=== PATIENT | male | born 1980 | race Caucasian/White ===

== ENCOUNTER 2025-05-13 10:47 | Outpatient (CLI) | payer MEDICARE, MEDICAID, SELFPAY ==
--- OUTSIDE RECORDS SUMMARY | 2025-05-13 10:51 | XMS_ITS | Clinical Summary ---
Author Organization Healthcare Address [address] [place] [address] Care Team Providers Care Bill Of Lading Clerk Name Role Phone Burke Bonilla MD Primary Care Provider [phone] Latricia Rome MD Unavailable Allergies Active Allergy Reactions Criticality Noted Date Comments Corticosteroids Palpitations Low 07/23/2021 Wound Dressing Adhesive Rash Low 01/02/2024 1Causes a rash Medications atorvastatin (Lipitor) 40 MG tablet 1 tab(s) orally once a day (at bedtime) Active LORazepam (Ativan) 2 MG tablet 3 (three) times a day if needed. 03/07/20 21 Active losartan (Cozaar) 100 MG tablet 1 (one) time each day. Active traZODone (Desyrel) 50 MG tablet 09/25/20 20 Active cholecalciferol (Vitamin D3) 1.25 MG (69984 UT) capsule Vitamin D3 Active Vitamin E 100 UNIT/GM cream 08/06/20 19 Active aspirin 81 MG EC tablet Aspir-Low 81 mg tablet,delayed release Daily Active calcium acetate (Phoslo) 667 MG capsule 4 capsules (2,668 mg) every 8 hours. 06/13/20 15 Active carvedilol (Coreg) 6.25 MG tablet 06/13/20 15 Active minoxidil (Loniten) 2.5 MG tablet Take 1 tablet (2.5 mg) by mouth daily. Don't take on dialysis days 08/06/20 19 Active nitroglycerin (Nitrostat) 0.4 MG SL tablet nitroglycerin 0.[address] 1 tablet as needed by sublingual route as directed. Active sertraline (Zoloft) 25 MG tablet 07/22/20 21 Active renal multivitamin formula (Renavite) tablet tablet Take 1 tablet by mouth daily. Active hydrALAZINE (Apresoline) 25 MG tablet hydralazine 25 mg tablet TAKE 1 TABLET BY MOUTH THREE TIMES DAILY Active Blood Glucose Monitoring Suppl (FreeStyle Lite) w/Device kit USE TO CHECK GLUCOSE DIRECTED ONCE DAILY 07/29/20 23 Active carvedilol (Coreg) 12.5 MG tablet Take 1 tablet (12.5 mg) by mouth 2 (two) times a day. 01/02/20 24 Active glimepiride (Amaryl) 4 MG tablet Take 1 tablet (4 mg) by mouth 1 (one) time each day. 07/25/20 23 Active FREESTYLE LITE test strip USE 1 STRIP TO CHECK GLUCOSE TWICE DAILY 11/16/19 24 Active midodrine (Proamatine) 10 MG tablet 01/13/20 24 Active sertraline (Zoloft) 50 MG tablet Take 1 tablet (50 mg) by mouth daily. 01/07/20 24 Active traZODone (Desyrel) 100 MG tablet Take 1 tablet (100 mg) by mouth nightly. 01/14/20 24 Active FreeStyle Lancets USE 1 TO CHECK GLUCOSE TWICE DAILY 07/29/20 23 Active glimepiride (Amaryl) 1 MG tablet Take 1 tablet (1 mg) by mouth daily before breakfast. Active levETIRAcetam (Keppra) 250 MG tablet Take 1 tablet by mouth every other day. Take 250 mg after HD on TTS 15 tablet 01/29/20 25 026 Active levETIRAcetam (Keppra) 500 MG tablet Take 1 tablet by mouth 2 times a day. 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 History of stroke 12/09/2022 Encounters Date Type Department Care Team Description 03/02/2025 Telephone [place] [facility] [address], [address] [place] [address] Stu Rosales MD Med Refill from Last 3 Months Family History Medical History Relation Name Comments Seizures Cousin Seizures Mother Conversions - Other Other Family h istory unknown Relation Name Status Comments Cousin Mother Other Social History Tobacco Use Types Packs/Day Years Used Date Smoking Tobacco: Every Day Cigarettes Smokeless Tobacco: Never Tobacco Cessation:Ready to Q uit: Not Asked; Counseling Given: Not Answered Alcohol Use Standard Drinks/Week Comments Never 0 (1 standard drink = 0.6 oz pur e alcohol) Sex and Gender Information Value Date Recorded Sex Assigned at Not on file Legal Sex Male 6:47 PM EDT Gender Identity Not on file Sexual Orientation Not on file Last Filed Vital Signs Vital Sign Reading Time Taken Comments Blood Pressure 136/82 11/29/2024 2:02 PM EST Pulse 75 11/29/2024 2:02 PM EST Temperature 36.8 C (98.3 F) 06/03/2024 5:42 AM EDT Respiratory Rate 20 06/03/2024 5:42 AM EDT Oxygen Saturation 98% 11/29/2024 2:02 PM EST Inhaled Oxygen Concentration - - Weight 75.8 kg (167 lb) 11/29/2024 2:02 PM EST Height 182.9 cm (6') 11/29/2024 2:02 PM EST Body Mass Index 22.65 11/29/2024 2:02 PM EST Plan of Treatment Upcoming Encounters Date Type Department Care Team (Late st Contact Info) Description 11/21/2025 2:00 PM EST Office Visit [place] [facility] [address] [place] [address] Stu Rosales MD [address] [place], [place] [id number] Health Maintenance Due Date Last Done Comments [facility]-Depression Screening 1979 [facility]-Medicare Annual Wellness (AWV) 1979 [facility]-Infant/Child/Adol SDOH Screenings 1979 [facility]- SDOH Screenings 1997 [facility]-Adult SDOH Screenings 1997 [facility]-DTaP,Tdap,and Td Vaccines (1 - Tdap) 1998 [facility]-Hepatitis B Vaccines (1 of 3 - 19+ 3-dose series) 1998 HPV Vaccines (1 - 3-dose SCDM series) 2006 CT Colonography 2024 Colonoscopy 2024 FIT-DNA 2024 FIT 2024 FOBT 2024 Sigmoidoscopy 2024 [facility]-Colorectal Cancer Screening 2024 [facility]-Influenza Vaccine (#1) 05/30/202507/12, 07/13/2021, 07/02/2019, Additional history exists [facility]-Pneumococcal Vaccine: Pediatrics (0 to 5 Years) and At-Risk Patients (6 to 49 Years) (3 of 3 - PCV) 06/25/2025 06/25/2024, 07/02/2019 [facility]-Zoster Vaccines (1 of 2) 2029 [facility]-HIV Screening Completed 06/02/2024 [facility]-Hepatitis C Screening Completed 06/02/2024, [id number] Vaccine Completed 06/25/2024, 09/12/2023, 12/07/2020 [facility]-HIB Vaccines Aged Out No longer e ligible based on patient's age to complete this topic [facility]-Hepatitis A Vaccines Aged Out No longer eligible based on patient's age to complete this topic [facility]-IPV Vaccines Aged Out No longer e ligible based on patient's age to complete this topic [facility]-Rotavirus Vaccines Aged Out No lo nger eligible based on patient's age to complete this topic Procedures Procedure Name Priority Date/Time Associated Diagnosis Comments HEPATITIS C ANTIBODY - ED W/REFLEX TO HCV QUANT PCR STAT 06/02/2024 11:39 PM EDT ED HIV 1/2 ANTIBODY/ANTIGEN SCREEN WITH REFLEX TO HIV I/II DIFFERENTIATION STAT 06/02/2024 11:39 PM EDT from Last 3 Months or Most Recently Relevant to Health Maintenance Results * ED HIV 1/2 Antibody/Antigen Screen w/Reflex to HIV 1/2 Differentiation (06/02/2024 11:39 PM EDT) HIV 1 & 2 Antibody/Antigen Screen Non Reactive Non Reactive 06/03/2024 1:01 AM EDT [facility] Comment:Screening for HIV 1 & 2 antibodies, and P24 antigen is NONREACTIVE. No confirmatory testing is required. Blood Venous blood specimen / Unknown Venipuncture / Unknown 06/02/2024 11:39 PM EDT 06/03/2024 12:17 AM EDT Yovani Belle MD LAB BLOOD ORDERABLES Final Re sult [facility] [address] [place] [address] * Hepatitis C Antibody - ED (06/02/2024 11:39 PM EDT) Hepatitis C Antibody Negative Negative 06/03/2024 1:08 AM EDT [facility]ALTH[facility] Blood Venous blood specimen / Unknown Venipuncture / Unknown 06/02/2024 11:39 PM EDT 06/03/2024 12:17 AM EDT Yovani Belle MD LAB BLOOD ORDERABLES Final Re sult Performing Organization Address City/[facility] Co de Phone Number [facility] [address] [place] [address] from Last 3 Months or Most Recently Relevant to Health [place] [address] [facility] Care Teams Bill Of Lading Clerk Relationship Specialty Start Date End Date Burke Bonilla MD [address] [place] [phone] PCP - General 02/09/21 Latricia Rome MD [address] [place] [id number] Resident Neurology 07/23/21
--- OUTSIDE RECORDS SUMMARY | 2025-05-13 10:51 | XMS_ITS | Encounter Summary ---
Author Organization [employer] ([place], [place], [place], [place]) Address [address] [place] [address] Care Team Providers Care [employer]gen[employer] Supervisor Name Role Phone Burke Bonilla MD Primary Care Provider Encounter Details Date Type Department Care Team (Late st Contact Info) Description 07/09/2021 Transcribed Document [facility] [place] [facility] [place] [address] ProviderNikki MD [address] [place] [address] Social History Tobacco Use Types Packs/Day Years Used Date Smoking Tobacco: Never Assessed Sex and Gender Information Value Date Recorded Sex Assigned at Male 03/26/2022 6:18 PM CDT Legal Sex Male 6:18 PM CDT Gender Identity Male 03/26/2022 6:18 PM CDT Sexual Orientation Not on file documented as of this encounter Miscellaneous Notes * Cerner Conversion Note - Nikki Castellanos MD - 07/09/2021 1:37 PM CDT Patient Education Materials Follows: Dialysis Fistulogram, Care After This sheet gives you information about how to care for yourself after your procedure. Your health care provider may also give you more specific instructions. If you have problems or questions, contact your health care provider. What can I expect after the procedure? After the procedure, it is common to have: ??? A small amount of discomfort in the area where the small, thin tube (catheter) was placed for the procedure. ??? A small amount of bruising around the fistula. ??? Sleepiness and tiredness (fatigue). Follow these instructions at home: Activity ??? Rest at home and do not lift anything that is heavier than 5 lb (2.3 kg) on the day after your procedure. ??? Return to your normal activities as told by your health care provider. Ask your health care provider what activities are safe for you. ??? Do not drive or use heavy machinery while taking prescription pain medicine. ??? Do not drive for 24 hours if you were given a medicine to help you relax (sedative) during your procedure. Medicines ??? Take xieo-zrc-woyypqi and prescription medicines only as told by your health care provider. Puncture site care ??? Follow instructions from your health care provider about how to take care of the site where catheters were inserted. Make sure you: ? Wash your hands with soap and water before you change your bandage (dressing). If soap and water are not available, use hand copy chaser. ? Change your dressing as told by your health care provider. ? Leave stitches (sutures), skin glue, or adhesive strips in place. These skin closures may need to stay in place for 2 weeks or longer. If adhesive strip edges start to loosen and curl up, you may trim the loose edges. Do not remove adhesive strips completely unless your health care provider tells you to do that. ??? Check your puncture area every day for signs of infection. Check for: ? Redness, swelling, or pain. ? Fluid or blood. ? Warmth. ? Pus or a bad smell. General instructions ??? Do not take baths, swim, or use a hot tub until your health care provider approves. Ask your health care provider if you may take showers. You may only be allowed to take sponge baths. ??? Monitor your dialysis fistula closely. Check to make sure that you can feel a vibration or buzz (a thrill) when you put your fingers over the fistula. ??? Prevent damage to your graft or fistula: ? Do not wear tight-fitting clothing or jewelry on the arm or leg that has your graft or fistula. ? Tell all your health care providers that you have a dialysis fistula or graft. ? Do not allow blood draws, IVs, or blood pressure readings to be done in the arm that has your fistula or graft. ? Do not allow flu shots or vaccinations in the arm with your fistula or graft. ??? Keep all follow-up visits as told by your health care provider. This is important. Contact a health care provider if: ??? You have redness, swelling, or pain at the site where the catheter was put in. ??? You have fluid or blood coming from the catheter site. ??? The catheter site feels warm to the touch. ??? You have pus or a bad smell coming from the catheter site. ??? You have a fever or chills. Get help right away if: ??? You feel weak. ??? You have trouble balancing. ??? You have trouble moving your arms or legs. ??? You have problems with your speech or vision. ??? You can no longer feel a vibration or buzz when you put your fingers over your dialysis fistula. ??? The limb that was used for the procedure: ? Swells. ? Is painful. ? Is cold. ? Is discolored, such as blue or pale white. ??? You have chest pain or shortness of breath. Summary ??? After a dialysis fistulogram, it is common to have a small amount of discomfort or bruising in the area where the small, thin tube (catheter) was placed. ??? Rest at home on the day after your procedure. Return to your normal activities as told by your health care provider. ??? Take tjui-gvw-jimcxiw and prescription medicines only as told by your health care provider. ??? Follow instructions from your health care provider about how to take care of the site where the catheter was inserted. ??? Keep all follow-up visits as told by your health care provider. This information is not intended to replace advice given to you by your health care provider. Make sure you discuss any questions you have with your health care provider. Document Revised: 10/16/2018 Document Reviewed: 10/16/2018 [employer] Patient Education ? 2020 [employer] Pharmacology Moderate Conscious Sedation, Adult, Care After This sheet gives you information about how to care for yourself after your procedure. Your health care provider may also give you more specific instructions. If you have problems or questions, contact your health care provider. What can I expect after the procedure? After the procedure, it is common to have: ??? Sleepiness for several hours. ??? Impaired judgment for several hours. ??? Difficulty with balance. ??? Vomiting if you eat too soon. Follow these instructions at home: For at least 24 hours after the procedure: ??? Rest. ??? Do not: ? Participate in activities where you could fall or become injured. ? Drive. ? Use machinery. ? Drink alcohol. ? Take sleeping pills or medicines that cause drowsiness. ? Make important decisions or sign legal documents. ? Take care of children on your own. Eating and drinking ??? Follow the diet recommended by your health care provider. ??? Drink enough fluid to keep your urine pale yellow. ??? If you vomit: ? Drink water, juice, or soup when you can drink without vomiting. ? Make sure you have little or no nausea before eating solid foods. General instructions ??? Have a responsible adult stay with you until you are awake and alert. ??? Take gjwm-nfh-rjgzmpc and prescription medicines only as told by your health care provider. ??? Do not smoke. ??? Keep all follow-up visits as told by your health care provider. This is important. Contact a health care provider if: ??? You are still sleepy or having trouble with balance after 24 hours. ??? You feel light-headed. ??? You keep feeling nauseous or you keep vomiting. ??? You develop a rash. ??? You have a fever. ??? You have redness or swelling around the IV site. Get help right away if: ??? You have trouble breathing. ??? You have new-onset confusion at home. Summary ??? After the procedure, it is common to feel sleepy, have impaired judgment, or feel nauseous if you eat too soon. ??? Rest after you get home. Know the things you should not do for at least 24 hours after the procedure. ??? Follow the diet recommended by your health care provider and drink enough fluid to keep your urine pale yellow. ??? Get help right away if you have trouble breathing or new-onset confusion at home. This information is not intended to replace advice given to you by your health care provider. Make sure you discuss any questions you have with your health care provider. Document Revised: 08/10/2020 Document Reviewed: 08/10/2020 Elsevier Patient Education ? 2020 [employer] documented in this encounter Plan of Treatment Not on file documented as of this encounter Visit Diagnoses Not on filedocumented in this encounter Care Teams Liqu[employer] Stores [employer] Agencies Supervisor Relationship Specialty Start Date End Date uBrke Bonilla MD [address] [place] [phone] PCP - General Pediatrics 05/23/23 documented as of this encounter
--- OUTSIDE RECORDS SUMMARY | 2025-05-13 10:51 | XMS_ITS | Encounter Summary ---
Author Organization [employer] ([place], [place], [place], [place]) Address [address] [place] [address] Care Team Providers Care Extr[employer] Press Supervisor Name Role Phone Burke Bonilla MD Primary Care Provider [phone] Encounter Details Date Type Department Care Team (Late st Contact Info) Description 07/09/2021 Transcribed Document [facility] [place] [facility] [place] [address] ProviderNikki MD [address] [place] [address] Social History Tobacco Use Types Packs/Day Years Used Date Smoking Tobacco: Never Assessed Sex and Gender Information Value Date Recorded Sex Assigned at Male 03/26/2022 6:18 PM CDT Legal Sex Male 6:18 PM CDT Gender Identity Male 03/26/2022 6:18 PM CDT Sexual Orientation Not on file documented as of this encounter Miscellaneous Notes * Cerner Conversion Note - Nikki ProviderMD - 07/09/2021 2:36 PM CDT Nursing Discharge Summary Entered On: 07/09/2021 14:36 EDT Performed On: 07/09/2021 14:36 EDT by Sae Vera RN Discharge Documentation Discharge Date/Time : 07/09/2021 14:35 EDT Patient Disposition, General : Discharge Discharge To : Home with ambulatory/outpatient follow-up Mode Of Departure, General Discharge : Private vehicle Accompanied By, Discharge : Friend IV Discontinued : Not applicable Personal Belongings With Patient : Yes Pt's Own Supply of Medications Returned : No patient supply of medications to return Prescriptions Given to Patient : No Medications Given to Patient : No Discharge Instructions Reviewed With, Opportunity For Questions Given : Patient, Friend Patient Education Completed : Yes Teaching Method : Explanation, Printed materials Teaching Evaluation : Verbalizes understanding Sae Vera RN - 07/09/2021 14:36 EDT Electronically signed by [facility] Conversion Waste Management Engineer Cerner at 01/15/2023 10:18 AM CDT documented in this encounter Plan of Treatment Not on file documented as of this encounter Visit Diagnoses Not on filedocumented in this encounter Care Teams [employer] Supervisor Relationship Specialty Start Date End Date Burke Bonilla MD [address] [id number] PCP - General Pediatrics 05/23/23 documented as of this encounter
--- OUTSIDE RECORDS SUMMARY | 2025-05-13 10:51 | XMS_ITS | Encounter Summary ---
Author Organization [employer] ([place], [place], [place], [place]) Address [address] [place] [address] Care Team Providers Care Deputy Director Of Finance Name Role Phone Ce Bonilla MD Primary Care Provider Encounter Details Date Type Department Care Team (Late st Contact Info) Description 07/09/2021 Transcribed Document [facility] Family Medicine [facility] [place] [address] ProviderNikki MD [address] [place] [address] Social History Tobacco Use Types [...] Conversion Note - Nikki ProviderMD - 07/09/2021 1:39 PM CDT [facility] [place] [id number] MILAD SALEH :1980 Visit Time:07/09/2021 Your Visit Summary Your Care Team Admitting Physician - LUCY NAVAS (REF), MD-INT Attending Physician - LUCY NAVAS (REF), MD-INT Primary Care Physician - CE BONILLA (REF), MD-INT Referring Physician - LUCY NAVAS (REF), -INT Your Diagnosis End stage renal disease, End stage renal disease These Are Your Goals No qualifying data available. Discharge Vitals Heart Rate (Monitored) 86 Respiratory Rate 16 Blood Pressure 168/78 What to do next Instructions From Your Care Team No driving. Rest/relax today. Watch for signs of bleeding surgical site. Keep bandage clean/dry and intact. Have dialysis nurses remove sutures and stabilizer at next dialysis. Discharge Follow Up Instructions: Activity: Rest and relax for the next 24hours, then advance activity as tolerated., Discharge Activity: Other (use Special Instructions) Diet: Discharge Diet: Resume usual diet as tolerated Medications What How Much When Instructions Next Dose aspirin (aspirin 81 mg oral tablet) 1 Tablet(s) Oral At Bedtime atorvastatin (Lipitor 40 mg oral tablet) 1 Tablet(s) Oral At Bedtime calcium acetate (PhosLo 667 mg oral capsule) Oral 4 caps with meals and 1 cap with snacks carvedilol 6.25 Milligram(s) Oral Two Times A Day cholecalciferol (Vitamin D3) 2,000 International Units Oral Every Day levETIRAcetam (Keppra 750 mg oral tablet) 1 Tablet(s) Oral Two Times A Day LORazepam 0.5 Milligram(s) Oral Two Times A Day as needed for Agitation losartan (losartan 100 mg oral tablet) 1 Tablet(s) Oral At Bedtime minoxidil (minoxidil 2.5 mg oral tablet) 3 Tablet(s) Oral Two Times A Day multivitamin (Jennifer-Neha oral tablet) 1 Tablet(s) Oral At Bedtime sertraline (Zoloft 25 mg oral tablet) Oral At Bedtime traZODone (traZODone 50 mg oral tablet) 1 Tablet(s) Oral At Bedtime Take your medications faithfully. Do NOT skip medication. Do NOT stop taking medications without the direction of a physician. Carry a list of your medications with you at all times, and take this medication list with you to your first follow up visit. Report any side effects. Avoid herbal remedies unless discussed with your physician. As part of your treatment plan, your physician may have prescribed a limited course of a controlled substance. This medication may be given to help people with moderate or severe pain or for other medical conditions, but there are risks involved with treatment. Common side effects may include nausea, constipation, drowsiness, sweating, itching, dry mouth, and rash. More serious side effects may include cognitive and motor impairment, like problems with thinking, concentrating, alertness, and movement (e.g. slowed reflexes), and driving and operating heavy machinery can be dangerous. It is important for you to talk to your physician if you have these side effects or questions. These controlled substances can produce physical dependence and be habit-forming if taken for an extended period of time, which means that the body has gotten used to them and may experience withdrawal symptoms if they are abruptly stopped. Withdrawal symptoms can include runny nose, sweating, goose bumps, diarrhea, abdominal cramping, rapid heartbeat, difficulty sleeping, and nervousness. Please dispose of unused and medications per your retail pharmacy guidance. Allergies Tape No Known Medication Allergies Immunizations This Visit No Immunizations Found Education Materials Moderate Conscious Sedation, Adult, Care After This [...] you are awake and alert. ??? Take slad-fzj-kmaiqhr and prescription medicines only as told by [...] provider. Document Revised: 08/10/2020 Document Reviewed: 08/10/2020 [employer] Patient Education ?? 2020 [employer] Dialysis Fistulogram, Care After This sheet gives [...] (sedative) during your procedure. Medicines ??? Take vxkb-cja-dlalkxz and prescription medicines only as told by your health care provider. Puncture site care ??? Follow instructions from your health care provider about how to take care of the site where catheters were inserted. Make sure you: ? Wash your hands with soap and water before you change your bandage (dressing). If soap and water are not available, use hand toolmaker grade three. ? Change your dressing as told by [...] by your health care provider. ??? Take mepr-bsm-npjdedt and prescription medicines only as told by [...] provider. Document Revised: 10/16/2018 Document Reviewed: 10/16/2018 [employer] Patient Education ?? 2020 [employer] Emergency Awareness and Preventative Care STROKE is an EMERGENCY Every Minute Counts Act FAST and Check for these signs: FACE Does the face look uneven? ARM Does one arm drift down? SPEECH Does their speech sound strange? TIME Call at any sign of stroke Stroke Risk Factors Atrial Fibrillation (irregular heartbeat) Diabetes Family history of stroke Heart Disease Heavy alcohol use High Blood Pressure High Cholesterol Physical inactivity and obesity Smoking Cigarette Smoking The facts are clear, cigarette smoking will shorten your life. Smoking can cause many illnesses along the way. As a healthcare provider, we recommend that you stop smoking. Assistance with quitting is available by contacting 7-198-ANNC-NOW. This is a free resource providing counseling, support, and referral. Or you may contact your personal physician. National Suicide Prevention Lifeline: The National Suicide Prevention Lifeline is a national network of local crisis centers that provides free and confidential emotional support to people in suicidal crisis or emotional distress 24 hours a day, 7 days a week. Don't Wait! Stop a Heart Attack Before it Starts What is a heart attack? A heart attack is damage or to a part of the heart from severely decreased or lack of blood flow to the heart. Over time, arteries can become narrow from the buildup of fat and cholesterol, which is called plaque. The plaque can rupture causing a blood clot to form. When the blood clot forms, the artery can become severely narrowed or completely blocked, causing a heart attack. Heart attack is the leading cause of in the [place]. 85% of muscle damage occurs within the first 2 hours. Delay in the recognition of heart attack symptoms increases the chances of . Know the early symptoms of a heart attack: Nausea Feeling of fullness in chest Jaw Pain Pain that travels down one or both arms Fatigue/being tired Anxiety Back Pain Chest pressure, squeezing, or discomfort Shortness of breath Sweating, or a cold sweat Feeling of impending doom There are unusual signs of a heart attack, too! Women, the elderly, and diabetics may present with atypical symptoms: Fainting/dizziness Weakness Confusion Risk Factors for a Heart Attack Some heart disease risk factors, such as age and family history, cannot be changed. Others, like smoking and lack of exercise, can be changed. Smoking High Cholesterol High Blood Pressure Family History Obesity Age Gender (Males are at higher risk) Lack of Exercise Diabetes Diet Stress Excessive Alcohol Intake If you or someone you know is experiencing the signs and symptoms of a heart attack, DON???T DELAY. Call immediately and seek help. If someone collapses, perform CPR! Do not attempt to drive if you are having symptoms of heart attack. Hands-Only CPR Why Hands-Only CPR? Hands-Only CPR has been shown to be as effective as conventional CPR for cardiac arrests that occur outside of a hospital. Survival depends on immediately receiving CPR from someone nearby. How do you perform Hands-Only CPR? There are two easy steps: Call if you see a teen or adult collapse Push hard and fast in the center of the chest at a beat of 100 beats per minute. Save a life! 4 WAYS TO GET AHEAD OF SEPSIS SEPSIS is a MEDICAL EMERGENCY. Time matters! Infections put you and your family at risk for a life-threatening condition called sepsis. Sepsis is the body's extreme response to an infection. It is life-threatening, and without timely treatment, sepsis can rapidly lead to tissue damage, organ failure, and . Sepsis happens when an infection you already have-in your skin, lungs, urinary tract or somewhere else-triggers a chain reaction throughout your body. 1 PREVENT INFECTIONS Take good care of chronic conditions. Talk to your doctor about getting the recommended vaccines. 2 PRACTICE GOOD HYGIENE Wash your hands frequently. Keep cuts or open sores clean and covered until they are healed. 3 KNOW THE SYMPTOMS Confusion or disorientation Shortness of breath High heart rate Fever, shivering, or feeling very cold Extreme pain or discomfort Clammy or sweaty skin 4 ACT FAST Get medical care IMMEDIATELY if you suspect sepsis or if you have an infection that is not getting better or is getting worse. To learn more about sepsis and how to prevent infections, visit www.cdc.gov/sepsis. Test Results Laboratory or Other Results This Visit (last charted value for your 07/09/2021 visit) No Laboratory or Other Results This Visit Patient Name:MILAD SALEH I have received and understand this information and was given the opportunity to ask questions. Patient/Night Nurse Name: Patient/Night Nurse Signature: Relationship to Patient: Clinician/Hospital Night Nurse Signature: Date: documented in this encounter Plan of Treatment Not on file documented as of this encounter Visit Diagnoses Not on filedocumented in this encounter Care Teams Deputy Director Of Finance Relationship Specialty Start Date End Date Ce Bonilla MD [address] [place], [place] [phone] PCP - General Pediatrics 05/23/23 documented as of this encounter
--- OUTSIDE RECORDS SUMMARY | 2025-05-13 10:51 | XMS_ITS | Encounter Summary ---
Author Organization [employer] ([place], [place], [place], [place]) Address [address] [place] [address] Care Team Providers Care Vat Overhauler Name Role Phone Burke Bonilla MD Primary Care Provider [phone] Encounter Details Date Type Department Care Team (Late st Contact Info) Description 07/09/2021 Transcribed Document [facility] [place] Family Medicine [facility] [place] [address] ProviderNikki MD [address] [place] [address] Social History Tobacco Use Types [...] Conversion Note - Nikki ProviderMD - 07/09/2021 1:19 PM CDT Patient: MILAD SALEH Age: 41 years Sex: Male : 1980 Associated Diagnoses: None Author: JESSICA AGUIRRE MD-RAD Pre-OP/Procedure Diagnosis: Renal failure, poorly functioning dialysis access Post-OP/Procedure Diagnosis: Same Procedure Performed: Fistula/ graft evaluation Procedural MD: Dary Sedation: 2 mg of Versed iv and 100 mcg of Fentynal iv Findings: Evaluation demonstrates moderate stenosis at the mid fistula. Stenosis dilated to 10 mm. There was a good result after angioplasy. Complications: None EBL: <30 ml Specimen(s) Removed: None Full report to follow. documented in this encounter Plan of Treatment Not on file documented as of this encounter Visit Diagnoses Not on filedocumented in this encounter Care Teams Vat Overhauler Relationship Specialty Start Date End Date Burke Bonilla MD [address] [facility] [address] [phone] PCP - General Pediatrics 05/23/23 documented as of this encounter
--- OUTSIDE RECORDS SUMMARY | 2025-05-13 10:51 | XMS_ITS | Clinical Summary ---
Author Organization [employer] ([place], [place], [place], [place]) Address [address] [place] [address] Care Team Providers Care Master Ocean Yacht Name Role Phone Burke Bonilla MD Primary Care Provider [phone] Allergies Active Allergy Reactions Criticality Noted Date Comments Corticosteroids (Glucocorticoids) Palpitations Low 07/23/2021 Tape, Occlusive Adhesive 01/02/2024 1Causes a rash Medications omega-3s/dha/epa/f moi oil/D3 (VITAMIN-D + OMEGA-3 ORAL) Vitamin D3 Activ e carvediloL (COREG) 6.25 MG tablet Take 1 tablet (6.25 mg total) by mouth 2 (two) times daily. Active levETIRAcetam (KEPPRA) 750 MG tablet Take 1 tablet (750 mg total) by mouth 2 (two) times daily. 03/12/20 23 Active atorvastatin (LIPITOR) 40 MG tablet TAKE 1 TABLET BY MOUTH ONCE DAILY AT NIGHT AT BEDTIME 04/21/20 23 Active losartan (COZAAR) 100 MG tablet Take 1 tablet (100 mg total) by mouth daily. 05/11/20 23 Active sertraline (ZOLOFT) 50 MG tablet Take 1 tablet every day by oral route. Active calcium acetate 667 mg Tab Take 4 capsules 3 times a day by oral route. Active minoxidiL (LONITEN) 2.5 MG tablet Take 3 tablets (7.5 mg total) by mouth 2 (two) times daily. 02/12/20 23 Active Jennifer-Nhea 0.8 mg Tab tablet Take 1 tablet by mouth daily. 05/16/20 23 Active aspirin 81 MG chewable tablet daily. Acti ve LORazepam (ATIVAN) 2 MG tablet Take 1 tablet 3 times a day by oral route. Active traZODone (DESYREL) 100 MG tablet Every night at bedtime 50mg Active glimepiride (AMARYL) 4 MG tablet Take 1 tablet (4 mg total) by mouth every evening before dinner. 07/25/20 23 Active vitamin E 400 UNIT capsule Take 1 capsule (400 Units total) by mouth daily. Active nitroglycerin (NITROSTAT) 0.4 MG SL tablet nitroglycerin 0.[address] 1 tablet as needed by sublingual route as directed. Active midodrine (PROAMATINE) 10 MG tablet Take by mouth as needed With hemodialysis. 03/16/20 24 Active cinacalcet (SENSIPAR) 60 MG tablet 1 (one) time each day. Active cholecalciferol (VITAMIN D3) 125 mcg (5,000 unit) tablet Take 1 tablet (5,000 Units total) by mouth daily. Active carvediloL (COREG) 12.5 MG tablet Take 1 tablet (12.5 mg total) by mouth 2 (two) times daily. 04/07/20 24 Active ondansetron (ZOFRAN-ODT) 4 MG disintegrating tablet Take 1 tablet (4 mg total) by mouth every 6 (six) hours as needed for nausea for up to 12 doses. 12 tablet 04/22/20 24 Active Active Problems Problem Noted Date Diagnosed Date Anxiety 04/12/2024 04/12/2024 Migraine 04/12/2024 04/12/2024 Retinopathy 04/12/2024 04/12/2024 DM (diabetes mellitus) 04/12/2024 Depression 05/23/2023 Diabetes mellitus, type II 05/23/2023 Encounter for hemodialysis 05/23/2023 Hypertension 05/23/2023 Hyperlipidemia 05/23/2023 Seizure 05/23/2023 Renal disease 05/23/2023 Tobacco user 02/13/2018 04/12/2024 Hyperlipidemia 01/31/2016 04/12/2024 Overview (04/12/2024): From Automated Load;Provider: Lyubov Jenkins;Status: Active End-stage renal disease 08/06/2015 04/12/20 24 Overview (04/12/2024): From Automated Load;Provider: Tee Boyce;Status: Active Hypertensive disorder 06/14/2015 04/12/2024 Overview (04/12/2024): From Automated Load;Provider: Lyubov Jenkins;Status: Active Resolved Problems Problem Noted Date Diagnosed Date Resolved Date Coronary artery disease 05/23/202303/29 History of obstructive sleep apnea 05/23/2023 04/12/2024 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 04/12/2024 History of stroke 12/09/2022 04/12/2024 Social History Tobacco Use Types Packs/Day Years Used Date Smoking Tobacco: Every Day Cigarettes Smokeless Tobacco: Never Tobacco Cessation:Ready to Q uit: Not Asked; Counseling Given: Not Answered Alcohol Use Standard Drinks/Week Comments Not Currently 0 (1 standard drink = 0.6 oz pur e alcohol) Family and Community Support Answer Rhett e Recorded Help with Day to Day Activities Not on file 10/17/2023 Feeling Lonely or Isolated Not on file 10/17 Educational Attainment Answer Date Santy rded Speak language other than [place] at home Not on file 10/17/2023 Want help with school or training Not on file 10/17/2023 Substance Use Answer Date Recorded Used prescription meds for non-medical reasons N ot on file 10/17/2023 Used illegal drugs past 12 months Not on file 10/17/2023 Sex and Gender Information Value Date Recorded Sex Assigned at Male 03/26/2022 6:18 PM CDT Legal Sex Male 6:18 PM CDT Gender Identity Male 03/26/2022 6:18 PM CDT Sexual Orientation Not on file Last Filed Vital Signs Vital Sign Reading Time Taken Comments Blood Pressure 119/62 08/11/2024 9:45 AM EST Pulse 70 08/11/2024 10:30 AM EST Temperature 36.2 C (97.1 F) 04/22/2024 6:19 PM EDT Respiratory Rate 3 08/11/2024 10:30 AM EST Oxygen Saturation 99% 08/11/2024 10:30 AM EST Inhaled Oxygen Concentration - - Weight 76.2 kg (168 lb) 08/11/2024 7:42 AM EST Height 182.9 cm (6') 08/11/2024 7:42 AM EST Body Mass Index 22.78 08/11/2024 7:42 AM EST Plan of Treatment Health Maintenance Due Date Last Done Comments CT Colonography 1980 Colonoscopy 1980 Colorectal Cancer Screening 1980 FOBT/FIT 1979 Fit-DNA (Cologuard) 1980 Sigmoidoscopy 1979 Diabetic Eye Exam 1989 Tobacco Cessation Counseling and Screening (12+) 06/27 HIV Screening 1994 Hepatitis C Screening 1997 DTAP/TDAP/TD VACCINES (1 - Tdap) 1998 Lipid Panel 2014 Medicare Initial AWV G0438 06/30/2015 Pneumococcal Vaccine: 0-49 Years (2 of 2 - PCV) 201907/02/2019 Hemoglobin A1C 05/23/2023 COVID-19 VACCINE (2 - season) 05/30/202407/2021 Influenza Vaccine (#1) 2025 Medical Devices Implanted Type Area Laborer Landscape Device Identifier Shelf Expiration Date Model / Serial / Lot Grft Vasc Bovn Collagen 6x30 [id number] - [id number] Implanted:Qty : 1 on 08/20/2023 by Parviz Lubin MD at [facility] IMPLANTS Left: Arm Upper [employer] 06/26/2024 [id number] / / [id number] Graft Vasc Bovn Collagen 6x50 Ag750 - [id number] Implanted:Qty : 1 on 01/02/2024 by Parviz Lubin MD at [facility] IMPLANTS N/A: Arm Upper [employer]:VASC SURG 06/26/2026 AG750 / / [id number] [place] [address] MEDICARE PART A B Advance Directives For more information, please contact: [phone] * Full Code (Latest Code Status on File) Date Activated Date Inactivated Comments 05/23/2023 12:40 PM 05/24/2023 4:26 AM Care Teams Master Ocean Yacht Relationship Specialty Start Date End Date Burke Bonilla MD [address] [phone] PCP - General Pediatrics 05/23/23
--- OUTSIDE RECORDS SUMMARY | 2025-05-13 10:51 | XMS_ITS | Encounter Summary ---
Author Organization [employer] ([place], [place], [place], [place]) Address [address] [place] [address] Care Team Providers Care Leather Scraper Name Role Phone Burke Bonilla MD Primary Care Provider [phone] Encounter Details Date Type Department Care Team (Late st Contact Info) Description 07/09/2021 Transcribed Document [facility] [place] [address] ProviderNikki MD [address] [place] [address] Social History Tobacco Use Types Packs/Day Years Used Date Smoking Tobacco: Never Assessed Sex and Gender Information Value Date Recorded Sex Assigned at Male 03/26/2022 6:18 PM CDT Legal Sex Male 6:18 PM CDT Gender Identity Male 03/26/2022 6:18 PM CDT Sexual Orientation Not on file documented as of this encounter Miscellaneous Notes * Cerner Conversion Note - Historical ProviderMD - 07/09/2021 12:02 PM CDT Pre Procedure Adult Entered On: 07/09/2021 12:10 EDT Performed On: 07/09/2021 12:02 EDT by Sae Vera RN Height and Weight, Clinical Dosing Height Source : Stated Height Entry Format : [place] Height, Feet : 6 ft(Converted to: 183 cm, 72 Inch) Height, Inches : 0 Inch(Converted to: 0 ft 0 Inch, 0.00 cm) Clinical Height : 182.88 cm Weight Source : Standing scale Weight Entry Format : [place]alt Clinical Dosing Weight : 80.45 kg Weight, Pounds : 177 lb Body Surface Area (BSA) : 2.02 m2 Body Mass Index : 24.1 kg/m2 (HI) [place] Body Weight : 77 kg Sae Vera RN - 07/09/2021 12:02 EDT Health Histories Smoking Status : 10 or more cigarettes (1/2 pack or more)/day in last 30 days Smokeless Tobacco Status : Never Desires Tobacco Cessation Medication : No Reason for No Tobacco Cessation Medication : Refuses FDA approved medications Implant/Device Type, Scene And Lighting Design Lecturer and Model : ffistula Sae Vera RN - 07/09/2021 12:02 EDT Social History (As Of: 07/09/2021 12:10:15 EDT) Tobacco: Smoking Status Current every day smoker. Years of Use: 30. Packs/Tins Daily: 1. (Last Updated: 03/23/2015 06:24:19 EDT by ALESSANDRO CUELLAR, RN) Smoking Status Current every day smoker. Five or more cigarettes per day Smoking Frequency Within Last 30 Days. Use in Last 12 Months: Cigarettes. Packs/Tins Daily: 1.5. Used Tobacco, but Quit No. Second Hand Smoke Exposure: Yes. (Last Updated: 07/17/2016 01:16:47 EDT by DARÍO SCHWARTZ RN) Alcohol: Alcohol Use History No. (Last Updated: 12/22/2014 08:35:32 EDT by ALESSANDRO CUELLAR, RN) Substance Abuse: Drug Use Hx: No. (Last Updated: 05/14/2017 10:23:34 EDT by Maribel Spivey, YOLIS) Infectious Disease History Does patient have symptoms of COVID-19? : No Has the Patient Been Tested for COVID-19 in the last 14 days? : Yes, Patient stated results Negative Does the Patient state known exposure to a COVID-19 positive case in the last 14 days? : No Patient Vaccinated for COVID-19 : Fully vaccinated Sae Vera RN - 07/09/2021 12:02 EDT Infectious Disease Risk Screening Grid Cough < 2 wks of unknown origin : NO Cough > 2 weeks : NO Blood in Sputum : NO Fever or self-reported Fever : NO Rash of unknown origin : NO Headache : NO Stiff neck : NO Night Sweats : NO Unexplained Weight Loss : NO Diarrhea (3 episode per day) : NO Sae Vera RN - 07/09/2021 12:02 EDT Physical contact outside [place] in the last 30 days : No Hospitalized in Foreign Country : No Infectious Disease History : Chicken pox/Shingles INF Disease TB Screening Calc : 0 INF Disease Recent Travel Calc : 0 Sae Vera RN - 07/09/2021 12:02 EDT COVID19 PreProcedure Screening Is this an Emergent or Add on Procedure? : No Date PreProcedure COVID-19 test known? : Yes Date of PreProcedure COVID-19 : 07/05/2021 EDT Has patient been isolated since the test : No Exposed to COVID19 symptoms since test? : No Sae Vera RN - 07/09/2021 12:02 EDT Anesthesia/Transfusion History Family History of Anesthesia Reaction : Prior transfusion without reaction Blood Transfusion Acceptable to Patient : Yes Transfusion History : Prior anesthesia without reaction Family History of Anesthesia Reaction : None Sae Vera RN - 07/09/2021 12:02 EDT Functional Assessment Living Situation : Home Current Home Treatments : None Sae Vera RN - 07/09/2021 12:02 EDT [place] Suicide Severity Rating Scale (C-SSRS) CSSRS Past Month Wish to be : No CSSRS Past Month Suicidal Thoughts : No CSSRS Lifetime Suicide Behavior : No Suicide Severity Rating Score : 0 Suicide Severity Rating : No Additional Care Required at this time Thoughts of Harming/Killing Others : No Sae Vera RN - 07/09/2021 12:02 EDT Psychosocial History Chronic/Terminal Illness w/Freq Visits : No Do You Have a History of the Following? : Anxiety, Depression Currently in Unsafe Situation : No Sae Vera RN - 07/09/2021 12:02 EDT Advance Directive Patient has Advance Directive *Q : No, patient refuses Advance Directive information Sae Vera RN - 07/09/2021 12:02 EDT General Info Preferred Name : MILAD Support Person/Pt Rep Name : jesse addison Contact Password : [email or web address] Support Person/Pt Rep Contact Information : [phone] Want Family/Rep/Phys Notified of Admit : No Emergency Contact #1 : Jesse Saleh Emergency Contact #1 Emergency Contact #1 Relationship : cousin Emergency Contact #2 : na Emergency Contact #2 Phone Number : eddie Emergency Contact #2 Relationship : na Primary Language : Sierra Leonean Preferred Communication Mode : Verbal Communication Barrier : None Manager Of Employee Relations Needed : No Sae Vera RN - 07/09/2021 12:02 EDT Sleep Apnea Risk Assmt BiPAP/CPAP Ordered for Home Use : No Hx of Obstructive Sleep Apnea Diagnosis : Yes Age over 50 Years Old : No Gender Male : Yes Sae Vera RN - 07/09/2021 12:02 EDT Shaan Scale Shaan Sensory Perception : No impairment Shaan Moisture : Rarely moist Shaan Activity : Walks occasionally Shaan Mobility : Slightly limited Shaan Nutrition : Adequate Shaan Friction and Shear : No apparent problem Shaan Score : 20 Sae Vera RN - 07/09/2021 12:02 EDT Fall Risk Scales ABCs Fall Injury Risk Identification : None PATEL Hx Falls Immediate/Within 3 Months : No Patel Secondary Diagnosis : Yes AMANDA Use of Ambulatory Aid : Bed rest/Nurse assist PATEL IV Therapy or IV Access : No Amanda Gait/Transferring : Weak Patel Mental Status : Oriented to own ability Patel Fall Risk Score : 25 PATEL Fall Scale Risk Level : 25-45 Medium Risk [place] Fall Interventions : Adequate lighting, Assistive devices within reach, Bed in low position, Call device within reach, Fall prevention handout/education per facility policy, Hourly comfort/safety rounds, Non-slip footwear, Personal items within reach, Reinforced to call for assistance before getting out of bed, Room free of clutter/spills, Upper side-rails up, Wheels locked, Wires/Cords secured Sae Vera RN - 07/09/2021 12:02 EDT Valuables and Belongings Valuables and Belongings : Clothing, Jewelry, Personal devices, Personal items, No comfort items, No assistive devices, No respiratory devices, No medications Clothing : Common streetwear Clothing Disposition : With patient Personal Device Disposition : With family Jewelry : Earrings Jewelry Disposition : With patient Personal Devices : Glasses Personal Items : Wallet Personal Items Disposition : With family, Declines to send to security/safe Sae Vera RN - 07/09/2021 12:02 EDT [place] Coma Mike Best Motor Response : Obey commands [place] Best Verbal Response : Oriented [place] Eye Opening Response : Spontaneous Mike Coma Score : 15 Sae Vera RN - 07/09/2021 12:02 EDT Electronically signed by [facility] Conversion Marine Mammal Trainer Cerner at 01/15/2023 10:29 AM CDT documented in this encounter Plan of Treatment Not on file documented as of this encounter Visit Diagnoses Not on filedocumented in this encounter Care Teams Leather Scraper Relationship Specialty Start Date End Date Burke Bonilla MD [address] [facility] [address] [place] [id number] PCP - General Pediatrics 05/23/23 documented as of this encounter
--- OUTSIDE RECORDS SUMMARY | 2025-05-13 10:51 | XMS_ITS | Patient Health Record ---
Author Organization [facility] [place] Address [address] [place] [address] Care Team Providers Care Field Checker Name Role Phone LAINEYCATARINOCASANDRAMARBINESPINOZARossi Primary Care Provider Roxy ALVAREZ, [facility] Reason For Referral No Information Medications Medication SIG (Take, Route, Frequency, Duration) Notes Start Date End Date Status Metoprolol Succinate ER 50 mg 1 (one) tablet(s) 2 2 times a day; Duration: 01/14/2014 Active Levemir FlexPen 100 units/mL 40 units Units sub Q subcutaneous once a day at bedtime; Duration: 01/14/2014 Active Diovan HCT 12.5 mg-160 mg 1 (one) tablet oral oral once a day; Duration: 01/14/2014 Active NovoLOG FlexPen 100 units/mL 10 (ten) units subcu subcutaneous 3 times a day; Duration: 01/14/2014 Active amLODIPine Besylate 10 mg 1 (one) tablet(s) or orally once a day; Duration: 01/14/2014 Active Problems Problem Type SNOMED Code ICD Code Onset Dates Problem Status W/U Status Risk Notes Problem 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) (260067538) Diabetes with renal manifestations, type II or unspecified type, not stated as uncontrolled (250.40) 09/11/20 11 Active confirmed Giancarlo-Bin Problem Type I diabetes mellitus uncontrolled (776662906) Diabetes mellitus without mention of complication, type I [juvenile type], uncontrolled (250.03) 09/11/20 11 Active confirmed Giancarlo-Bin Problem Essential hypertension (70274162) Unspecified essential hypertension (401.9) 09/11/20 11 Active confirmed Giancarlo-Bin Problem Chronic kidney disease stage 4 (102581973) Chronic kidney disease, stage 4 (severe) (N18.4) 09/11/20 11 Active confirmed Giancarlo-Bin Plan Of Treatment No Information Insurance Providers Payer Name Payer Address Payer Phone Subscriber Number Group Number Insured Name Patient Relationship to Insured Coverage Start Date Coverage End Date [facility] [address] [place] [address] [id number] Zac Catalan Self - patient is the insured Medical (General) History Surgical History Surgery Date(Month/Year) Heart Surgery
--- OUTSIDE RECORDS SUMMARY | 2025-05-13 10:51 | XMS_ITS | Referral Summary ---
Author Organization [employer] ([place], [place], [place], [place]) Address [address] [place] [address] Care Team Providers Care Hr Internship Name Role Phone Burke Bonilla MD Primary Care Provider [phone] Allergies Active Allergy Reactions Criticality Noted Date [...] 2 (two) times daily. 02/12/20 23 Active Jennifer-Neha 0.8 mg Tab tablet Take 1 tablet [...] Date Santy rded Speak language other than Nigerian at home Not on file 10/17/2023 Want [...] 08/11/2024 7:42 AM EST Plan of Treatment Not on file Medical Devices Implanted Type Area Intervention Analyst Device Identifier Shelf Expiration Date Model / Serial / Lot Grft Vasc Bovn Collagen 6x30 [id number] - [id number] Implanted:Qty : 1 on 08/20/2023 by Parviz Lubin MD at [facility] IMPLANTS Left: Arm Upper [employer] 06/26/2024 [id number] / / [id number] Graft Vasc Bovn Collagen 6x50 Ag750 - [id number] Implanted:Qty : 1 on 01/02/2024 by Parviz Lubin MD at [facility] IMPLANTS N/A: Arm Upper [employer]:VASC SURG 06/26/2026 [id number] / / [id number] Insurance MEDICARE PART A B Advance Directives For more information, please contact: [phone] * Full Code (Latest Code Status on File) Date Activated Date Inactivated Comments 05/23/2023 12:40 PM 05/24/2023 4:26 AM Care Teams Hr Internship Relationship Specialty Start Date End Date Burke Bonilla MD [address] [place] [address] PCP - General Pediatrics 05/23/23
--- OUTSIDE RECORDS SUMMARY | 2025-05-13 10:51 | XMS_ITS | Encounter Summary ---
Author Organization [employer] ([place], [place], [place], [place]) Address [address] [place] [address] Care Team Providers Care Green Chain Operator Name Role Phone Burke Bonilla MD Primary Care Provider [phone] Encounter Details Date Type Department Care Team (Late st Contact Info) Description 07/09/2021 Transcribed Document [facility] [place] [facility] [place] [address] ProviderNikki MD [address] [place], [place] [id number] Social History Tobacco Use Types Packs/Day Years Used Date Smoking Tobacco: Never Assessed Sex and Gender Information Value Date Recorded Sex Assigned at Male 03/26/2022 6:18 PM CDT Legal Sex Male 6:18 PM CDT Gender Identity Male 03/26/2022 6:18 PM CDT Sexual Orientation Not on file documented as of this encounter Miscellaneous Notes * Cerner Conversion Note - Historical ProviderMD - 07/09/2021 1:39 PM CDT Stroke/Warfarin Instructions Entered On: 07/09/2021 13:39 EDT Performed On: 07/09/2021 13:39 EDT by Sae Vera RN Stroke/Warfarin Instructions Stroke/TIA Discharge Ins : N/A Warfarin Discharge Ins : N/A Sae Vera RN - 07/09/2021 13:39 EDT documented in this encounter Plan of Treatment Not on file documented as of this encounter Visit Diagnoses Not on filedocumented in this encounter Care Teams Green Chain Operator Relationship Specialty Start Date End Date Burke Bonilla MD [address] [facility] [address] [place] [phone] PCP - General Pediatrics 05/23/23 documented as of this encounter
--- OUTSIDE RECORDS SUMMARY | 2025-05-13 10:51 | XMS_ITS | Encounter Summary ---
Author Organization [employer] ([place], [place], [place], [place]) Address [address] [place] [address] Care Team Providers Care Gold Cutter Name Role Phone Burke Bonilla MD Primary Care Provider [phone] Reason for Referral * Interventional Radiology (Routine) - Closed Specialty Diagnoses / Procedures Referred By Contac t Referred To Contact Radiology Diagnoses End stage renal disease (HCC) Procedures IR CENTRAL VENOUS Parviz Lubin MD [address] [place] [address] [address] [place] [phone] Phone: tel: fax: Referral ID Status Reason Start Date Expiration Date Visits Re quested Visits Authorized [id number] Closed 08/19/2023 02/15/2024 1 1 Encounter Details Date Type Department Care Team (Late st Contact Info) Description 08/19/2023 Telephone [facility] Central Scheduling [address] [place] [address] Parviz Lubin MD [address] [place] [address] [place] [address] Social History Tobacco Use Types Packs/Day Years Used Date Smoking Tobacco: Every Day Cigarettes Smokeless Tobacco: Never Alcohol Use Standard Drinks/Week Comments Not Currently 0 (1 standard drink = 0.6 oz pur e alcohol) Sex and Gender Information Value Date Recorded Sex Assigned at Male 03/26/2022 6:18 PM CDT Legal Sex Male 6:18 PM CDT Gender Identity Male 03/26/2022 6:18 PM CDT Sexual Orientation Not on file documented as of this encounter Plan of Treatment Not on file documented as of this encounter Results * IR CENTRAL VENOUS (08/20/2023 11:43 AM EST) Anatomical Region Laterality Modality Interventional R adiology 08/20/2023 5:38 PM EST Impressions 08/20/2023 6:04 PM EST 1. Successful placement of a tunneled right jugular dialysis catheter. 2. Fluoroscopic and sonographic guidance utilized with images acquired. 3. IV conscious sedation used. Narrative 08/20/2023 6:04 PM EST TUNNELED DIALYSIS CATHETER PLACEMENT CLINICAL HISTORY: Renal failure. Vascular access needed for dialysis. CONSCIOUS SEDATION: 1 mg of IV Versed and 50 mcg of fentanyl were administered. Continuous vital sign monitoring was used. Nursing staff was present during the sedation process. Overall sedation time was 30 minutes. The patient also received prophylactic antibiotics for the procedure. Radiation exposure index, DAP: 0.58 Gy cm^2 All elements of maximum sterile barrier technique were utilized including cap, mask, sterile gown, sterile gloves, a large sterile sheet, hand hygiene, and 2% chlorhexidine (or acceptable alternative) for cutaneous antisepsis. TECHNIQUE: Standard written informed consent was obtained. The neck and upper chest was prepped in a routine sterile fashion. Local anesthesia was achieved with 1% lidocaine. Access was gained to the lower jugular vein using sonographic and fluoroscopic guidance with images acquired. The guidewire was advanced into the IVC under fluoroscopic guidance. A 28 cm Duraflow catheter was placed with tip positioned at the atrial SVC junction. The catheter was tunneled within the subcutaneous tissues prior to advancement through a peel-away sheath into the central venous system. Both lumens flushed well and aspirated without resistance. Catheter was secured to the skin with 2-0 nylon suture. Procedure was well tolerated. Procedure Note Mono Moore MD - 08/20/2023 TUNNELED DIALYSIS CATHETER PLACEMENT CLINICAL HISTORY: Renal failure. Vascular access needed for dialysis. CONSCIOUS SEDATION: 1 mg of IV Versed and 50 mcg of fentanyl were administered. Continuous vital sign monitoring was used. Nursing staff was present during the sedation process. Overall sedation time was 30 minutes. The patient also received prophylactic antibiotics for the procedure. Radiation exposure index, DAP: 0.58 Gy cm^2 All elements of maximum sterile barrier technique were utilized including cap, mask, sterile gown, sterile gloves, a large sterile sheet, hand hygiene, and 2% chlorhexidine (or acceptable alternative) for cutaneous antisepsis. TECHNIQUE: Standard written informed consent was obtained. The neck and upper chest was prepped in a routine sterile fashion. Local anesthesia was achieved with 1% lidocaine. Access was gained to the lower jugular vein using sonographic and fluoroscopic guidance with images acquired. The guidewire was advanced into the IVC under fluoroscopic guidance. A 28 cm Duraflow catheter was placed with tip positioned at the atrial SVC junction. The catheter was tunneled within the subcutaneous tissues prior to advancement through a peel-away sheath into the central venous system. Both lumens flushed well and aspirated without resistance. Catheter was secured to the skin with 2-0 nylon suture. Procedure was well tolerated. IMPRESSION: 1. Successful placement of a tunneled right jugular dialysis catheter. 2. Fluoroscopic and sonographic guidance utilized with images acquired. 3. IV conscious sedation used. Parviz Lubin MD IMG IR ORDERABLES Final Result documented in this encounter Visit Diagnoses Diagnosis End stage renal disease (HCC)- Primary End stage renal disease End stage renal disease (HCC) End stage renal disease documented in this encounter Care Teams Gold Cutter Relationship Specialty Start Date End Date Burke Bonilla MD [address] [place] [address] PCP - General Pediatrics 05/23/23 documented as of this encounter
--- OUTSIDE RECORDS SUMMARY | 2025-05-13 10:51 | XMS_ITS | Encounter Summary ---
Author Organization [employer] ([place], [place], [place], [place]) Address [address] [place] [address] Care Team Providers Care Surg Tech Name Role Phone Burke Bonilla MD Primary Care Provider [phone] Reason for Referral * Echocardiography (Routine) - Closed Specialty Diagnoses / Procedures Referred By Contac t Referred To Contact Diagnoses Essential (primary) hypertension Procedures ECHO COMPLETE (DOPPLER / COLOR) W OR WO CONTRAST Rosendo Espinoza MD [address] [place], [place] [id number] Phone: tel: fax: Referral ID Status Reason Start Date Expiration Date Visits Re quested Visits Authorized [id number] Closed 06/23/2024 06/23/2025 1 1 Encounter Details Date Type Department Care Team (Late st Contact Info) Description 06/23/2024 Outside Orders [facility] Central Scheduling [address] [place] [id number] Rosendo Espinoza MD [address] [place] [address] Essential (primary) hypertension (Primary Dx) Social History Tobacco Use Types Packs/Day Years [...] Date Santy rded Speak language other than Palauan at home Not on file 10/17/2023 Want [...] documented as of this encounter Results * ECHO COMPLETE (DOPPLER / COLOR) WO CONTRAST (06/25/2024 12:29 PM EDT) Anatomical Region Laterality Modality Heart Ultrasound 06/25/2024 11:2 8 AM EDT Narrative 06/25/2024 4:00 PM EDT TRANSTHORACIC ECHOCARDIOGRAPHY REPORT Demographics Patient Name: ABIGAIL STINSON : 1980 Medical Record [id number] Age: 43 year(s) Number: Corporate ID Number: [id number] Gender Male Manager Of Enterprise: Julieth CISNEROS RTR Height: 72 inches RDMS RVS Referring Physician: ROSENDO ESPINOZA MD Weight: 170 pounds Interpreting JACOBO GERMAIN MD BMI: 23.06 kg/m^2 Physician: Date of Service: 06/25/2024 Blood 176/90 mmHg Pressure: Type of Study: TTE procedure: ECHO COMPLETE (DOPPLER / COLOR) W OR WO CONTRAST. HR: 76 bpmRhythm: Regular Patient Status: Routine OP Study Location: Echo LabTechnical Quality: Adequate visualization Indications:Pulmonary hypertension, primary and S/P CABG. Allergies - Other:(CORTICOSTEROIDS.). Impression: Normal sized left ventricle. Moderate left ventricular hypertrophy. Visually estimated ejection fraction 65% +/- 5%. Normal left ventricular systolic function . Increased left atrial pressure (Grade II diastolic dysfunction). No significant valve disease. Measurements Summary: LVEDd: 4.64 cm LVESd: 2.93 cm IVSEd: 1.45 cm IVSEs: 1.54 cm LVPWd: 1.56 cm LVPWs: 1.94 cm AO Root:3.2 cm Left Ventricle Peak E-wave: 1.26 m/s Peak A-wave: 1.35 E/A ratio: 0.93 E' Velocity: 0.04 m/s m/s E/E' ratio:28.2 Volume LV length: 7.71 cm Area diastolic: 28.5 ml cm^2 Volume [id number] Area systolic: 14 cm^2 ml LVOT diameter: 2.4 cm Normal sized left ventricle. Moderate left ventricular hypertrophy. Visually estimated ejection fraction 65% +/- 5%. Normal left ventricular systolic function . Increased left atrial pressure (Grade II diastolic dysfunction). No left ventricular masses or thrombi. Right Ventricle Diastolic dimension: 3.59 RV systolic pressure: 36.94 mmHg cm Normal sized right ventricle. Normal right ventricular function. Left Atrium LA area: 26.2 cm^2 LA volume:87 ml LA dimension: 5.2 cm LA/Aorta: 1.62 Moderately dilated left atrium. Moderately abnormal left atrial volume index. Intact atrial septum. No atrial mass or thrombus. Right Atrium RA dimension: 3.44 cm Normal sized right atrium. Intact atrial septum. No atrial mass or thrombus. Mitral Valve Deceleration time: 201 msec Area PHT: 3.67 cm^2 P1/2t: 60 msec Severe posterior mitral valve annulus calcification. Mild mitral regurgitation. No mitral stenosis. No masses or vegetations seen. Aortic Valve AI P1/2t: 287 msec Sclerotic aortic valve leaflets. Mild aortic regurgitation. No aortic stenosis. No masses or vegetations seen. Tricuspid Valve TR velocity: 2.69 m/s TR gradient: 28.9444 mmHg Estimated RAP: 8 mmHg RVSP: 36.94 mmHg Structurally normal tricuspid valve. Mild (1+) tricuspid regurgitation. No tricuspid stenosis. No masses or vegetations seen. Pulmonic Valve Acceleration time: 127 msec PASP: 36.94 mmHg Structurally normal pulmonic valve. Trace pulmonic regurgitation. Normal pulmonary acceleration time. No pulmonic stenosis. No masses or vegetations seen. Great Vessels Aorta Aortic Root: 3.2 cm Ascending Aorta: 3.1 cm LVOT Diameter: 2.4 cm Visualized aorta is normal. Normal aortic root. No evidence of dissection. Dilated IVC with partial inspiratory collapse. Pericardium / Pleura No pericardial effusion. Procedure Note Jacobo Germain MD - 06/25/2024 TRANSTHORACIC ECHOCARDIOGRAPHY REPORT Demographics Patient Name: ABIGAIL STINSON : 1980 Medical Record [id number] Age: 43 year(s) Number: Corporate ID Number: [id number] Gender Male Manager Of Enterprise: Julieth CISNEROS RTR Height: 72 inches RDMS RVS Referring Physician: ROSENDO ESPINOZA MD Weight: 170 pounds Interpreting JACOBO GERMAIN MD BMI: 23.06kg/m^2 Physician: Date of Service: 06/25/2024 Blood 176/90 mmHg Pressure: Type of Study: TTE procedure: ECHO COMPLETE (DOPPLER / COLOR) W OR WO CONTRAST. HR: 76 bpmRhythm: Regular Patient Status: Routine OP Study Location: Echo LabTechnical Quality: Adequate visualization Indications:Pulmonary hypertension, primary and S/P CABG. Allergies - Other:(CORTICOSTEROIDS.). Impression: Normal sized left ventricle. Moderate left ventricular hypertrophy. Visually estimated ejection fraction 65% +/- 5%. Normal left ventricular systolic function . Increased left atrial pressure (Grade II diastolic dysfunction). No significant valve disease. Measurements Summary: LVEDd: 4.64 cm LVESd: 2.93 cm IVSEd: 1.45 cm IVSEs: 1.54 cm LVPWd: 1.56 cm LVPWs: 1.94 cm AO Root:3.2 cm Left Ventricle Peak E-wave: 1.26 m/s Peak A-wave: 1.35 E/A ratio: 0.93 E' Velocity: 0.04 m/s m/s E/E' ratio:28.2 Volume [id number] LV length: 7.71 cm Area diastolic: 28.5 ml cm^2 Volume [id number] Area systolic: 14 cm^2 ml LVOT diameter: 2.4 cm Normal sized left ventricle. Moderate left ventricular hypertrophy. Visually estimated ejection fraction 65% +/- 5%. Normal left ventricular systolic function . Increased left atrial pressure (Grade II diastolic dysfunction). No left ventricular masses or thrombi. Right Ventricle Diastolic dimension: 3.59 RV systolic pressure: 36.94 mmHg cm Normal sized right ventricle. Normal right ventricular function. Left Atrium LA area: 26.2 cm^2 LA volume:87 ml LA dimension: 5.2 cm LA/Aorta: 1.62 Moderately dilated left atrium. Moderately abnormal left atrial volume index. Intact atrial septum. No atrial mass or thrombus. Right Atrium RA dimension: 3.44 cm Normal sized right atrium. Intact atrial septum. No atrial mass or thrombus. Mitral Valve Deceleration time: 201 msec Area PHT: 3.67 cm^2 P1/2t: 60 msec Severe posterior mitral valve annulus calcification. Mild mitral regurgitation. No mitral stenosis. No masses or vegetations seen. Aortic Valve AI P1/2t: 287 msec Sclerotic aortic valve leaflets. Mild aortic regurgitation. No aortic stenosis. No masses or vegetations seen. Tricuspid Valve TR velocity: 2.69 m/s TR gradient: 28.9444 mmHg Estimated RAP: 8 mmHg RVSP: 36.94 mmHg Structurally normal tricuspid valve. Mild (1+) tricuspid regurgitation. No tricuspid stenosis. No masses or vegetations seen. Pulmonic Valve Acceleration time: 127 msec PASP: 36.94 mmHg Structurally normal pulmonic valve. Trace pulmonic regurgitation. Normal pulmonary acceleration time. No pulmonic stenosis. No masses or vegetations seen. Great Vessels Aorta Aortic Root: 3.2 cm Ascending Aorta: 3.1 cm LVOT Diameter: 2.4 cm Visualized aorta is normal. Normal aortic root. No evidence of dissection. Dilated IVC with partial inspiratory collapse. Pericardium / Pleura No pericardial effusion. us Rosendo Espinoza MD CV ECHO ORDERABLES Final Re sult documented in this encounter Visit Diagnoses Diagnosis Essential (primary) hypertension- Primary Unspecified essential hypertension Essential (primary) hypertension Unspecified essential hypertension documented in this encounter Care Teams Surg Tech Relationship Specialty Start Date End Date Burke Bonilla MD [address] [address] PCP - General Pediatrics 05/23/23 documented as of this encounter
[2025-05-13 11:09] LABS: Hematocrit 37.9 % (42.0-52.0); Hemoglobin 12.4 g/dL (14.1-18.0); Immature Granulocytes % 0.1 %; Mean Corpuscular HGB Conc 32.7 g/dL (31.8-35.4); Mean Corpuscular Hemoglobin 32.5 pg (27.0-31.2); Mean Corpuscular Volume 99.5 fl (80-94); Nucleated Red Blood Cells % 0 %; Platelet Count 136 K/mm3 (142-424); Red Blood Count 3.81 M/mm3 (4.60-6.20); Red Cell Distribution Width-SD 46.9 fL; White Blood Count 6.9 K/mm3 (4.8-10.8)
--- NOTE | 2025-05-13 11:23 | CT_ITS ---
FINAL REPORT TECHNIQUE: Noncontrast CT exam of the abdomen and pelvis. This study was performed with techniques to keep radiation doses as low as reasonably achievable (ALARA). Individualized dose reduction techniques using automated exposure control or adjustment of mA and/or kV according to the patient's size were employed. CLINICAL HISTORY: NONINFECTIVE GASTROENTERITIS COMPARISON: None FINDINGS: Abdomen: Lung bases are clear. Liver, spleen, pancreas and adrenal glands have a normal CT appearance in their limited unenhanced state. The gallbladder has been surgically resected. Body wall edema is noted. There is diffuse colonic wall thickening, suggestive of colitis. The small bowel is unremarkable. Multiple bilateral renal cysts are noted, which may reflect acquired cysts secondary to chronic renal failure, or polycystic kidney disease. There is a lesion in the lower pole of the anterior left kidney that measures 5 cm in size and contains soft tissue density. At least 2 other renal cysts contain high density contents as well. Pelvis: No distal ureteral stones are seen. The appendix is normal. Bladder is unremarkable. No fluid collection or adenopathy is seen. There is severe calcified plaque disease of the aorta and branch vessels. Note is also made of mild chronic compression fractures involving the T12 and L1 vertebral bodies. IMPRESSION: 1. Findings suggestive of nonspecific colitis without bowel obstruction. 2. Indeterminate left renal masses may represent complex cysts or neoplasm. If patient is not a candidate for IV contrast administration consider ultrasound characterization. Reviewed, Interpreted and Dictated by Phuong Moore MD Transcribed by Rima Jackson Authenticated and [facility]
[2025-05-13 11:44] LABS: Adenovirus F 40/41, stool Not Detected (NotDetected); Clostridium Difficile A/B, PCR Not Detected (NotDetected); Cyclospora Cayetanesis Not Detected (NotDetected); Plesimonas Shigalloides, PCR Not Detected (NotDetected); Salmonella, PCR Not Detected (NotDetected); Shiga-like toxin E coli Not Detected (NotDetected); Shigella Enterovasive E coli Not Detected (NotDetected); Vibrio, PCR Not Detected (NotDetected); Yersinia Entercolitica, PCR Not Detected (NotDetected)
[2025-05-13 11:47] LABS: C-Reactive Protein 1.7 mg/L (0-4)
[2025-05-14 06:33] LABS: Immunoglobulin A, Qn 220 mg/dL (90-386)
== END 2025-05-13 23:59 | disposition home or self-care (01) ==
LOC: RAD 10:48
PROVIDERS: PCP Internal Medicine Adolescent Medicine
DX: K52.9 Noninfective gastroenteritis and colitis, unspecified (principal); N28.89 Other specified disorders of kidney and ureter; R93.3 Abnormal findings on diagnostic imaging of other parts of digestive tract
CPT/HCPCS: 36415; 74176; 82705; 82784; 83993; 85025; 86140; 87045; 87177; 87205; 87507

== ENCOUNTER 2025-05-20 13:37 | Outpatient (CLI) | payer MEDICARE, MEDICAID, SELFPAY ==
--- OUTSIDE RECORDS SUMMARY | 2025-05-20 05:58 | XMS_ITS | Encounter Summary ---
Author Organization [employer] ([place], [place], [place], [place]) Address [address] [place] [address] Care Team Providers Care Perforating Machine Operator Name Role Phone Burke Bonilla MD Primary Care Provider [phone] Reason for Visit * Auth/Cert (Routine) Specialty Diagnoses / Procedures Referred By Contac t Referred To Contact Diagnoses End stage renal disease (HCC) End stage renal disease Procedures WA INTRO CATH DIALYSIS CIRCUIT DX ANGRPH FLUOR S&I FISTULAGRAM Parviz Lubin MD [address] [place] [address] [place], [place] [id number] Phone: tel: fax: Referral ID Status Reason Start Date Expiration Date Visits Re quested Visits Authorized [id number] 05/18/2025 1 1 Encounter Details Date Type Department Care Team (Late st Contact Info) Description 05/20/2025 5:58 AM EDT - 05/20/2025 10:33 AM EDT Hospital Encounter [facility] Operating Room 1 [place] [id number] Parviz Lubin MD [address] [place] [address] Discharge Disposition: Home or Self Care Social History Tobacco Use Types Packs/Day Years [...] Date Santy rded Speak language other than Ghanaian at home Not on file 10/17/2023 Want [...] on file documented as of this encounter Last Filed Vital Signs Vital Sign Reading Time Taken Comments Blood Pressure 171/89 05/20/2025 10:20 AM EDT Pulse 82 05/20/2025 10:20 AM EDT Temperature 36.3 C (97.3 F) 05/20/2025 9:24 AM EDT Respiratory Rate 14 05/20/2025 10:20 AM EDT Oxygen Saturation 100% 05/20/2025 10:20 AM EDT Inhaled Oxygen Concentration - - Weight 69.4 kg (153 lb) 05/20/2025 6:00 AM EDT Height 185.4 cm (6' 1 ) 05/20/2025 6:00 AM EDT Body Mass Index 20.19 05/20/2025 6:00 AM EDT documented in this encounter Discharge Instructions * Appointments* Buddy Coleman RN - 05/20/2025 8:13 AM EDT [facility] a [facility] at 10:00 AM You may gradually resume your regular diet today, as tolerated. If you follow a fluid restriction, please continue to follow it Keep your left arm elevated at/above heart level for 24-48 hours Do not apply ice or heat to your incision site The incision site closed with a blue surgical piece and sutures. Be cautious with this, not allowing it to get snagged on clothing, bed sheets, etc. This site will be cared for at dialysis tomorrow. Do not soak or submerge incision(s) in water. If you have a dialysis catheter in your chest for dialysis access, do not allow this site to get wet No strenuous activity No blood pressures, Ivs, or sticks in operative arm No driving for 24 hours or while taking narcotics No drinking alcohol for 24 hours or while taking narcotics For bleeding, apply firm direct pressure to the incision site and go to your nearest ER if bleedingdoes not stop If you received a peripheral nerve block preoperatively, please keep your arm in a sling while up walking until the mobility and sensation completely returns in arm Report any of the following sign/symptoms of infection to your surgeon: fever over 100.4, body chills, redness/swelling/warmth around your incision site(s), or any green, yellow, or foul smelling drainage from incision(s). Also notify your surgeon of any unrelieved or worsening pain, uncontrolled nausea and or vomiting, constipation, or any other questions or concerns You must have someone 18+ with you for the first 24 hours following surgery It is important to not remove any malachi, stitches, glue, drains, etc unless instructed to do so by your doctor Following surgery, include plenty of whole grains, protein, and green leafy vegetables into your diet to promote healing. Drink plenty of water (if you do not follow a fluid restriction). * Attachments The following attachments cannot be sent through Care Everywhere. * Dialysis Fistulogram Care After (Ghanaian) * Outpatient Surgery Adult Care After (Ghanaian) * General Anesthesia Adult Care After (Ghanaian) documented in this encounter Medications at Time of Discharge aspirin 81 MG chewable tablet daily. carvediloL (COREG) 12.5 MG tablet Take 1 tablet (12.5 mg total) by mouth 2 (two) times daily. 4 cholecalciferol (VITAMIN D3) 125 mcg (5,000 unit) tablet Take 1 tablet (5,000 Units total) by mouth daily. levETIRAcetam (KEPPRA) 750 MG tablet Take 1 tablet (750 mg total) by mouth 2 (two) times daily. 3 minoxidiL (LONITEN) 2.5 MG tablet Take 3 tablets (7.5 mg total) by mouth 2 (two) times daily. 3 omega-3s/dha/epa/fi sh oil/D3 (VITAMIN-D + OMEGA-3 ORAL) Vitamin D3 vitamin E 400 UNIT capsule Take 1 capsule (400 Units total) by mouth daily. atorvastatin (LIPITOR) 40 MG tablet TAKE 1 TABLET BY MOUTH ONCE DAILY AT NIGHT AT BEDTIME 3 calcium acetate 667 mg Tab Take 4 capsules 3 times a day by oral route. carvediloL (COREG) 6.25 MG tablet Take 1 tablet (6.25 mg total) by mouth 2 (two) times daily. cinacalcet (SENSIPAR) 60 MG tablet 1 (one) time each day. glimepiride (AMARYL) 4 MG tablet Take 1 tablet (4 mg total) by mouth as needed. 3 LORazepam (ATIVAN) 2 MG tablet Take 1 tablet 3 times a day by oral route. losartan (COZAAR) 100 MG tablet Take 1 tablet (100 mg total) by mouth daily. 3 midodrine (PROAMATINE) 10 MG tablet Take by mouth as needed With hemodialysis. 4 nitroglycerin (NITROSTAT) 0.4 MG SL tablet nitroglycerin 0.[address] 1 tablet as needed by sublingual route as directed. ondansetron (ZOFRAN-ODT) 4 MG disintegrating tablet Take 1 tablet (4 mg total) by mouth every 6 (six) hours as needed for nausea for up to 12 doses. 12 tablet 4 Jennifer-Neha 0.8 mg Tab tablet Take 1 tablet by mouth daily. 3 sertraline (ZOLOFT) 50 MG tablet Take 1 tablet every day by oral route. traZODone (DESYREL) 100 MG tablet Every night at bedtime 50mg documented as of this encounter Plan of Treatment Pending Results Name Type Priority Associated Diagnoses Date /Time ECG 12 lead ECG Routine 05/20/2025 6: 43 AM EDT Scheduled Procedures Name Priority Associated Diagnoses Date/Ti me FISTULAGRAM End stage renal disease (HCC) 05/20/2025 7:30 AM EDT documented as of this encounter Procedures Procedure Name Priority Date/Time Associated Diagnosis Comments NOVA GLUCOSE POC Routine 05/20/2025 9:11 AM EDT NOVA GLUCOSE POC Routine 05/20/2025 8:36 AM EDT FS_MODEL_IP_ECG 12-LEAD Routine 05/20/2025 6:43 AM EDT documented in this encounter Results * Glucose, Nova Meter (05/20/2025 9:11 AM EDT) POC-GLUCOSE 92 70 - 110 mg/dL 05/20/2025 9:12 AM EDT [facility] Comment: In the event of poor peripheral blood flow, venous or arterial blood should be used due to the potential of erroneous results. No action Require Collar Fuser [phone] 05/20/2025 9:12 AM EDT [facility] Blood WHOLE BLOOD / Unknown 05/20/2025 9:11 AM EDT 05/20/2025 9:12 AM EDT [facility] - 05/20/2025 9:12 AM EDT Collar Fuser ID is - [id number] Parviz Lubin MD POINT OF CARE TEST ORDERABLES Fi nal Result [facility] [address] [place] [address] * Glucose, Nova Meter (05/20/2025 8:36 AM EDT) POC-GLUCOSE 75 70 - 110 mg/dL 05/20/2025 8:38 AM EDT [facility] Comment: In the event of poor peripheral blood flow, venous or arterial blood should be used due to the potential of erroneous results. Notified Nurse RBV Collar Fuser [phone] 05/20/2025 8:38 AM EDT [facility] Blood WHOLE BLOOD / Unknown 05/20/2025 8:36 AM EDT 05/20/2025 8:38 AM EDT [facility] - 05/20/2025 8:38 AM EDT Collar Fuser ID is - [id number] us Parviz Lubin MD POINT OF CARE TEST ORDERABLES Fi nal Result [facility] [address] [place] [phone] [phone] documented in this encounter Visit Diagnoses Not on filedocumented in this encounter Administered Medications Inactive Administered Medications - up to 3 most recent administrations Medication Order MAR Action Action Date Dose Rate Site albuterol 2.5 mg /3 mL (0.083 %) nebulizer solution 2.5 mg 2.5 mg Once as needed, nebulization, wheezing, Starting on Fri05/20/25 at 0830, For 1 dose, RESPIRATORY THERAPY TREATMENT , PACU, What is the respiratory therapy Modality? Small volume Nebulization fentaNYL PF (SUBLIMAZE) injection 25 mcg 25 mcg Every 5 min PRN, intravenous, First Line for pain moderate or greater, Starting on Fri05/20/25 at 0830, Maximum cumulative dose 100 mcg. If maximum dose is reached, proceed to 2nd Line agent., PACU fentaNYL PF (SUBLIMAZE) injection 50 mcg 50 mcg Once, intravenous, On Fri05/20/25 at 0730, For 1 dose, Pre-op Given 05/20/2025 7:06 AM EDT 50 mcg hydrALAZINE (APRESOLINE) injection 10 mg 10 mg Every 20 min PRN, intravenous, once, Starting on Fri05/20/25 at 0830, For 2 doses, Hold if SBP less than 140 mmHg, DBP less than 70 mmHg, or patient is on pressor. Look-alike/Sound-alike medication, PACU Given 05/20/2025 8:56 AM EDT 10 mg hydrALAZINE (APRESOLINE) injection 10 mg 10 mg Once, intravenous, On Fri05/20/25 at 1030, For 1 dose, Hold if SBP < 100 mmHg, DBP < 50 mmHg, or patient is on pressor. Look-alike/Sound-alike medication Given 05/20/2025 9:55 AM EDT 10 mg HYDROmorphone (DILAUDID) injection 0.5 mg 0.5 mg Every 10 min PRN, intravenous, severe pain (7-10), 2nd Line agent after max dose Fentanyl given if ordered., Starting on Fri05/20/25 at 0830, For 4 doses, Maximum cumulative dose 2 mg, PACU, PACU ondansetron (ZOFRAN) injection 4 mg 4 mg Once, intravenous, On Fri05/20/25 at 0730, For 1 dose, For IV push, give over 2 - 5 minutes., Pre-op Given 05/20/2025 7:11 AM EDT 4 mg ondansetron (ZOFRAN) injection 4 mg 4 mg Every 15 min PRN, intravenous, nausea, Starting on Fri05/20/25 at 0830, For 2 doses, 1st line for nausea For IV push, give over 2 - 5 minutes., PACU oxyCODONE (ROXICODONE) immediate release tablet 5 mg 5 mg Once as needed, oral, moderate pain (4-6), severe pain (7-10), For patients going home if they have not received hydromorphone or morphine., Starting on Fri05/20/25 at 0830, For 1 dose, Look-alike/Sound-alike medication, PACU sodium chloride 0.9 % infusion 100 mL/hr Continuous, intravenous, Starting on Fri05/20/25 at 0700, Pre-op Restarted 05/20/2025 7:30 AM EDT New Bag 05/20/2025 7:01 AM EDT 100 mL/hr 100 mL/hr documented in this encounter Active and Recently Administered Medications Times are shown in EDT. Scheduled Medication Order 05/18/2025 05/19/2025 05/20/2025 ceFAZolin (ANCEF) 2 g in sodium chloride 0.9 % (NS) MBP 50 mL IVPB (COMPLETED) 2 g Once, intravenous, Administer over 30 Minutes, On Fri05/20/25 at 0700, For 1 dose, Pre-op, Please choose an indication: Surgical Prophylaxis 0755 (New Bag - Prov ider: Nicole Kimball, [employer]OOK) fentaNYL PF (SUBLIMAZE) injection 50 mcg (COMPLETED) 50 mcg Once, intravenous, On Fri05/20/25 at 0730, For 1 dose, Pre-op 07 (Given - Provid er: Radha Ramon RN) hydrALAZINE (APRESOLINE) injection 10 mg (COMPLETED) 10 mg Once, intravenous, On Fri05/20/25 at 1030, For 1 dose, Hold if SBP < 100 mmHg, DBP < 50 mmHg, or patient is on pressor. Look-alike/Sound-alike medication 0955 (Given - Provid er: Buddy Coleman RN) ondansetron (ZOFRAN) injection 4 mg (COMPLETED) 4 mg Once, intravenous, On Fri05/20/25 at 0730, For 1 dose, For IV push, give over 2 - 5 minutes., Pre-op 0711 (Given - Provid er: Radha Ramon RN) Continuous Medication Order 05/18/2025 05/19/2025 05/20/2025 sodium chloride 0.9 % infusion 100 mL/hr Continuous, intravenous, Starting on Fri05/20/25 at 0700, Pre-op 0701 (New Bag - Prov ider: Radha Ramon RN)0729 (Paused - Provider: Nicole Kimball CRNA - Comment: Switch to gravity)0730 (Restarted - Provider: Nicole Kimball CRNA)0837 (Stopped - Provider: Nicole Kimball CRNA) PRN Medication Order 05/18/2025 05/19/2025 05/20/2025 albuterol 2.5 mg /3 mL (0.083 %) nebulizer solution 2.5 mg 2.5 mg Once as needed, nebulization, wheezing, Starting on Fri05/20/25 at 0830, For 1 dose, RESPIRATORY THERAPY TREATMENT , PACU, What is the respiratory therapy Modality? Small volume Nebulization fentaNYL PF (SUBLIMAZE) injection 25 mcg 25 mcg Every 5 min PRN, intravenous, First Line for pain moderate or greater, Starting on Fri05/20/25 at 0830, Maximum cumulative dose 100 mcg. If maximum dose is reached, proceed to 2nd Line agent., PACU hydrALAZINE (APRESOLINE) injection 10 mg 10 mg Every 20 min PRN, intravenous, once, Starting on Fri05/20/25 at 0830, For 2 doses, Hold if SBP less than 140 mmHg, DBP less than 70 mmHg, or patient is on pressor. Look-alike/Sound-alike medication, PACU 0856 (Given - Provid er: Lory Abdullahi RN) HYDROmorphone (DILAUDID) injection 0.5 mg 0.5 mg Every 10 min PRN, intravenous, severe pain (7-10), 2nd Line agent after max dose Fentanyl given if ordered., Starting on Fri05/20/25 at 0830, For 4 doses, Maximum cumulative dose 2 mg, PACU, PACU ondansetron (ZOFRAN) injection 4 mg 4 mg Every 15 min PRN, intravenous, nausea, Starting on Fri05/20/25 at 0830, For 2 doses, 1st line for nausea For IV push, give over 2 - 5 minutes., PACU oxyCODONE (ROXICODONE) immediate release tablet 5 mg 5 mg Once as needed, oral, moderate pain (4-6), severe pain (7-10), For patients going home if they have not received hydromorphone or morphine., Starting on Fri05/20/25 at 0830, For 1 dose, Look-alike/Sound-alike medication, PACU documented in this encounter Care Teams Perforating Machine Operator Relationship Specialty Start Date End Date Burke Bonilla MD [address] [place] [address] PCP - General Pediatrics 05/23/23 documented as of this encounter
--- OUTSIDE RECORDS SUMMARY | 2025-05-20 07:30 | XMS_ITS | Encounter Summary ---
Author Organization [employer] ([place], [place], [place], [place]) Address [address] [place] [address] Care Team Providers Care Parts Processor Name Role Phone Burke Bonilla MD Primary Care Provider [phone] Reason for Visit * Auth/Cert (Routine) Specialty Diagnoses / Procedures Referred By Contac t Referred To Contact Diagnoses End stage renal disease (HCC) End stage renal disease Procedures [place] INTRO CATH DIALYSIS CIRCUIT DX ANGRPH FLUOR S&I FISTULAGRAM Parviz Lubin MD [address] [place] [address] [place] [id number] Phone: tel: fax: Referral ID Status Reason Start Date Expiration Date Visits Re quested Visits Authorized [id number] 05/18/2025 1 1 Encounter Details Date Type Department Care Team (Late st Contact Info) Description 05/20/2025 7:30 AM EDT - 05/20/2025 8:54 AM EDT Surgery [facility] Operating Room 1 [place] [address] Parviz Lubin MD [address] [place] [address] (LT ARM FISTULAGRAM) Social History Tobacco Use Types Packs/Day Years [...] Date Santy rded Speak language other than Barbadian at home Not on file 10/17/2023 Want [...] Sign Reading Time Taken Comments Blood Pressure 190/98 05/20/2025 8:50 AM EDT Pulse 81 05/20/2025 8:50 AM EDT Temperature 36.7 C (98 F) 05/20/2025 8:33 AM EDT Respiratory Rate 20 05/20/2025 8:45 AM EDT Oxygen Saturation 100% 05/20/2025 8:50 AM EDT Inhaled Oxygen Concentration - - Weight 69.4 kg (153 lb) 05/20/2025 6:00 AM EDT Height 185.4 cm (6' 1 ) 05/20/2025 6:00 AM EDT Body Mass Index 20.19 05/20/2025 6:00 AM EDT documented in this encounter Discharge Instructions * Appointments* Buddy Coleman RN - 05/20/2025 8:13 AM EDT [facility] a [facility] at 10:00 AM You [...] Care Everywhere. * Dialysis Fistulogram Care After (Barbadian) * Outpatient Surgery Adult Care After (Barbadian) * General Anesthesia Adult Care After (Barbadian) documented in this encounter Medications at Time [...] - 110 mg/dL 05/20/2025 9:12 AM EDT [facility] Comment: In the event of poor peripheral blood flow, venous or arterial blood should be used due to the potential of erroneous results. No action Require Jinriksha Driver [id number] 05/20/2025 9:12 AM EDT [facility] Blood WHOLE BLOOD / Unknown 05/20/2025 9:11 AM EDT 05/20/2025 9:12 AM EDT [facility] - 05/20/2025 9:12 AM EDT Jinriksha Driver ID is - [id number] Parviz Lubin MD POINT OF CARE TEST ORDERABLES Fi nal Result [facility] [address] [phone] * Glucose, Nova Meter (05/20/2025 8:36 AM EDT) POC-GLUCOSE 75 70 - 110 mg/dL 05/20/2025 8:38 AM EDT [facility] Comment: In the event of poor peripheral blood flow, venous or arterial blood should be used due to the potential of erroneous results. Notified Nurse RBV Jinriksha Driver [id number] 05/20/2025 8:38 AM EDT [facility] Blood WHOLE BLOOD / Unknown 05/20/2025 8:36 AM EDT 05/20/2025 8:38 AM EDT [facility] - 05/20/2025 8:38 AM EDT Jinriksha Driver ID is - [id number] us Parviz Lubin MD POINT OF CARE TEST ORDERABLES Fi nal Result [facility] 1 [place], [place] [address] [phone] documented in this encounter Visit Diagnoses Diagnosis End stage renal disease (HCC) End stage renal disease documented in this encounter Administered Medications Inactive Administered [...] (New Bag - Prov ider: Nicole Kimball, MARYAM) fentaNYL PF (SUBLIMAZE) injection 50 mcg (COMPLETED) 50 mcg Once, intravenous, On Fri05/20/25 at 0730, For 1 dose, Pre-op 07 (Given - Provid er: Radha Cartagena V, RN) hydrALAZINE (APRESOLINE) injection 10 mg (COMPLETED) [...] ider: Radha Ramon RN)0729 (Paused - Provider: Nicloe Kimball CRNA - Comment: Switch to gravity)0730 [...] PACU documented in this encounter Care Teams Parts Processor Relationship Specialty Start Date End Date Burke Bonilla MD [address] [place] [address] PCP - General Pediatrics 05/23/23 documented as of this encounter
--- OUTSIDE RECORDS SUMMARY | 2025-05-20 07:30 | XMS_ITS | Encounter Summary ---
Author Organization [employer] ([place], [place], [place], [place]) Address [address] [place] [address] Care Team Providers Care Telephone Maintenance Mechanic Name Role Phone Burke Bonilla MD Primary Care Provider [phone] Reason for Visit * Auth/Cert (Routine) Specialty Diagnoses / Procedures Referred By Contac t Referred To Contact Diagnoses End stage renal disease (HCC) End stage renal disease Procedures [place] INTRO CATH DIALYSIS CIRCUIT DX ANGRPH FLUOR S&I FISTULAGRAM Parviz Lubin MD [address] [facility] [address] [place] [address] Phone: tel: fax: Referral ID Status Reason Start Date Expiration Date Visits Re quested Visits Authorized [id number] 05/18/2025 1 1 Encounter Details Date Type Department Care Team (Late st Contact Info) Description 05/20/2025 7:30 AM EDT Anesthesia Event [facility] Operating Room 1 [place] [id number] Marisol Mcghee MD [address] [place] [address] Zac Akers MD [address], [place] [id number] Anesthesia Record Procedure Summary Procedure Name Responsible Anesthesiologist Anesthesia Start Time Anesthesia Stop Time (LT ARM FISTULAGRAM) (Left: Arm Upper) Marisol Mcghee MD 05/20/25 0730 05/20/25 0838 Events Date Time Event Comment 05/20/2025 0730 An Start Patient identif ied and chart reviewed. 0730 An Start Data Anesthesia mac cassi and monitors checked. 0734 Pre-Induction Eval FDA anest hesia machine pre-use checkout completed. Patient status reassessed prior to start of anesthesia care. 0750 An Induction 0750 An Intubation 0751 Anesthesia Ready 0826 An Extubation 0828 an stop data 0837 Handoff to Receiving I compl eted my handoff to the receiving clinician during which we: 1. Identified the patient. 2. Identified the responsible provider. 3. Reviewed the pertinent medical history. 4. Discussed the surgical course. 5. Reviewed intra-op anesthesia management and issues during anesthesia. 6. Set expectations for post-procedure period. 7. Allowed opportunity for questions and acknowledgement of understanding. 0838 An Stop Meds Name Total dexamethasone (DECADRON) injection 4 mg/ mL 4 mg lidocaine (XYLOCAINE) injection 2% 60 mg ondansetron (ZOFRAN) injection vial 4 mg propofol (DIPRIVAN) injection 10 mg/mL b olus 150 mg rocuronium (ZEMURON) 100 mg/10 mL inject ion 50 mg sugammadex (BRIDION) injection 200 mg ceFAZolin (ANCEF) 2 g in sodium chloride 0.9 % (NS) MBP 50 mL IVPB 2 g heparin injection 1,000 units/mL for IV bolus/dialysis lock 5,000 Units sodium chloride 0.9 % infusion 350 mL * Agents Name O2 N2O Air SEVOFLURANE * Blood No blood administrations on file. Lines, Drains, and Airways Type Details Placement Removal Wound 05/20/25; 08; Inci freddy; Arm; Left; dog bone 05/20/25 0806 by Keenan Hammer RN Peripheral IV Placement Date: 04/30 11/23; Placement Time: 0700; Size: 22 G; Orientation: Posterior, Right; Location: Hand; Site Prep: Chlorhexidine ; Local Anesthetic: None; Inserted by: radha spears rn; Insertion attempts: 1; Securement Method: Taped; Removal Date: 05/20/25; Removal Time: 1031 05/20/25 0700 by Radha Ramon RN 05/20/25 1031 by Buddy Coleman RN ETT Placement Date 05/20; Placement Time 0750 (created via procedure documentation); Airway Size 7; Airway Cuffed Yes; Removal Date 05/20/25; Removal Time 0805/20/25 0750 by Nicole Kimball CRNA 05/20/25 0826 by Nicole Kimball CRNA documented in this encounter Social History Tobacco Use Types Packs/Day Years [...] Date Santy rded Speak language other than French at home Not on file 10/17/2023 Want [...] on file documented as of this encounter OR Notes * Anesthesia Postprocedure Evaluation - Nicole Kimball CRNA - 05/20/2025 8:37 AM EDT Patient: Zac Saleh Procedure Summary Date: 05/20/25 Room / Location: [facility] Anesthesia Start: 729 Anesthesia Stop: Procedure: (LT ARM FISTULAGRAM) (Left) Diagnosis: End stage renal disease (HCC) (End stage renal disease) Surgeons: Parviz Lubin MD Responsible Provider: Marisol Mcghee MD Anesthesia Type: general ASA Status: 4 Anesthesia Type: general Vitals Value Taken Time BP 217/103 05/20/25 0836 Temp 97 05/20/25 0837 Pulse 78 05/20/25 0837 Resp 18 05/20/25 0837 SpO2 100% 05/20/25 0837 Vitals shown include unfiled device data. Ht 1.854 m (6' 1 ) Wt 69.4 kg (153 lb) BMI 20.19 kg/m?? Anesthesia Post Evaluation Patient location during evaluation: PACU Patient participation: complete - patient participated Level of consciousness: awake Pain management: adequate Airway patency: patent Cardiovascular status: acceptable Respiratory status: acceptable Hydration status: acceptable Color: [place] Activity: Moves 4 extremities Inotropes/Vasopressors: N/A No notable events documented. Nicole Kimball CRNA 05/20/2025 8:37 AM EDT * Anesthesia Procedure Notes - Nicole Kimball CRNA - 05/20/2025 7:56 AM EDT Associated Order(s): Intubation Intubation Authorized by: Marisol Mcghee MD Performed by: Nicole Kimball CRNA Date/Time: 05/20/2025 7:50 AM Urgency: elective Indications and Patient Condition Indications for airway management: anesthesia and airway protection Spontaneous Ventilation: absent Sedation level: general anesthesia Preoxygenated: yes Patient position: sniffing no Mask difficulty assessment: 0 - not attempted no Final Airway Details Final airway type: endotracheal airway Endotracheal tube type: ETT Cuffed: yes Successful intubation technique: direct laryngoscopy Facilitating devices/methods: intubating stylet Endotracheal tube insertion site: oral Blade: Coleman Blade size: #3 ETT size (mm): 7.0 Cormack-Lehane Classification: grade I - full view of glottis Placement verified by: chest auscultation and capnometry Cuff volume (mL): 7 Measured from: lips ETT to lips (cm): 22 Number of attempts at approach: 1 Number of other approaches attempted: 0 Additional Comments AI RSI * Anesthesia Preprocedure Evaluation - Zac Akers MD - 05/20/2025 6:53 AM EDT ANESTHESIA PREOPERATIVE EVALUATION Patient: Zac Saleh Date/Time: 05/20/25 0730 Procedure: (LT ARM FISTULAGRAM) (Left) Location: [facility] OR / [facility] Surgeons: Parviz Lubin MD Vitals: 05/20/25 0600 05/20/25 0640 Pulse: 76 Resp: 16 Temp: 97.9 ??F (36.6 ??C) TempSrc: Temporal Artery SpO2: 100% Weight: 69.4 kg (153 lb) Height: 1.854 m (6' 1 ) Allergies Allergen Reactions Tape, Occlusive Adhesive 1Causes a rash Corticosteroids (Glucocorticoids) Palpitations Current Outpatient Medications Medication Instructions aspirin 81 MG chewable tablet Daily atorvastatin (LIPITOR) 40 MG tablet TAKE 1 TABLET BY MOUTH ONCE DAILY AT NIGHT AT BEDTIME calcium acetate 667 mg Tab Take 4 capsules 3 times a day by oral route. carvediloL (COREG) 6.25 mg, 2 times daily carvediloL (COREG) 12.5 mg, 2 times daily cholecalciferol (VITAMIN D3) 5,000 Units, Daily cinacalcet (SENSIPAR) 60 MG tablet 1 (one) time each day. glimepiride (AMARYL) 4 mg, oral, As needed levETIRAcetam (KEPPRA) 750 mg, 2 times daily LORazepam (ATIVAN) 2 MG tablet Take 1 tablet 3 times a day by oral route. losartan (COZAAR) 100 mg, Daily midodrine (PROAMATINE) 10 MG tablet As needed minoxidiL (LONITEN) 2.5 MG tablet 3 tablets, 2 times daily nitroglycerin (NITROSTAT) 0.4 MG SL tablet nitroglycerin 0.[address] 1 tablet as needed by sublingual route as directed. omega-3s/dha/epa/fish oil/D3 (VITAMIN-D + OMEGA-3 ORAL) Vitamin D3 ondansetron (ZOFRAN-ODT) 4 mg, oral, Every 6 hours PRN Jennifer-Neha 0.8 mg Tab tablet 1 tablet, Daily sertraline (ZOLOFT) 50 MG tablet Take 1 tablet every day by oral route. traZODone (DESYREL) 100 MG tablet Every night at bedtime 50mg vitamin E 400 Units, Daily INPATIENT MEDICATIONS ceFAZolin 2 g intravenous Once Problem List as of 05/20/2025 Cardiovascular and Mediastinum Hypertension Migraine Hypertensive disorder Endocrine Diabetes mellitus, type II (HCC) DM (diabetes mellitus) (HCC) Genitourinary Renal disease End-stage renal disease (HCC) Other Depression Encounter for hemodialysis (HCC) Hyperlipidemia Seizure (HCC) Anxiety Tobacco user Retinopathy Hyperlipidemia cad s.p cabg 04/2023 cath Procedure Summary 1)Multi-vessel pilot point CAD: -LM - ostial 50-60% -LAD - proximal 95-99% -LCx - proximal 99%, mid 100% -RCA - diffusely diseased - proximal & mid serial 90-95% stenoses, 100% at crux 2)Bypass Grafts: -COURTNEY-LAD - patent -SVG-OM1 - patent; backfills OM1, mid-LCx, and OM2; focal 50-60% stenosis in proximal OM1 -SVG-distal RCA - patent in proximal, mid, most of distal conduit until touchdown on distal RCA; at that location, it is sub-totally occluded; very S/m/all caliber, distal vessels are seen Past Surgical History: Procedure Laterality Date CARDIAC CATHETERIZATION CHOLECYSTECTOMY CORONARY ARTERY BYPASS GRAFT 2008 3x EXCISION,INFECTED GRAFT ABDOMEN Left 04/12/2024 Procedure: EXCISION LEFT INFECTED GRAFT STENT; Surgeon: Parviz Lubin MD; Location: [facility] OR; Service: General Surgery; Laterality: Left; EYE SURGERY REVISION,A-V GRAFT Left 08/20/2023 Procedure: REVISION OF LEFT ARM ARTERIOVENOUS FISTULA; Surgeon: Parviz Lubin MD; Location: [facility] OR; Service: General Surgery; Laterality: Left; REVISION,A-V GRAFT N/A 01/02/2024 Procedure: (OPEN THROMBECTOMY OF AV GRAFT WITH REVISION); Surgeon: Parviz Lubin MD; Location: [facility] OR; Service: General Surgery; Laterality: N/A; [place] 0700, 1.5HRS(A) Social History Tobacco Use Smoking status: Every Day Current packs/day: 1.50 Types: Cigarettes Smokeless tobacco: Never Substance Use Topics Alcohol use: Not Currently Drug use: Not Currently Echo Results (last 7 days) 05/2024 Normal sized left ventricle. Moderate left ventricular hypertrophy. Visually estimated ejection fraction 65% +/- 5%. Normal left ventricular systolic function . Increased left atrial pressure (Grade II diastolic dysfunction). No significant valve disease. Chemistry Component Value Date/Time NA 135 (L) 04/22/2024 1446 K 4.4 04/22/2024 1446 CL 91 (L) 04/22/2024 1446 CO2 28 04/22/2024 1446 BUN 30 (H) 04/22/2024 1446 CREATININE 8.36 (H) 04/22/2024 1446 Component Value Date/Time CALCIUM 10.7 (H) 04/22/2024 1446 ALKPHOS 82 04/22/2024 1446 AST 23 04/22/2024 1446 ALT 16 04/22/2024 1446 BILITOT 0.6 04/22/2024 1446 Lab Results Component Value Date WBC 11.5 (H) 04/22/2024 HGB 15.7 04/22/2024 HCT 46.2 04/22/2024 MCV 98 04/22/2024 PLT 171 04/22/2024 Clinical information reviewed: No data recorded Physical Exam Airway Mallampati: III TM distance: >3 FB Neck ROM: full Cardiovascular - normal exam Dental (+) lower dentures, upper dentures Pulmonary - normal exam Abdominal Anesthesia Plan ASA 4 general (Geta- daily n/v) intravenous induction Anesthetic plan and risks discussed with patient. documented in this encounter Plan of Treatment Scheduled Procedures Name Priority Associated Diagnoses Date/Ti me FISTULAGRAM End stage renal disease (HCC) 05/20/2025 7:30 AM EDT documented as of this encounter Procedures Procedure Name Priority Date/Time Associated Diagnosis Comments ANESTHESIA INTUBATION Routine 05/20/2025 7:50 AM EDT documented in this encounter Results * AN SINGLE LUMEN INTUBATION (05/20/2025 7:50 AM EDT) Narrative Nicole Kimball CRNA - 05/20/2025 7:50 AM EDT Nicole Kimball CRNA 05/20/2025 7:57 AM Intubation Authorized by: Marisol Mcghee MD Performed by: Nicole Kimball CRNA Date/Time: 05/20/2025 7:50 AM Urgency: elective Indications and Patient Condition Indications for airway management: anesthesia and airway protection Spontaneous Ventilation: absent Sedation level: general anesthesia Preoxygenated: yes Patient position: sniffing no Mask difficulty assessment: 0 - not attempted no Final Airway Details Final airway type: endotracheal airway Endotracheal tube type: ETT Cuffed: yes Successful intubation technique: direct laryngoscopy Facilitating devices/methods: intubating stylet Endotracheal tube insertion site: oral Blade: Coleman Blade size: #3 ETT size (mm): 7.0 Cormack-Lehane Classification: grade I - full view of glottis Placement verified by: chest auscultation and capnometry Cuff volume (mL): 7 Measured from: lips ETT to lips (cm): 22 Number of attempts at approach: 1 Number of other approaches attempted: 0 Additional Comments AI RSI us Marisol Mcghee MD ANESTHESIA ORDERABLES Final Re sult documented in this encounter Visit Diagnoses Not on filedocumented in this encounter Administered Medications Inactive Administered Medications - up to 3 most recent administrations Medication Order MAR Action Action Date Dose Rate Site ceFAZolin (ANCEF) 2 g in sodium chloride 0.9 % (NS) MBP 50 mL IVPB 2 g Once, intravenous, Administer over 30 Minutes, On Fri05/20/25 at 0700, For 1 dose, Pre-op, Please choose an indication: Surgical Prophylaxis New Bag 05/20/2025 7:55 AM EDT 2 g dexAMETHasone (DECADRON) injection As needed, intravenous, Starting on Fri05/20/25 at 0753, Anesthesia Intra-op Given 05/20/2025 7:53 AM EDT 4 mg heparin 1,000 Units/mL injection As needed, intravenous, Starting on Fri05/20/25 at 0804, Anesthesia Intra-op Given 05/20/2025 8:04 AM EDT 5,000 Units lidocaine (XYLOCAINE) injection 2% As needed, intravenous, Starting on Fri05/20/25 at 0750, Anesthesia Intra-op Given 05/20/2025 7:50 AM EDT 60 mg ondansetron (ZOFRAN) injection As needed, intravenous, Starting on Fri05/20/25 at 0801, Anesthesia Intra-op Given 05/20/2025 8:01 AM EDT 4 mg propofol (DIPRIVAN) injection 10 mg/mL bolus As needed, intravenous, Starting on Fri05/20/25 at 0750, Anesthesia Intra-op Given 05/20/2025 7:50 AM EDT 150 mg rocuronium (ZEMURON) injection As needed, intravenous, Starting on Fri05/20/25 at 0750, Anesthesia Intra-op Given 05/20/2025 7:50 AM EDT 50 mg sodium chloride 0.9 % infusion 100 mL/hr Continuous, intravenous, Starting on Fri05/20/25 at 0700, Pre-op Restarted 05/20/2025 7:30 AM EDT New Bag 05/20/2025 7:01 AM EDT 100 mL/hr 100 mL/hr sugammadex (BRIDION) injection As needed, intravenous, Starting on Fri05/20/25 at 0824, Anesthesia Intra-op Given 05/20/2025 8:24 AM EDT 200 mg documented in this encounter Care Teams Telephone Maintenance Mechanic Relationship Specialty Start Date End Date Burke Bonilla MD [address] [place], [place] [phone] PCP - General Pediatrics 05/23/23 documented as of this encounter
--- OUTSIDE RECORDS SUMMARY | 2025-05-20 13:46 | XMS_ITS | Continuity of Care Document ---
Author Organization [facility] Address [address] [facility] [address] [place] [address] Social History Not on File Plan of Treatment Not on file
--- OUTSIDE RECORDS SUMMARY | 2025-05-20 13:46 | XMS_ITS | Encounter Summary ---
Author Organization [employer] ([place], [place], [place], [place]) Address [address] [place] [address] Care Team Providers Care Hop Separator Name Role Phone Burke Bonilla MD Primary Care Provider [phone] Reason for Referral * Interventional Radiology (Routine) - Closed Specialty Diagnoses / Procedures Referred By Contac t Referred To Contact Radiology Diagnoses End stage renal disease (HCC) Procedures IR CENTRAL [facility]ENOUS Parviz Lubin MD [address] [place] [address] [address] [place] [id number] Phone: tel: fax: Referral ID Status Reason Start Date Expiration Date Visits Re quested Visits Authorized [id number] Closed 08/19/2023 02/15/2024 1 1 Encounter Details Date Type Department Care Team (Late st Contact Info) Description 08/19/2023 Telephone [facility] Central Scheduling [address] [place] [address] Parviz Lubin MD [address] [place] [address] [place] [address] Social History Tobacco Use Types Packs/Day Years [...] as of this encounter Plan of Treatment Scheduled Procedures Name Priority Associated Diagnoses Date/Ti me FISTULAGRAM End stage renal disease (HCC) 05/20/2025 7:30 AM EDT documented as of this encounter Results * [...] IV conscious sedation used. Parviz Lubin MD [facility] IR ORDERABLES Final Result documented in this encounter Visit Diagnoses Diagnosis End stage renal disease (HCC)- Primary End stage renal disease End stage renal disease (HCC) End stage renal disease documented in this encounter Care Teams Hop Separator Relationship Specialty Start Date End Date Burke Bonilla MD [address] [place] [address] PCP - General Pediatrics 05/23/23 documented as of this encounter
--- OUTSIDE RECORDS SUMMARY | 2025-05-20 13:46 | XMS_ITS | Encounter Summary ---
Author Organization [employer] ([place], [place], [place], [place]) Address [address] [place] [address] Care Team Providers Care Vegetable Grower Name Role Phone Burke Bonilla MD Primary Care Provider Encounter Details Date Type Department Care Team (Late st Contact Info) Description 07/09/2021 Transcribed Document [facility] Family Medicine [facility] [place] [address] ProviderNikki MD [address] [place] [address] Social History Tobacco Use Types [...] (sedative) during your procedure. Medicines ??? Take lvwi-jwf-bjbogut and prescription medicines only as told by your health care provider. Puncture site care ??? Follow instructions from your health care provider about how to take care of the site where catheters were inserted. Make sure you: ? Wash your hands with soap and water before you change your bandage (dressing). If soap and water are not available, use hand glassware maker demonstrator. ? Change your dressing as told by [...] by your health care provider. ??? Take zkhf-gui-ujsvvmz and prescription medicines only as told by [...] provider. Document Revised: 10/16/2018 Document Reviewed: 10/16/2018 [employer] Patient Education ? 2020 [employer] Pharmacology [...] you are awake and alert. ??? Take imrn-wmz-cjuhgix and prescription medicines only as told by [...] Reviewed: 08/10/2020 [employer] Patient Education ? 2020 [employer] documented in this encounter Plan of Treatment Scheduled Procedures Name Priority Associated Diagnoses Date/Ti me FISTULAGRAM End stage renal disease (HCC) 05/20/2025 7:30 AM EDT documented as of this encounter Visit Diagnoses Not on filedocumented in this encounter Care Teams Vegetable Grower Relationship Specialty Start Date End Date Burke Bonilla MD [address] [facility] [address] [place] [phone] PCP - General Pediatrics 05/23/23 documented as of this encounter
--- OUTSIDE RECORDS SUMMARY | 2025-05-20 13:46 | XMS_ITS | Encounter Summary ---
Author Organization [employer] ([place], [place], [place], [place]) Address [address] [place] [address] Care Team Providers Care High School Band Director Name Role Phone Burke Bonilla MD Primary Care Provider [phone] Encounter Details Date Type Department Care Team (Latest Contact Info) Description 05/20/2025 Travel Social History Tobacco Use Types Packs/Day Years [...] Date Santy rded Speak language other than Haitian at home Not on file 10/17/2023 Want [...] on filedocumented in this encounter Care Teams High School Band Director Relationship Specialty Start Date End Date Burke Bonilla MD [address] [facility] [address] [place] [phone] PCP - General Pediatrics 05/23/23 documented as of this encounter
--- OUTSIDE RECORDS SUMMARY | 2025-05-20 13:46 | XMS_ITS | Patient Health Record ---
Author Organization [facility] [place] Address [address] [place] [address] Care Team Providers Care Equipment Operator Wage Hand Name Role Phone LAINEYCATARINOCASANDRAMARBINESPINOZARossi Primary Care Provider [phone] Roxy ALVAREZ, [facility] Reason For Referral No Information Medications Medication [...] due to type 2 diabetes mellitus (disorder) (886785110) Diabetes with renal manifestations, type II or unspecified type, not stated as uncontrolled (250.40) 09/11/20 11 Active confirmed Giancarlo-Bin Problem Type I diabetes mellitus uncontrolled (099020307) Diabetes mellitus without mention of complication, type I [juvenile type], uncontrolled (250.03) 09/11/20 11 Active confirmed Giancarlo-Bin Problem Essential hypertension (33281584) Unspecified essential hypertension (401.9) 09/11/20 11 Active confirmed Giancarlo-Bin Problem Chronic kidney disease stage 4 (383129542) Chronic kidney disease, stage 4 (severe) (N18.4) 09/11/20 11 Active confirmed Giancarlo-Bin Plan Of Treatment No Information Insurance Providers Payer Name Payer Address Payer Phone Subscriber Number Group Number Insured Name Patient Relationship to Insured Coverage Start Date Coverage End Date [facility] [address] [place] [address] [id number] Zac Catalan Self - patient is the insured Medical (General) History Surgical History Surgery Date(Month/Year) Heart Surgery
--- OUTSIDE RECORDS SUMMARY | 2025-05-20 13:46 | XMS_ITS | Encounter Summary ---
Author Organization [employer] ([place], [place], [place], [place]) Address [address] [place] [address] Care Team Providers Care Pointer Helper Name Role Phone Burke Bonilla MD Primary Care Provider [phone] Encounter Details Date Type Department Care Team (Late st Contact Info) Description 07/09/2021 Transcribed Document [facility] Family Medicine [facility] [place] [address] ProviderNikki MD [address] [place] [address] Social History Tobacco Use Types Packs/Day Years Used Date Smoking Tobacco: Never Assessed Sex and Gender Information Value Date Recorded Sex Assigned at Male 03/26/2022 6:18 PM CDT Legal Sex Male 6:18 PM CDT Gender Identity Male 03/26/2022 6:18 PM CDT Sexual Orientation Not on file documented as of this encounter Miscellaneous Notes * Cerner Conversion Note - Nkiki ProviderMD - 07/09/2021 1:19 PM CDT Patient: [...] on filedocumented in this encounter Care Teams Pointer Helper Relationship Specialty Start Date End Date Burke Bonilla MD [address] [place] [address] [address] [place] [address] PCP - General Pediatrics 05/23/23 documented as of this encounter
--- OUTSIDE RECORDS SUMMARY | 2025-05-20 13:46 | XMS_ITS | Clinical Summary ---
Author Organization [employer] ([place], [place], [place], [place]) Address [address] [place] [address] Care Team Providers Care Head Mva Reactor Operator Name Role Phone Burke Bonilla MD Primary Care Provider [phone] Allergies Active Allergy Reactions Criticality Noted Date [...] (4 mg total) by mouth as needed. 07/25/20 23 Active vitamin E 400 UNIT [...] up to 12 doses. 12 tablet 04/22/20 Active Active Problems Problem Noted Date Diagnosed [...] 12/09/2022 04/12/2024 History of stroke 12/09/2022 04/12/2024 Encounters Date Type Department Care Team Description 05/20/2025 7:30 AM EDT Anesthesia Event [facility] Operating Room [address] [place] [address] Marisol Mcghee MD Bowen, Jon B, MD 05/20/2025 7:30 AM EDT - 05/20/2025 8:54 AM EDT Surgery [facility] Operating Room [address] [place] [address] Parviz Lubin MD (LT ARM FISTULAGRAM) 05/20/2025 5:58 AM EDT - 05/20/2025 10:33 AM EDT Hospital Encounter [facility] Operating Room [address] [place] [address] Parviz Lubin MD Discharge Disposition: Home or Self Care 05/20/2025 Travel from Last 3 Months Social History Tobacco Use Types Packs/Day Years [...] Date Santy rded Speak language other than Surinamese at home Not on file 10/17/2023 Want [...] Mass Index 20.19 05/20/2025 6:00 AM EDT Plan of Treatment Scheduled Procedures Name Priority Associated Diagnoses Date/Ti me FISTULAGRAM End stage renal disease (HCC) 05/20/2025 7:30 AM EDT Health Maintenance Due Date Last Done Comments [...] (#1) 2025 Medical Devices Implanted Type Area Community Relations Rep Device Identifier Shelf Expiration Date Model / Serial / Lot Grluisa Vasc Bovn Collagen 6x30 Ag730 - [id number] Implanted:Qty : 1 on 08/20/2023 by Parviz Lubin MD at [facility] IMPLANTS Left: Arm Upper [employer] 06/26/2024 [id number] / / [id number] Graft Vasc Bovn Collagen 6x50 Ag750 - [id number] Implanted:Qty : 1 on 01/02/2024 by Parviz Lubin MD at [facility] IMPLANTS N/A: Arm Upper [employer]:VASC SURG 06/26/2026 [id number] / / [id number] Procedures Procedure Name Priority Date/Time Associated Diagnosis Comments NOVA GLUCOSE POC Routine 05/20/2025 9:11 AM EDT NOVA GLUCOSE POC Routine 05/20/2025 8:36 AM EDT ANESTHESIA INTUBATION Routine 05/20/2025 7:50 AM EDT FS_MODEL_IP_ECG 12-LEAD Routine 05/20/2025 6:43 AM EDT from Last 3 Months Results * Glucose, Nova Meter (05/20/2025 9:11 AM EDT) Only the most recent of2 resultswithin the time period is included. POC-GLUCOSE 92 70 - 110 mg/dL 05/20/2025 9:12 AM EDT [facility] Comment: In the event of poor peripheral blood flow, venous or arterial blood should be used due to the potential of erroneous results. No action Require Can Top Setter [id number] 05/20/2025 9:12 AM EDT [facility] Blood WHOLE BLOOD / Unknown 05/20/2025 9:11 AM EDT 05/20/2025 9:12 AM EDT Narrative [facility] - 05/20/2025 9:12 AM EDT Can Top Setter ID is - [id number] Parviz Lubin MD POINT OF CARE TEST ORDERABLES Fi nal Result [facility] [address] [phone] * AN SINGLE LUMEN INTUBATION (05/20/2025 7:50 AM EDT) Nicole Richards CRNA - 05/20/2025 7:50 AM EDT Nicole [...] Mcghee MD ANESTHESIA ORDERABLES Final Re sult from Last 3 Months Insurance [facility] MEDICARE PPO Member Subscriber Plan / Payer (Ef fective 2024-Present) Name:Zac Saleh Relation to Subscriber:Self Name:Zac Salhe Payer ID:[id number] Type:Not on file Address: [address] Advance Directives For more information, please contact: [phone] * Full Code (Latest Code Status on File) Date Activated Date Inactivated Comments 05/23/2023 12:40 PM 05/24/2023 4:26 AM Care Teams Head Mva Reactor Operator Relationship Specialty Start Date End Date Burke Bonilla MD [address] [address] PCP - General Pediatrics 05/23/23
--- OUTSIDE RECORDS SUMMARY | 2025-05-20 13:46 | XMS_ITS | Encounter Summary ---
Author Organization [employer] ([place], [place], [place], [place]) Address [address] [place] [address] Care Team Providers Care Occupational Health Coordinator Name Role Phone Burke Bonilla MD Primary Care Provider Encounter Details Date Type Department Care Team (Late st Contact Info) Description 07/09/2021 Transcribed Document [facility] [place] [address] ProviderNikki MD [address] [place] [address] Social History Tobacco Use Types [...] Sae Vera RN - 07/09/2021 14:36 EDT documented in this encounter Plan of Treatment Scheduled Procedures Name Priority Associated Diagnoses Date/Ti me FISTULAGRAM End stage renal disease (HCC) 05/20/2025 7:30 AM EDT documented as of this encounter Visit Diagnoses Not on filedocumented in this encounter Care Teams Occupational Health Coordinator Relationship Specialty Start Date End Date Burke Bonilla MD [address] [id number] PCP - General Pediatrics 05/23/23 documented as of this encounter
--- OUTSIDE RECORDS SUMMARY | 2025-05-20 13:46 | XMS_ITS | Encounter Summary ---
Author Organization [employer] ([place], [place], [place], [place]) Address [address] [place] [address] Care Team Providers Care Household Appliance Repairer Name Role Phone Burke Bonilla MD Primary Care Provider [phone] Encounter Details Date Type Department Care Team (Late st Contact Info) Description 07/09/2021 Transcribed Document [facility] [facility] [place] [address] ProviderNikki MD [address] [place] [address] Social History Tobacco Use Types [...] Sae Vera RN - 07/09/2021 13:39 EDT Electronically signed by Rob Dodson Conversion Single Spindle Screw Machine Operator Cerner at 01/15/2023 10:37 AM CDT documented in this encounter Plan of Treatment Scheduled Procedures Name Priority Associated Diagnoses Date/Ti me FISTULAGRAM End stage renal disease (HCC) 05/20/2025 7:30 AM EDT documented as of this encounter Visit Diagnoses Not on filedocumented in this encounter Care Teams Household Appliance Repairer Relationship Specialty Start Date End Date Burke Bonilla MD [address] [facility] [address] [id number] PCP - General Pediatrics 05/23/23 documented as of this encounter
--- OUTSIDE RECORDS SUMMARY | 2025-05-20 13:46 | XMS_ITS | Encounter Summary ---
Author Organization [employer] ([place], [place], [place], [place]) Address [address] [place] [address] Care Team Providers Care Plasterer Spray Gun Name Role Phone Burke Bonilla MD Primary Care Provider Reason for Referral * Echocardiography (Routine) - Closed Specialty Diagnoses / Procedures Referred By Contac t Referred To Contact Diagnoses Essential (primary) hypertension Procedures ECHO COMPLETE (DOPPLER / COLOR) W OR WO CONTRAST Rosendo Espinoza MD [address] [place], [place] [id number] Phone: tel: fax: Referral ID Status Reason Start Date Expiration Date Visits Re quested Visits Authorized [id number] Closed 06/23/2024 06/23/2025 1 1 Encounter Details Date Type Department Care Team (Late st Contact Info) Description 06/23/[address] [facility] Central Scheduling [address] [place] [id number] Rosendo Espinoza MD [address] [place] [address] Essential (primary) hypertension (Primary Dx) Social History [...] Date Santy rded Speak language other than Afghan at home Not on file 10/17/2023 Want [...] Name: ABIGAIL STINSON : 1980 Medical Record [id number] Age: 43 year(s) Number: Corporate ID Number: [id number] Gender Male Outer Diameter Grinder Tool: Julieth CISNEROS RTR Height: 72 inches RDMS [...] Velocity: 0.04 m/s m/s E/E' ratio:28.2 Volume [id number] LV length: 7.71 cm Area diastolic: 28.5 ml cm^2 Volume [id number] Area systolic: 14 cm^2 ml LVOT diameter: [...] Name: ABIGAIL STINSON : 1980 Medical Record [id number] Age: 43 year(s) Number: Corporate ID Number: [id number] Gender Male Outer Diameter Grinder Tool: Julieth CISNEROS RTR Height: 72 inches RDMS [...] Velocity: 0.04 m/s m/s E/E' ratio:28.2 Volume [id number] LV length: 7.71 cm Area diastolic: 28.5 ml cm^2 Volume [id number] Area systolic: 14 cm^2 ml LVOT diameter: [...] hypertension documented in this encounter Care Teams Plasterer Spray Gun Relationship Specialty Start Date End Date Burke Bonilla MD [address] [place] [address] PCP - General Pediatrics 05/23/23 documented as of this encounter
--- OUTSIDE RECORDS SUMMARY | 2025-05-20 13:46 | XMS_ITS | Encounter Summary ---
Author Organization [employer] ([place], [place], [place], [place]) Address [address] [place] [address] Care Team Providers Care Fountain Roller Assembler Name Role Phone Burke Bonilla MD Primary Care Provider [phone] Encounter Details Date Type Department Care Team (Late st Contact Info) Description 07/09/2021 Transcribed Document [facility] [place] [facility] [place] [address] ProviderNikki MD [address] [place] [address] Social History Tobacco Use Types [...] Source : Stated Height Entry Format : [place] Height, Feet : 6 ft(Converted to: 183 cm, 72 Inch) Height, Inches : 0 Inch(Converted to: 0 ft 0 Inch, 0.00 cm) Clinical Height : 182.88 cm Weight Source : Standing scale Weight Entry Format : [place] Clinical Dosing Weight : 80.45 kg Weight, Pounds : 177 lb Body Surface Area (BSA) : 2.02 m2 Body Mass Index : 24.1 kg/m2 (HI) [place] Body Weight : 77 kg Sae Vera RN - 07/09/2021 12:02 EDT Health Histories Smoking Status : 10 or more cigarettes (1/2 pack or more)/day in last 30 days Smokeless Tobacco Status : Never Desires Tobacco Cessation Medication : No Reason for No Tobacco Cessation Medication : Refuses FDA approved medications Implant/Device Type, Tug Captain and Model : ffistula Sae Vera RN [...] Sae Vera RN - 07/09/2021 12:02 EDT [place] Suicide Severity Rating Scale (C-SSRS) CSSRS Past [...] [place] Support Person/Pt Rep Contact Information : [phone] Want Family/Rep/Phys Notified of Admit : No Emergency Contact #1 : Jesse Saleh Emergency Contact #1 Emergency Contact #1 Relationship : cousin Emergency Contact #2 : na Emergency Contact #2 Phone Number : eddie Emergency Contact #2 Relationship : na Primary Language : Australian Preferred Communication Mode : Verbal Communication Barrier : None Gift Packer Needed : No Sae Vera RN - [...] Scale Risk Level : 25-45 Medium Risk Gardner Fall Interventions : Adequate lighting, Assistive devices [...] Sae Vera RN - 07/09/2021 12:02 EDT [place] Coma Mike Best Motor Response : Obey commands [place] Best Verbal Response : Oriented [place] Eye Opening Response : Spontaneous Mike Coma Score : 15 Sae Vera RN - 07/09/2021 12:02 EDT documented in this encounter Plan of Treatment Scheduled Procedures Name Priority Associated Diagnoses Date/Ti me FISTULAGRAM End stage renal disease (HCC) 05/20/2025 7:30 AM EDT documented as of this encounter Visit Diagnoses Not on filedocumented in this encounter Care Teams Fountain Roller Assembler Relationship Specialty Start Date End Date Burke Bonilla MD [address] [facility] [address] [place] [address] PCP - General Pediatrics 05/23/23 documented as of this encounter
--- OUTSIDE RECORDS SUMMARY | 2025-05-20 13:46 | XMS_ITS | Referral Summary ---
Author Organization [employer] ([place], [place], [place], [place]) Address [address] [place] [address] Care Team Providers Care Instructor Watch Assembly Name Role Phone Bukre Bonilla MD Primary Care Provider [phone] Encounters Date Type Department Care Team Description 05/20/2025 7:30 AM EDT Anesthesia Event [facility] Operating Room [address] [place] [address] Marisol Mcghee MD Bowen, Jon B, MD 05/20/2025 Travel 05/20/2025 7:30 AM EDT - 05/20/2025 8:54 AM EDT Surgery [facility] Operating Room [address] [place] [address] Parviz Lubin MD (LT ARM FISTULAGRAM) 05/20/2025 5:58 AM EDT - 05/20/2025 10:33 AM EDT Hospital Encounter [facility] Operating Room [address] [place] [address] Parviz Lubin MD Discharge Disposition: Home or Self Care from Last 3 Months Allergies Active Allergy Reactions Criticality Noted Date [...] by mouth 2 (two) times daily. 03/12/20 Active atorvastatin (LIPITOR) 40 MG tablet TAKE 1 TABLET BY MOUTH ONCE DAILY AT NIGHT AT BEDTIME 04/21/20 Active losartan (COZAAR) 100 MG tablet Take 1 tablet (100 mg total) by mouth daily. 05/11/20 Active sertraline (ZOLOFT) 50 MG tablet Take 1 tablet every day by oral route. Active calcium acetate 667 mg Tab Take 4 capsules 3 times a day by oral route. Active minoxidiL (LONITEN) 2.5 MG tablet Take 3 tablets (7.5 mg total) by mouth 2 (two) times daily. 02/12/20 Active Jennifer-Neha 0.8 mg Tab tablet Take 1 tablet by mouth daily. 05/16/20 Active aspirin 81 MG chewable tablet daily. Acti ve LORazepam (ATIVAN) 2 MG tablet Take 1 tablet 3 times a day by oral route. Active traZODone (DESYREL) 100 MG tablet Every night at bedtime 50mg Active glimepiride (AMARYL) 4 MG tablet Take 1 tablet (4 mg total) by mouth as needed. 07/25/20 Active vitamin E 400 UNIT capsule Take 1 capsule (400 Units total) by mouth daily. Active nitroglycerin (NITROSTAT) 0.4 MG SL tablet nitroglycerin 0.[address] 1 tablet as needed by sublingual route as directed. Active midodrine (PROAMATINE) 10 MG tablet Take by mouth as needed With hemodialysis. 03/16/20 Active cinacalcet (SENSIPAR) 60 MG tablet 1 (one) time each day. Active cholecalciferol (VITAMIN D3) 125 mcg (5,000 unit) tablet Take 1 tablet (5,000 Units total) by mouth daily. Active carvediloL (COREG) 12.5 MG tablet Take 1 tablet (12.5 mg total) by mouth 2 (two) times daily. 04/07/20 Active ondansetron (ZOFRAN-ODT) 4 MG disintegrating tablet [...] renal disease (HCC) 05/20/2025 7:30 AM EDT Medical Devices Implanted Type Area Heating And Cooling Systems Engineer Device Identifier Shelf Expiration Date Model / Serial / Lot Grft Vasc Bovn Collagen 6x30 Ag730 - [id number] Implanted:Qty : 1 on 08/20/2023 by Parviz Lubin MD at [facility] IMPLANTS Left: Arm Upper [employer]FT 06/26/2024 AG730 / / [id number] Graft Vasc Bovn Collagen 6x50 Ag750 - [id number] Implanted:Qty : 1 on 01/02/2024 by Parviz Lubin MD at [facility] IMPLANTS N/A: Arm Upper [employer]:VASC SURG 06/26/2026 AG750 / / [id number] Procedures Procedure Name Priority Date/Time Associated Diagnosis Comments NOVA GLUCOSE POC Routine 05/20/2025 9:11 AM EDT NOVA GLUCOSE POC Routine 05/20/2025 8:36 AM EDT ANESTHESIA INTUBATION Routine 05/20/2025 7:50 AM EDT FS_MODEL_IP_ECG 12-LEAD Routine 05/20/2025 6:43 AM EDT from Last 3 Months Results * Glucose, Nova Meter (05/20/2025 9:11 AM EDT) Only the most recent of2 resultswithin the time period is included. Pathologist [facility] POC-GLUCOSE 92 70 - 110 mg/dL 05/20/2025 9:12 AM EDT [facility] Comment: In the event of poor peripheral blood flow, venous or arterial blood should be used due to the potential of erroneous results. No action Require Database Tester [id number] 05/20/2025 9:12 AM EDT [facility] Blood WHOLE BLOOD / Unknown 05/20/2025 9:11 AM EDT 05/20/2025 9:12 AM EDT Narrative [facility] - 05/20/2025 9:12 AM EDT Database Tester ID is - [id number] Parviz Lubin MD POINT OF CARE TEST ORDERABLES Fi nal Result [facility] [address] [phone] * AN SINGLE LUMEN INTUBATION (05/20/2025 7:50 [...] Re sult from Last 3 [place] [address] [employer] MEDICARE PPO Advance Directives For more information, please contact: [phone] * Full Code (Latest Code Status on File) Date Activated Date Inactivated Comments 05/23/2023 12:40 PM 05/24/2023 4:26 AM Care Teams Instructor Watch Assembly Relationship Specialty Start Date End Date Burke Bonilla MD [address] [address] PCP - General Pediatrics 05/23/23
--- OUTSIDE RECORDS SUMMARY | 2025-05-20 13:46 | XMS_ITS | Encounter Summary ---
Author Organization [employer] ([place], [place], [place], [place]) Address [address] [place] [address] Care Team Providers Care Conveyor System Dispatcher Name Role Phone Ce Bonilla MD Primary Care Provider [phone] Encounter Details Date Type Department Care Team (Late st Contact Info) Description 07/09/2021 Transcribed Document [facility] [place] [facility] [place] [address] ProviderNikki MD [address] [place] [address] Social History Tobacco Use Types [...] Nikki ProviderMD - 07/09/2021 1:39 PM CDT [facility] [place] [address] MILAD SALEH :1980 Visit Time:07/09/2021 Your Visit [...] you are awake and alert. ??? Take mbtc-ufe-opxjiwj and prescription medicines only as told by [...] provider. Document Revised: 08/10/2020 Document Reviewed: 08/10/2020 [employer] Patient Education ?? 2020 [employer] Dialysis Fistulogram, Care After This sheet [...] (sedative) during your procedure. Medicines ??? Take jnpm-ziy-rqadrsw and prescription medicines only as told by your health care provider. Puncture site care ??? Follow instructions from your health care provider about how to take care of the site where catheters were inserted. Make sure you: ? Wash your hands with soap and water before you change your bandage (dressing). If soap and water are not available, use hand prison officer. ? Change your dressing as told by [...] by your health care provider. ??? Take volu-vax-hchqpth and prescription medicines only as told by [...] provider. Document Revised: 10/16/2018 Document Reviewed: 10/16/2018 [employer] Patient Education ?? 2020 [employer] Emergency Awareness and Preventative Care STROKE [...] Assistance with quitting is available by contacting 3-867-WHRI-NOW. This is a free resource providing counseling, [...] was given the opportunity to ask questions. Patient/Twister In Name: Patient/Twister In Signature: Relationship to Patient: Clinician/Hospital Twister In Signature: Date: documented in this encounter Plan of Treatment Scheduled Procedures Name Priority Associated Diagnoses Date/Ti me FISTULAGRAM End stage renal disease (HCC) 05/20/2025 7:30 AM EDT documented as of this encounter Visit Diagnoses Not on filedocumented in this encounter Care Teams Conveyor System Dispatcher Relationship Specialty Start Date End Date Ce Bonilla MD [address] [address] PCP - General Pediatrics 05/23/23 documented as of this encounter
[2025-05-20 13:50] LABS: Adenovirus F 40/41, stool Not Detected (NotDetected); Cyclospora Cayetanesis Not Detected (NotDetected); Plesimonas Shigalloides, PCR Not Detected (NotDetected); Salmonella, PCR Not Detected (NotDetected); Shiga-like toxin E coli Not Detected (NotDetected); Shigella Enterovasive E coli Not Detected (NotDetected); Vibrio, PCR Not Detected (NotDetected); Yersinia Entercolitica, PCR Not Detected (NotDetected)
--- OUTSIDE RECORDS SUMMARY | 2025-05-20 13:50 | XMS_ITS ---
Author Organization [facility] ([facility]) Address [address] [place] [id number] Care Team Providers Care Hand Trimmer Name Role Phone Unavailable Unavailable Unavailable Allergies, Adverse Reactions, Alerts Allergy Name Allergy Type Status Severity Reaction(s) Onset Date Inactive Date Treating Clinician Comments No Known Allergies Allergy Active 2022-01 15:16:5 5 Medications Ordered Medication Name Filled Medication Name Start Date Stop Date Current Medication? Ordering Clinician Indication Dosage Frequency Signature (SIG) Comments Components calcitriol 05-20 14:31: 59 Yes [id number] Number of Repeats Allowed: Frequency: Three times a week calcitriol 05-09 19:00: 45 Yes [id number] Number of Repeats Allowed: Frequency: Three times a week Mircera 04-18 11:05: 37 Yes [id number] Number of Repeats Allowed: Frequency: BRYON dosing, every four weeks calcitriol 04-11 11:28: 30 Yes [id number] Number of Repeats Allowed: Frequency: Three times a week Venofer 03-22 02:58: 30 Yes [id number] Number of Repeats Allowed: Frequency: One time a weekDosesO rdered: Maintenanc e Dose 50 Milligram Route: Intravenou s heparin sodium, porcine 04-19 20:29: 06 Yes [id number] Number of Repeats Allowed: Frequency: Every Dialysis TreatmentD osesOrdere d: Hourly Dose 600 Units/Hr 1:1000 Units/mLRo caren: Intravenou s heparin sodium, porcine 2022-09-14 13:25: 28 Yes [id number] Number of Repeats Allowed: Frequency: Every Dialysis TreatmentD osesOrdere d: Loading Dose 2000 Units 1:1000 Units/mLRo caren: Intravenou s ONS [facility] 2022-09 18:33: 29 Yes [id number] Number of Repeats Allowed: Frequency: Every Dialysis Treatment acetaminoph en 04-14 04:00: 00 Yes [id number] Number of Repeats Allowed: Frequency: Every 4 hours as needed Antacid Extra Strength 04-14 04:00: 00 Yes [id number] Number of Repeats Allowed: Frequency: Every 4 hours as needed Nitrostat 04-14 04:00: 00 Yes [id number] Number of Repeats Allowed: Frequency: Every 5 minutes as needed clonidine 04-14 04:00: 00 Yes [id number] Number of Repeats Allowed: Frequency: Every 2 hours as needed Insta-Gluco se 04-14 04:00: 00 Yes [id number] Number of Repeats Allowed: Frequency: Every 30 minutes as needed Oxygen 04-14 04:00: 00 Yes [id number] Number of Repeats Allowed: Frequency: As needed Normal Saline Solution 0.9% NaCl 04-14 04:00: 00 Yes [id number] Number of Repeats Allowed: Frequency: As needed loperamide hydrochlori de 04-14 04:00: 00 Yes [id number] Number of Repeats Allowed: Frequency: Every 4 hours as needed Problems This patient has no known problems. Procedures Procedure Date / Time Performed Performing Clinician Maricruz ce Details Central Venous Catheter (CVC) 2023-12-29 04:00:00 Access Site Chest (Right) Access Use Start Date 2023-12-30 04:00:0 0 Access Use End Date 2024-01-28 04:00:00 AV [id number] 05:00:00 Access Surgeon JUAN BROWN ([id number]),[place], [place] Access Site Upper Arm (Left) Access Use Start Date 2023-09-06 00:00:0 0 Central Venous Catheter (CVC)2023-08-20 05:00:00 Access Surgeon KAREN SNYDER ([id number]),[place], [place] Access Site Chest (Right) Access Use Start Date 2023-08-23 00:00:0 0 Access Use End Date 2023-10-08 05:00:00 AV [id number] 05:00:00 Access Site Upper Arm (Left) Access Use Start Date 2016-10-01 05:00:0 0 Access Use End Date 2023-08-20 05:00:00 DIALYSIS TREATMENT INFORMATION Conventional Hemodialysis Date Type Treatment Start Date Treatment End Date Pre-Treatment Vitals Post-Treatment Vitals Weight Gain BFR DFR Actual UF Dialysis Access Augus t 2024 In-Ce nter Hemod ialys is Treat ment 2025-05-19 T10:00:32. 000Z 2025-05-19 T13:33:33. 000Z BP Sitting (Pre-Dialysis) 232/117 mmHg BP Sitting (Post-D ialysis ) 185/ 97 mmHg BP Standing (Pre-Dialysis) 212/113 mmHg Sitti ng Heart Rate Post-Dialysis 86 BPM Sitting Heart Rate Pre-Dialysis 84 BPM Temperatu re Post-Dialysis 97.9 degF Standing Heart Rate Pre-Dialysis 84 BPM Temperature Pre-Dialysis 97.6 degF May 17, 2025 In-Center Hemodialysis Treatment 3962-21-85P99:18:00.000Z 8578-40-13Y33:52:01.000Z BP Sitting (Pre-Dialysis) 226/115 mmHg BP Sitting (Post-Dialysis) 153/86 mmHg Concurrent Access: falseAV Graft Upper Arm (Left) Arterial BP Standing (Pre-Dialysis) 219/109 mmHg BP Standing (P ost-Dialysis) 140/78 mmHg Sitting Heart Rate Pre-Dialysis 76 BPM Sitting Heart Rate Post-Dialysis 79 BPM Standing Heart Rate Pre-Dialysis 78 BPM Standing Heart Rate Post-Dialysis 82 BPM Temperature Pre-Dialysis 97.4 degF Temperature Post -Dialysis 98.1 degF May 14, 2025 In-Center Hemodialysis Treatment 9565-50-52S01:16:12.000Z 6231-68-53B59:45:12.000Z BP Sitting (Pre-Dialysis) 186/97 mmHg BP Sitting (Post-Dialysis) 190/100 mmHg Concurrent Access: falseAV Graft Upper Arm (Left) Arterial BP Standing (Pre-Dialysis) 160/95 mmHg BP Standing (P ost-Dialysis) 168/85 mmHg Sitting Heart Rate Pre-Dialysis 73 BPM Sitting Heart Rate Post-Dialysis 83 BPM Standing Heart Rate Pre-Dialysis 80 BPM Standing Heart Rate Post-Dialysis 84 BPM Temperature Pre-Dialysis 98 degF Temperature Post -Dialysis 97.8 degF May 12, 2025 In-Center Hemodialysis Treatment 1855-33-35H21:18:00.000Z 1393-86-32T01:48:39.000Z BP Sitting (Pre-Dialysis) 210/109 mmHg BP Sitting (Post-Dialysis) 206/109 mmHg Concurrent Access: falseAV Graft Upper Arm (Left) Arterial BP Standing (Pre-Dialysis) 176/98 mmHg BP Standing (P ost-Dialysis) 170/95 mmHg Sitting Heart Rate Pre-Dialysis 77 BPM Sitting Heart Rate Post-Dialysis 83 BPM Standing Heart Rate Pre-Dialysis 82 BPM Standing Heart Rate Post-Dialysis 84 BPM Temperature Pre-Dialysis 98.3 degF Temperature Post -Dialysis 98.1 degF May 10, 2025 In-Center Hemodialysis Treatment 9789-94-70S41:10:05.000Z 3088-00-46F42:43:05.000Z BP Sitting (Pre-Dialysis) 167/92 mmHg BP Sitting (Post-Dialysis) 168/85 mmHg Concurrent Access: falseAV Graft Upper Arm (Left) Arterial BP Standing (Pre-Dialysis) 162/84 mmHg BP Standing (P ost-Dialysis) 124/74 mmHg Sitting Heart Rate Pre-Dialysis 70 BPM Sitting Heart Rate Post-Dialysis 75 BPM Standing Heart Rate Pre-Dialysis 78 BPM Standing Heart Rate Post-Dialysis 76 BPM Temperature Pre-Dialysis 98 degF Temperature Post -Dialysis 98 degF May 07, 2025 In-Center Hemodialysis Treatment [id number]:06:15.000Z 5116-84-86S21:39:16.000Z BP Sitting (Pre-Dialysis) 172/94 mmHg BP Sitting (Post-Dialysis) 135/76 mmHg Concurrent Access: falseAV Graft Upper Arm (Left) Arterial BP Standing (Pre-Dialysis) 176/102 mmHg Sitti ng Heart Rate Post-Dialysis 78 BPM Sitting Heart Rate Pre-Dialysis 79 BPM Temperatu re Post-Dialysis 98.6 degF Standing Heart Rate Pre-Dialysis 75 BPM Temperature Pre-Dialysis 97.9 degF May 05, 2025 In-Center Hemodialysis Treatment 3036-65-27F46:17:42.000Z 7360-83-75P84:47:43.000Z BP Sitting (Pre-Dialysis) 200/110 mmHg BP Sitting (Post-Dialysis) 185/95 mmHg Concurrent Access: falseAV Graft Upper Arm (Left) Arterial BP Standing (Pre-Dialysis) 172/92 mmHg Sitti ng Heart Rate Post-Dialysis 83 BPM Sitting Heart Rate Pre-Dialysis 81 BPM Temperatu re Post-Dialysis 97.8 degF Standing Heart Rate Pre-Dialysis 79 BPM Temperature Pre-Dialysis 97.3 degF May 03, 2025 In-Center Hemodialysis Treatment 2031-88-06A42:25:09.000Z 2956-85-64M83:01:10.000Z BP Sitting (Pre-Dialysis) 224/108 mmHg BP Sitting (Post-Dialysis) 173/86 mmHg Concurrent Access: falseAV Graft Upper Arm (Left) Arterial BP Standing (Pre-Dialysis) 194/99 mmHg BP Standing (P ost-Dialysis) 143/79 mmHg Sitting Heart Rate Pre-Dialysis 78 BPM Sitting Heart Rate Post-Dialysis 75 BPM Standing Heart Rate Pre-Dialysis 82 BPM Standing Heart Rate Post-Dialysis 80 BPM Temperature Pre-Dialysis 97.6 degF Temperature Post -Dialysis 98 degF April 30, 2025 In-Center Hemodialysis Treatment 4382-49-48B67:12:20.000Z 7872-58-25X87:41:20.000Z BP Sitting (Pre-Dialysis) 201/107 mmHg BP Sitting (Post-Dialysis) 151/88 mmHg Concurrent Access: falseAV Graft Upper Arm (Left) Arterial BP Standing (Pre-Dialysis) 170/94 mmHg BP Standing (P ost-Dialysis) 112/67 mmHg Sitting Heart Rate Pre-Dialysis 76 BPM Sitting Heart Rate Post-Dialysis 70 BPM Standing Heart Rate Pre-Dialysis 76 BPM Standing Heart Rate Post-Dialysis 75 BPM Temperature Pre-Dialysis 97.9 degF Temperature Post -Dialysis 97.7 degF April 28, 2025 In-Center Hemodialysis Treatment 1440-76-73Q55:10:00.000Z 4995-49-83J17:43:26.000Z BP Sitting (Pre-Dialysis) 187/103 mmHg BP Sitting (Post-Dialysis) 163/87 mmHg Concurrent Access: falseAV Graft Upper Arm (Left) Arterial BP Standing (Pre-Dialysis) 157/91 mmHg BP Standing (P ost-Dialysis) 138/72 mmHg Sitting Heart Rate Pre-Dialysis 77 BPM Sitting Heart Rate Post-Dialysis 74 BPM Standing Heart Rate Pre-Dialysis 76 BPM Standing Heart Rate Post-Dialysis 74 BPM Temperature Pre-Dialysis 97.8 degF Temperature Post -Dialysis 97.6 degF April 26, 2025 In-Center Hemodialysis Treatment 3384-04-45W43:26:53.000Z 7093-37-79K65:57:53.000Z BP Sitting (Pre-Dialysis) 189/99 mmHg BP Sitting (Post-Dialysis) 132/72 mmHg Concurrent Access: falseAV Graft Upper Arm (Left) Arterial Sitting Heart Rate Pre-Dialysis 85 BPM Sitting H eart Rate Post-Dialysis 80 BPM Temperature Pre-Dialysis 98.1 degF Temperature Post -Dialysis 97.3 degF April 23, 2025 In-Center Hemodialysis Treatment 9359-96-16P70:10:03.000Z 0525-11-59H51:44:03.000Z BP Sitting (Pre-Dialysis) 221/119 mmHg BP Sitting (Post-Dialysis) 191/99 mmHg Concurrent Access: falseAV Graft Upper Arm (Left) Arterial BP Standing (Pre-Dialysis) 202/110 mmHg BP Standing (P ost-Dialysis) 168/86 mmHg Sitting Heart Rate Pre-Dialysis 86 BPM Sitting Heart Rate Post-Dialysis 80 BPM Standing Heart Rate Pre-Dialysis 87 BPM Standing Heart Rate Post-Dialysis 81 BPM Temperature Pre-Dialysis 97.8 degF Temperature Post -Dialysis 97.1 degF April 21, 2025 In-Center Hemodialysis Treatment 6518-18-93G94:19:30.000Z 7243-12-54D96:52:30.000Z BP Sitting (Pre-Dialysis) 173/96 mmHg BP Sitting (Post-Dialysis) 188/106 mmHg Concurrent Access: falseAV Graft Upper Arm (Left) Arterial BP Standing (Pre-Dialysis) 160/87 mmHg BP Standing (P ost-Dialysis) 165/87 mmHg Sitting Heart Rate Pre-Dialysis 75 BPM Sitting Heart Rate Post-Dialysis 77 BPM Standing Heart Rate Pre-Dialysis 76 BPM Standing Heart Rate Post-Dialysis 79 BPM Temperature Pre-Dialysis 98.1 degF Temperature Post -Dialysis 98.1 degF April 19, 2025 In-Center Hemodialysis Treatment 2833-02-04X62:18:56.000Z 7765-57-75V90:52:56.000Z BP Sitting (Pre-Dialysis) 200/115 mmHg BP Sitting (Post-Dialysis) 178/102 mmHg Concurrent Access: falseAV Graft Upper Arm (Left) Arterial BP Standing (Pre-Dialysis) 180/100 mmHg BP Standing (P ost-Dialysis) 157/83 mmHg Sitting Heart Rate Pre-Dialysis 76 BPM Sitting Heart Rate Post-Dialysis 77 BPM Standing Heart Rate Pre-Dialysis 78 BPM Standing Heart Rate Post-Dialysis 78 BPM Temperature Pre-Dialysis 98.2 degF Temperature Post -Dialysis 98.6 degF April 16, 2025 In-Center Hemodialysis Treatment 4878-59-30T44:24:11.000Z 5534-24-41Y50:15:12.000Z BP Sitting (Pre-Dialysis) 181/104 mmHg BP Sitting (Post-Dialysis) 169/92 mmHg Concurrent Access: falseAV Graft Upper Arm (Left) Arterial BP Standing (Pre-Dialysis) 167/91 mmHg BP Standing (P ost-Dialysis) 123/76 mmHg Sitting Heart Rate Pre-Dialysis 77 BPM Sitting Heart Rate Post-Dialysis 83 BPM Standing Heart Rate Pre-Dialysis 77 BPM Standing Heart Rate Post-Dialysis 83 BPM Temperature Pre-Dialysis 98 degF Temperature Post -Dialysis 98.2 degF April 14, 2025 In-Center Hemodialysis Treatment 6621-86-05A36:11:37.000Z 2375-77-46R01:45:37.000Z BP Sitting (Pre-Dialysis) 204/117 mmHg BP Sitting (Post-Dialysis) 173/99 mmHg Concurrent Access: falseAV Graft Upper Arm (Left) Arterial BP Standing (Pre-Dialysis) 202/110 mmHg Sitti ng Heart Rate Post-Dialysis 83 BPM Sitting Heart Rate Pre-Dialysis 82 BPM Temperatu re Post-Dialysis 98.1 degF Standing Heart Rate Pre-Dialysis 82 BPM Temperature Pre-Dialysis 97 degF April 12, 2025 In-Center Hemodialysis Treatment 5247-94-58M45:17:04.000Z 8342-19-22X12:48:04.000Z BP Sitting (Pre-Dialysis) 167/99 mmHg BP Sitting (Post-Dialysis) 166/97 mmHg Concurrent Access: falseAV Graft Upper Arm (Left) Arterial BP Standing (Pre-Dialysis) 155/87 mmHg BP Standing (P ost-Dialysis) 142/69 mmHg Sitting Heart Rate Pre-Dialysis 74 BPM Sitting Heart Rate Post-Dialysis 78 BPM Standing Heart Rate Pre-Dialysis 79 BPM Standing Heart Rate Post-Dialysis 79 BPM Temperature Pre-Dialysis 98.3 degF Temperature Post -Dialysis 98.3 degF April 09, 2025 In-Center Hemodialysis Treatment 9365-14-17K61:07:15.000Z 9988-41-36U69:40:16.000Z BP Sitting (Pre-Dialysis) 187/108 mmHg BP Sitting (Post-Dialysis) 158/87 mmHg Concurrent Access: falseAV Graft Upper Arm (Left) Arterial BP Standing (Pre-Dialysis) 171/102 mmHg BP Standing (P ost-Dialysis) 127/62 mmHg Sitting Heart Rate Pre-Dialysis 80 BPM Sitting Heart Rate Post-Dialysis 74 BPM Standing Heart Rate Pre-Dialysis 81 BPM Standing Heart Rate Post-Dialysis 81 BPM Temperature Pre-Dialysis 98.4 degF Temperature Post -Dialysis 98.6 degF April 07, 2025 In-Center Hemodialysis Treatment 6125-96-30X00:11:00.000Z 9459-96-60O74:43:43.000Z BP Sitting (Pre-Dialysis) 175/103 mmHg BP Sitting (Post-Dialysis) 134/75 mmHg Concurrent Access: falseAV Graft Upper Arm (Left) Arterial BP Standing (Pre-Dialysis) 151/89 mmHg BP Standing (P ost-Dialysis) 160/70 mmHg Sitting Heart Rate Pre-Dialysis 85 BPM Sitting Heart Rate Post-Dialysis 77 BPM Standing Heart Rate Pre-Dialysis 85 BPM Standing Heart Rate Post-Dialysis 82 BPM Temperature Pre-Dialysis 98.2 degF Temperature Post -Dialysis 97 degF April 05, 2025 In-Center Hemodialysis Treatment 2786-60-14Z55:23:11.000Z 0679-50-48W15:53:11.000Z BP Sitting (Pre-Dialysis) 154/90 mmHg BP Sitting (Post-Dialysis) 146/85 mmHg Concurrent Access: falseAV Graft Upper Arm (Left) Arterial BP Standing (Pre-Dialysis) 146/84 mmHg Sitti ng Heart Rate Post-Dialysis 82 BPM Sitting Heart Rate Pre-Dialysis 71 BPM Temperatu re Post-Dialysis 97.5 degF Standing Heart Rate Pre-Dialysis 78 BPM Temperature Pre-Dialysis 98 degF April 02, 2025 In-Center Hemodialysis Treatment 6899-10-54N69:12:22.000Z 7497-46-57Y39:44:22.000Z BP Sitting (Pre-Dialysis) 184/101 mmHg BP Sitting (Post-Dialysis) 140/84 mmHg Concurrent Access: falseAV Graft Upper Arm (Left) Arterial BP Standing (Pre-Dialysis) 135/76 mmHg BP Standing (P ost-Dialysis) 128/64 mmHg Sitting Heart Rate Pre-Dialysis 78 BPM Sitting Heart Rate Post-Dialysis 84 BPM Standing Heart Rate Pre-Dialysis 80 BPM Standing Heart Rate Post-Dialysis 85 BPM Temperature Pre-Dialysis 97.8 degF Temperature Post -Dialysis 98.3 degF March 31, 2025 In-Center Hemodialysis Treatment 8983-94-17S31:19:49.000Z 4175-20-56P54:53:49.000Z BP Sitting (Pre-Dialysis) 182/104 mmHg BP Sitting (Post-Dialysis) 156/83 mmHg Concurrent Access: falseAV Graft Upper Arm (Left) Arterial BP Standing (Pre-Dialysis) 155/89 mmHg BP Standing (P ost-Dialysis) 110/69 mmHg Sitting Heart Rate Pre-Dialysis 82 BPM Sitting Heart Rate Post-Dialysis 80 BPM Standing Heart Rate Pre-Dialysis 83 BPM Standing Heart Rate Post-Dialysis 81 BPM Temperature Pre-Dialysis 97.7 degF Temperature Post -Dialysis 97.4 degF March 29, 2025 In-Center Hemodialysis Treatment 7889-12-43G88:16:00.000Z 8221-97-09S34:49:18.000Z BP Sitting (Pre-Dialysis) 141/79 mmHg BP Sitting (Post-Dialysis) 129/71 mmHg Concurrent Access: falseAV Graft Upper Arm (Left) Arterial BP Standing (Pre-Dialysis) 116/59 mmHg Sitti ng Heart Rate Post-Dialysis 84 BPM Sitting Heart Rate Pre-Dialysis 78 BPM Temperatu re Post-Dialysis 98.2 degF Standing Heart Rate Pre-Dialysis 79 BPM Temperature Pre-Dialysis 98 degF March 26, 2025 In-Center Hemodialysis Treatment 6270-65-20G03:15:09.000Z 9621-85-09C22:49:10.000Z BP Sitting (Pre-Dialysis) 163/94 mmHg BP Sitting (Post-Dialysis) 150/83 mmHg Concurrent Access: falseAV Graft Upper Arm (Left) Arterial BP Standing (Pre-Dialysis) 176/100 mmHg BP Standing (P ost-Dialysis) 138/66 mmHg Sitting Heart Rate Pre-Dialysis 85 BPM Sitting Heart Rate Post-Dialysis 82 BPM Standing Heart Rate Pre-Dialysis 84 BPM Standing Heart Rate Post-Dialysis 85 BPM Temperature Pre-Dialysis 97.8 degF Temperature Post -Dialysis 97.3 degF March 24, 2025 In-Center Hemodialysis Treatment 0529-82-97Q43:16:00.000Z 5431-11-97L83:49:38.000Z BP Sitting (Pre-Dialysis) 160/86 mmHg BP Sitting (Post-Dialysis) 123/64 mmHg Concurrent Access: falseAV Graft Upper Arm (Left) Arterial BP Standing (Pre-Dialysis) 134/75 mmHg BP Standing (P ost-Dialysis) 101/59 mmHg Sitting Heart Rate Pre-Dialysis 78 BPM Sitting Heart Rate Post-Dialysis 78 BPM Standing Heart Rate Pre-Dialysis 81 BPM Standing Heart Rate Post-Dialysis 81 BPM Temperature Pre-Dialysis 98 degF Temperature Post -Dialysis 97.4 degF March 19, 2025 In-Center Hemodialysis Treatment 0530-10-03L06:16:16.000Z 3345-24-78H31:15:17.000Z BP Sitting (Pre-Dialysis) 161/88 mmHg BP Sitting (Post-Dialysis) 162/83 mmHg Concurrent Access: falseAV Graft Upper Arm (Left) Arterial BP Standing (Pre-Dialysis) 138/82 mmHg BP Standing (P ost-Dialysis) 138/76 mmHg Sitting Heart Rate Pre-Dialysis 81 BPM Sitting Heart Rate Post-Dialysis 92 BPM Standing Heart Rate Pre-Dialysis 83 BPM Standing Heart Rate Post-Dialysis 94 BPM Temperature Pre-Dialysis 97.2 degF Temperature Post -Dialysis 97.8 degF March 17, 2025 In-Center Hemodialysis Treatment [id number]:20:43.000Z 8186-71-51W58:56:44.000Z BP Sitting (Pre-Dialysis) 167/90 mmHg BP Sitting (Post-Dialysis) 130/64 mmHg Concurrent Access: falseAV Graft Upper Arm (Left) Arterial BP Standing (Pre-Dialysis) 140/73 mmHg BP Standing (P ost-Dialysis) 102/50 mmHg Sitting Heart Rate Pre-Dialysis 75 BPM Sitting Heart Rate Post-Dialysis 76 BPM Standing Heart Rate Pre-Dialysis 77 BPM Standing Heart Rate Post-Dialysis 79 BPM Temperature Pre-Dialysis 97.7 degF Temperature Post -Dialysis 97.7 degF March 15, 2025 In-Center Hemodialysis Treatment 5975-34-69O90:17:11.000Z 7879-08-32T85:50:11.000Z BP Sitting (Pre-Dialysis) 175/97 mmHg BP Sitting (Post-Dialysis) 106/53 mmHg Concurrent Access: falseAV Graft Upper Arm (Left) Arterial BP Standing (Pre-Dialysis) 160/82 mmHg BP Standing (P ost-Dialysis) 101/53 mmHg Sitting Heart Rate Pre-Dialysis 76 BPM Sitting Heart Rate Post-Dialysis 76 BPM Standing Heart Rate Pre-Dialysis 77 BPM Standing Heart Rate Post-Dialysis 78 BPM Temperature Pre-Dialysis 98.4 degF Temperature Post -Dialysis 98.2 degF March 12, 2025 In-Center Hemodialysis Treatment 1434-75-51Z13:55:59.000Z 5221-13-67N51:33:00.000Z BP Sitting (Pre-Dialysis) 182/95 mmHg BP Sitting (Post-Dialysis) 108/55 mmHg Concurrent Access: falseAV Graft Upper Arm (Left) Arterial BP Standing (Pre-Dialysis) 151/77 mmHg BP Standing (P ost-Dialysis) 112/65 mmHg Sitting Heart Rate Pre-Dialysis 78 BPM Sitting Heart Rate Post-Dialysis 89 BPM Standing Heart Rate Pre-Dialysis 78 BPM Standing Heart Rate Post-Dialysis 89 BPM Temperature Pre-Dialysis 97.9 degF Temperature Post -Dialysis 98 degF March 10, 2025 In-Center Hemodialysis Treatment 2733-16-68D21:14:00.000Z 5407-09-40A50:49:28.000Z BP Sitting (Pre-Dialysis) 173/93 mmHg BP Sitting (Post-Dialysis) 133/73 mmHg Concurrent Access: falseAV Graft Upper Arm (Left) Arterial BP Standing (Pre-Dialysis) 131/72 mmHg BP Standing (P ost-Dialysis) 105/55 mmHg Sitting Heart Rate Pre-Dialysis 72 BPM Sitting Heart Rate Post-Dialysis 71 BPM Standing Heart Rate Pre-Dialysis 76 BPM Standing Heart Rate Post-Dialysis 75 BPM Temperature Pre-Dialysis 97.7 degF Temperature Post -Dialysis 98.1 degF March 08, 2025 In-Center Hemodialysis Treatment 5731-63-52V13:24:54.000Z 8231-17-70B23:54:54.000Z BP Sitting (Pre-Dialysis) 127/77 mmHg BP Sitting (Post-Dialysis) 132/69 mmHg Concurrent Access: falseAV Graft Upper Arm (Left) Arterial BP Standing (Pre-Dialysis) 119/61 mmHg BP Standing (P ost-Dialysis) 151/48 mmHg Sitting Heart Rate Pre-Dialysis 75 BPM Sitting Heart Rate Post-Dialysis 71 BPM Standing Heart Rate Pre-Dialysis 78 BPM Standing Heart Rate Post-Dialysis 77 BPM Temperature Pre-Dialysis 97.3 degF Temperature Post -Dialysis 97.5 degF March 05, 2025 In-Center Hemodialysis Treatment 2234-30-63L84:17:00.000Z 0045-78-74Y02:49:05.000Z BP Sitting (Pre-Dialysis) 150/82 mmHg BP Sitting (Post-Dialysis) 126/63 mmHg Concurrent Access: falseAV Graft Upper Arm (Left) Arterial BP Standing (Pre-Dialysis) 129/67 mmHg BP Standing (P ost-Dialysis) 100/53 mmHg Sitting Heart Rate Pre-Dialysis 76 BPM Sitting Heart Rate Post-Dialysis 80 BPM Standing Heart Rate Pre-Dialysis 76 BPM Standing Heart Rate Post-Dialysis 83 BPM Temperature Pre-Dialysis 97.6 degF Temperature Post -Dialysis 97.3 degF March 03, 2025 In-Center Hemodialysis Treatment 3606-45-19J54:15:00.000Z 2000-96-40B95:48:32.000Z BP Sitting (Pre-Dialysis) 190/105 mmHg BP Sitting (Post-Dialysis) 146/85 mmHg Concurrent Access: falseAV Graft Upper Arm (Left) Arterial BP Standing (Pre-Dialysis) 166/95 mmHg BP Standing (P ost-Dialysis) 148/74 mmHg Sitting Heart Rate Pre-Dialysis 81 BPM Sitting Heart Rate Post-Dialysis 92 BPM Standing Heart Rate Pre-Dialysis 84 BPM Standing Heart Rate Post-Dialysis 92 BPM Temperature Pre-Dialysis 97.8 degF Temperature Post -Dialysis 97.4 degF March 01, 2025 In-Center Hemodialysis Treatment 6926-20-55N44:26:53.000Z 8766-99-57J43:26:53.000Z BP Sitting (Pre-Dialysis) 203/111 mmHg BP Sitting (Post-Dialysis) 179/95 mmHg Concurrent Access: falseAV Graft Upper Arm (Left) Arterial BP Standing (Pre-Dialysis) 189/96 mmHg BP Standing (P ost-Dialysis) 160/85 mmHg Sitting Heart Rate Pre-Dialysis 76 BPM Sitting Heart Rate Post-Dialysis 85 BPM Standing Heart Rate Pre-Dialysis 83 BPM Standing Heart Rate Post-Dialysis 93 BPM Temperature Pre-Dialysis 98.2 degF Temperature Post -Dialysis 98 degF February 26, 2025 In-Center Hemodialysis Treatment 4757-81-43B23:29:49.000Z 9282-44-92C81:08:49.000Z BP Sitting (Pre-Dialysis) 158/75 mmHg BP Sitting (Post-Dialysis) 107/54 mmHg Concurrent Access: falseAV Graft Upper Arm (Left) Arterial BP Standing (Pre-Dialysis) 191/101 mmHg BP Standing (P ost-Dialysis) 127/67 mmHg Sitting Heart Rate Pre-Dialysis 83 BPM Sitting Heart Rate Post-Dialysis 81 BPM Standing Heart Rate Pre-Dialysis 76 BPM Standing Heart Rate Post-Dialysis 80 BPM Temperature Pre-Dialysis 97.2 degF Temperature Post -Dialysis 98 degF February 24, 2025 In-Center Hemodialysis Treatment 1202-50-40B35:18:16.000Z 2078-52-09T96:52:16.000Z BP Sitting (Pre-Dialysis) 166/87 mmHg BP Sitting (Post-Dialysis) 121/58 mmHg Concurrent Access: falseAV Graft Upper Arm (Left) Arterial BP Standing (Pre-Dialysis) 132/71 mmHg BP Standing (P ost-Dialysis) 110/56 mmHg Sitting Heart Rate Pre-Dialysis 76 BPM Sitting Heart Rate Post-Dialysis 81 BPM Standing Heart Rate Pre-Dialysis 78 BPM Standing Heart Rate Post-Dialysis 83 BPM Temperature Pre-Dialysis 98 degF Temperature Post -Dialysis 98.1 degF February 22, 2025 In-Center Hemodialysis Treatment 9257-92-93U37:22:44.000Z 8392-63-63J65:53:44.000Z BP Sitting (Pre-Dialysis) 154/84 mmHg BP Sitting (Post-Dialysis) 119/54 mmHg Concurrent Access: falseAV Graft Upper Arm (Left) Arterial BP Standing (Pre-Dialysis) 126/68 mmHg Sitting Heart Rate Post-Dialysis 78 BPM Sitting Heart Rate Pre-Dialysis 76 BPM Temperatu re Post-Dialysis 98 degF Standing Heart Rate Pre-Dialysis 77 BPM Temperature Pre-Dialysis 98.5 degF February 19, 2025 In-Center Hemodialysis Treatment 9286-29-55Q78:13:53.000Z 9476-94-09J17:52:54.000Z BP Sitting (Pre-Dialysis) 169/94 mmHg BP Sitting (Post-Dialysis) 102/54 mmHg Concurrent Access: falseAV Graft Upper Arm (Left) Arterial BP Standing (Pre-Dialysis) 127/70 mmHg BP Standing (P ost-Dialysis) 105/56 mmHg Sitting Heart Rate Pre-Dialysis 73 BPM Sitting Heart Rate Post-Dialysis 79 BPM Standing Heart Rate Pre-Dialysis 75 BPM Standing Heart Rate Post-Dialysis 81 BPM Temperature Pre-Dialysis 97.7 degF Temperature Post -Dialysis 97.6 degF February 17, 2025 In-Center Hemodialysis Treatment 0585-57-19O57:23:21.000Z 8734-20-11X48:58:22.000Z BP Sitting (Pre-Dialysis) 155/89 mmHg BP Sitting (Post-Dialysis) 111/61 mmHg Concurrent Access: falseAV Graft Upper Arm (Left) Arterial BP Standing (Pre-Dialysis) 147/76 mmHg BP Standing (P ost-Dialysis) 118/46 mmHg Sitting Heart Rate Pre-Dialysis 74 BPM Sitting Heart Rate Post-Dialysis 81 BPM Standing Heart Rate Pre-Dialysis 75 BPM Standing Heart Rate Post-Dialysis 80 BPM Temperature Pre-Dialysis 97.1 degF Temperature Post -Dialysis 98.9 degF February 15, 2025 In-Center Hemodialysis Treatment [id number]:24:47.000Z [id number]:53:47.000Z BP Sitting (Pre-Dialysis) 169/88 mmHg BP Sitting (Post-Dialysis) 122/51 mmHg Concurrent Access: falseAV Graft Upper Arm (Left) Arterial BP Standing (Pre-Dialysis) 145/81 mmHg BP Standing (P ost-Dialysis) 116/55 mmHg Sitting Heart Rate Pre-Dialysis 78 BPM Sitting Heart Rate Post-Dialysis 79 BPM Standing Heart Rate Pre-Dialysis 79 BPM Standing Heart Rate Post-Dialysis 83 BPM Temperature Pre-Dialysis 97.5 degF Temperature Post -Dialysis 98.1 degF February 12, 2025 In-Center Hemodialysis Treatment [id number]:15:57.000Z 1596-74-91P11:50:57.000Z BP Sitting (Pre-Dialysis) 153/87 mmHg BP Sitting (Post-Dialysis) 109/57 mmHg Concurrent Access: falseAV Graft Upper Arm (Left) Arterial BP Standing (Pre-Dialysis) 137/69 mmHg BP Standing (P ost-Dialysis) 112/59 mmHg Sitting Heart Rate Pre-Dialysis 76 BPM Sitting Heart Rate Post-Dialysis 77 BPM Standing Heart Rate Pre-Dialysis 78 BPM Standing Heart Rate Post-Dialysis 76 BPM Temperature Pre-Dialysis 97 degF Temperature Post -Dialysis 98.3 degF February 10, 2025 In-Center Hemodialysis Treatment [id number]:29:26.000Z 1919-24-30O26:59:26.000Z BP Sitting (Pre-Dialysis) 166/86 mmHg BP Sitting (Post-Dialysis) 113/53 mmHg Concurrent Access: falseAV Graft Upper Arm (Left) Arterial BP Standing (Pre-Dialysis) 145/74 mmHg BP Standing (P ost-Dialysis) 121/60 mmHg Sitting Heart Rate Pre-Dialysis 76 BPM Sitting Heart Rate Post-Dialysis 75 BPM Standing Heart Rate Pre-Dialysis 76 BPM Standing Heart Rate Post-Dialysis 77 BPM Temperature Pre-Dialysis 98.2 degF Temperature Post -Dialysis 98.4 degF February 08, 2025 In-Center Hemodialysis Treatment [id number]:06:53.000Z 8161-72-14O26:42:54.000Z BP Sitting (Pre-Dialysis) 167/93 mmHg BP Sitting (Post-Dialysis) 109/51 mmHg Concurrent Access: falseAV Graft Upper Arm (Left) Arterial BP Standing (Pre-Dialysis) 130/72 mmHg BP Standing (P ost-Dialysis) 110/47 mmHg Sitting Heart Rate Pre-Dialysis 75 BPM Sitting Heart Rate Post-Dialysis 77 BPM Standing Heart Rate Pre-Dialysis 77 BPM Standing Heart Rate Post-Dialysis 78 BPM Temperature Pre-Dialysis 97.8 degF Temperature Post -Dialysis 97 degF February 05, 2025 In-Center Hemodialysis Treatment [id number]:09:05.000Z 4500-43-08F45:45:05.000Z BP Sitting (Pre-Dialysis) 165/89 mmHg BP Sitting (Post-Dialysis) 102/42 mmHg Concurrent Access: falseAV Graft Upper Arm (Left) Arterial BP Standing (Pre-Dialysis) 141/76 mmHg Sitti ng Heart Rate Post-Dialysis 78 BPM Sitting Heart Rate Pre-Dialysis 76 BPM Temperatu re Post-Dialysis 97.6 degF Standing Heart Rate Pre-Dialysis 79 BPM Temperature Pre-Dialysis 98 degF February 03, 2025 In-Center Hemodialysis Treatment 4258-55-26R99:13:33.000Z 5038-56-46W01:47:33.000Z BP Sitting (Pre-Dialysis) 142/81 mmHg BP Sitting (Post-Dialysis) 131/63 mmHg Concurrent Access: falseAV Graft Upper Arm (Left) Arterial BP Standing (Pre-Dialysis) 114/65 mmHg BP Standing (P ost-Dialysis) 121/62 mmHg Sitting Heart Rate Pre-Dialysis 75 BPM Sitting Heart Rate Post-Dialysis 76 BPM Standing Heart Rate Pre-Dialysis 78 BPM Standing Heart Rate Post-Dialysis 76 BPM Temperature Pre-Dialysis 97.8 degF Temperature Post -Dialysis 97.8 degF February 01, 2025 In-Center Hemodialysis Treatment 0010-34-18C80:26:01.000Z 4557-48-76F16:56:01.000Z BP Sitting (Pre-Dialysis) 160/91 mmHg BP Sitting (Post-Dialysis) 111/62 mmHg Concurrent Access: falseAV Graft Upper Arm (Left) Arterial BP Standing (Pre-Dialysis) 129/72 mmHg BP Standing (P ost-Dialysis) 115/61 mmHg Sitting Heart Rate Pre-Dialysis 77 BPM Sitting Heart Rate Post-Dialysis 77 BPM Standing Heart Rate Pre-Dialysis 78 BPM Standing Heart Rate Post-Dialysis 77 BPM Temperature Pre-Dialysis 97.8 degF Temperature Post -Dialysis 98.5 degF January 29, 2025 In-Center Hemodialysis Treatment [id number]:09:12.000Z 1061-51-57E68:43:12.000Z BP Sitting (Pre-Dialysis) 153/80 mmHg BP Sitting (Post-Dialysis) 107/55 mmHg Concurrent Access: falseAV Graft Upper Arm (Left) Arterial BP Standing (Pre-Dialysis) 120/63 mmHg BP Standing (P ost-Dialysis) 132/59 mmHg Sitting Heart Rate Pre-Dialysis 76 BPM Sitting Heart Rate Post-Dialysis 76 BPM Standing Heart Rate Pre-Dialysis 77 BPM Standing Heart Rate Post-Dialysis 75 BPM Temperature Pre-Dialysis 98.2 degF Temperature Post -Dialysis 98.3 degF January 27, 2025 In-Center Hemodialysis Treatment [id number]:15:40.000Z 8318-32-93O35:46:40.000Z BP Sitting (Pre-Dialysis) 146/84 mmHg BP Sitting (Post-Dialysis) 115/47 mmHg Concurrent Access: falseAV Graft Upper Arm (Left) Arterial BP Standing (Pre-Dialysis) 135/73 mmHg Sitti ng Heart Rate Post-Dialysis 79 BPM Sitting Heart Rate Pre-Dialysis 75 BPM Temperatu re Post-Dialysis 98.1 degF Standing Heart Rate Pre-Dialysis 78 BPM Temperature Pre-Dialysis 97.3 degF January 25, 2025 In-Center Hemodialysis Treatment 5587-86-03W81:25:08.000Z 4655-81-98J27:01:08.000Z BP Sitting (Pre-Dialysis) 170/92 mmHg BP Sitting (Post-Dialysis) 101/54 mmHg Concurrent Access: falseAV Graft Upper Arm (Left) Arterial BP Standing (Pre-Dialysis) 148/75 mmHg BP Standing (P ost-Dialysis) 108/47 mmHg Sitting Heart Rate Pre-Dialysis 77 BPM Sitting Heart Rate Post-Dialysis 88 BPM Standing Heart Rate Pre-Dialysis 80 BPM Standing Heart Rate Post-Dialysis 83 BPM Temperature Pre-Dialysis 97.6 degF Temperature Post -Dialysis 98 degF January 22, 2025 In-Center Hemodialysis Treatment 1056-33-31G87:03:00.000Z 1143-59-18H82:35:19.000Z BP Sitting (Pre-Dialysis) 156/87 mmHg BP Sitting (Post-Dialysis) 106/53 mmHg Concurrent Access: falseAV Graft Upper Arm (Left) Arterial BP Standing (Pre-Dialysis) 139/77 mmHg BP Standing (P ost-Dialysis) 122/51 mmHg Sitting Heart Rate Pre-Dialysis 78 BPM Sitting Heart Rate Post-Dialysis 81 BPM Standing Heart Rate Pre-Dialysis 78 BPM Standing Heart Rate Post-Dialysis 80 BPM Temperature Pre-Dialysis 97.8 degF Temperature Post -Dialysis 98 degF January 20, 2025 In-Center Hemodialysis Treatment [id number]:20:46.000Z 0693-46-57E83:54:46.000Z BP Sitting (Pre-Dialysis) 145/74 mmHg BP Sitting (Post-Dialysis) 112/57 mmHg Concurrent Access: falseAV Graft Upper Arm (Left) Arterial BP Standing (Pre-Dialysis) 157/85 mmHg BP Standing (P ost-Dialysis) 120/59 mmHg Sitting Heart Rate Pre-Dialysis 76 BPM Sitting Heart Rate Post-Dialysis 79 BPM Standing Heart Rate Pre-Dialysis 73 BPM Standing Heart Rate Post-Dialysis 80 BPM Temperature Pre-Dialysis 97.6 degF Temperature Post -Dialysis 99 degF January 18, 2025 In-Center Hemodialysis Treatment 5225-35-80G69:11:00.000Z 4679-32-60H70:44:13.000Z BP Sitting (Pre-Dialysis) 154/86 mmHg BP Sitting (Post-Dialysis) 119/47 mmHg Concurrent Access: falseAV Graft Upper Arm (Left) Arterial BP Standing (Pre-Dialysis) 144/74 mmHg BP Standing (P ost-Dialysis) 113/58 mmHg Sitting Heart Rate Pre-Dialysis 73 BPM Sitting Heart Rate Post-Dialysis 77 BPM Standing Heart Rate Pre-Dialysis 75 BPM Standing Heart Rate Post-Dialysis 78 BPM Temperature Pre-Dialysis 97.7 degF Temperature Post -Dialysis 98 degF January 15, 2025 In-Center Hemodialysis Treatment 5738-47-78J69:11:24.000Z 7118-77-38W63:42:24.000Z BP Sitting (Pre-Dialysis) 173/95 mmHg BP Sitting (Post-Dialysis) 114/55 mmHg Concurrent Access: falseAV Graft Upper Arm (Left) Arterial BP Standing (Pre-Dialysis) 148/74 mmHg Sitti ng Heart Rate Post-Dialysis 78 BPM Sitting Heart Rate Pre-Dialysis 74 BPM Temperatu re Post-Dialysis 97.9 degF Standing Heart Rate Pre-Dialysis 76 BPM Temperature Pre-Dialysis 98 degF January 13, 2025 In-Center Hemodialysis Treatment [id number]:16:52.000Z 8037-56-63V37:49:52.000Z BP Sitting (Pre-Dialysis) 163/90 mmHg BP Sitting (Post-Dialysis) 112/58 mmHg Concurrent Access: falseAV Graft Upper Arm (Left) Arterial BP Standing (Pre-Dialysis) 143/77 mmHg Sitti ng Heart Rate Post-Dialysis 76 BPM Sitting Heart Rate Pre-Dialysis 73 BPM Temperatu re Post-Dialysis 98.1 degF Standing Heart Rate Pre-Dialysis 73 BPM Temperature Pre-Dialysis 97.8 degF January 11, 2025 In-Center Hemodialysis Treatment 2623-33-14U70:24:00.000Z 1442-56-99S86:00:13.000Z BP Sitting (Pre-Dialysis) 168/90 mmHg BP Sitting (Post-Dialysis) 118/56 mmHg Concurrent Access: falseAV Graft Upper Arm (Left) Arterial BP Standing (Pre-Dialysis) 163/85 mmHg BP Standing (P ost-Dialysis) 133/45 mmHg Sitting Heart Rate Pre-Dialysis 72 BPM Sitting Heart Rate Post-Dialysis 76 BPM Standing Heart Rate Pre-Dialysis 73 BPM Standing Heart Rate Post-Dialysis 79 BPM Temperature Pre-Dialysis 98.1 degF Temperature Post -Dialysis 97.8 degF January 08, 2025 In-Center Hemodialysis Treatment 400 mL/min 600 mL/min Concurrent Access: false January 08, 2025 In-Center Hemodialysis Treatment 20 25 -0 4- 12 T1 0: 26 :0 0. 00 0Z 20 25 -0 4- 12 T1 3: 54 :0 0. 00 0Z BP Sitting (Pre-Dial ysis) 166/90 mmHg BP Sitting (Post-Shanae lysis) 112/51 mmHg Concurrent Access: falseAV Graft Upper Arm (Left) Arterial BP Standing (Pre-Dialysis) 143/73 mmHg BP Standing (P ost-Dialysis) 109/58 mmHg Sitting Heart Rate Pre-Dialysis 76 BPM Sitting Heart Rate Post-Dialysis 77 BPM Standing Heart Rate Pre-Dialysis 78 BPM Standing Heart Rate Post-Dialysis 83 BPM January 06, 2025 In-Center Hemodialysis Treatment 4720-63-62L54:16:07.000Z 0304-23-92A69:47:08.000Z BP Sitting (Pre-Dialysis) 170/94 mmHg BP Sitting (Post-Dialysis) 110/55 mmHg Concurrent Access: falseAV Graft Upper Arm (Left) Arterial BP Standing (Pre-Dialysis) 147/82 mmHg BP Standing (P ost-Dialysis) 125/45 mmHg Sitting Heart Rate Pre-Dialysis 74 BPM Sitting Heart Rate Post-Dialysis 75 BPM Standing Heart Rate Pre-Dialysis 78 BPM Standing Heart Rate Post-Dialysis 77 BPM Temperature Pre-Dialysis 97.6 degF Temperature Post -Dialysis 98.1 degF January 04, 2025 In-Center Hemodialysis Treatment [id number]:36:34.000Z 1255-17-43N36:06:34.000Z BP Sitting (Pre-Dialysis) 174/95 mmHg BP Sitting (Post-Dialysis) 103/55 mmHg Concurrent Access: falseAV Graft Upper Arm (Left) Arterial BP Standing (Pre-Dialysis) 153/85 mmHg BP Standing (P ost-Dialysis) 126/45 mmHg Sitting Heart Rate Pre-Dialysis 70 BPM Sitting Heart Rate Post-Dialysis 78 BPM Standing Heart Rate Pre-Dialysis 76 BPM Standing Heart Rate Post-Dialysis 80 BPM Temperature Pre-Dialysis 98.1 degF Temperature Post -Dialysis 97.8 degF January 01, 2025 In-Center Hemodialysis Treatment 2485-69-42T66:03:44.000Z 2660-74-84D08:37:44.000Z BP Sitting (Pre-Dialysis) 145/82 mmHg BP Sitting (Post-Dialysis) 113/58 mmHg Concurrent Access: falseAV Graft Upper Arm (Left) Arterial BP Standing (Pre-Dialysis) 132/70 mmHg Sitti ng Heart Rate Post-Dialysis 78 BPM Sitting Heart Rate Pre-Dialysis 78 BPM Temperatu re Post-Dialysis 97.3 degF Standing Heart Rate Pre-Dialysis 81 BPM Temperature Pre-Dialysis 97.6 degF December 30, 2024 In-Center Hemodialysis Treatment 4022-92-33L74:03:11.000Z 8829-21-84S22:36:11.000Z BP Sitting (Pre-Dialysis) 161/89 mmHg BP Sitting (Post-Dialysis) 102/45 mmHg Concurrent Access: falseAV Graft Upper Arm (Left) Arterial BP Standing (Pre-Dialysis) 125/66 mmHg Sitti ng Heart Rate Post-Dialysis 80 BPM Sitting Heart Rate Pre-Dialysis 75 BPM Temperatu re Post-Dialysis 97.2 degF Standing Heart Rate Pre-Dialysis 77 BPM Temperature Pre-Dialysis 97.4 degF December 28, 2024 In-Center Hemodialysis Treatment 3348-73-20H82:29:38.000Z 9603-13-22B95:05:38.000Z BP Sitting (Pre-Dialysis) 143/81 mmHg BP Sitting (Post-Dialysis) 105/52 mmHg Concurrent Access: falseAV Graft Upper Arm (Left) Arterial BP Standing (Pre-Dialysis) 113/61 mmHg Sitti ng Heart Rate Post-Dialysis 75 BPM Sitting Heart Rate Pre-Dialysis 72 BPM Temperatu re Post-Dialysis 98.2 degF Standing Heart Rate Pre-Dialysis 75 BPM Temperature Pre-Dialysis 97.4 degF December 25, 2024 In-Center Hemodialysis Treatment 0106-50-82C94:02:48.000Z 6800-77-10L78:33:49.000Z BP Sitting (Pre-Dialysis) 135/64 mmHg BP Sitting (Post-Dialysis) 100/59 mmHg Concurrent Access: falseAV Graft Upper Arm (Left) Arterial BP Standing (Pre-Dialysis) 108/56 mmHg BP Standing (P ost-Dialysis) 102/41 mmHg Sitting Heart Rate Pre-Dialysis 73 BPM Sitting Heart Rate Post-Dialysis 71 BPM Standing Heart Rate Pre-Dialysis 74 BPM Standing Heart Rate Post-Dialysis 73 BPM Temperature Pre-Dialysis 98.2 degF Temperature Post -Dialysis 98.2 degF December 23, 2024 In-Center Hemodialysis Treatment 3900-82-05S96:14:31.000Z 5945-92-99W05:48:31.000Z BP Sitting (Pre-Dialysis) 142/70 mmHg BP Sitting (Post-Dialysis) 104/51 mmHg Concurrent Access: falseAV Graft Upper Arm (Left) Arterial BP Standing (Pre-Dialysis) 113/61 mmHg BP Standing (P ost-Dialysis) 111/53 mmHg Sitting Heart Rate Pre-Dialysis 72 BPM Sitting Heart Rate Post-Dialysis 74 BPM Standing Heart Rate Pre-Dialysis 73 BPM Standing Heart Rate Post-Dialysis 77 BPM Temperature Pre-Dialysis 97.6 degF Temperature Post -Dialysis 98.1 degF December 21, 2024 In-Center Hemodialysis Treatment 0146-46-13O38:07:58.000Z 8206-10-22E35:44:58.000Z BP Sitting (Pre-Dialysis) 152/86 mmHg BP Sitting (Post-Dialysis) 108/51 mmHg Concurrent Access: falseAV Graft Upper Arm (Left) Arterial BP Standing (Pre-Dialysis) 147/86 mmHg BP Standing (P ost-Dialysis) 110/56 mmHg Sitting Heart Rate Pre-Dialysis 74 BPM Sitting Heart Rate Post-Dialysis 73 BPM Standing Heart Rate Pre-Dialysis 76 BPM Standing Heart Rate Post-Dialysis 87 BPM Temperature Pre-Dialysis 98 degF Temperature Post -Dialysis 98.1 degF December 18, 2024 In-Center Hemodialysis Treatment 4729-91-45S28:53:08.000Z 3847-24-85L26:29:08.000Z BP Sitting (Pre-Dialysis) 145/83 mmHg BP Sitting (Post-Dialysis) 109/56 mmHg Concurrent Access: falseAV Graft Upper Arm (Left) Arterial BP Standing (Pre-Dialysis) 127/69 mmHg BP Standing (P ost-Dialysis) 103/47 mmHg Sitting Heart Rate Pre-Dialysis 78 BPM Sitting Heart Rate Post-Dialysis 75 BPM Standing Heart Rate Pre-Dialysis 80 BPM Standing Heart Rate Post-Dialysis 82 BPM Temperature Pre-Dialysis 98.5 degF Temperature Post -Dialysis 98 degF December 16, 2024 In-Center Hemodialysis Treatment 3793-25-04F40:26:35.000Z 3478-29-95F44:05:35.000Z BP Sitting (Pre-Dialysis) 151/84 mmHg BP Sitting (Post-Dialysis) 106/59 mmHg Concurrent Access: falseAV Graft Upper Arm (Left) Arterial BP Standing (Pre-Dialysis) 114/61 mmHg Sitting Heart Rate Post-Dialysis 77 BPM Sitting Heart Rate Pre-Dialysis 75 BPM Temperatu re Post-Dialysis 97 degF Standing Heart Rate Pre-Dialysis 77 BPM Temperature Pre-Dialysis 98 degF December 14, 2024 In-Center Hemodialysis Treatment 7748-96-11S48:14:02.000Z 9039-29-25L10:47:02.000Z BP Sitting (Pre-Dialysis) 172/92 mmHg BP Sitting (Post-Dialysis) 110/51 mmHg Concurrent Access: falseAV Graft Upper Arm (Left) Arterial BP Standing (Pre-Dialysis) 153/75 mmHg BP Standing (P ost-Dialysis) 104/52 mmHg Sitting Heart Rate Pre-Dialysis 76 BPM Sitting Heart Rate Post-Dialysis 76 BPM Standing Heart Rate Pre-Dialysis 76 BPM Standing Heart Rate Post-Dialysis 78 BPM Temperature Pre-Dialysis 98.3 degF December 11, 2024 In-Center Hemodialysis Treatment 1894-84-42B96:19:00.000Z 5490-24-63U46:53:12.000Z BP Sitting (Pre-Dialysis) 142/81 mmHg BP Sitting (Post-Dialysis) 100/47 mmHg Concurrent Access: falseAV Graft Upper Arm (Left) Arterial BP Standing (Pre-Dialysis) 129/70 mmHg Sitti ng Heart Rate Post-Dialysis 79 BPM Sitting Heart Rate Pre-Dialysis 75 BPM Temperatu re Post-Dialysis 98.2 degF Standing Heart Rate Pre-Dialysis 78 BPM Temperature Pre-Dialysis 97.2 degF December 09, 2024 In-Center Hemodialysis Treatment 2443-18-89I56:11:38.000Z 3155-64-48O29:43:38.000Z BP Sitting (Pre-Dialysis) 150/83 mmHg BP Sitting (Post-Dialysis) 100/51 mmHg Concurrent Access: falseAV Graft Upper Arm (Left) Arterial BP Standing (Pre-Dialysis) 103/64 mmHg BP Standing (P ost-Dialysis) 120/56 mmHg Sitting Heart Rate Pre-Dialysis 74 BPM Sitting Heart Rate Post-Dialysis 78 BPM Standing Heart Rate Pre-Dialysis 78 BPM Standing Heart Rate Post-Dialysis 76 BPM Temperature Pre-Dialysis 97.4 degF Temperature Post -Dialysis 98.1 degF December 07, 2024 In-Center Hemodialysis Treatment 8552-90-02J31:11:05.000Z 3194-33-13T78:45:05.000Z BP Sitting (Pre-Dialysis) 158/83 mmHg BP Sitting (Post-Dialysis) 102/54 mmHg Concurrent Access: falseAV Graft Upper Arm (Left) Arterial BP Standing (Pre-Dialysis) 131/68 mmHg Sitti ng Heart Rate Post-Dialysis 77 BPM Sitting Heart Rate Pre-Dialysis 72 BPM Temperatu re Post-Dialysis 98.4 degF Standing Heart Rate Pre-Dialysis 76 BPM Temperature Pre-Dialysis 97.4 degF December 04, 2024 In-Center Hemodialysis Treatment 1035-92-41B35:22:31.000Z 5279-97-30B95:56:32.000Z BP Sitting (Pre-Dialysis) 135/71 mmHg BP Sitting (Post-Dialysis) 115/56 mmHg Concurrent Access: falseAV Graft Upper Arm (Left) Arterial BP Standing (Pre-Dialysis) 160/89 mmHg Sitti ng Heart Rate Post-Dialysis 76 BPM Sitting Heart Rate Pre-Dialysis 76 BPM Temperatu re Post-Dialysis 98.7 degF Standing Heart Rate Pre-Dialysis 72 BPM Temperature Pre-Dialysis 98.1 degF December 02, 2024 In-Center Hemodialysis Treatment 7224-48-56B35:14:58.000Z 9580-06-14N31:47:58.000Z BP Sitting (Pre-Dialysis) 172/93 mmHg BP Sitting (Post-Dialysis) 105/61 mmHg Concurrent Access: falseAV Graft Upper Arm (Left) Arterial BP Standing (Pre-Dialysis) 150/85 mmHg Sitti ng Heart Rate Post-Dialysis 73 BPM Sitting Heart Rate Pre-Dialysis 74 BPM Temperatu re Post-Dialysis 98.7 degF Standing Heart Rate Pre-Dialysis 79 BPM Temperature Pre-Dialysis 98.4 degF November 30, 2024 In-Center Hemodialysis Treatment [id number]:05:24.000Z 2505-50-74H83:40:24.000Z BP Sitting (Pre-Dialysis) 159/86 mmHg BP Sitting (Post-Dialysis) 108/54 mmHg Concurrent Access: falseAV Graft Upper Arm (Left) Arterial BP Standing (Pre-Dialysis) 140/73 mmHg BP Standing (P ost-Dialysis) 112/51 mmHg Sitting Heart Rate Pre-Dialysis 74 BPM Sitting Heart Rate Post-Dialysis 79 BPM Standing Heart Rate Pre-Dialysis 76 BPM Standing Heart Rate Post-Dialysis 74 BPM Temperature Pre-Dialysis 98.2 degF Temperature Post -Dialysis 98.7 degF November 27, 2024 In-Center Hemodialysis Treatment 1510-01-53M81:16:00.000Z 9069-13-69O55:53:34.000Z BP Sitting (Pre-Dialysis) 185/99 mmHg BP Sitting (Post-Dialysis) 104/55 mmHg Concurrent Access: falseAV Graft Upper Arm (Left) Arterial BP Standing (Pre-Dialysis) 157/80 mmHg BP Standing (P ost-Dialysis) 104/46 mmHg Sitting Heart Rate Pre-Dialysis 70 BPM Sitting Heart Rate Post-Dialysis 76 BPM Standing Heart Rate Pre-Dialysis 75 BPM Standing Heart Rate Post-Dialysis 79 BPM Temperature Pre-Dialysis 97.2 degF Temperature Post -Dialysis 98 degF November 25, 2024 In-Center Hemodialysis Treatment 6923-53-38M97:18:01.000Z 8984-67-06C24:52:01.000Z BP Sitting (Pre-Dialysis) 116/65 mmHg BP Sitting (Post-Dialysis) 106/59 mmHg Concurrent Access: falseAV Graft Upper Arm (Left) Arterial BP Standing (Pre-Dialysis) 146/79 mmHg Sitti ng Heart Rate Post-Dialysis 72 BPM Sitting Heart Rate Pre-Dialysis 73 BPM Temperatu re Post-Dialysis 97.4 degF Standing Heart Rate Pre-Dialysis 71 BPM Temperature Pre-Dialysis 97.3 degF November 23, 2024 In-Center Hemodialysis Treatment 1612-78-04I75:25:27.000Z 5028-78-06C24:59:28.000Z BP Sitting (Pre-Dialysis) 148/83 mmHg BP Sitting (Post-Dialysis) 122/59 mmHg Concurrent Access: falseAV Graft Upper Arm (Left) Arterial BP Standing (Pre-Dialysis) 132/73 mmHg BP Standing (P ost-Dialysis) 106/48 mmHg Sitting Heart Rate Pre-Dialysis 71 BPM Sitting Heart Rate Post-Dialysis 75 BPM Standing Heart Rate Pre-Dialysis 74 BPM Standing Heart Rate Post-Dialysis 74 BPM Temperature Pre-Dialysis 98.6 degF Temperature Post -Dialysis 97.4 degF November 20, 2024 In-Center Hemodialysis Treatment 7914-00-79M33:00:00.000Z 7641-14-57P69:31:09.000Z BP Sitting (Pre-Dialysis) 181/97 mmHg BP Sitting (Post-Dialysis) 101/56 mmHg Concurrent Access: falseAV Graft Upper Arm (Left) Arterial BP Standing (Pre-Dialysis) 148/76 mmHg BP Standing (P ost-Dialysis) 104/60 mmHg Sitting Heart Rate Pre-Dialysis 72 BPM Sitting Heart Rate Post-Dialysis 73 BPM Standing Heart Rate Pre-Dialysis 74 BPM Standing Heart Rate Post-Dialysis 74 BPM Temperature Pre-Dialysis 98.5 degF Temperature Post -Dialysis 98.1 degF November 18, 2024 In-Center Hemodialysis Treatment 7478-80-14S82:11:37.000Z 9636-70-11Q73:45:37.000Z BP Sitting (Pre-Dialysis) 175/99 mmHg BP Sitting (Post-Dialysis) 108/54 mmHg Concurrent Access: falseAV Graft Upper Arm (Left) Arterial BP Standing (Pre-Dialysis) 158/80 mmHg BP Standing (P ost-Dialysis) 118/61 mmHg Sitting Heart Rate Pre-Dialysis 77 BPM Sitting Heart Rate Post-Dialysis 75 BPM Standing Heart Rate Pre-Dialysis 80 BPM Standing Heart Rate Post-Dialysis 75 BPM Temperature Pre-Dialysis 96.7 degF Temperature Post -Dialysis 98 degF November 16, 2024 In-Center Hemodialysis Treatment 7164-13-15A07:34:04.000Z 9446-40-19D42:55:34.000Z BP Sitting (Pre-Dialysis) 156/93 mmHg BP Sitting (Post-Dialysis) 123/70 mmHg Concurrent Access: falseAV Graft Upper Arm (Left) Arterial Sitting Heart Rate Pre-Dialysis 75 BPM BP Standing (Post-Dialysis) 124/50 mmHg Temperature Pre-Dialysis 98.1 degF Sitting Heart Ra te Post-Dialysis 76 BPM Standing Heart Rate Post-Shanae lysis 74 BPM November 13, 2024 In-Center Hemodialysis Treatment 1990-48-51O23:23:31.000Z 2066-56-37S10:57:31.000Z BP Sitting (Pre-Dialysis) 155/86 mmHg BP Sitting (Post-Dialysis) 101/54 mmHg Concurrent Access: falseAV Graft Upper Arm (Left) Arterial BP Standing (Pre-Dialysis) 112/61 mmHg Sitti ng Heart Rate Post-Dialysis 73 BPM Sitting Heart Rate Pre-Dialysis 73 BPM Temperatu re Post-Dialysis 97.8 degF Standing Heart Rate Pre-Dialysis 77 BPM Temperature Pre-Dialysis 98.3 degF November 11, 2024 In-Center Hemodialysis Treatment [id number]:23:58.000Z 5702-04-15P87:54:58.000Z BP Sitting (Pre-Dialysis) 146/86 mmHg BP Sitting (Post-Dialysis) 114/67 mmHg Concurrent Access: falseAV Graft Upper Arm (Left) Arterial BP Standing (Pre-Dialysis) 145/83 mmHg BP Standing (P ost-Dialysis) 129/59 mmHg Sitting Heart Rate Pre-Dialysis 75 BPM Sitting Heart Rate Post-Dialysis 73 BPM Standing Heart Rate Pre-Dialysis 77 BPM Standing Heart Rate Post-Dialysis 74 BPM Temperature Pre-Dialysis 97.2 degF Temperature Post -Dialysis 98.1 degF November 09, 2024 In-Center Hemodialysis Treatment 7332-91-28H43:15:25.000Z 1912-69-94V25:46:24.000Z BP Sitting (Pre-Dialysis) 165/90 mmHg BP Sitting (Post-Dialysis) 112/67 mmHg Concurrent Access: falseAV Graft Upper Arm (Left) Arterial BP Standing (Pre-Dialysis) 145/75 mmHg Sitti ng Heart Rate Post-Dialysis 73 BPM Sitting Heart Rate Pre-Dialysis 75 BPM Temperatu re Post-Dialysis 98.2 degF Standing Heart Rate Pre-Dialysis 79 BPM Temperature Pre-Dialysis 98.3 degF November 06, 2024 In-Center Hemodialysis Treatment 7940-58-59L31:32:47.000Z 1136-08-50D51:03:48.000Z BP Sitting (Pre-Dialysis) 161/87 mmHg BP Sitting (Post-Dialysis) 103/51 mmHg Concurrent Access: falseAV Graft Upper Arm (Left) Arterial BP Standing (Pre-Dialysis) 129/77 mmHg Sitti ng Heart Rate Post-Dialysis 75 BPM Sitting Heart Rate Pre-Dialysis 73 BPM Temperatu re Post-Dialysis 97.8 degF Standing Heart Rate Pre-Dialysis 75 BPM Temperature Pre-Dialysis 98.2 degF November 04, 2024 In-Center Hemodialysis Treatment [id number]:19:13.000Z 6949-48-00H35:52:13.000Z BP Sitting (Pre-Dialysis) 132/74 mmHg BP Sitting (Post-Dialysis) 102/50 mmHg Concurrent Access: falseAV Graft Upper Arm (Left) Arterial BP Standing (Pre-Dialysis) 114/59 mmHg BP Standing (P ost-Dialysis) 101/40 mmHg Sitting Heart Rate Pre-Dialysis 73 BPM Sitting Heart Rate Post-Dialysis 74 BPM Standing Heart Rate Pre-Dialysis 76 BPM Standing Heart Rate Post-Dialysis 84 BPM Temperature Pre-Dialysis 97.8 degF Temperature Post -Dialysis 98.2 degF November 02, 2024 In-Center Hemodialysis Treatment [id number]:29:40.000Z 2295-43-23D68:03:40.000Z BP Sitting (Pre-Dialysis) 146/83 mmHg BP Sitting (Post-Dialysis) 102/60 mmHg Concurrent Access: falseAV Graft Upper Arm (Left) Arterial BP Standing (Pre-Dialysis) 128/69 mmHg Sitti ng Heart Rate Post-Dialysis 73 BPM Sitting Heart Rate Pre-Dialysis 74 BPM Temperatu re Post-Dialysis 99.1 degF Standing Heart Rate Pre-Dialysis 77 BPM Temperature Pre-Dialysis 98.1 degF October 30, 2024 In-Center Hemodialysis Treatment [id number]:17:35.000Z [id number]:52:35.000Z BP Sitting (Pre-Dialysis) 166/91 mmHg BP Sitting (Post-Dialysis) 110/55 mmHg Concurrent Access: falseAV Graft Upper Arm (Left) Arterial BP Standing (Pre-Dialysis) 155/73 mmHg Sitti ng Heart Rate Post-Dialysis 73 BPM Sitting Heart Rate Pre-Dialysis 72 BPM Temperatu re Post-Dialysis 98.1 degF Standing Heart Rate Pre-Dialysis 74 BPM Temperature Pre-Dialysis 98.2 degF October 28, 2024 In-Center Hemodialysis Treatment [id number]:28:00.000Z [id number]:59:03.000Z BP Sitting (Pre-Dialysis) 172/99 mmHg BP Sitting (Post-Dialysis) 107/57 mmHg Concurrent Access: falseAV Graft Upper Arm (Left) Arterial BP Standing (Pre-Dialysis) 140/79 mmHg Sitti ng Heart Rate Post-Dialysis 73 BPM Sitting Heart Rate Pre-Dialysis 70 BPM Temperatu re Post-Dialysis 98.2 degF Standing Heart Rate Pre-Dialysis 71 BPM Temperature Pre-Dialysis 98.3 degF October 26, 2024 In-Center Hemodialysis Treatment [id number]:12:00.000Z [id number]:45:30.000Z BP Sitting (Pre-Dialysis) 157/90 mmHg BP Sitting (Post-Dialysis) 103/61 mmHg Concurrent Access: falseAV Graft Upper Arm (Left) Arterial BP Standing (Pre-Dialysis) 151/81 mmHg BP Standing (P ost-Dialysis) 111/54 mmHg Sitting Heart Rate Pre-Dialysis 71 BPM Sitting Heart Rate Post-Dialysis 75 BPM Standing Heart Rate Pre-Dialysis 73 BPM Standing Heart Rate Post-Dialysis 81 BPM Temperature Pre-Dialysis 97 degF Temperature Post -Dialysis 98.1 degF October 23, 2024 In-Center Hemodialysis Treatment [id number]:24:09.000Z 1286-64-18O82:57:09.000Z BP Sitting (Pre-Dialysis) 182/99 mmHg BP Sitting (Post-Dialysis) 112/61 mmHg Concurrent Access: falseAV Graft Upper Arm (Left) Arterial BP Standing (Pre-Dialysis) 165/84 mmHg BP Standing (P ost-Dialysis) 100/52 mmHg Sitting Heart Rate Pre-Dialysis 71 BPM Sitting Heart Rate Post-Dialysis 76 BPM Standing Heart Rate Pre-Dialysis 75 BPM Standing Heart Rate Post-Dialysis 77 BPM Temperature Pre-Dialysis 97.2 degF Temperature Post -Dialysis 98 degF October 21, 2024 In-Center Hemodialysis Treatment [id number]:19:00.000Z [id number]:09:36.000Z BP Sitting (Pre-Dialysis) 166/86 mmHg BP Sitting (Post-Dialysis) 124/66 mmHg Concurrent Access: falseAV Graft Upper Arm (Left) Arterial BP Standing (Pre-Dialysis) 137/71 mmHg BP Standing (P ost-Dialysis) 117/49 mmHg Sitting Heart Rate Pre-Dialysis 74 BPM Sitting Heart Rate Post-Dialysis 77 BPM Standing Heart Rate Pre-Dialysis 75 BPM Standing Heart Rate Post-Dialysis 84 BPM Temperature Pre-Dialysis 97.6 degF Temperature Post -Dialysis 98.1 degF October 19, 2024 In-Center Hemodialysis Treatment [id number]:26:00.000Z 8225-45-42D81:02:02.000Z BP Sitting (Pre-Dialysis) 146/94 mmHg BP Sitting (Post-Dialysis) 105/52 mmHg Concurrent Access: falseAV Graft Upper Arm (Left) Arterial BP Standing (Pre-Dialysis) 162/87 mmHg BP Standing (P ost-Dialysis) 109/51 mmHg Sitting Heart Rate Pre-Dialysis 70 BPM Sitting Heart Rate Post-Dialysis 79 BPM Standing Heart Rate Pre-Dialysis 72 BPM Standing Heart Rate Post-Dialysis 83 BPM Temperature Pre-Dialysis 97.9 degF Temperature Post -Dialysis 98.2 degF October 16, 2024 In-Center Hemodialysis Treatment [id number]:17:11.000Z [id number]:46:13.000Z BP Sitting (Pre-Dialysis) 145/85 mmHg BP Sitting (Post-Dialysis) 113/53 mmHg Concurrent Access: falseAV Graft Upper Arm (Left) Arterial BP Standing (Pre-Dialysis) 169/97 mmHg Sitti ng Heart Rate Post-Dialysis 81 BPM Sitting Heart Rate Pre-Dialysis 81 BPM Temperatu re Post-Dialysis 98.4 degF Standing Heart Rate Pre-Dialysis 78 BPM Temperature Pre-Dialysis 97.8 degF October 14, 2024 In-Center Hemodialysis Treatment [id number]:34:39.000Z [id number]:06:39.000Z BP Sitting (Pre-Dialysis) 181/99 mmHg BP Sitting (Post-Dialysis) 127/40 mmHg Concurrent Access: falseAV Graft Upper Arm (Left) Arterial BP Standing (Pre-Dialysis) 167/96 mmHg BP Standing (P ost-Dialysis) 102/50 mmHg Sitting Heart Rate Pre-Dialysis 73 BPM Sitting Heart Rate Post-Dialysis 78 BPM Standing Heart Rate Pre-Dialysis 75 BPM Standing Heart Rate Post-Dialysis 83 BPM Temperature Pre-Dialysis 96.9 degF Temperature Post -Dialysis 97.8 degF October 12, 2024 In-Center Hemodialysis Treatment [id number]:18:05.000Z [id number]:57:05.000Z BP Sitting (Pre-Dialysis) 162/92 mmHg BP Sitting (Post-Dialysis) 102/53 mmHg Concurrent Access: falseAV Graft Upper Arm (Left) Arterial BP Standing (Pre-Dialysis) 158/83 mmHg Sitti ng Heart Rate Post-Dialysis 78 BPM Sitting Heart Rate Pre-Dialysis 71 BPM Temperatu re Post-Dialysis 97.7 degF Standing Heart Rate Pre-Dialysis 76 BPM Temperature Pre-Dialysis 97 degF October 09, 2024 In-Center Hemodialysis Treatment [id number]:23:00.000Z [id number]:57:15.000Z BP Sitting (Pre-Dialysis) 161/89 mmHg BP Sitting (Post-Dialysis) 108/55 mmHg Concurrent Access: falseAV Graft Upper Arm (Left) Arterial BP Standing (Pre-Dialysis) 134/71 mmHg BP Standing (P ost-Dialysis) 106/47 mmHg Sitting Heart Rate Pre-Dialysis 80 BPM Sitting Heart Rate Post-Dialysis 78 BPM Standing Heart Rate Pre-Dialysis 83 BPM Standing Heart Rate Post-Dialysis 81 BPM Temperature Pre-Dialysis 97.5 degF Temperature Post -Dialysis 98.3 degF October 07, 2024 In-Center Hemodialysis Treatment [id number]:32:41.000Z 5194-43-03Z51:03:42.000Z BP Sitting (Pre-Dialysis) 175/93 mmHg BP Sitting (Post-Dialysis) 109/56 mmHg Concurrent Access: falseAV Graft Upper Arm (Left) Arterial BP Standing (Pre-Dialysis) 158/83 mmHg Sitti ng Heart Rate Post-Dialysis 77 BPM Sitting Heart Rate Pre-Dialysis 76 BPM Temperatu re Post-Dialysis 97.5 degF Standing Heart Rate Pre-Dialysis 78 BPM Temperature Pre-Dialysis 98.3 degF October 05, 2024 In-Center Hemodialysis Treatment 3558-29-52X20:53:00.000Z 1919-47-05E05:32:09.000Z BP Sitting (Pre-Dialysis) 167/85 mmHg BP Sitting (Post-Dialysis) 103/51 mmHg Concurrent Access: falseAV Graft Upper Arm (Left) Arterial BP Standing (Pre-Dialysis) 138/77 mmHg BP Standing (P ost-Dialysis) 101/57 mmHg Sitting Heart Rate Pre-Dialysis 70 BPM Sitting Heart Rate Post-Dialysis 78 BPM Standing Heart Rate Pre-Dialysis 73 BPM Standing Heart Rate Post-Dialysis 80 BPM Temperature Pre-Dialysis 98.3 degF Temperature Post -Dialysis 97.3 degF October 02, 2024 In-Center Hemodialysis Treatment [id number]:03:00.000Z 7928-93-32K67:36:18.000Z BP Sitting (Pre-Dialysis) 168/88 mmHg BP Sitting (Post-Dialysis) 105/47 mmHg Concurrent Access: falseAV Graft Upper Arm (Left) Arterial BP Standing (Pre-Dialysis) 120/68 mmHg BP Standing (P ost-Dialysis) 103/43 mmHg Sitting Heart Rate Pre-Dialysis 75 BPM Sitting Heart Rate Post-Dialysis 80 BPM Standing Heart Rate Pre-Dialysis 80 BPM Standing Heart Rate Post-Dialysis 81 BPM Temperature Pre-Dialysis 98 degF Temperature Post -Dialysis 98.3 degF September 30, 2024 In-Center Hemodialysis Treatment [id number]:07:00.000Z 9128-89-40I61:39:45.000Z BP Sitting (Pre-Dialysis) 145/84 mmHg BP Sitting (Post-Dialysis) 123/54 mmHg Concurrent Access: falseAV Graft Upper Arm (Left) Arterial BP Standing (Pre-Dialysis) 118/65 mmHg Sitting Heart Rate Post-Dialysis 76 BPM Sitting Heart Rate Pre-Dialysis 75 BPM Temperatu re Post-Dialysis 97 degF Standing Heart Rate Pre-Dialysis 78 BPM Temperature Pre-Dialysis 97.2 degF September 28, 2024 In-Center Hemodialysis Treatment [id number]:20:12.000Z 2354-10-40I11:50:12.000Z BP Sitting (Pre-Dialysis) 150/85 mmHg BP Sitting (Post-Dialysis) 100/49 mmHg Concurrent Access: falseAV Graft Upper Arm (Left) Arterial BP Standing (Pre-Dialysis) 106/62 mmHg Sitti ng Heart Rate Post-Dialysis 82 BPM Sitting Heart Rate Pre-Dialysis 76 BPM Temperatu re Post-Dialysis 97.5 degF Standing Heart Rate Pre-Dialysis 81 BPM Temperature Pre-Dialysis 98.7 degF September 25, 2024 In-Center Hemodialysis Treatment [id number]:13:23.000Z 9535-49-49F90:45:23.000Z BP Sitting (Pre-Dialysis) 110/52 mmHg BP Sitting (Post-Dialysis) 105/59 mmHg Concurrent Access: falseAV Graft Upper Arm (Left) Arterial BP Standing (Pre-Dialysis) 131/75 mmHg BP Standing (P ost-Dialysis) 120/51 mmHg Sitting Heart Rate Pre-Dialysis 78 BPM Sitting Heart Rate Post-Dialysis 77 BPM Standing Heart Rate Pre-Dialysis 73 BPM Standing Heart Rate Post-Dialysis 78 BPM Temperature Pre-Dialysis 97.4 degF Temperature Post -Dialysis 97.8 degF September 23, 2024 In-Center Hemodialysis Treatment [id number]:20:49.000Z 1568-35-75R42:54:49.000Z BP Sitting (Pre-Dialysis) 135/76 mmHg BP Sitting (Post-Dialysis) 112/61 mmHg Concurrent Access: falseAV Graft Upper Arm (Left) Arterial BP Standing (Pre-Dialysis) 109/56 mmHg Sitti ng Heart Rate Post-Dialysis 78 BPM Sitting Heart Rate Pre-Dialysis 69 BPM Temperatu re Post-Dialysis 97.7 degF Standing Heart Rate Pre-Dialysis 75 BPM Temperature Pre-Dialysis 98.2 degF September 20, 2024 In-Center Hemodialysis Treatment 4531-25-83C05:13:00.000Z 3147-68-97F58:49:00.000Z BP Sitting (Pre-Dialysis) 136/76 mmHg BP Sitting (Post-Dialysis) 116/56 mmHg Concurrent Access: falseAV Graft Upper Arm (Left) Arterial BP Standing (Pre-Dialysis) 111/65 mmHg BP Standing (P ost-Dialysis) 100/48 mmHg Sitting Heart Rate Pre-Dialysis 72 BPM Sitting Heart Rate Post-Dialysis 74 BPM Standing Heart Rate Pre-Dialysis 72 BPM Standing Heart Rate Post-Dialysis 76 BPM Temperature Pre-Dialysis 97.3 degF Temperature Post -Dialysis 97.8 degF September 18, 2024 In-Center Hemodialysis Treatment [id number]:02:00.000Z 4654-12-85F97:38:23.000Z BP Sitting (Pre-Dialysis) 146/85 mmHg BP Sitting (Post-Dialysis) 128/61 mmHg Concurrent Access: falseAV Graft Upper Arm (Left) Arterial BP Standing (Pre-Dialysis) 141/74 mmHg Sitti ng Heart Rate Post-Dialysis 76 BPM Sitting Heart Rate Pre-Dialysis 73 BPM Temperatu re Post-Dialysis 98.1 degF Standing Heart Rate Pre-Dialysis 75 BPM Temperature Pre-Dialysis 97.8 degF September 16, 2024 In-Center Hemodialysis Treatment 7355-49-00S77:16:49.000Z 6118-56-73Z21:51:50.000Z BP Sitting (Pre-Dialysis) 140/81 mmHg BP Sitting (Post-Dialysis) 117/61 mmHg Concurrent Access: falseAV Graft Upper Arm (Left) Arterial BP Standing (Pre-Dialysis) 115/64 mmHg Sitti ng Heart Rate Post-Dialysis 76 BPM Sitting Heart Rate Pre-Dialysis 72 BPM Temperatu re Post-Dialysis 98.3 degF Standing Heart Rate Pre-Dialysis 73 BPM Temperature Pre-Dialysis 97.2 degF September 14, 2024 In-Center Hemodialysis Treatment 5535-75-26L16:07:00.000Z 0024-24-28M09:41:16.000Z BP Sitting (Pre-Dialysis) 97/48 mmHg BP Sitting (Post-Dialysis) 126/60 mmHg Concurrent Access: falseAV Graft Upper Arm (Left) Arterial BP Standing (Pre-Dialysis) 115/62 mmHg Sitti ng Heart Rate Post-Dialysis 75 BPM Sitting Heart Rate Pre-Dialysis 75 BPM Temperatu re Post-Dialysis 98.1 degF Standing Heart Rate Pre-Dialysis 73 BPM Temperature Pre-Dialysis 98.3 degF September 11, 2024 In-Center Hemodialysis Treatment 4974-28-38H36:15:00.000Z 8900-38-57G39:47:26.000Z BP Sitting (Pre-Dialysis) 154/82 mmHg BP Sitting (Post-Dialysis) 107/47 mmHg Concurrent Access: falseAV Graft Upper Arm (Left) Arterial BP Standing (Pre-Dialysis) 140/77 mmHg BP Standing (P ost-Dialysis) 104/48 mmHg Sitting Heart Rate Pre-Dialysis 76 BPM Sitting Heart Rate Post-Dialysis 81 BPM Standing Heart Rate Pre-Dialysis 77 BPM Standing Heart Rate Post-Dialysis 78 BPM Temperature Pre-Dialysis 97.2 degF Temperature Post -Dialysis 98.1 degF September 09, 2024 In-Center Hemodialysis Treatment 8213-82-10N17:17:00.000Z 9392-26-68S62:52:54.000Z BP Sitting (Pre-Dialysis) 151/79 mmHg BP Sitting (Post-Dialysis) 107/53 mmHg Concurrent Access: falseAV Graft Upper Arm (Left) Arterial BP Standing (Pre-Dialysis) 130/69 mmHg BP Standing (P ost-Dialysis) 107/45 mmHg Sitting Heart Rate Pre-Dialysis 74 BPM Sitting Heart Rate Post-Dialysis 82 BPM Standing Heart Rate Pre-Dialysis 76 BPM Standing Heart Rate Post-Dialysis 82 BPM Temperature Pre-Dialysis 97.5 degF Temperature Post -Dialysis 97.8 degF September 07, 2024 In-Center Hemodialysis Treatment 6747-72-31W79:04:18.000Z 2035-89-25Z69:46:17.000Z BP Sitting (Pre-Dialysis) 161/93 mmHg BP Sitting (Post-Dialysis) 118/70 mmHg Concurrent Access: falseAV Graft Upper Arm (Left) Arterial BP Standing (Pre-Dialysis) 135/70 mmHg Sitti ng Heart Rate Post-Dialysis 76 BPM Sitting Heart Rate Pre-Dialysis 73 BPM Temperatu re Post-Dialysis 98.6 degF Standing Heart Rate Pre-Dialysis 76 BPM Temperature Pre-Dialysis 97.6 degF September 04, 2024 In-Center Hemodialysis Treatment 4769-90-69P60:06:00.000Z 1074-84-32Y90:38:28.000Z BP Sitting (Pre-Dialysis) 150/81 mmHg BP Sitting (Post-Dialysis) 107/57 mmHg Concurrent Access: falseAV Graft Upper Arm (Left) Arterial BP Standing (Pre-Dialysis) 130/71 mmHg BP Standing (P ost-Dialysis) 108/58 mmHg Sitting Heart Rate Pre-Dialysis 73 BPM Sitting Heart Rate Post-Dialysis 78 BPM Standing Heart Rate Pre-Dialysis 73 BPM Standing Heart Rate Post-Dialysis 74 BPM Temperature Pre-Dialysis 97.8 degF Temperature Post -Dialysis 97.6 degF September 02, 2024 In-Center Hemodialysis Treatment [id number]:13:55.000Z [id number]:44:55.000Z BP Sitting (Pre-Dialysis) 115/61 mmHg BP Sitting (Post-Dialysis) 111/53 mmHg Concurrent Access: falseAV Graft Upper Arm (Left) Arterial BP Standing (Pre-Dialysis) 148/77 mmHg BP Standing (P ost-Dialysis) 104/49 mmHg Sitting Heart Rate Pre-Dialysis 72 BPM Sitting Heart Rate Post-Dialysis 80 BPM Standing Heart Rate Pre-Dialysis 71 BPM Standing Heart Rate Post-Dialysis 79 BPM Temperature Pre-Dialysis 97.3 degF Temperature Post -Dialysis 98.1 degF August 31, 2024 In-Center Hemodialysis Treatment [id number]:10:00.000Z 9821-51-99F96:47:21.000Z BP Sitting (Pre-Dialysis) 157/82 mmHg BP Sitting (Post-Dialysis) 101/50 mmHg Concurrent Access: falseAV Graft Upper Arm (Left) Arterial BP Standing (Pre-Dialysis) 139/77 mmHg BP Standing (P ost-Dialysis) 101/51 mmHg Sitting Heart Rate Pre-Dialysis 74 BPM Sitting Heart Rate Post-Dialysis 77 BPM Standing Heart Rate Pre-Dialysis 75 BPM Standing Heart Rate Post-Dialysis 80 BPM Temperature Pre-Dialysis 97.2 degF Temperature Post -Dialysis 98 degF August 28, 2024 In-Center Hemodialysis Treatment [id number]:18:00.000Z 0150-43-74P46:49:32.000Z BP Sitting (Pre-Dialysis) 156/75 mmHg BP Sitting (Post-Dialysis) 108/56 mmHg Concurrent Access: falseAV Graft Upper Arm (Left) Arterial BP Standing (Pre-Dialysis) 171/95 mmHg Sitti ng Heart Rate Post-Dialysis 78 BPM Sitting Heart Rate Pre-Dialysis 75 BPM Temperatu re Post-Dialysis 98.2 degF Standing Heart Rate Pre-Dialysis 76 BPM Temperature Pre-Dialysis 98.1 degF August 25, 2024 In-Center Hemodialysis Treatment 6983-34-36E27:39:00.000Z 5508-30-90E40:15:41.000Z BP Sitting (Pre-Dialysis) 161/83 mmHg BP Sitting (Post-Dialysis) 116/65 mmHg Concurrent Access: falseAV Graft Upper Arm (Left) Arterial BP Standing (Pre-Dialysis) 117/70 mmHg BP Standing (P ost-Dialysis) 103/53 mmHg Sitting Heart Rate Pre-Dialysis 74 BPM Sitting Heart Rate Post-Dialysis 78 BPM Standing Heart Rate Pre-Dialysis 76 BPM Standing Heart Rate Post-Dialysis 80 BPM Temperature Pre-Dialysis 98.4 degF Temperature Post -Dialysis 98.7 degF August 23, 2024 In-Center Hemodialysis Treatment 0134-63-13Y81:08:00.000Z 0890-11-32W46:43:08.000Z BP Sitting (Pre-Dialysis) 157/79 mmHg BP Sitting (Post-Dialysis) 103/51 mmHg Concurrent Access: falseAV Graft Upper Arm (Left) Arterial BP Standing (Pre-Dialysis) 128/68 mmHg Sitti ng Heart Rate Post-Dialysis 80 BPM Sitting Heart Rate Pre-Dialysis 78 BPM Temperatu re Post-Dialysis 97.6 degF Standing Heart Rate Pre-Dialysis 78 BPM Temperature Pre-Dialysis 97.6 degF August 21, 2024 In-Center Hemodialysis Treatment 0420-51-47G88:12:00.000Z 9665-49-16R84:47:34.000Z BP Sitting (Pre-Dialysis) 181/98 mmHg BP Sitting (Post-Dialysis) 110/61 mmHg Concurrent Access: falseAV Graft Upper Arm (Left) Arterial BP Standing (Pre-Dialysis) 158/86 mmHg Sitti ng Heart Rate Post-Dialysis 78 BPM Sitting Heart Rate Pre-Dialysis 77 BPM Temperatu re Post-Dialysis 97.8 degF Standing Heart Rate Pre-Dialysis 77 BPM Temperature Pre-Dialysis 97.2 degF August 19, 2024 In-Center Hemodialysis Treatment 7612-67-64C67:12:00.000Z 2663-41-09E00:47:01.000Z BP Sitting (Pre-Dialysis) 140/82 mmHg BP Sitting (Post-Dialysis) 100/60 mmHg Concurrent Access: falseAV Graft Upper Arm (Left) Arterial BP Standing (Pre-Dialysis) 122/69 mmHg Sitting Heart Rate Post-Dialysis 80 BPM Sitting Heart Rate Pre-Dialysis 76 BPM Temperatu re Post-Dialysis 98 degF Standing Heart Rate Pre-Dialysis 76 BPM Temperature Pre-Dialysis 97.7 degF August 17, 2024 In-Center Hemodialysis Treatment 4304-15-46C97:01:00.000Z 8827-44-69X95:31:27.000Z BP Sitting (Pre-Dialysis) 153/85 mmHg BP Sitting (Post-Dialysis) 114/58 mmHg Concurrent Access: falseAV Graft Upper Arm (Left) Arterial BP Standing (Pre-Dialysis) 138/65 mmHg BP Standing (P ost-Dialysis) 111/53 mmHg Sitting Heart Rate Pre-Dialysis 77 BPM Sitting Heart Rate Post-Dialysis 82 BPM Standing Heart Rate Pre-Dialysis 77 BPM Standing Heart Rate Post-Dialysis 86 BPM Temperature Pre-Dialysis 98 degF Temperature Post -Dialysis 97.6 degF August 14, 2024 In-Center Hemodialysis Treatment 0589-08-48Y43:03:00.000Z 7861-20-93O92:40:54.000Z BP Sitting (Pre-Dialysis) 172/97 mmHg BP Sitting (Post-Dialysis) 104/59 mmHg Concurrent Access: falseAV Graft Upper Arm (Left) Arterial BP Standing (Pre-Dialysis) 152/82 mmHg BP Standing (P ost-Dialysis) 105/53 mmHg Sitting Heart Rate Pre-Dialysis 75 BPM Sitting Heart Rate Post-Dialysis 78 BPM Standing Heart Rate Pre-Dialysis 76 BPM Standing Heart Rate Post-Dialysis 81 BPM Temperature Pre-Dialysis 97.2 degF Temperature Post -Dialysis 97.2 degF August 12, 2024 In-Center Hemodialysis Treatment [id number]:17:00.000Z 4989-21-06M59:53:20.000Z BP Sitting (Pre-Dialysis) 168/89 mmHg BP Sitting (Post-Dialysis) 121/63 mmHg Concurrent Access: falseAV Graft Upper Arm (Left) Arterial BP Standing (Pre-Dialysis) 125/72 mmHg BP Standing (P ost-Dialysis) 107/44 mmHg Sitting Heart Rate Pre-Dialysis 69 BPM Sitting Heart Rate Post-Dialysis 79 BPM Standing Heart Rate Pre-Dialysis 78 BPM Standing Heart Rate Post-Dialysis 82 BPM Temperature Pre-Dialysis 97.7 degF Temperature Post -Dialysis 97.3 degF August 10, 2024 In-Center Hemodialysis Treatment [id number]:41:00.000Z 8668-79-68H00:21:48.000Z BP Sitting (Pre-Dialysis) 191/107 mmHg BP Sitting (Post-Dialysis) 113/58 mmHg Concurrent Access: falseAV Graft Upper Arm (Left) Arterial BP Standing (Pre-Dialysis) 179/99 mmHg BP Standing (P ost-Dialysis) 109/44 mmHg Sitting Heart Rate Pre-Dialysis 73 BPM Sitting Heart Rate Post-Dialysis 80 BPM Standing Heart Rate Pre-Dialysis 74 BPM Standing Heart Rate Post-Dialysis 81 BPM Temperature Pre-Dialysis 98.1 degF Temperature Post -Dialysis 98.2 degF August 07, 2024 In-Center Hemodialysis Treatment [id number]:03:00.000Z 2549-11-35N71:39:39.000Z BP Sitting (Pre-Dialysis) 155/92 mmHg BP Sitting (Post-Dialysis) 109/54 mmHg Concurrent Access: falseAV Graft Upper Arm (Left) Arterial BP Standing (Pre-Dialysis) 130/70 mmHg Sitti ng Heart Rate Post-Dialysis 79 BPM Sitting Heart Rate Pre-Dialysis 77 BPM Temperatu re Post-Dialysis 98.3 degF Standing Heart Rate Pre-Dialysis 76 BPM Temperature Pre-Dialysis 98 degF August 05, 2024 In-Center Hemodialysis Treatment 4886-02-81P77:10:00.000Z 9584-43-45D78:43:15.000Z BP Sitting (Pre-Dialysis) 139/74 mmHg BP Sitting (Post-Dialysis) 115/61 mmHg Concurrent Access: falseAV Graft Upper Arm (Left) Arterial BP Standing (Pre-Dialysis) 118/62 mmHg BP Standing (P ost-Dialysis) 111/48 mmHg Sitting Heart Rate Pre-Dialysis 79 BPM Sitting Heart Rate Post-Dialysis 81 BPM Standing Heart Rate Pre-Dialysis 79 BPM Standing Heart Rate Post-Dialysis 81 BPM Temperature Pre-Dialysis 97.7 degF Temperature Post -Dialysis 98.1 degF August 03, 2024 In-Center Hemodialysis Treatment [id number]:14:00.000Z 0375-55-85B12:52:50.000Z BP Sitting (Pre-Dialysis) 145/84 mmHg BP Sitting (Post-Dialysis) 101/62 mmHg Concurrent Access: falseAV Graft Upper Arm (Left) Arterial BP Standing (Pre-Dialysis) 134/78 mmHg Sitting Heart Rate Post-Dialysis 85 BPM Sitting Heart Rate Pre-Dialysis 79 BPM Standing Heart Rate Pre-Dialysis 78 BPM Temperature Pre-Dialysis 97.6 degF July 31, 2024 In-Center Hemodialysis Treatment [id number]:15:52.000Z 2737-17-36F92:51:52.000Z BP Sitting (Pre-Dialysis) 164/90 mmHg BP Sitting (Post-Dialysis) 125/53 mmHg Concurrent Access: falseAV Graft Upper Arm (Left) Arterial BP Standing (Pre-Dialysis) 153/83 mmHg Sitti ng Heart Rate Post-Dialysis 79 BPM Sitting Heart Rate Pre-Dialysis 74 BPM Temperatu re Post-Dialysis 97.7 degF Standing Heart Rate Pre-Dialysis 74 BPM Temperature Pre-Dialysis 97.7 degF July 29, 2024 In-Center Hemodialysis Treatment 7607-14-40Y38:09:00.000Z 8350-84-74H21:42:19.000Z BP Sitting (Pre-Dialysis) 123/67 mmHg BP Sitting (Post-Dialysis) 133/78 mmHg Concurrent Access: falseAV Graft Upper Arm (Left) Arterial BP Standing (Pre-Dialysis) 117/72 mmHg BP Standing (P ost-Dialysis) 106/58 mmHg Sitting Heart Rate Pre-Dialysis 76 BPM Sitting Heart Rate Post-Dialysis 83 BPM Standing Heart Rate Pre-Dialysis 81 BPM Standing Heart Rate Post-Dialysis 85 BPM Temperature Pre-Dialysis 97.2 degF Temperature Post -Dialysis 97.6 degF July 27, 2024 In-Center Hemodialysis Treatment 5824-30-84D83:11:00.000Z 5597-17-04A09:44:49.000Z BP Sitting (Pre-Dialysis) 158/88 mmHg BP Sitting (Post-Dialysis) 128/72 mmHg Concurrent Access: falseAV Graft Upper Arm (Left) Arterial BP Standing (Pre-Dialysis) 137/79 mmHg BP Standing (P ost-Dialysis) 108/60 mmHg Sitting Heart Rate Pre-Dialysis 80 BPM Sitting Heart Rate Post-Dialysis 79 BPM Standing Heart Rate Pre-Dialysis 81 BPM Standing Heart Rate Post-Dialysis 83 BPM Temperature Pre-Dialysis 97.6 degF Temperature Post -Dialysis 98.7 degF July 24, 2024 In-Center Hemodialysis Treatment [id number]:16:07.000Z 9468-83-57Y94:53:07.000Z BP Sitting (Pre-Dialysis) 156/83 mmHg BP Sitting (Post-Dialysis) 153/88 mmHg Concurrent Access: falseAV Graft Upper Arm (Left) Arterial BP Standing (Pre-Dialysis) 136/75 mmHg BP Standing (P ost-Dialysis) 126/70 mmHg Sitting Heart Rate Pre-Dialysis 85 BPM Sitting Heart Rate Post-Dialysis 79 BPM Standing Heart Rate Pre-Dialysis 86 BPM Standing Heart Rate Post-Dialysis 81 BPM Temperature Pre-Dialysis 98 degF Temperature Post -Dialysis 98.5 degF July 22, 2024 In-Center Hemodialysis Treatment [id number]:58:37.000Z [id number]:34:37.000Z BP Sitting (Pre-Dialysis) 154/91 mmHg BP Sitting (Post-Dialysis) 142/78 mmHg Concurrent Access: falseAV Graft Upper Arm (Left) Arterial BP Standing (Pre-Dialysis) 155/84 mmHg BP Standing (P ost-Dialysis) 118/60 mmHg Sitting Heart Rate Pre-Dialysis 76 BPM Sitting Heart Rate Post-Dialysis 86 BPM Standing Heart Rate Pre-Dialysis 78 BPM Standing Heart Rate Post-Dialysis 85 BPM Temperature Pre-Dialysis 97.8 degF Temperature Post -Dialysis 98.5 degF July 20, 2024 In-Center Hemodialysis Treatment [id number]:59:00.000Z 8569-72-57Q10:36:05.000Z BP Sitting (Pre-Dialysis) 164/93 mmHg BP Sitting (Post-Dialysis) 130/74 mmHg Concurrent Access: falseAV Graft Upper Arm (Left) Arterial BP Standing (Pre-Dialysis) 146/86 mmHg BP Standing (P ost-Dialysis) 127/88 mmHg Sitting Heart Rate Pre-Dialysis 80 BPM Sitting Heart Rate Post-Dialysis 79 BPM Standing Heart Rate Pre-Dialysis 81 BPM Standing Heart Rate Post-Dialysis 76 BPM Temperature Pre-Dialysis 98 degF Temperature Post -Dialysis 98.3 degF July 17, 2024 In-Center Hemodialysis Treatment 1037-31-59I27:15:00.000Z 4785-28-85I26:50:14.000Z BP Sitting (Pre-Dialysis) 174/97 mmHg BP Sitting (Post-Dialysis) 137/77 mmHg Concurrent Access: falseAV Graft Upper Arm (Left) Arterial BP Standing (Pre-Dialysis) 160/90 mmHg BP Standing (P ost-Dialysis) 110/52 mmHg Sitting Heart Rate Pre-Dialysis 77 BPM Sitting Heart Rate Post-Dialysis 78 BPM Standing Heart Rate Pre-Dialysis 78 BPM Standing Heart Rate Post-Dialysis 80 BPM Temperature Pre-Dialysis 98.3 degF Temperature Post -Dialysis 98.2 degF July 15, 2024 In-Center Hemodialysis Treatment 7929-55-49N03:56:19.000Z 9924-88-80B51:28:19.000Z BP Sitting (Pre-Dialysis) 165/86 mmHg BP Sitting (Post-Dialysis) 142/83 mmHg Concurrent Access: falseAV Graft Upper Arm (Left) Arterial BP Standing (Pre-Dialysis) 138/83 mmHg BP Standing (P ost-Dialysis) 125/57 mmHg Sitting Heart Rate Pre-Dialysis 72 BPM Sitting Heart Rate Post-Dialysis 77 BPM Standing Heart Rate Pre-Dialysis 75 BPM Standing Heart Rate Post-Dialysis 78 BPM Temperature Pre-Dialysis 98.7 degF Temperature Post -Dialysis 98 degF July 13, 2024 In-Center Hemodialysis Treatment [id number]:21:00.000Z [id number]:04:14.000Z BP Sitting (Pre-Dialysis) 167/93 mmHg BP Sitting (Post-Dialysis) 159/82 mmHg Concurrent Access: falseAV Graft Upper Arm (Left) Arterial BP Standing (Pre-Dialysis) 156/90 mmHg Sitti ng Heart Rate Post-Dialysis 78 BPM Sitting Heart Rate Pre-Dialysis 74 BPM Temperatu re Post-Dialysis 97.4 degF Standing Heart Rate Pre-Dialysis 78 BPM Temperature Pre-Dialysis 97.7 degF July 10, 2024 In-Center Hemodialysis Treatment [id number]:07:00.000Z [id number]:43:19.000Z BP Sitting (Pre-Dialysis) 181/97 mmHg BP Sitting (Post-Dialysis) 146/72 mmHg Concurrent Access: falseAV Graft Upper Arm (Left) Arterial BP Standing (Pre-Dialysis) 171/95 mmHg BP Standing (P ost-Dialysis) 125/65 mmHg Sitting Heart Rate Pre-Dialysis 76 BPM Sitting Heart Rate Post-Dialysis 75 BPM Standing Heart Rate Pre-Dialysis 75 BPM Standing Heart Rate Post-Dialysis 79 BPM Temperature Pre-Dialysis 98.4 degF Temperature Post -Dialysis 98.4 degF July 08, 2024 In-Center Hemodialysis Treatment [id number]:12:00.000Z 7454-48-70Z88:49:14.000Z BP Sitting (Pre-Dialysis) 193/107 mmHg BP Sitting (Post-Dialysis) 190/99 mmHg Concurrent Access: falseAV Graft Upper Arm (Left) Arterial BP Standing (Pre-Dialysis) 176/101 mmHg BP Standing (P ost-Dialysis) 149/73 mmHg Sitting Heart Rate Pre-Dialysis 72 BPM Sitting Heart Rate Post-Dialysis 76 BPM Standing Heart Rate Pre-Dialysis 76 BPM Standing Heart Rate Post-Dialysis 78 BPM Temperature Pre-Dialysis 98 degF Temperature Post -Dialysis 98 degF July 06, 2024 In-Center Hemodialysis Treatment [id number]:19:14.000Z [id number]:54:14.000Z BP Sitting (Pre-Dialysis) 179/96 mmHg BP Sitting (Post-Dialysis) 196/102 mmHg Concurrent Access: falseAV Graft Upper Arm (Left) Arterial BP Standing (Pre-Dialysis) 158/85 mmHg BP Standing (P ost-Dialysis) 150/83 mmHg Sitting Heart Rate Pre-Dialysis 76 BPM Sitting Heart Rate Post-Dialysis 85 BPM Standing Heart Rate Pre-Dialysis 76 BPM Standing Heart Rate Post-Dialysis 87 BPM Temperature Pre-Dialysis 98.3 degF Temperature Post -Dialysis 98.1 degF July 03, 2024 In-Center Hemodialysis Treatment [id number]:04:00.000Z 3712-07-63H10:37:10.000Z BP Sitting (Pre-Dialysis) 121/71 mmHg BP Sitting (Post-Dialysis) 177/97 mmHg Concurrent Access: falseAV Graft Upper Arm (Left) Arterial BP Standing (Pre-Dialysis) 143/84 mmHg Sitti ng Heart Rate Post-Dialysis 77 BPM Sitting Heart Rate Pre-Dialysis 75 BPM Temperatu re Post-Dialysis 97.2 degF Standing Heart Rate Pre-Dialysis 73 BPM Temperature Pre-Dialysis 98.1 degF July 01, 2024 In-Center Hemodialysis Treatment [id number]:09:00.000Z 5279-11-26R04:48:14.000Z BP Sitting (Pre-Dialysis) 220/120 mmHg BP Sitting (Post-Dialysis) 199/105 mmHg Concurrent Access: falseAV Graft Upper Arm (Left) Arterial Sitting Heart Rate Pre-Dialysis 82 BPM BP Standing (Post-Dialysis) 161/85 mmHg Temperature Pre-Dialysis 98.3 degF Sitting Heart Ra te Post-Dialysis 80 BPM Standing Heart Rate Post-Shanae lysis 83 BPM Temperature Post-Dialysis 98 .2 degF June 29, 2024 In-Center Hemodialysis Treatment [id number]:09:00.000Z [id number]:46:14.000Z BP Sitting (Pre-Dialysis) 140/79 mmHg BP Sitting (Post-Dialysis) 177/96 mmHg Concurrent Access: falseAV Graft Upper Arm (Left) Arterial BP Standing (Pre-Dialysis) 122/73 mmHg BP Standing (P ost-Dialysis) 151/78 mmHg Sitting Heart Rate Pre-Dialysis 79 BPM Sitting Heart Rate Post-Dialysis 80 BPM Standing Heart Rate Pre-Dialysis 83 BPM Standing Heart Rate Post-Dialysis 82 BPM Temperature Pre-Dialysis 98.3 degF Temperature Post -Dialysis 97.3 degF June 26, 2024 In-Center Hemodialysis Treatment [id number]:10:00.000Z 3121-11-68A19:47:14.000Z BP Sitting (Pre-Dialysis) 191/106 mmHg BP Sitting (Post-Dialysis) 163/90 mmHg Concurrent Access: falseAV Graft Upper Arm (Left) Arterial BP Standing (Pre-Dialysis) 178/91 mmHg BP Standing (P ost-Dialysis) 100/63 mmHg Sitting Heart Rate Pre-Dialysis 78 BPM Sitting Heart Rate Post-Dialysis 78 BPM Standing Heart Rate Pre-Dialysis 79 BPM Standing Heart Rate Post-Dialysis 81 BPM Temperature Pre-Dialysis 96.8 degF Temperature Post -Dialysis 97.5 degF June 24, 2024 In-Center Hemodialysis Treatment [id number]:13:00.000Z 1887-00-34V61:50:15.000Z BP Sitting (Pre-Dialysis) 177/94 mmHg BP Sitting (Post-Dialysis) 141/85 mmHg Concurrent Access: falseAV Graft Upper Arm (Left) Arterial BP Standing (Pre-Dialysis) 165/83 mmHg BP Standing (P ost-Dialysis) 106/58 mmHg Sitting Heart Rate Pre-Dialysis 78 BPM Sitting Heart Rate Post-Dialysis 76 BPM Standing Heart Rate Pre-Dialysis 78 BPM Standing Heart Rate Post-Dialysis 78 BPM Temperature Pre-Dialysis 97.7 degF Temperature Post -Dialysis 97.6 degF June 22, 2024 In-Center Hemodialysis Treatment [id number]:01:00.000Z [id number]:39:15.000Z BP Sitting (Pre-Dialysis) 171/98 mmHg BP Sitting (Post-Dialysis) 137/81 mmHg Concurrent Access: falseAV Graft Upper Arm (Left) Arterial BP Standing (Pre-Dialysis) 161/92 mmHg BP Standing (P ost-Dialysis) 107/58 mmHg Sitting Heart Rate Pre-Dialysis 77 BPM Sitting Heart Rate Post-Dialysis 78 BPM Standing Heart Rate Pre-Dialysis 77 BPM Standing Heart Rate Post-Dialysis 79 BPM Temperature Pre-Dialysis 97.6 degF June 19, 2024 In-Center Hemodialysis Treatment [id number]:58:00.000Z [id number]:33:15.000Z BP Sitting (Pre-Dialysis) 171/95 mmHg BP Sitting (Post-Dialysis) 136/79 mmHg Concurrent Access: falseAV Graft Upper Arm (Left) Arterial BP Standing (Pre-Dialysis) 155/78 mmHg BP Standing (P ost-Dialysis) 102/57 mmHg Sitting Heart Rate Pre-Dialysis 77 BPM Sitting Heart Rate Post-Dialysis 74 BPM Standing Heart Rate Pre-Dialysis 78 BPM Standing Heart Rate Post-Dialysis 76 BPM Temperature Pre-Dialysis 98.4 degF Temperature Post -Dialysis 97.5 degF June 17, 2024 In-Center Hemodialysis Treatment [id number]:09:00.000Z [id number]:45:14.000Z BP Sitting (Pre-Dialysis) 162/98 mmHg BP Sitting (Post-Dialysis) 136/80 mmHg Concurrent Access: falseAV Graft Upper Arm (Left) Arterial BP Standing (Pre-Dialysis) 161/90 mmHg BP Standing (P ost-Dialysis) 102/60 mmHg Sitting Heart Rate Pre-Dialysis 75 BPM Sitting Heart Rate Post-Dialysis 73 BPM Standing Heart Rate Pre-Dialysis 76 BPM Standing Heart Rate Post-Dialysis 74 BPM Temperature Pre-Dialysis 98.3 degF Temperature Post -Dialysis 97.3 degF June 15, 2024 In-Center Hemodialysis Treatment [id number]:52:00.000Z 3169-02-33D03:32:09.000Z BP Sitting (Pre-Dialysis) 176/98 mmHg BP Sitting (Post-Dialysis) 141/84 mmHg Concurrent Access: falseAV Graft Upper Arm (Left) Arterial BP Standing (Pre-Dialysis) 167/88 mmHg BP Standing (P ost-Dialysis) 121/70 mmHg Sitting Heart Rate Pre-Dialysis 77 BPM Sitting Heart Rate Post-Dialysis 73 BPM Standing Heart Rate Pre-Dialysis 78 BPM Standing Heart Rate Post-Dialysis 77 BPM Temperature Pre-Dialysis 98 degF Temperature Post -Dialysis 97.7 degF June 12, 2024 In-Center Hemodialysis Treatment [id number]:18:00.000Z [id number]:54:10.000Z BP Sitting (Pre-Dialysis) 182/97 mmHg BP Sitting (Post-Dialysis) 153/74 mmHg Concurrent Access: falseAV Graft Upper Arm (Left) Arterial BP Standing (Pre-Dialysis) 173/94 mmHg BP Standing (P ost-Dialysis) 113/67 mmHg Sitting Heart Rate Pre-Dialysis 77 BPM Sitting Heart Rate Post-Dialysis 80 BPM Standing Heart Rate Pre-Dialysis 76 BPM Standing Heart Rate Post-Dialysis 79 BPM Temperature Pre-Dialysis 98.1 degF June 10, 2024 In-Center Hemodialysis Treatment [id number]:10:00.000Z 5160-96-88T45:43:10.000Z BP Sitting (Pre-Dialysis) 175/95 mmHg BP Sitting (Post-Dialysis) 143/85 mmHg Concurrent Access: falseAV Graft Upper Arm (Left) Arterial BP Standing (Pre-Dialysis) 171/90 mmHg BP Standing (P ost-Dialysis) 108/67 mmHg Sitting Heart Rate Pre-Dialysis 73 BPM Sitting Heart Rate Post-Dialysis 72 BPM Standing Heart Rate Pre-Dialysis 73 BPM Standing Heart Rate Post-Dialysis 73 BPM Temperature Pre-Dialysis 97.1 degF Temperature Post -Dialysis 98.2 degF June 08, 2024 In-Center Hemodialysis Treatment 3913-58-22V84:24:00.000Z 3685-19-96O41:01:15.000Z BP Sitting (Pre-Dialysis) 150/84 mmHg BP Sitting (Post-Dialysis) 134/76 mmHg Concurrent Access: falseAV Graft Upper Arm (Left) Arterial BP Standing (Pre-Dialysis) 125/77 mmHg BP Standing (P ost-Dialysis) 134/58 mmHg Sitting Heart Rate Pre-Dialysis 75 BPM Sitting Heart Rate Post-Dialysis 75 BPM Standing Heart Rate Pre-Dialysis 77 BPM Standing Heart Rate Post-Dialysis 75 BPM Temperature Pre-Dialysis 98.1 degF Temperature Post -Dialysis 98.1 degF June 05, 2024 In-Center Hemodialysis Treatment 4877-50-06X91:01:00.000Z 6242-43-72U80:32:15.000Z BP Sitting (Pre-Dialysis) 162/95 mmHg BP Sitting (Post-Dialysis) 176/94 mmHg Concurrent Access: falseAV Graft Upper Arm (Left) Arterial BP Standing (Pre-Dialysis) 149/89 mmHg BP Standing (P ost-Dialysis) 130/74 mmHg Sitting Heart Rate Pre-Dialysis 71 BPM Sitting Heart Rate Post-Dialysis 75 BPM Standing Heart Rate Pre-Dialysis 74 BPM Standing Heart Rate Post-Dialysis 77 BPM Temperature Pre-Dialysis 97.1 degF Temperature Post -Dialysis 98.2 degF June 03, 2024 In-Center Hemodialysis Treatment 7840-40-48M96:13:00.000Z 3412-69-55D31:50:56.000Z BP Sitting (Pre-Dialysis) 210/113 mmHg BP Sitting (Post-Dialysis) 178/104 mmHg Concurrent Access: falseAV Graft Upper Arm (Left) Arterial BP Standing (Pre-Dialysis) 184/107 mmHg BP Standing (P ost-Dialysis) 137/78 mmHg Sitting Heart Rate Pre-Dialysis 80 BPM Sitting Heart Rate Post-Dialysis 77 BPM Standing Heart Rate Pre-Dialysis 82 BPM Standing Heart Rate Post-Dialysis 80 BPM Temperature Pre-Dialysis 97.7 degF Temperature Post -Dialysis 97.9 degF June 01, 2024 In-Center Hemodialysis Treatment 5634-49-06A87:14:00.000Z 3801-27-25R58:45:15.000Z BP Sitting (Pre-Dialysis) 221/116 mmHg BP Sitting (Post-Dialysis) 215/118 mmHg Concurrent Access: falseAV Graft Upper Arm (Left) Arterial BP Standing (Pre-Dialysis) 175/107 mmHg Sitting Heart Rate Post-Dialysis 82 BPM Sitting Heart Rate Pre-Dialysis 82 BPM Standing Heart Rate Pre-Dialysis 85 BPM Temperature Pre-Dialysis 96.7 degF May 29, 2024 In-Center Hemodialysis Treatment [id number]:05:00.000Z [id number]:36:48.000Z BP Sitting (Pre-Dialysis) 188/98 mmHg BP Sitting (Post-Dialysis) 201/106 mmHg Concurrent Access: falseAV Graft Upper Arm (Left) Arterial BP Standing (Pre-Dialysis) 167/89 mmHg BP Standing (P ost-Dialysis) 151/88 mmHg Sitting Heart Rate Pre-Dialysis 75 BPM Sitting Heart Rate Post-Dialysis 80 BPM Standing Heart Rate Pre-Dialysis 76 BPM Standing Heart Rate Post-Dialysis 83 BPM Temperature Pre-Dialysis 98.5 degF Temperature Post -Dialysis 98.3 degF May 28, 2024 In-Center Hemodialysis Treatment [id number]:34:00.000Z 3087-17-15C98:25:15.000Z BP Sitting (Pre-Dialysis) 171/98 mmHg BP Sitting (Post-Dialysis) 192/100 mmHg Concurrent Access: falseAV Graft Upper Arm (Left) Arterial BP Standing (Pre-Dialysis) 141/71 mmHg BP Standing (P ost-Dialysis) 128/79 mmHg Sitting Heart Rate Pre-Dialysis 75 BPM Sitting Heart Rate Post-Dialysis 79 BPM Standing Heart Rate Pre-Dialysis 75 BPM Standing Heart Rate Post-Dialysis 82 BPM Temperature Pre-Dialysis 97.1 degF Temperature Post -Dialysis 98.2 degF May 26, 2024 In-Center Hemodialysis Treatment 6469-16-77W84:31:00.000Z 2010-11-02B99:01:11.000Z BP Sitting (Pre-Dialysis) 220/122 mmHg BP Sitting (Post-Dialysis) 209/121 mmHg Concurrent Access: falseAV Graft Upper Arm (Left) Arterial BP Standing (Pre-Dialysis) 202/119 mmHg BP Standing (P ost-Dialysis) 196/112 mmHg Sitting Heart Rate Pre-Dialysis 80 BPM Sitting Heart Rate Post-Dialysis 89 BPM Standing Heart Rate Pre-Dialysis 81 BPM Standing Heart Rate Post-Dialysis 92 BPM Temperature Pre-Dialysis 97.2 degF Temperature Post -Dialysis 97.1 degF May 22, 2024 In-Center Hemodialysis Treatment [id number]:56:00.000Z 3064-58-79X80:29:49.000Z BP Sitting (Pre-Dialysis) 188/110 mmHg BP Sitting (Post-Dialysis) 157/91 mmHg Concurrent Access: falseAV Graft Upper Arm (Left) Arterial BP Standing (Pre-Dialysis) 158/98 mmHg Sitti ng Heart Rate Post-Dialysis 78 BPM Sitting Heart Rate Pre-Dialysis 76 BPM Temperatu re Post-Dialysis 97.1 degF Standing Heart Rate Pre-Dialysis 78 BPM Temperature Pre-Dialysis 98.1 degF May 20, 2024 In-Center Hemodialysis Treatment 8648-96-70H89:00:00.000Z 1961-12-81V19:33:49.000Z BP Sitting (Pre-Dialysis) 209/109 mmHg BP Sitting (Post-Dialysis) 114/79 mmHg Concurrent Access: falseAV Graft Upper Arm (Left) Arterial BP Standing (Pre-Dialysis) 198/102 mmHg BP Standing (P ost-Dialysis) 106/58 mmHg Sitting Heart Rate Pre-Dialysis 76 BPM Sitting Heart Rate Post-Dialysis 79 BPM Standing Heart Rate Pre-Dialysis 79 BPM Standing Heart Rate Post-Dialysis 82 BPM Temperature Pre-Dialysis 98 degF Temperature Post -Dialysis 97.4 degF May 18, 2024 In-Center Hemodialysis Treatment 2003-65-51M40:02:00.000Z 2171-94-53V73:36:49.000Z BP Sitting (Pre-Dialysis) 218/117 mmHg BP Sitting (Post-Dialysis) 174/94 mmHg Concurrent Access: falseAV Graft Upper Arm (Left) Arterial BP Standing (Pre-Dialysis) 199/111 mmHg BP Standing (P ost-Dialysis) 118/75 mmHg Sitting Heart Rate Pre-Dialysis 74 BPM Sitting Heart Rate Post-Dialysis 79 BPM Standing Heart Rate Pre-Dialysis 81 BPM Standing Heart Rate Post-Dialysis 82 BPM Temperature Pre-Dialysis 98 degF Temperature Post -Dialysis 97.6 degF May 15, 2024 In-Center Hemodialysis Treatment [id number]:08:00.000Z 9160-42-09L93:40:44.000Z BP Sitting (Pre-Dialysis) 174/105 mmHg BP Sitting (Post-Dialysis) 167/91 mmHg Concurrent Access: falseAV Graft Upper Arm (Left) Arterial BP Standing (Pre-Dialysis) 162/88 mmHg BP Standing (P ost-Dialysis) 104/64 mmHg Sitting Heart Rate Pre-Dialysis 78 BPM Sitting Heart Rate Post-Dialysis 79 BPM Standing Heart Rate Pre-Dialysis 81 BPM Standing Heart Rate Post-Dialysis 80 BPM Temperature Pre-Dialysis 98 degF Temperature Post -Dialysis 97.3 degF May 13, 2024 In-Center Hemodialysis Treatment 6680-69-83C57:33:00.000Z [id number]:08:44.000Z BP Sitting (Pre-Dialysis) 197/107 mmHg BP Sitting (Post-Dialysis) 159/92 mmHg Concurrent Access: falseAV Graft Upper Arm (Left) Arterial BP Standing (Pre-Dialysis) 174/105 mmHg BP Standing (P ost-Dialysis) 110/68 mmHg Sitting Heart Rate Pre-Dialysis 97 BPM Sitting Heart Rate Post-Dialysis 77 BPM Standing Heart Rate Pre-Dialysis 76 BPM Standing Heart Rate Post-Dialysis 81 BPM Temperature Pre-Dialysis 98.1 degF Temperature Post -Dialysis 97.5 degF May 11, 2024 In-Center Hemodialysis Treatment 4505-02-22K87:00:00.000Z 9866-07-79O05:33:44.000Z BP Sitting (Pre-Dialysis) 176/93 mmHg BP Sitting (Post-Dialysis) 138/81 mmHg Concurrent Access: falseAV Graft Upper Arm (Left) Arterial BP Standing (Pre-Dialysis) 127/77 mmHg BP Standing (P ost-Dialysis) 103/58 mmHg Sitting Heart Rate Pre-Dialysis 72 BPM Sitting Heart Rate Post-Dialysis 78 BPM Standing Heart Rate Pre-Dialysis 79 BPM Standing Heart Rate Post-Dialysis 81 BPM Temperature Pre-Dialysis 97.4 degF Temperature Post -Dialysis 97.4 degF May 08, 2024 In-Center Hemodialysis Treatment 8603-11-29H37:55:00.000Z 8293-17-50V05:29:26.000Z BP Sitting (Pre-Dialysis) 182/104 mmHg BP Sitting (Post-Dialysis) 159/94 mmHg Concurrent Access: falseAV Graft Upper Arm (Left) Arterial BP Standing (Pre-Dialysis) 162/88 mmHg BP Standing (P ost-Dialysis) 122/68 mmHg Sitting Heart Rate Pre-Dialysis 83 BPM Sitting Heart Rate Post-Dialysis 75 BPM Standing Heart Rate Pre-Dialysis 82 BPM Standing Heart Rate Post-Dialysis 81 BPM Temperature Pre-Dialysis 97 degF Temperature Post -Dialysis 98.4 degF May 06, 2024 In-Center Hemodialysis Treatment 0129-18-34R02:07:00.000Z 5007-29-62G78:40:26.000Z BP Sitting (Pre-Dialysis) 155/90 mmHg BP Sitting (Post-Dialysis) 155/87 mmHg Concurrent Access: falseAV Graft Upper Arm (Left) Arterial BP Standing (Pre-Dialysis) 142/78 mmHg BP Standing (P ost-Dialysis) 117/76 mmHg Sitting Heart Rate Pre-Dialysis 81 BPM Sitting Heart Rate Post-Dialysis 77 BPM Standing Heart Rate Pre-Dialysis 81 BPM Standing Heart Rate Post-Dialysis 86 BPM Temperature Pre-Dialysis 97.4 degF Temperature Post -Dialysis 97.8 degF May 04, 2024 In-Center Hemodialysis Treatment 6490-46-31Y36:14:00.000Z 3291-35-40W63:47:26.000Z BP Sitting (Pre-Dialysis) 155/92 mmHg BP Sitting (Post-Dialysis) 150/86 mmHg Concurrent Access: falseAV Graft Upper Arm (Left) Arterial BP Standing (Pre-Dialysis) 129/76 mmHg BP Standing (P ost-Dialysis) 103/56 mmHg Sitting Heart Rate Pre-Dialysis 79 BPM Sitting Heart Rate Post-Dialysis 72 BPM Standing Heart Rate Pre-Dialysis 83 BPM Standing Heart Rate Post-Dialysis 79 BPM Temperature Pre-Dialysis 97.1 degF Temperature Post -Dialysis 97.4 degF May 01, 2024 In-Center Hemodialysis Treatment [id number]:05:00.000Z 4261-41-25U52:42:11.000Z BP Sitting (Pre-Dialysis) 144/81 mmHg BP Sitting (Post-Dialysis) 153/86 mmHg Concurrent Access: falseAV Graft Upper Arm (Left) Arterial BP Standing (Pre-Dialysis) 129/81 mmHg BP Standing (P ost-Dialysis) 121/70 mmHg Sitting Heart Rate Pre-Dialysis 73 BPM Sitting Heart Rate Post-Dialysis 79 BPM Standing Heart Rate Pre-Dialysis 76 BPM Standing Heart Rate Post-Dialysis 82 BPM Temperature Pre-Dialysis 97.4 degF Temperature Post -Dialysis 97.5 degF April 29, 2024 In-Center Hemodialysis Treatment [id number]:10:00.000Z 6652-08-05C40:44:12.000Z BP Sitting (Pre-Dialysis) 130/84 mmHg BP Sitting (Post-Dialysis) 160/95 mmHg Concurrent Access: falseAV Graft Upper Arm (Left) Arterial BP Standing (Pre-Dialysis) 115/95 mmHg BP Standing (P ost-Dialysis) 134/72 mmHg Sitting Heart Rate Pre-Dialysis 78 BPM Sitting Heart Rate Post-Dialysis 81 BPM Standing Heart Rate Pre-Dialysis 80 BPM Standing Heart Rate Post-Dialysis 87 BPM Temperature Pre-Dialysis 97.2 degF Temperature Post -Dialysis 97.5 degF April 27, 2024 In-Center Hemodialysis Treatment [id number]:03:28.000Z 0965-00-61E83:33:28.000Z BP Sitting (Pre-Dialysis) 115/76 mmHg BP Sitting (Post-Dialysis) 115/76 mmHg Concurrent Access: falseAV Graft Upper Arm (Left) Arterial BP Standing (Pre-Dialysis) 116/70 mmHg BP Standing (P ost-Dialysis) 102/58 mmHg Sitting Heart Rate Pre-Dialysis 74 BPM Sitting Heart Rate Post-Dialysis 82 BPM Standing Heart Rate Pre-Dialysis 79 BPM Standing Heart Rate Post-Dialysis 83 BPM Temperature Pre-Dialysis 98 degF Temperature Post -Dialysis 98.4 degF April 22, 2024 In-Center Hemodialysis Treatment [id number]:06:00.000Z 0818-40-89Y10:09:10.000Z BP Sitting (Pre-Dialysis) 132/70 mmHg BP Sitting (Post-Dialysis) 126/71 mmHg Concurrent Access: falseAV Graft Upper Arm (Left) Arterial BP Standing (Pre-Dialysis) 103/54 mmHg BP Standing (P ost-Dialysis) 116/60 mmHg Sitting Heart Rate Pre-Dialysis 76 BPM Sitting Heart Rate Post-Dialysis 84 BPM Standing Heart Rate Pre-Dialysis 80 BPM Standing Heart Rate Post-Dialysis 83 BPM Temperature Pre-Dialysis 96.9 degF Temperature Post -Dialysis 97.4 degF April 20, 2024 In-Center Hemodialysis Treatment 6413-08-05I90:22:00.000Z 8178-18-12L05:57:11.000Z BP Sitting (Pre-Dialysis) 163/94 mmHg BP Sitting (Post-Dialysis) 108/64 mmHg Concurrent Access: falseAV Graft Upper Arm (Left) Arterial BP Standing (Pre-Dialysis) 142/81 mmHg BP Standing (P ost-Dialysis) 105/54 mmHg Sitting Heart Rate Pre-Dialysis 76 BPM Sitting Heart Rate Post-Dialysis 76 BPM Standing Heart Rate Pre-Dialysis 77 BPM Standing Heart Rate Post-Dialysis 76 BPM Temperature Pre-Dialysis 98.1 degF Temperature Post -Dialysis 98.2 degF April 17, 2024 In-Center Hemodialysis Treatment [id number]:58:00.000Z 6047-89-03U86:30:29.000Z BP Sitting (Pre-Dialysis) 142/80 mmHg BP Sitting (Post-Dialysis) 100/59 mmHg Concurrent Access: falseAV Graft Upper Arm (Left) Arterial BP Standing (Pre-Dialysis) 113/75 mmHg BP Standing (P ost-Dialysis) 142/52 mmHg Sitting Heart Rate Pre-Dialysis 73 BPM Sitting Heart Rate Post-Dialysis 74 BPM Standing Heart Rate Pre-Dialysis 75 BPM Standing Heart Rate Post-Dialysis 74 BPM Temperature Pre-Dialysis 97.1 degF Temperature Post -Dialysis 98 degF April 15, 2024 In-Center Hemodialysis Treatment [id number]:02:00.000Z 7563-20-53U20:40:29.000Z BP Sitting (Pre-Dialysis) 144/79 mmHg BP Sitting (Post-Dialysis) 97/64 mmHg Concurrent Access: falseAV Graft Upper Arm (Left) Arterial BP Standing (Pre-Dialysis) 124/68 mmHg BP Standing (P ost-Dialysis) 101/57 mmHg Sitting Heart Rate Pre-Dialysis 75 BPM Sitting Heart Rate Post-Dialysis 69 BPM Standing Heart Rate Pre-Dialysis 75 BPM Standing Heart Rate Post-Dialysis 61 BPM Temperature Pre-Dialysis 97.1 degF Temperature Post -Dialysis 97.5 degF April 13, 2024 In-Center Hemodialysis Treatment [id number]:59:00.000Z 4708-33-08C34:33:29.000Z BP Sitting (Pre-Dialysis) 140/82 mmHg BP Sitting (Post-Dialysis) 101/60 mmHg Concurrent Access: falseAV Graft Upper Arm (Left) Arterial BP Standing (Pre-Dialysis) 115/68 mmHg Sitti ng Heart Rate Post-Dialysis 76 BPM Sitting Heart Rate Pre-Dialysis 74 BPM Temperatu re Post-Dialysis 98.2 degF Standing Heart Rate Pre-Dialysis 76 BPM Temperature Pre-Dialysis 97.9 degF April 10, 2024 In-Center Hemodialysis Treatment 6626-71-10S24:02:11.000Z 8476-49-58K14:34:18.000Z BP Sitting (Pre-Dialysis) 147/82 mmHg BP Sitting (Post-Dialysis) 105/59 mmHg Concurrent Access: falseAV Graft Upper Arm (Left) Arterial BP Standing (Pre-Dialysis) 111/72 mmHg BP Standing (P ost-Dialysis) 115/87 mmHg Sitting Heart Rate Pre-Dialysis 76 BPM Sitting Heart Rate Post-Dialysis 71 BPM Standing Heart Rate Pre-Dialysis 79 BPM Standing Heart Rate Post-Dialysis 88 BPM Temperature Pre-Dialysis 97.1 degF Temperature Post -Dialysis 98.6 degF April 08, 2024 In-Center Hemodialysis Treatment 7756-19-58B51:00:00.000Z 6692-92-16T67:32:11.000Z BP Sitting (Pre-Dialysis) 129/70 mmHg BP Sitting (Post-Dialysis) 114/65 mmHg Concurrent Access: falseAV Graft Upper Arm (Left) Arterial BP Standing (Pre-Dialysis) 114/58 mmHg BP Standing (P ost-Dialysis) 117/85 mmHg Sitting Heart Rate Pre-Dialysis 71 BPM Sitting Heart Rate Post-Dialysis 73 BPM Standing Heart Rate Pre-Dialysis 70 BPM Standing Heart Rate Post-Dialysis 75 BPM Temperature Pre-Dialysis 97.4 degF Temperature Post -Dialysis 97.5 degF April 06, 2024 In-Center Hemodialysis Treatment 1056-09-68A91:19:00.000Z 7356-27-85X64:51:12.000Z BP Sitting (Pre-Dialysis) 145/83 mmHg BP Sitting (Post-Dialysis) 109/57 mmHg Concurrent Access: falseAV Graft Upper Arm (Left) Arterial BP Standing (Pre-Dialysis) 135/80 mmHg Sitti ng Heart Rate Post-Dialysis 71 BPM Sitting Heart Rate Pre-Dialysis 69 BPM Temperatu re Post-Dialysis 97.6 degF Standing Heart Rate Pre-Dialysis 72 BPM Temperature Pre-Dialysis 97.2 degF April 03, 2024 In-Center Hemodialysis Treatment 4023-43-14W74:00:00.000Z 3524-66-03D71:31:49.000Z BP Sitting (Pre-Dialysis) 118/80 mmHg BP Sitting (Post-Dialysis) 105/67 mmHg Concurrent Access: falseAV Graft Upper Arm (Left) Arterial BP Standing (Pre-Dialysis) 111/77 mmHg BP Standing (P ost-Dialysis) 133/85 mmHg Sitting Heart Rate Pre-Dialysis 72 BPM Sitting Heart Rate Post-Dialysis 73 BPM Standing Heart Rate Pre-Dialysis 73 BPM Standing Heart Rate Post-Dialysis 75 BPM Temperature Pre-Dialysis 97.4 degF Temperature Post -Dialysis 98.2 degF April 01, 2024 In-Center Hemodialysis Treatment [id number]:58:00.000Z 5751-77-06W11:31:49.000Z BP Sitting (Pre-Dialysis) 118/70 mmHg BP Sitting (Post-Dialysis) 115/62 mmHg Concurrent Access: falseAV Graft Upper Arm (Left) Arterial BP Standing (Pre-Dialysis) 95/58 mmHg Sitting Heart Rate Post-Dialysis 75 BPM Sitting Heart Rate Pre-Dialysis 76 BPM Standing Heart Rate Pre-Dialysis 77 BPM Temperature Pre-Dialysis 97.9 degF March 30, 2024 In-Center Hemodialysis Treatment 4170-57-81G24:07:49.000Z 9211-37-82M36:38:49.000Z BP Sitting (Pre-Dialysis) 160/91 mmHg BP Sitting (Post-Dialysis) 101/50 mmHg Concurrent Access: falseAV Graft Upper Arm (Left) Arterial BP Standing (Pre-Dialysis) 129/78 mmHg BP Standing (P ost-Dialysis) 101/52 mmHg Sitting Heart Rate Pre-Dialysis 75 BPM Sitting Heart Rate Post-Dialysis 71 BPM Standing Heart Rate Pre-Dialysis 75 BPM Standing Heart Rate Post-Dialysis 81 BPM Temperature Pre-Dialysis 98.4 degF Temperature Post -Dialysis 98.3 degF March 27, 2024 In-Center Hemodialysis Treatment [id number]:54:00.000Z 1438-73-23I80:26:49.000Z BP Sitting (Pre-Dialysis) 130/76 mmHg BP Sitting (Post-Dialysis) 100/54 mmHg Concurrent Access: falseAV Graft Upper Arm (Left) Arterial BP Standing (Pre-Dialysis) 106/64 mmHg BP Standing (P ost-Dialysis) 104/81 mmHg Sitting Heart Rate Pre-Dialysis 73 BPM Sitting Heart Rate Post-Dialysis 73 BPM Standing Heart Rate Pre-Dialysis 74 BPM Standing Heart Rate Post-Dialysis 69 BPM Temperature Pre-Dialysis 98.1 degF Temperature Post -Dialysis 98.1 degF March 25, 2024 In-Center Hemodialysis Treatment [id number]:15:00.000Z [id number]:47:49.000Z BP Sitting (Pre-Dialysis) 124/77 mmHg BP Sitting (Post-Dialysis) 127/64 mmHg Concurrent Access: falseAV Graft Upper Arm (Left) Arterial BP Standing (Pre-Dialysis) 106/64 mmHg BP Standing (P ost-Dialysis) 100/45 mmHg Sitting Heart Rate Pre-Dialysis 73 BPM Sitting Heart Rate Post-Dialysis 75 BPM Standing Heart Rate Pre-Dialysis 74 BPM Standing Heart Rate Post-Dialysis 74 BPM Temperature Pre-Dialysis 97.7 degF Temperature Post -Dialysis 98.2 degF March 23, 2024 In-Center Hemodialysis Treatment [id number]:18:49.000Z [id number]:53:49.000Z BP Sitting (Pre-Dialysis) 139/85 mmHg BP Sitting (Post-Dialysis) 102/57 mmHg Concurrent Access: falseAV Graft Upper Arm (Left) Arterial BP Standing (Pre-Dialysis) 122/75 mmHg BP Standing (P ost-Dialysis) 105/52 mmHg Sitting Heart Rate Pre-Dialysis 79 BPM Sitting Heart Rate Post-Dialysis 75 BPM Standing Heart Rate Pre-Dialysis 83 BPM Standing Heart Rate Post-Dialysis 80 BPM Temperature Pre-Dialysis 97.3 degF Temperature Post -Dialysis 98 degF March 20, 2024 In-Center Hemodialysis Treatment 2057-83-05B58:00:00.000Z [id number]:33:22.000Z BP Sitting (Pre-Dialysis) 141/79 mmHg BP Sitting (Post-Dialysis) 103/56 mmHg Concurrent Access: falseAV Graft Upper Arm (Left) Arterial BP Standing (Pre-Dialysis) 112/65 mmHg BP Standing (P ost-Dialysis) 102/69 mmHg Sitting Heart Rate Pre-Dialysis 77 BPM Sitting Heart Rate Post-Dialysis 76 BPM Standing Heart Rate Pre-Dialysis 80 BPM Standing Heart Rate Post-Dialysis 79 BPM Temperature Pre-Dialysis 97.4 degF Temperature Post -Dialysis 98.1 degF March 18, 2024 In-Center Hemodialysis Treatment [id number]:08:00.000Z [id number]:41:23.000Z BP Sitting (Pre-Dialysis) 113/75 mmHg BP Sitting (Post-Dialysis) 105/64 mmHg Concurrent Access: falseAV Graft Upper Arm (Left) Arterial BP Standing (Pre-Dialysis) 91/65 mmHg Sitting Heart Rate Post-Dialysis 77 BPM Sitting Heart Rate Pre-Dialysis 75 BPM Temperatu re Post-Dialysis 98 degF Standing Heart Rate Pre-Dialysis 76 BPM Temperature Pre-Dialysis 97.9 degF March 16, 2024 In-Center Hemodialysis Treatment [id number]:06:00.000Z [id number]:42:46.000Z BP Sitting (Pre-Dialysis) 146/87 mmHg BP Sitting (Post-Dialysis) 102/53 mmHg Concurrent Access: falseAV Graft Upper Arm (Left) Arterial BP Standing (Pre-Dialysis) 112/70 mmHg BP Standing (P ost-Dialysis) 104/69 mmHg Sitting Heart Rate Pre-Dialysis 73 BPM Sitting Heart Rate Post-Dialysis 76 BPM Standing Heart Rate Pre-Dialysis 76 BPM Standing Heart Rate Post-Dialysis 78 BPM Temperature Pre-Dialysis 98.1 degF Temperature Post -Dialysis 98.2 degF March 13, 2024 In-Center Hemodialysis Treatment [id number]:01:00.000Z [id number]:39:21.000Z BP Sitting (Pre-Dialysis) 127/78 mmHg BP Sitting (Post-Dialysis) 106/71 mmHg Concurrent Access: falseAV Graft Upper Arm (Left) Arterial BP Standing (Pre-Dialysis) 127/73 mmHg BP Standing (P ost-Dialysis) 115/49 mmHg Sitting Heart Rate Pre-Dialysis 77 BPM Sitting Heart Rate Post-Dialysis 94 BPM Standing Heart Rate Pre-Dialysis 79 BPM Standing Heart Rate Post-Dialysis 77 BPM Temperature Pre-Dialysis 97.8 degF Temperature Post -Dialysis 98.2 degF March 11, 2024 In-Center Hemodialysis Treatment 5024-20-89O67:12:00.000Z 7547-17-39G58:49:21.000Z BP Sitting (Pre-Dialysis) 133/79 mmHg BP Sitting (Post-Dialysis) 104/60 mmHg Concurrent Access: falseAV Graft Upper Arm (Left) Arterial BP Standing (Pre-Dialysis) 115/65 mmHg Sitti ng Heart Rate Post-Dialysis 74 BPM Sitting Heart Rate Pre-Dialysis 77 BPM Temperatu re Post-Dialysis 97.3 degF Standing Heart Rate Pre-Dialysis 76 BPM Temperature Pre-Dialysis 97.2 degF March 09, 2024 In-Center Hemodialysis Treatment [id number]:11:00.000Z [id number]:46:21.000Z BP Sitting (Pre-Dialysis) 143/88 mmHg BP Sitting (Post-Dialysis) 107/53 mmHg Concurrent Access: falseAV Graft Upper Arm (Left) Arterial BP Standing (Pre-Dialysis) 146/83 mmHg Sitti ng Heart Rate Post-Dialysis 75 BPM Sitting Heart Rate Pre-Dialysis 75 BPM Temperatu re Post-Dialysis 97.3 degF Standing Heart Rate Pre-Dialysis 76 BPM Temperature Pre-Dialysis 97.5 degF March 06, 2024 In-Center Hemodialysis Treatment [id number]:09:54.000Z [id number]:40:54.000Z BP Sitting (Pre-Dialysis) 136/82 mmHg BP Sitting (Post-Dialysis) 103/60 mmHg Concurrent Access: falseAV Graft Upper Arm (Left) Arterial BP Standing (Pre-Dialysis) 98/65 mmHg Sitting Heart Rate Post-Dialysis 70 BPM Sitting Heart Rate Pre-Dialysis 77 BPM Temperatu re Post-Dialysis 98 degF Standing Heart Rate Pre-Dialysis 77 BPM Temperature Pre-Dialysis 97.2 degF March 04, 2024 In-Center Hemodialysis Treatment [id number]:07:00.000Z 6745-63-92V13:30:54.000Z BP Sitting (Pre-Dialysis) 143/88 mmHg BP Sitting (Post-Dialysis) 108/64 mmHg Concurrent Access: falseAV Graft Upper Arm (Left) Arterial BP Standing (Pre-Dialysis) 109/72 mmHg BP Standing (P ost-Dialysis) 116/57 mmHg Sitting Heart Rate Pre-Dialysis 76 BPM Sitting Heart Rate Post-Dialysis 79 BPM Standing Heart Rate Pre-Dialysis 77 BPM Standing Heart Rate Post-Dialysis 82 BPM Temperature Pre-Dialysis 97.8 degF March 02, 2024 In-Center Hemodialysis Treatment [id number]:12:00.000Z 8115-53-20E13:48:54.000Z BP Sitting (Pre-Dialysis) 162/96 mmHg BP Sitting (Post-Dialysis) 112/65 mmHg Concurrent Access: falseAV Graft Upper Arm (Left) Arterial BP Standing (Pre-Dialysis) 158/88 mmHg BP Standing (P ost-Dialysis) 106/47 mmHg Sitting Heart Rate Pre-Dialysis 78 BPM Sitting Heart Rate Post-Dialysis 77 BPM Standing Heart Rate Pre-Dialysis 77 BPM Standing Heart Rate Post-Dialysis 79 BPM Temperature Pre-Dialysis 97.6 degF Temperature Post -Dialysis 98.5 degF February 28, 2024 In-Center Hemodialysis Treatment 4301-83-23M36:07:00.000Z 7714-15-33S28:40:21.000Z BP Sitting (Pre-Dialysis) 141/79 mmHg BP Sitting (Post-Dialysis) 102/60 mmHg Concurrent Access: falseAV Graft Upper Arm (Left) Arterial BP Standing (Pre-Dialysis) 125/70 mmHg BP Standing (P ost-Dialysis) 113/76 mmHg Sitting Heart Rate Pre-Dialysis 81 BPM Sitting Heart Rate Post-Dialysis 81 BPM Standing Heart Rate Pre-Dialysis 81 BPM Standing Heart Rate Post-Dialysis 74 BPM Temperature Pre-Dialysis 97.2 degF Temperature Post -Dialysis 97.5 degF February 26, 2024 In-Center Hemodialysis Treatment [id number]:08:00.000Z 7986-37-66P10:41:38.000Z BP Sitting (Pre-Dialysis) 137/74 mmHg BP Sitting (Post-Dialysis) 108/52 mmHg Concurrent Access: falseAV Graft Upper Arm (Left) Arterial BP Standing (Pre-Dialysis) 103/60 mmHg BP Standing (P ost-Dialysis) 134/59 mmHg Sitting Heart Rate Pre-Dialysis 79 BPM Sitting Heart Rate Post-Dialysis 78 BPM Standing Heart Rate Pre-Dialysis 79 BPM Standing Heart Rate Post-Dialysis 79 BPM Temperature Pre-Dialysis 97.2 degF Temperature Post -Dialysis 97.4 degF February 24, 2024 In-Center Hemodialysis Treatment [id number]:10:00.000Z [id number]:44:38.000Z BP Sitting (Pre-Dialysis) 158/89 mmHg BP Sitting (Post-Dialysis) 114/63 mmHg Concurrent Access: falseAV Graft Upper Arm (Left) Arterial BP Standing (Pre-Dialysis) 144/77 mmHg Sitti ng Heart Rate Post-Dialysis 77 BPM Sitting Heart Rate Pre-Dialysis 76 BPM Temperatu re Post-Dialysis 96.8 degF Standing Heart Rate Pre-Dialysis 78 BPM Temperature Pre-Dialysis 97.1 degF February 21, 2024 In-Center Hemodialysis Treatment 4845-09-00P26:59:00.000Z [id number]:32:49.000Z BP Sitting (Pre-Dialysis) 152/90 mmHg BP Sitting (Post-Dialysis) 103/51 mmHg Concurrent Access: falseAV Graft Upper Arm (Left) Arterial BP Standing (Pre-Dialysis) 137/76 mmHg BP Standing (P ost-Dialysis) 116/89 mmHg Sitting Heart Rate Pre-Dialysis 78 BPM Sitting Heart Rate Post-Dialysis 80 BPM Standing Heart Rate Pre-Dialysis 79 BPM Standing Heart Rate Post-Dialysis 55 BPM Temperature Pre-Dialysis 97.4 degF Temperature Post -Dialysis 97.8 degF February 19, 2024 In-Center Hemodialysis Treatment [id number]:15:00.000Z 8617-10-41S76:46:11.000Z BP Sitting (Pre-Dialysis) 159/91 mmHg BP Sitting (Post-Dialysis) 111/65 mmHg Concurrent Access: falseAV Graft Upper Arm (Left) Arterial BP Standing (Pre-Dialysis) 128/73 mmHg BP Standing (P ost-Dialysis) 108/62 mmHg Sitting Heart Rate Pre-Dialysis 77 BPM Sitting Heart Rate Post-Dialysis 76 BPM Standing Heart Rate Pre-Dialysis 80 BPM Standing Heart Rate Post-Dialysis 73 BPM Temperature Pre-Dialysis 97.2 degF Temperature Post -Dialysis 98.1 degF February 17, 2024 In-Center Hemodialysis Treatment [id number]:31:00.000Z 2578-32-78Z37:12:12.000Z BP Sitting (Pre-Dialysis) 144/81 mmHg BP Sitting (Post-Dialysis) 114/61 mmHg Concurrent Access: falseAV Graft Upper Arm (Left) Arterial BP Standing (Pre-Dialysis) 109/67 mmHg BP Standing (P ost-Dialysis) 100/51 mmHg Sitting Heart Rate Pre-Dialysis 76 BPM Sitting Heart Rate Post-Dialysis 78 BPM Standing Heart Rate Pre-Dialysis 76 BPM Standing Heart Rate Post-Dialysis 75 BPM Temperature Pre-Dialysis 97.2 degF Temperature Post -Dialysis 98.1 degF February 14, 2024 In-Center Hemodialysis Treatment [id number]:57:00.000Z [id number]:38:51.000Z BP Sitting (Pre-Dialysis) 124/76 mmHg BP Sitting (Post-Dialysis) 149/83 mmHg Concurrent Access: falseAV Graft Upper Arm (Left) Arterial BP Standing (Pre-Dialysis) 148/87 mmHg BP Standing (P ost-Dialysis) 136/95 mmHg Sitting Heart Rate Pre-Dialysis 78 BPM Sitting Heart Rate Post-Dialysis 77 BPM Standing Heart Rate Pre-Dialysis 77 BPM Standing Heart Rate Post-Dialysis 78 BPM Temperature Pre-Dialysis 96.7 degF Temperature Post -Dialysis 98 degF February 12, 2024 In-Center Hemodialysis Treatment [id number]:09:00.000Z 0510-54-30P62:44:51.000Z BP Sitting (Pre-Dialysis) 113/67 mmHg BP Sitting (Post-Dialysis) 105/66 mmHg Concurrent Access: falseAV Graft Upper Arm (Left) Arterial BP Standing (Pre-Dialysis) 109/70 mmHg BP Standing (P ost-Dialysis) 109/59 mmHg Sitting Heart Rate Pre-Dialysis 70 BPM Sitting Heart Rate Post-Dialysis 75 BPM Standing Heart Rate Pre-Dialysis 75 BPM Standing Heart Rate Post-Dialysis 79 BPM Temperature Pre-Dialysis 97.6 degF Temperature Post -Dialysis 97.8 degF February 10, 2024 In-Center Hemodialysis Treatment 4468-59-24Q12:12:00.000Z [id number]:49:51.000Z BP Sitting (Pre-Dialysis) 135/78 mmHg BP Sitting (Post-Dialysis) 105/59 mmHg Concurrent Access: falseAV Graft Upper Arm (Left) Arterial BP Standing (Pre-Dialysis) 112/64 mmHg Sitti ng Heart Rate Post-Dialysis 74 BPM Sitting Heart Rate Pre-Dialysis 74 BPM Temperatu re Post-Dialysis 97.8 degF Standing Heart Rate Pre-Dialysis 77 BPM Temperature Pre-Dialysis 97.4 degF February 07, 2024 In-Center Hemodialysis Treatment [id number]:50:00.000Z [id number]:24:28.000Z BP Sitting (Pre-Dialysis) 114/71 mmHg BP Sitting (Post-Dialysis) 110/55 mmHg Concurrent Access: falseAV Graft Upper Arm (Left) Arterial BP Standing (Pre-Dialysis) 115/63 mmHg BP Standing (P ost-Dialysis) 124/66 mmHg Sitting Heart Rate Pre-Dialysis 79 BPM Sitting Heart Rate Post-Dialysis 77 BPM Standing Heart Rate Pre-Dialysis 80 BPM Standing Heart Rate Post-Dialysis 77 BPM Temperature Pre-Dialysis 97.5 degF Temperature Post -Dialysis 98.2 degF February 05, 2024 In-Center Hemodialysis Treatment 2026-11-19Q67:33:00.000Z [id number]:09:28.000Z BP Sitting (Pre-Dialysis) 137/76 mmHg BP Sitting (Post-Dialysis) 106/52 mmHg Concurrent Access: falseAV Graft Upper Arm (Left) Arterial BP Standing (Pre-Dialysis) 119/63 mmHg BP Standing (P ost-Dialysis) 120/78 mmHg Sitting Heart Rate Pre-Dialysis 79 BPM Sitting Heart Rate Post-Dialysis 78 BPM Standing Heart Rate Pre-Dialysis 80 BPM Standing Heart Rate Post-Dialysis 76 BPM Temperature Pre-Dialysis 97.8 degF Temperature Post -Dialysis 98.1 degF February 03, 2024 In-Center Hemodialysis Treatment [id number]:08:00.000Z 3776-83-06P97:40:28.000Z BP Sitting (Pre-Dialysis) 137/75 mmHg BP Sitting (Post-Dialysis) 103/62 mmHg Concurrent Access: falseAV Graft Upper Arm (Left) Arterial BP Standing (Pre-Dialysis) 122/69 mmHg BP Standing (P ost-Dialysis) 106/63 mmHg Sitting Heart Rate Pre-Dialysis 75 BPM Sitting Heart Rate Post-Dialysis 77 BPM Standing Heart Rate Pre-Dialysis 76 BPM Standing Heart Rate Post-Dialysis 75 BPM Temperature Pre-Dialysis 97.8 degF Temperature Post -Dialysis 98.1 degF January 31, 2024 In-Center Hemodialysis Treatment [id number]:06:00.000Z 0878-45-90J56:42:24.000Z BP Sitting (Pre-Dialysis) 130/77 mmHg BP Sitting (Post-Dialysis) 101/58 mmHg Concurrent Access: falseAV Graft Upper Arm (Left) Arterial BP Standing (Pre-Dialysis) 107/59 mmHg BP Standing (P ost-Dialysis) 114/60 mmHg Sitting Heart Rate Pre-Dialysis 80 BPM Sitting Heart Rate Post-Dialysis 73 BPM Standing Heart Rate Pre-Dialysis 81 BPM Standing Heart Rate Post-Dialysis 75 BPM Temperature Pre-Dialysis 97.2 degF Temperature Post -Dialysis 96.7 degF January 29, 2024 In-Center Hemodialysis Treatment 3120-07-98V59:03:00.000Z 0774-79-88Z33:39:24.000Z BP Sitting (Pre-Dialysis) 125/77 mmHg BP Sitting (Post-Dialysis) 123/71 mmHg Concurrent Access: falseAV Graft Upper Arm (Left) Arterial BP Standing (Pre-Dialysis) 109/58 mmHg BP Standing (P ost-Dialysis) 108/52 mmHg Sitting Heart Rate Pre-Dialysis 74 BPM Sitting Heart Rate Post-Dialysis 74 BPM Standing Heart Rate Pre-Dialysis 76 BPM Standing Heart Rate Post-Dialysis 78 BPM Temperature Pre-Dialysis 97.7 degF Temperature Post -Dialysis 98 degF January 27, 2024 In-Center Hemodialysis Treatment [id number]:17:00.000Z [id number]:58:24.000Z BP Sitting (Pre-Dialysis) 142/80 mmHg BP Sitting (Post-Dialysis) 110/57 mmHg Concurrent Access: falseAV Graft Upper Arm (Left) ArterialCentral Venous Catheter (CVC) Chest (Right) Venous BP Standing (Pre-Dialysis) 93/61 mmHg BP Standing (P ost-Dialysis) 103/56 mmHg Sitting Heart Rate Pre-Dialysis 73 BPM Sitting Heart Rate Post-Dialysis 77 BPM Standing Heart Rate Pre-Dialysis 77 BPM Standing Heart Rate Post-Dialysis 75 BPM Temperature Pre-Dialysis 97.9 degF Temperature Post -Dialysis 98.4 degF January 24, 2024 In-Center Hemodialysis Treatment 7602-64-22H90:57:00.000Z 2065-27-09V97:36:18.000Z BP Sitting (Pre-Dialysis) 140/81 mmHg BP Sitting (Post-Dialysis) 108/57 mmHg Concurrent Access: falseAV Graft Upper Arm (Left) ArterialCentral Venous Catheter (CVC) Chest (Right) Venous BP Standing (Pre-Dialysis) 135/78 mmHg Sitti ng Heart Rate Post-Dialysis 75 BPM Sitting Heart Rate Pre-Dialysis 76 BPM Temperatu re Post-Dialysis 97.9 degF Standing Heart Rate Pre-Dialysis 77 BPM Temperature Pre-Dialysis 97.1 degF January 22, 2024 In-Center Hemodialysis Treatment 5904-62-73R16:08:00.000Z 9922-16-39B50:46:18.000Z BP Sitting (Pre-Dialysis) 135/86 mmHg BP Sitting (Post-Dialysis) 110/52 mmHg Concurrent Access: falseAV Graft Upper Arm (Left) ArterialCentral Venous Catheter (CVC) Chest (Right) Venous BP Standing (Pre-Dialysis) 126/80 mmHg BP Standing (P ost-Dialysis) 102/56 mmHg Sitting Heart Rate Pre-Dialysis 79 BPM Sitting Heart Rate Post-Dialysis 76 BPM Standing Heart Rate Pre-Dialysis 80 BPM Standing Heart Rate Post-Dialysis 76 BPM Temperature Pre-Dialysis 98 degF January 20, 2024 In-Center Hemodialysis Treatment [id number]:11:00.000Z 8659-30-08K09:45:18.000Z BP Sitting (Pre-Dialysis) 107/64 mmHg BP Sitting (Post-Dialysis) 102/59 mmHg Concurrent Access: falseAV Graft Upper Arm (Left) ArterialCentral Venous Catheter (CVC) Chest (Right) Venous BP Standing (Pre-Dialysis) 114/71 mmHg BP Standing (P ost-Dialysis) 120/56 mmHg Sitting Heart Rate Pre-Dialysis 69 BPM Sitting Heart Rate Post-Dialysis 74 BPM Standing Heart Rate Pre-Dialysis 72 BPM Standing Heart Rate Post-Dialysis 78 BPM Temperature Pre-Dialysis 97.4 degF Temperature Post -Dialysis 97.8 degF January 17, 2024 In-Center Hemodialysis Treatment 0234-86-13E99:19:00.000Z 2060-35-60N22:52:50.000Z BP Sitting (Pre-Dialysis) 93/67 mmHg BP Sitting (Post-Dialysis) 103/57 mmHg Concurrent Access: falseAV Graft Upper Arm (Left) ArterialCentral Venous Catheter (CVC) Chest (Right) Venous BP Standing (Pre-Dialysis) 87/53 mmHg BP Standing (P ost-Dialysis) 105/56 mmHg Sitting Heart Rate Pre-Dialysis 71 BPM Sitting Heart Rate Post-Dialysis 74 BPM Standing Heart Rate Pre-Dialysis 72 BPM Standing Heart Rate Post-Dialysis 72 BPM Temperature Pre-Dialysis 97.9 degF Temperature Post -Dialysis 98.8 degF January 15, 2024 In-Center Hemodialysis Treatment 3650-79-29S40:20:50.000Z 3598-91-76J49:51:51.000Z BP Sitting (Pre-Dialysis) 96/56 mmHg BP Sitting (Post-Dialysis) 111/52 mmHg Concurrent Access: falseCentral Venous Catheter (CVC) Chest (Right) ArterialAV Graft Upper Arm (Left) Venous BP Standing (Pre-Dialysis) 93/56 mmHg BP Standing (P ost-Dialysis) 115/50 mmHg Sitting Heart Rate Pre-Dialysis 74 BPM Sitting Heart Rate Post-Dialysis 77 BPM Standing Heart Rate Pre-Dialysis 75 BPM Standing Heart Rate Post-Dialysis 77 BPM Temperature Pre-Dialysis 97.1 degF Temperature Post -Dialysis 98.3 degF January 13, 2024 In-Center Hemodialysis Treatment 6962-07-42O50:04:00.000Z 2747-50-06D93:33:08.000Z BP Sitting (Pre-Dialysis) 136/83 mmHg BP Sitting (Post-Dialysis) 115/40 mmHg Concurrent Access: falseCentral Venous Catheter (CVC) Chest (Right) ArterialAV Graft Upper Arm (Left) Venous BP Standing (Pre-Dialysis) 97/64 mmHg Sitti ng Heart Rate Post-Dialysis 71 BPM Sitting Heart Rate Pre-Dialysis 68 BPM Temperatu re Post-Dialysis 98.4 degF Standing Heart Rate Pre-Dialysis 72 BPM Temperature Pre-Dialysis 97 degF January 10, 2024 In-Center Hemodialysis Treatment [id number]:56:50.000Z 9345-30-79X24:39:50.000Z BP Sitting (Pre-Dialysis) 129/79 mmHg BP Sitting (Post-Dialysis) 115/57 mmHg Concurrent Access: falseCentral Venous Catheter (CVC) Chest (Right) ArterialAV Graft Upper Arm (Left) Venous BP Standing (Pre-Dialysis) 122/64 mmHg Sitti ng Heart Rate Post-Dialysis 76 BPM Sitting Heart Rate Pre-Dialysis 77 BPM Temperatu re Post-Dialysis 97.8 degF Standing Heart Rate Pre-Dialysis 79 BPM Temperature Pre-Dialysis 97.8 degF January 08, 2024 In-Center Hemodialysis Treatment 6581-08-33E10:07:00.000Z 2810-88-60G56:45:50.000Z BP Sitting (Pre-Dialysis) 127/85 mmHg BP Sitting (Post-Dialysis) 113/59 mmHg Concurrent Access: falseCentral Venous Catheter (CVC) Chest (Right) ArterialAV Graft Upper Arm (Left) Venous BP Standing (Pre-Dialysis) 106/62 mmHg BP Standing (P ost-Dialysis) 99/53 mmHg Sitting Heart Rate Pre-Dialysis 73 BPM Sitting Heart Rate Post-Dialysis 82 BPM Standing Heart Rate Pre-Dialysis 78 BPM Standing Heart Rate Post-Dialysis 84 BPM Temperature Pre-Dialysis 97.3 degF Temperature Post -Dialysis 98.4 degF January 06, 2024 In-Center Hemodialysis Treatment [id number]:23:51.000Z [id number]:54:50.000Z BP Sitting (Pre-Dialysis) 135/81 mmHg BP Sitting (Post-Dialysis) 111/90 mmHg Concurrent Access: falseCentral Venous Catheter (CVC) Chest (Right) ArterialAV Graft Upper Arm (Left) Venous BP Standing (Pre-Dialysis) 122/72 mmHg BP Standing (P ost-Dialysis) 103/58 mmHg Sitting Heart Rate Pre-Dialysis 76 BPM Sitting Heart Rate Post-Dialysis 80 BPM Standing Heart Rate Pre-Dialysis 79 BPM Standing Heart Rate Post-Dialysis 88 BPM Temperature Pre-Dialysis 97.2 degF Temperature Post -Dialysis 97.6 degF January 03, 2024 In-Center Hemodialysis Treatment [id number]:56:00.000Z 3699-53-96K00:30:22.000Z BP Sitting (Pre-Dialysis) 153/78 mmHg BP Sitting (Post-Dialysis) 124/56 mmHg Concurrent Access: falseCentral Venous Catheter (CVC) Chest (Right) ArterialAV Graft Upper Arm (Left) Venous BP Standing (Pre-Dialysis) 130/74 mmHg Sitti ng Heart Rate Post-Dialysis 86 BPM Sitting Heart Rate Pre-Dialysis 84 BPM Temperatu re Post-Dialysis 98.1 degF Standing Heart Rate Pre-Dialysis 87 BPM Temperature Pre-Dialysis 98.1 degF January 01, 2024 In-Center Hemodialysis Treatment 8603-61-63X30:02:00.000Z [id number]:41:21.000Z BP Sitting (Pre-Dialysis) 132/82 mmHg BP Sitting (Post-Dialysis) 104/51 mmHg Concurrent Access: falseCentral Venous Catheter (CVC) Chest (Right) ArterialAV Graft Upper Arm (Left) Venous BP Standing (Pre-Dialysis) 106/74 mmHg BP Standing (P ost-Dialysis) 102/44 mmHg Sitting Heart Rate Pre-Dialysis 82 BPM Sitting Heart Rate Post-Dialysis 83 BPM Standing Heart Rate Pre-Dialysis 85 BPM Standing Heart Rate Post-Dialysis 76 BPM Temperature Pre-Dialysis 97.7 degF Temperature Post -Dialysis 97.8 degF December 30, 2023 In-Center Hemodialysis Treatment [id number]:20:00.000Z 7660-54-17Y01:59:22.000Z BP Sitting (Pre-Dialysis) 136/84 mmHg BP Sitting (Post-Dialysis) 105/62 mmHg Concurrent Access: falseAV Graft Upper Arm (Left) ArterialAV Graft Upper Arm (Left) Venous BP Standing (Pre-Dialysis) 112/72 mmHg Sitti ng Heart Rate Post-Dialysis 87 BPM Sitting Heart Rate Pre-Dialysis 76 BPM Temperatu re Post-Dialysis 97.7 degF Standing Heart Rate Pre-Dialysis 79 BPM Temperature Pre-Dialysis 98.8 degF December 25, 2023 In-Center Hemodialysis Treatment [id number]:05:06.000Z 7330-69-47D69:58:06.000Z BP Sitting (Pre-Dialysis) 109/70 mmHg BP Sitting (Post-Dialysis) 106/69 mmHg Concurrent Access: falseAV Graft Upper Arm (Left) Arterial BP Standing (Pre-Dialysis) 104/64 mmHg BP Standing (P ost-Dialysis) 118/60 mmHg Sitting Heart Rate Pre-Dialysis 74 BPM Sitting Heart Rate Post-Dialysis 65 BPM Standing Heart Rate Pre-Dialysis 76 BPM Standing Heart Rate Post-Dialysis 65 BPM Temperature Pre-Dialysis 97.7 degF Temperature Post -Dialysis 98 degF December 23, 2023 In-Center Hemodialysis Treatment [id number]:17:00.000Z [id number]:52:06.000Z BP Sitting (Pre-Dialysis) 125/74 mmHg BP Sitting (Post-Dialysis) 104/56 mmHg Concurrent Access: falseAV Graft Upper Arm (Left) Arterial BP Standing (Pre-Dialysis) 91/61 mmHg BP Standing (P ost-Dialysis) 115/66 mmHg Sitting Heart Rate Pre-Dialysis 77 BPM Sitting Heart Rate Post-Dialysis 73 BPM Standing Heart Rate Pre-Dialysis 79 BPM Standing Heart Rate Post-Dialysis 79 BPM Temperature Pre-Dialysis 97.2 degF Temperature Post -Dialysis 98.2 degF December 20, 2023 In-Center Hemodialysis Treatment 1925-16-71G90:56:07.000Z 2022-69-56W96:27:07.000Z BP Sitting (Pre-Dialysis) 114/65 mmHg BP Sitting (Post-Dialysis) 107/57 mmHg Concurrent Access: falseAV Graft Upper Arm (Left) Arterial BP Standing (Pre-Dialysis) 102/67 mmHg BP Standing (P ost-Dialysis) 102/51 mmHg Sitting Heart Rate Pre-Dialysis 75 BPM Sitting Heart Rate Post-Dialysis 75 BPM Standing Heart Rate Pre-Dialysis 75 BPM Standing Heart Rate Post-Dialysis 73 BPM Temperature Pre-Dialysis 97.3 degF Temperature Post -Dialysis 97.4 degF December 18, 2023 In-Center Hemodialysis Treatment 3944-22-62T48:02:00.000Z 0325-95-20O88:37:07.000Z BP Sitting (Pre-Dialysis) 96/65 mmHg BP Sitting (Post-Dialysis) 116/59 mmHg Concurrent Access: falseAV Graft Upper Arm (Left) Arterial BP Standing (Pre-Dialysis) 91/56 mmHg BP Standing (P ost-Dialysis) 99/51 mmHg Sitting Heart Rate Pre-Dialysis 83 BPM Sitting H eart Rate Post-Dialysis 79 BPM Standing Heart Rate Pre-Dialysis 83 BPM Standing Heart Rate Post-Dialysis 80 BPM Temperature Pre-Dialysis 97.7 degF Temperature Post -Dialysis 97.8 degF December 16, 2023 In-Center Hemodialysis Treatment [id number]:09:07.000Z 6308-16-54Z86:42:07.000Z BP Sitting (Pre-Dialysis) 113/72 mmHg BP Sitting (Post-Dialysis) 115/64 mmHg Concurrent Access: falseAV Graft Upper Arm (Left) Arterial BP Standing (Pre-Dialysis) 99/59 mmHg BP Standing (P ost-Dialysis) 135/82 mmHg Sitting Heart Rate Pre-Dialysis 77 BPM Sitting Heart Rate Post-Dialysis 65 BPM Standing Heart Rate Pre-Dialysis 80 BPM Standing Heart Rate Post-Dialysis 100 BPM Temperature Pre-Dialysis 97.1 degF Temperature Post -Dialysis 98 degF December 13, 2023 In-Center Hemodialysis Treatment [id number]:57:00.000Z 2850-59-19S91:31:54.000Z BP Sitting (Pre-Dialysis) 103/60 mmHg BP Sitting (Post-Dialysis) 126/85 mmHg Concurrent Access: falseAV Graft Upper Arm (Left) Arterial BP Standing (Pre-Dialysis) 104/61 mmHg BP Standing (P ost-Dialysis) 100/58 mmHg Sitting Heart Rate Pre-Dialysis 76 BPM Sitting Heart Rate Post-Dialysis 73 BPM Standing Heart Rate Pre-Dialysis 78 BPM Standing Heart Rate Post-Dialysis 85 BPM Temperature Pre-Dialysis 98.2 degF Temperature Post -Dialysis 98.3 degF December 11, 2023 In-Center Hemodialysis Treatment [id number]:25:00.000Z [id number]:57:54.000Z BP Sitting (Pre-Dialysis) 106/68 mmHg BP Sitting (Post-Dialysis) 100/58 mmHg Concurrent Access: falseAV Graft Upper Arm (Left) Arterial BP Standing (Pre-Dialysis) 99/53 mmHg BP Standing (P ost-Dialysis) 100/54 mmHg Sitting Heart Rate Pre-Dialysis 75 BPM Sitting Heart Rate Post-Dialysis 76 BPM Standing Heart Rate Pre-Dialysis 75 BPM Standing Heart Rate Post-Dialysis 77 BPM Temperature Pre-Dialysis 97.1 degF Temperature Post -Dialysis 97.8 degF December 09, 2023 In-Center Hemodialysis Treatment [id number]:59:00.000Z [id number]:44:54.000Z BP Sitting (Pre-Dialysis) 133/80 mmHg BP Sitting (Post-Dialysis) 115/56 mmHg Concurrent Access: falseAV Graft Upper Arm (Left) Arterial BP Standing (Pre-Dialysis) 115/70 mmHg BP Standing (P ost-Dialysis) 114/60 mmHg Sitting Heart Rate Pre-Dialysis 81 BPM Sitting Heart Rate Post-Dialysis 77 BPM Standing Heart Rate Pre-Dialysis 81 BPM Standing Heart Rate Post-Dialysis 84 BPM Temperature Pre-Dialysis 97.4 degF Temperature Post -Dialysis 98 degF December 06, 2023 In-Center Hemodialysis Treatment [id number]:49:25.000Z [id number]:26:26.000Z BP Sitting (Pre-Dialysis) 135/76 mmHg BP Sitting (Post-Dialysis) 102/63 mmHg Concurrent Access: falseAV Graft Upper Arm (Left) Arterial BP Standing (Pre-Dialysis) 101/60 mmHg Sitti ng Heart Rate Post-Dialysis 75 BPM Sitting Heart Rate Pre-Dialysis 81 BPM Temperatu re Post-Dialysis 98.2 degF Standing Heart Rate Pre-Dialysis 83 BPM Temperature Pre-Dialysis 98.1 degF December 04, 2023 In-Center Hemodialysis Treatment [id number]:02:25.000Z [id number]:43:26.000Z BP Sitting (Pre-Dialysis) 115/67 mmHg BP Sitting (Post-Dialysis) 114/56 mmHg Concurrent Access: falseAV Graft Upper Arm (Left) Arterial BP Standing (Pre-Dialysis) 98/56 mmHg BP Standing (P ost-Dialysis) 122/93 mmHg Sitting Heart Rate Pre-Dialysis 77 BPM Sitting Heart Rate Post-Dialysis 79 BPM Standing Heart Rate Pre-Dialysis 78 BPM Standing Heart Rate Post-Dialysis 78 BPM Temperature Pre-Dialysis 98.4 degF Temperature Post -Dialysis 98 degF December 02, 2023 In-Center Hemodialysis Treatment [id number]:15:00.000Z [id number]:46:26.000Z BP Sitting (Pre-Dialysis) 121/67 mmHg BP Sitting (Post-Dialysis) 105/63 mmHg Concurrent Access: falseAV Graft Upper Arm (Left) Arterial BP Standing (Pre-Dialysis) 96/59 mmHg BP Standing (P ost-Dialysis) 102/76 mmHg Sitting Heart Rate Pre-Dialysis 77 BPM Sitting Heart Rate Post-Dialysis 78 BPM Standing Heart Rate Pre-Dialysis 77 BPM Standing Heart Rate Post-Dialysis 78 BPM Temperature Pre-Dialysis 98.3 degF Temperature Post -Dialysis 98 degF November 29, 2023 In-Center Hemodialysis Treatment [id number]:03:00.000Z [id number]:37:06.000Z BP Sitting (Pre-Dialysis) 131/77 mmHg BP Sitting (Post-Dialysis) 121/52 mmHg Concurrent Access: falseAV Graft Upper Arm (Left) Arterial BP Standing (Pre-Dialysis) 123/68 mmHg Sitting Heart Rate Post-Dialysis 76 BPM Sitting Heart Rate Pre-Dialysis 78 BPM Temperatu re Post-Dialysis 97 degF Standing Heart Rate Pre-Dialysis 81 BPM Temperature Pre-Dialysis 97 degF November 27, 2023 In-Center Hemodialysis Treatment [id number]:17:00.000Z [id number]:56:06.000Z BP Sitting (Pre-Dialysis) 145/86 mmHg BP Sitting (Post-Dialysis) 108/50 mmHg Concurrent Access: falseAV Graft Upper Arm (Left) Arterial BP Standing (Pre-Dialysis) 98/73 mmHg Sitti ng Heart Rate Post-Dialysis 75 BPM Sitting Heart Rate Pre-Dialysis 77 BPM Temperatu re Post-Dialysis 98.4 degF Standing Heart Rate Pre-Dialysis 81 BPM Temperature Pre-Dialysis 97 degF November 25, 2023 In-Center Hemodialysis Treatment [id number]:11:06.000Z [id number]:42:06.000Z BP Sitting (Pre-Dialysis) 128/76 mmHg BP Sitting (Post-Dialysis) 104/56 mmHg Concurrent Access: falseAV Graft Upper Arm (Left) Arterial BP Standing (Pre-Dialysis) 123/65 mmHg BP Standing (P ost-Dialysis) 116/84 mmHg Sitting Heart Rate Pre-Dialysis 77 BPM Sitting Heart Rate Post-Dialysis 78 BPM Standing Heart Rate Pre-Dialysis 79 BPM Standing Heart Rate Post-Dialysis 75 BPM Temperature Pre-Dialysis 97.2 degF Temperature Post -Dialysis 98 degF November 22, 2023 In-Center Hemodialysis Treatment [id number]:00:00.000Z 4316-06-20K05:35:16.000Z BP Sitting (Pre-Dialysis) 108/67 mmHg BP Sitting (Post-Dialysis) 102/60 mmHg Concurrent Access: falseAV Graft Upper Arm (Left) Arterial BP Standing (Pre-Dialysis) 89/61 mmHg BP Standing (P ost-Dialysis) 106/72 mmHg Sitting Heart Rate Pre-Dialysis 81 BPM Sitting Heart Rate Post-Dialysis 77 BPM Standing Heart Rate Pre-Dialysis 83 BPM Standing Heart Rate Post-Dialysis 76 BPM Temperature Pre-Dialysis 97.4 degF Temperature Post -Dialysis 98.4 degF November 20, 2023 In-Center Hemodialysis Treatment [id number]:08:00.000Z [id number]:27:17.000Z BP Sitting (Pre-Dialysis) 125/69 mmHg BP Sitting (Post-Dialysis) 100/51 mmHg Concurrent Access: falseAV Graft Upper Arm (Left) Arterial BP Standing (Pre-Dialysis) 106/61 mmHg BP Standing (P ost-Dialysis) 100/45 mmHg Sitting Heart Rate Pre-Dialysis 77 BPM Sitting Heart Rate Post-Dialysis 79 BPM Standing Heart Rate Pre-Dialysis 78 BPM Standing Heart Rate Post-Dialysis 77 BPM Temperature Pre-Dialysis 97.3 degF Temperature Post -Dialysis 97.9 degF November 18, 2023 In-Center Hemodialysis Treatment [id number]:12:00.000Z [id number]:45:15.000Z BP Sitting (Pre-Dialysis) 137/83 mmHg BP Sitting (Post-Dialysis) 101/60 mmHg Concurrent Access: falseAV Graft Upper Arm (Left) Arterial BP Standing (Pre-Dialysis) 121/72 mmHg BP Standing (P ost-Dialysis) 102/58 mmHg Sitting Heart Rate Pre-Dialysis 79 BPM Sitting Heart Rate Post-Dialysis 76 BPM Standing Heart Rate Pre-Dialysis 79 BPM Standing Heart Rate Post-Dialysis 79 BPM Temperature Pre-Dialysis 98.2 degF Temperature Post -Dialysis 97.6 degF November 15, 2023 In-Center Hemodialysis Treatment [id number]:09:00.000Z [id number]:37:35.000Z BP Sitting (Pre-Dialysis) 105/67 mmHg BP Sitting (Post-Dialysis) 104/49 mmHg Concurrent Access: falseAV Graft Upper Arm (Left) Arterial BP Standing (Pre-Dialysis) 118/73 mmHg BP Standing (P ost-Dialysis) 100/63 mmHg Sitting Heart Rate Pre-Dialysis 71 BPM Sitting Heart Rate Post-Dialysis 70 BPM Standing Heart Rate Pre-Dialysis 80 BPM Standing Heart Rate Post-Dialysis 75 BPM Temperature Pre-Dialysis 97 degF Temperature Post -Dialysis 97.5 degF November 13, 2023 In-Center Hemodialysis Treatment [id number]:10:34.000Z 1881-43-41E24:39:35.000Z BP Sitting (Pre-Dialysis) 120/59 mmHg BP Sitting (Post-Dialysis) 104/61 mmHg Concurrent Access: falseAV Graft Upper Arm (Left) Arterial BP Standing (Pre-Dialysis) 97/57 mmHg BP Standing (P ost-Dialysis) 130/87 mmHg Sitting Heart Rate Pre-Dialysis 77 BPM Sitting Heart Rate Post-Dialysis 75 BPM Standing Heart Rate Pre-Dialysis 80 BPM Standing Heart Rate Post-Dialysis 90 BPM Temperature Pre-Dialysis 97.3 degF Temperature Post -Dialysis 98.2 degF November 11, 2023 In-Center Hemodialysis Treatment [id number]:12:00.000Z [id number]:48:35.000Z BP Sitting (Pre-Dialysis) 148/87 mmHg BP Sitting (Post-Dialysis) 138/99 mmHg Concurrent Access: falseAV Graft Upper Arm (Left) Arterial BP Standing (Pre-Dialysis) 116/71 mmHg BP Standing (P ost-Dialysis) 106/71 mmHg Sitting Heart Rate Pre-Dialysis 78 BPM Sitting Heart Rate Post-Dialysis 54 BPM Standing Heart Rate Pre-Dialysis 78 BPM Standing Heart Rate Post-Dialysis 73 BPM Temperature Pre-Dialysis 97.3 degF Temperature Post -Dialysis 98 degF November 08, 2023 In-Center Hemodialysis Treatment 2018-04-20E17:14:00.000Z 0031-22-39R54:50:13.000Z BP Sitting (Pre-Dialysis) 121/63 mmHg BP Sitting (Post-Dialysis) 110/35 mmHg Concurrent Access: falseAV Graft Upper Arm (Left) Arterial BP Standing (Pre-Dialysis) 98/58 mmHg BP Standing (P ost-Dialysis) 104/53 mmHg Sitting Heart Rate Pre-Dialysis 78 BPM Sitting Heart Rate Post-Dialysis 80 BPM Standing Heart Rate Pre-Dialysis 82 BPM Standing Heart Rate Post-Dialysis 81 BPM Temperature Pre-Dialysis 98.1 degF Temperature Post -Dialysis 97.9 degF November 06, 2023 In-Center Hemodialysis Treatment [id number]:08:00.000Z [id number]:45:13.000Z BP Sitting (Pre-Dialysis) 118/67 mmHg BP Sitting (Post-Dialysis) 100/52 mmHg Concurrent Access: falseAV Graft Upper Arm (Left) Arterial BP Standing (Pre-Dialysis) 87/58 mmHg BP Standing (P ost-Dialysis) 102/62 mmHg Sitting Heart Rate Pre-Dialysis 76 BPM Sitting Heart Rate Post-Dialysis 77 BPM Standing Heart Rate Pre-Dialysis 77 BPM Standing Heart Rate Post-Dialysis 78 BPM Temperature Pre-Dialysis 98.2 degF Temperature Post -Dialysis 97.3 degF November 04, 2023 In-Center Hemodialysis Treatment [id number]:08:00.000Z 0837-07-79O14:42:13.000Z BP Sitting (Pre-Dialysis) 113/69 mmHg BP Sitting (Post-Dialysis) 109/63 mmHg Concurrent Access: falseAV Graft Upper Arm (Left) Arterial BP Standing (Pre-Dialysis) 115/67 mmHg BP Standing (P ost-Dialysis) 102/58 mmHg Sitting Heart Rate Pre-Dialysis 80 BPM Sitting Heart Rate Post-Dialysis 81 BPM Standing Heart Rate Pre-Dialysis 81 BPM Standing Heart Rate Post-Dialysis 96 BPM Temperature Pre-Dialysis 97.2 degF Temperature Post -Dialysis 97.2 degF November 01, 2023 In-Center Hemodialysis Treatment [id number]:08:00.000Z 6800-97-70L15:43:50.000Z BP Sitting (Pre-Dialysis) 129/76 mmHg BP Sitting (Post-Dialysis) 105/64 mmHg Concurrent Access: falseAV Graft Upper Arm (Left) Arterial BP Standing (Pre-Dialysis) 117/64 mmHg BP Standing (P ost-Dialysis) 145/49 mmHg Sitting Heart Rate Pre-Dialysis 78 BPM Sitting Heart Rate Post-Dialysis 75 BPM Standing Heart Rate Pre-Dialysis 81 BPM Standing Heart Rate Post-Dialysis 81 BPM Temperature Pre-Dialysis 97.7 degF Temperature Post -Dialysis 98.2 degF October 30, 2023 In-Center Hemodialysis Treatment [id number]:12:00.000Z [id number]:44:50.000Z BP Sitting (Pre-Dialysis) 100/69 mmHg BP Sitting (Post-Dialysis) 101/55 mmHg Concurrent Access: falseAV Graft Upper Arm (Left) Arterial BP Standing (Pre-Dialysis) 99/61 mmHg BP Standing (P ost-Dialysis) 100/82 mmHg Sitting Heart Rate Pre-Dialysis 82 BPM Sitting Heart Rate Post-Dialysis 80 BPM Standing Heart Rate Pre-Dialysis 84 BPM Standing Heart Rate Post-Dialysis 82 BPM Temperature Pre-Dialysis 98.2 degF Temperature Post -Dialysis 98.3 degF October 28, 2023 In-Center Hemodialysis Treatment 2219-20-03H96:06:00.000Z [id number]:41:50.000Z BP Sitting (Pre-Dialysis) 148/82 mmHg BP Sitting (Post-Dialysis) 109/63 mmHg Concurrent Access: falseAV Graft Upper Arm (Left) Arterial BP Standing (Pre-Dialysis) 127/76 mmHg BP Standing (P ost-Dialysis) 106/89 mmHg Sitting Heart Rate Pre-Dialysis 78 BPM Sitting Heart Rate Post-Dialysis 75 BPM Standing Heart Rate Pre-Dialysis 81 BPM Standing Heart Rate Post-Dialysis 72 BPM Temperature Pre-Dialysis 97.5 degF Temperature Post -Dialysis 97.8 degF October 25, 2023 In-Center Hemodialysis Treatment 1908-09-41K93:10:00.000Z 4386-06-48Q22:45:08.000Z BP Sitting (Pre-Dialysis) 131/80 mmHg BP Sitting (Post-Dialysis) 100/62 mmHg Concurrent Access: falseAV Graft Upper Arm (Left) Arterial BP Standing (Pre-Dialysis) 110/65 mmHg BP Standing (P ost-Dialysis) 102/54 mmHg Sitting Heart Rate Pre-Dialysis 80 BPM Sitting Heart Rate Post-Dialysis 73 BPM Standing Heart Rate Pre-Dialysis 82 BPM Standing Heart Rate Post-Dialysis 75 BPM Temperature Pre-Dialysis 97.7 degF Temperature Post -Dialysis 98 degF October 23, 2023 In-Center Hemodialysis Treatment [id number]:06:00.000Z [id number]:39:08.000Z BP Sitting (Pre-Dialysis) 106/65 mmHg BP Sitting (Post-Dialysis) 115/68 mmHg Concurrent Access: falseAV Graft Upper Arm (Left) Arterial BP Standing (Pre-Dialysis) 94/57 mmHg BP Standing (P ost-Dialysis) 108/88 mmHg Sitting Heart Rate Pre-Dialysis 79 BPM Sitting Heart Rate Post-Dialysis 72 BPM Standing Heart Rate Pre-Dialysis 80 BPM Standing Heart Rate Post-Dialysis 102 BPM Temperature Pre-Dialysis 97.5 degF Temperature Post -Dialysis 98 degF October 21, 2023 In-Center Hemodialysis Treatment [id number]:07:00.000Z [id number]:39:08.000Z BP Sitting (Pre-Dialysis) 133/79 mmHg BP Sitting (Post-Dialysis) 104/53 mmHg Concurrent Access: falseAV Graft Upper Arm (Left) Arterial BP Standing (Pre-Dialysis) 121/71 mmHg BP Standing (P ost-Dialysis) 112/94 mmHg Sitting Heart Rate Pre-Dialysis 79 BPM Sitting Heart Rate Post-Dialysis 77 BPM Standing Heart Rate Pre-Dialysis 79 BPM Standing Heart Rate Post-Dialysis 78 BPM Temperature Pre-Dialysis 97.5 degF Temperature Post -Dialysis 97.9 degF October 18, 2023 In-Center Hemodialysis Treatment 8887-54-27Y65:07:00.000Z 7094-06-10M34:48:36.000Z BP Sitting (Pre-Dialysis) 119/76 mmHg BP Sitting (Post-Dialysis) 108/57 mmHg Concurrent Access: falseAV Graft Upper Arm (Left) Arterial BP Standing (Pre-Dialysis) 96/67 mmHg BP Standing (P ost-Dialysis) 102/77 mmHg Sitting Heart Rate Pre-Dialysis 79 BPM Sitting Heart Rate Post-Dialysis 80 BPM Standing Heart Rate Pre-Dialysis 83 BPM Standing Heart Rate Post-Dialysis 79 BPM Temperature Pre-Dialysis 97.9 degF Temperature Post -Dialysis 97 degF October 16, 2023 In-Center Hemodialysis Treatment 8916-15-86Q01:11:36.000Z [id number]:42:36.000Z BP Sitting (Pre-Dialysis) 140/76 mmHg BP Sitting (Post-Dialysis) 110/58 mmHg Concurrent Access: falseAV Graft Upper Arm (Left) Arterial BP Standing (Pre-Dialysis) 140/75 mmHg BP Standing (P ost-Dialysis) 100/48 mmHg Sitting Heart Rate Pre-Dialysis 72 BPM Sitting Heart Rate Post-Dialysis 82 BPM Standing Heart Rate Pre-Dialysis 78 BPM Standing Heart Rate Post-Dialysis 80 BPM Temperature Pre-Dialysis 98.2 degF Temperature Post -Dialysis 97.6 degF October 14, 2023 In-Center Hemodialysis Treatment [id number]:11:00.000Z 9816-81-47Y76:49:36.000Z BP Sitting (Pre-Dialysis) 142/79 mmHg BP Sitting (Post-Dialysis) 107/54 mmHg Concurrent Access: falseAV Graft Upper Arm (Left) Arterial BP Standing (Pre-Dialysis) 131/69 mmHg BP Standing (P ost-Dialysis) 111/48 mmHg Sitting Heart Rate Pre-Dialysis 73 BPM Sitting Heart Rate Post-Dialysis 81 BPM Standing Heart Rate Pre-Dialysis 78 BPM Standing Heart Rate Post-Dialysis 79 BPM Temperature Pre-Dialysis 97.5 degF Temperature Post -Dialysis 97.3 degF October 11, 2023 In-Center Hemodialysis Treatment 9546-59-13P31:13:00.000Z [id number]:46:12.000Z BP Sitting (Pre-Dialysis) 140/84 mmHg BP Sitting (Post-Dialysis) 157/83 mmHg Concurrent Access: falseAV Graft Upper Arm (Left) Arterial BP Standing (Pre-Dialysis) 109/69 mmHg BP Standing (P ost-Dialysis) 110/51 mmHg Sitting Heart Rate Pre-Dialysis 84 BPM Sitting Heart Rate Post-Dialysis 78 BPM Standing Heart Rate Pre-Dialysis 90 BPM Standing Heart Rate Post-Dialysis 83 BPM Temperature Pre-Dialysis 97 degF Temperature Post -Dialysis 97.6 degF October 09, 2023 In-Center Hemodialysis Treatment 0208-03-43Q14:08:11.000Z 2360-56-79L35:43:12.000Z BP Sitting (Pre-Dialysis) 135/79 mmHg BP Sitting (Post-Dialysis) 107/91 mmHg Concurrent Access: falseAV Graft Upper Arm (Left) Arterial BP Standing (Pre-Dialysis) 117/64 mmHg BP Standing (P ost-Dialysis) 157/89 mmHg Sitting Heart Rate Pre-Dialysis 85 BPM Sitting Heart Rate Post-Dialysis 101 BPM Standing Heart Rate Pre-Dialysis 85 BPM Standing Heart Rate Post-Dialysis 88 BPM Temperature Pre-Dialysis 97.1 degF Temperature Post -Dialysis 97 degF October 07, 2023 In-Center Hemodialysis Treatment 5471-93-22A10:03:00.000Z 1296-51-19M13:36:12.000Z BP Sitting (Pre-Dialysis) 141/84 mmHg BP Sitting (Post-Dialysis) 102/50 mmHg Concurrent Access: falseAV Graft Upper Arm (Left) ArterialCentral Venous Catheter (CVC) Chest (Right) Venous BP Standing (Pre-Dialysis) 140/73 mmHg BP Standing (P ost-Dialysis) 126/78 mmHg Sitting Heart Rate Pre-Dialysis 75 BPM Sitting Heart Rate Post-Dialysis 84 BPM Standing Heart Rate Pre-Dialysis 80 BPM Standing Heart Rate Post-Dialysis 86 BPM Temperature Pre-Dialysis 97.7 degF Temperature Post -Dialysis 97.7 degF October 04, 2023 In-Center Hemodialysis Treatment [id number]:05:24.000Z 5590-32-43A58:35:25.000Z BP Sitting (Pre-Dialysis) 126/74 mmHg BP Sitting (Post-Dialysis) 117/63 mmHg Concurrent Access: falseAV Graft Upper Arm (Left) ArterialCentral Venous Catheter (CVC) Chest (Right) Venous BP Standing (Pre-Dialysis) 115/67 mmHg BP Standing (P ost-Dialysis) 102/54 mmHg Sitting Heart Rate Pre-Dialysis 83 BPM Sitting Heart Rate Post-Dialysis 81 BPM Standing Heart Rate Pre-Dialysis 84 BPM Standing Heart Rate Post-Dialysis 81 BPM Temperature Pre-Dialysis 97 degF Temperature Post -Dialysis 97.3 degF October 02, 2023 In-Center Hemodialysis Treatment 4216-65-14J33:08:24.000Z 4394-02-35Y25:52:25.000Z BP Sitting (Pre-Dialysis) 126/74 mmHg BP Sitting (Post-Dialysis) 124/79 mmHg Concurrent Access: falseAV Graft Upper Arm (Left) ArterialCentral Venous Catheter (CVC) Chest (Right) Venous BP Standing (Pre-Dialysis) 101/69 mmHg BP Standing (P ost-Dialysis) 105/83 mmHg Sitting Heart Rate Pre-Dialysis 80 BPM Sitting Heart Rate Post-Dialysis 88 BPM Standing Heart Rate Pre-Dialysis 82 BPM Standing Heart Rate Post-Dialysis 84 BPM Temperature Pre-Dialysis 98.1 degF Temperature Post -Dialysis 97 degF September 30, 2023 In-Center Hemodialysis Treatment 8341-06-47B09:03:24.000Z 7751-67-33B89:39:25.000Z BP Sitting (Pre-Dialysis) 124/72 mmHg BP Sitting (Post-Dialysis) 107/62 mmHg Concurrent Access: falseAV Graft Upper Arm (Left) ArterialCentral Venous Catheter (CVC) Chest (Right) Venous BP Standing (Pre-Dialysis) 106/65 mmHg BP Standing (P ost-Dialysis) 105/56 mmHg Sitting Heart Rate Pre-Dialysis 81 BPM Sitting Heart Rate Post-Dialysis 74 BPM Standing Heart Rate Pre-Dialysis 83 BPM Standing Heart Rate Post-Dialysis 72 BPM Temperature Pre-Dialysis 97.2 degF Temperature Post -Dialysis 97.4 degF September 27, 2023 In-Center Hemodialysis Treatment [id number]:07:00.000Z 9429-28-34Y10:43:21.000Z BP Sitting (Pre-Dialysis) 128/69 mmHg BP Sitting (Post-Dialysis) 100/61 mmHg Concurrent Access: falseAV Graft Upper Arm (Left) ArterialCentral Venous Catheter (CVC) Chest (Right) Venous BP Standing (Pre-Dialysis) 113/63 mmHg BP Standing (P ost-Dialysis) 120/54 mmHg Sitting Heart Rate Pre-Dialysis 83 BPM Sitting Heart Rate Post-Dialysis 82 BPM Standing Heart Rate Pre-Dialysis 85 BPM Standing Heart Rate Post-Dialysis 77 BPM Temperature Pre-Dialysis 97.1 degF September 25, 2023 In-Center Hemodialysis Treatment 8229-17-20X22:08:22.000Z 9282-94-15W22:32:22.000Z BP Sitting (Pre-Dialysis) 118/80 mmHg BP Sitting (Post-Dialysis) 100/42 mmHg Concurrent Access: falseAV Graft Upper Arm (Left) ArterialCentral Venous Catheter (CVC) Chest (Right) Venous BP Standing (Pre-Dialysis) 104/73 mmHg Sitti ng Heart Rate Post-Dialysis 64 BPM Sitting Heart Rate Pre-Dialysis 77 BPM Temperatu re Post-Dialysis 97.6 degF Standing Heart Rate Pre-Dialysis 76 BPM Temperature Pre-Dialysis 97.2 degF September 23, 2023 In-Center Hemodialysis Treatment [id number]:09:00.000Z [id number]:49:22.000Z BP Sitting (Pre-Dialysis) 114/67 mmHg BP Sitting (Post-Dialysis) 101/62 mmHg Concurrent Access: falseAV Graft Upper Arm (Left) ArterialCentral Venous Catheter (CVC) Chest (Right) Venous BP Standing (Pre-Dialysis) 110/61 mmHg BP Standing (P ost-Dialysis) 129/96 mmHg Sitting Heart Rate Pre-Dialysis 78 BPM Sitting Heart Rate Post-Dialysis 81 BPM Standing Heart Rate Pre-Dialysis 80 BPM Standing Heart Rate Post-Dialysis 104 BPM Temperature Pre-Dialysis 97.1 degF Temperature Post -Dialysis 98 degF September 20, 2023 In-Center Hemodialysis Treatment 4917-97-25M92:12:00.000Z 9337-05-22B31:43:14.000Z BP Sitting (Pre-Dialysis) 111/61 mmHg BP Sitting (Post-Dialysis) 111/83 mmHg Concurrent Access: falseAV Graft Upper Arm (Left) ArterialCentral Venous Catheter (CVC) Chest (Right) Venous BP Standing (Pre-Dialysis) 83/58 mmHg BP Standing (P ost-Dialysis) 126/88 mmHg Sitting Heart Rate Pre-Dialysis 73 BPM Sitting Heart Rate Post-Dialysis 65 BPM Standing Heart Rate Pre-Dialysis 105 BPM Standing Heart Rate Post-Dialysis 73 BPM Temperature Pre-Dialysis 98.2 degF Temperature Post -Dialysis 98.1 degF September 18, 2023 In-Center Hemodialysis Treatment 7530-35-56Z56:15:00.000Z 6686-82-56O59:49:57.000Z BP Sitting (Pre-Dialysis) 118/78 mmHg BP Sitting (Post-Dialysis) 117/57 mmHg Concurrent Access: falseAV Graft Upper Arm (Left) ArterialCentral Venous Catheter (CVC) Chest (Right) Venous BP Standing (Pre-Dialysis) 95/61 mmHg BP Standing (P ost-Dialysis) 115/83 mmHg Sitting Heart Rate Pre-Dialysis 77 BPM Sitting Heart Rate Post-Dialysis 82 BPM Standing Heart Rate Pre-Dialysis 79 BPM Standing Heart Rate Post-Dialysis 114 BPM Temperature Pre-Dialysis 98.1 degF Temperature Post -Dialysis 98 degF September 16, 2023 In-Center Hemodialysis Treatment 2646-73-41O49:07:00.000Z 1890-61-63G62:39:57.000Z BP Sitting (Pre-Dialysis) 118/76 mmHg BP Sitting (Post-Dialysis) 120/86 mmHg Concurrent Access: falseAV Graft Upper Arm (Left) ArterialCentral Venous Catheter (CVC) Chest (Right) Venous BP Standing (Pre-Dialysis) 120/66 mmHg Sitti ng Heart Rate Post-Dialysis 79 BPM Sitting Heart Rate Pre-Dialysis 77 BPM Temperatu re Post-Dialysis 97.4 degF Standing Heart Rate Pre-Dialysis 78 BPM Temperature Pre-Dialysis 97.7 degF September 13, 2023 In-Center Hemodialysis Treatment 9965-10-96I28:13:30.000Z 3381-20-10C04:44:08.000Z BP Sitting (Pre-Dialysis) 99/58 mmHg BP Sitting (Post-Dialysis) 111/49 mmHg Concurrent Access: falseAV Graft Upper Arm (Left) ArterialCentral Venous Catheter (CVC) Chest (Right) Venous BP Standing (Pre-Dialysis) 109/50 mmHg BP Standing (P ost-Dialysis) 105/46 mmHg Sitting Heart Rate Pre-Dialysis 78 BPM Sitting Heart Rate Post-Dialysis 82 BPM Standing Heart Rate Pre-Dialysis 107 BPM Standing Heart Rate Post-Dialysis 84 BPM Temperature Pre-Dialysis 97.2 degF Temperature Post -Dialysis 98.3 degF September 11, 2023 In-Center Hemodialysis Treatment [id number]:12:00.000Z 0850-53-57X18:58:31.000Z BP Sitting (Pre-Dialysis) 93/57 mmHg BP Sitting (Post-Dialysis) 106/71 mmHg Concurrent Access: falseAV Graft Upper Arm (Left) ArterialCentral Venous Catheter (CVC) Chest (Right) Venous BP Standing (Pre-Dialysis) 80/54 mmHg BP Standing (P ost-Dialysis) 148/54 mmHg Sitting Heart Rate Pre-Dialysis 91 BPM Sitting Heart Rate Post-Dialysis 80 BPM Standing Heart Rate Pre-Dialysis 97 BPM Standing Heart Rate Post-Dialysis 84 BPM Temperature Pre-Dialysis 98.2 degF Temperature Post -Dialysis 97.1 degF September 10, 2023 Sequential Treatment [id number]:32:00.000Z 3636-23-51V95:31:08.000Z BP Sitting (Pre-Dialysis) 88/53 mmHg BP Sitting (Post-Dialysis) 139/52 mmHg Concurrent Access: falseAV Graft Upper Arm (Left) ArterialCentral Venous Catheter (CVC) Chest (Right) Venous BP Standing (Pre-Dialysis) 89/56 mmHg BP Standing (P ost-Dialysis) 111/86 mmHg Sitting Heart Rate Pre-Dialysis 72 BPM Sitting Heart Rate Post-Dialysis 55 BPM Standing Heart Rate Pre-Dialysis 71 BPM Standing Heart Rate Post-Dialysis 93 BPM Temperature Pre-Dialysis 97.4 degF Temperature Post -Dialysis 97.2 degF September 09, 2023 In-Center Hemodialysis Treatment 3546-44-38W01:16:00.000Z 1558-80-83R48:48:31.000Z BP Sitting (Pre-Dialysis) 129/78 mmHg BP Sitting (Post-Dialysis) 100/61 mmHg Concurrent Access: falseAV Graft Upper Arm (Left) ArterialCentral Venous Catheter (CVC) Chest (Right) Venous BP Standing (Pre-Dialysis) 104/67 mmHg BP Standing (P ost-Dialysis) 112/60 mmHg Sitting Heart Rate Pre-Dialysis 72 BPM Sitting Heart Rate Post-Dialysis 77 BPM Standing Heart Rate Pre-Dialysis 85 BPM Standing Heart Rate Post-Dialysis 83 BPM Temperature Pre-Dialysis 97.4 degF Temperature Post -Dialysis 97.5 degF September 06, 2023 In-Center Hemodialysis Treatment 9320-59-53P51:12:00.000Z 3313-38-31U01:42:02.000Z BP Sitting (Pre-Dialysis) 96/50 mmHg BP Sitting (Post-Dialysis) 107/60 mmHg Concurrent Access: falseAV Graft Upper Arm (Left) ArterialAV Graft Upper Arm (Left) Venous BP Standing (Pre-Dialysis) 94/50 mmHg Sitti ng Heart Rate Post-Dialysis 72 BPM Sitting Heart Rate Pre-Dialysis 99 BPM Temperatu re Post-Dialysis 97.2 degF Standing Heart Rate Pre-Dialysis 79 BPM Temperature Pre-Dialysis 97.2 degF September 04, 2023 In-Center Hemodialysis Treatment [id number]:10:01.000Z [id number]:48:02.000Z BP Sitting (Pre-Dialysis) 121/75 mmHg BP Sitting (Post-Dialysis) 117/100 mmHg Concurrent Access: falseCentral Venous Catheter (CVC) Chest (Right) ArterialAV Graft Upper Arm (Left) Venous BP Standing (Pre-Dialysis) 100/64 mmHg BP Standing (P ost-Dialysis) 107/78 mmHg Sitting Heart Rate Pre-Dialysis 74 BPM Sitting Heart Rate Post-Dialysis 86 BPM Standing Heart Rate Pre-Dialysis 79 BPM Standing Heart Rate Post-Dialysis 88 BPM Temperature Pre-Dialysis 97.1 degF Temperature Post -Dialysis 97.9 degF September 02, 2023 In-Center Hemodialysis Treatment [id number]:11:01.000Z [id number]:49:02.000Z BP Sitting (Pre-Dialysis) 151/82 mmHg BP Sitting (Post-Dialysis) 100/59 mmHg Concurrent Access: falseCentral Venous Catheter (CVC) Chest (Right) ArterialAV Graft Upper Arm (Left) Venous BP Standing (Pre-Dialysis) 136/71 mmHg BP Standing (P ost-Dialysis) 100/63 mmHg Sitting Heart Rate Pre-Dialysis 78 BPM Sitting Heart Rate Post-Dialysis 86 BPM Standing Heart Rate Pre-Dialysis 82 BPM Standing Heart Rate Post-Dialysis 79 BPM Temperature Pre-Dialysis 97.1 degF Temperature Post -Dialysis 98.2 degF August 30, 2023 In-Center Hemodialysis Treatment [id number]:17:00.000Z [id number]:48:50.000Z BP Sitting (Pre-Dialysis) 107/61 mmHg BP Sitting (Post-Dialysis) 123/89 mmHg Concurrent Access: falseCentral Venous Catheter (CVC) Chest (Right) ArterialAV Graft Upper Arm (Left) Venous BP Standing (Pre-Dialysis) 89/55 mmHg BP Standing (P ost-Dialysis) 119/97 mmHg Sitting Heart Rate Pre-Dialysis 79 BPM Sitting Heart Rate Post-Dialysis 85 BPM Standing Heart Rate Pre-Dialysis 80 BPM Standing Heart Rate Post-Dialysis 91 BPM Temperature Pre-Dialysis 97.1 degF Temperature Post -Dialysis 98.2 degF August 28, 2023 In-Center Hemodialysis Treatment [id number]:08:00.000Z [id number]:47:50.000Z BP Sitting (Pre-Dialysis) 128/78 mmHg BP Sitting (Post-Dialysis) 108/81 mmHg Concurrent Access: falseCentral Venous Catheter (CVC) Chest (Right) ArterialAV Graft Upper Arm (Left) Venous BP Standing (Pre-Dialysis) 129/74 mmHg BP Standing (P ost-Dialysis) 137/85 mmHg Sitting Heart Rate Pre-Dialysis 77 BPM Sitting Heart Rate Post-Dialysis 78 BPM Standing Heart Rate Pre-Dialysis 81 BPM Standing Heart Rate Post-Dialysis 95 BPM Temperature Pre-Dialysis 97 degF Temperature Post -Dialysis 98.5 degF August 26, 2023 In-Center Hemodialysis Treatment 8813-52-44G55:06:00.000Z [id number]:38:50.000Z BP Sitting (Pre-Dialysis) 136/76 mmHg BP Sitting (Post-Dialysis) 121/65 mmHg Concurrent Access: falseCentral Venous Catheter (CVC) Chest (Right) ArterialAV Graft Upper Arm (Left) Venous BP Standing (Pre-Dialysis) 116/70 mmHg BP Standing (P ost-Dialysis) 121/83 mmHg Sitting Heart Rate Pre-Dialysis 76 BPM Sitting Heart Rate Post-Dialysis 76 BPM Standing Heart Rate Pre-Dialysis 78 BPM Standing Heart Rate Post-Dialysis 67 BPM Temperature Pre-Dialysis 97.2 degF Temperature Post -Dialysis 98.2 degF August 23, 2023 In-Center Hemodialysis Treatment [id number]:23:07.000Z 3621-72-24F67:00:06.000Z BP Sitting (Pre-Dialysis) 104/63 mmHg BP Sitting (Post-Dialysis) 107/77 mmHg Concurrent Access: falseCentral Venous Catheter (CVC) Chest (Right) ArterialAV Graft Upper Arm (Left) Venous BP Standing (Pre-Dialysis) 115/68 mmHg BP Standing (P ost-Dialysis) 124/56 mmHg Sitting Heart Rate Pre-Dialysis 76 BPM Sitting Heart Rate Post-Dialysis 80 BPM Standing Heart Rate Pre-Dialysis 51 BPM Standing Heart Rate Post-Dialysis 86 BPM Temperature Pre-Dialysis 97.9 degF Temperature Post -Dialysis 97.3 degF August 19, 2023 In-Center Hemodialysis Treatment [id number]:16:00.000Z 6443-25-10F92:30:34.000Z BP Sitting (Pre-Dialysis) 129/78 mmHg BP Sitting (Post-Dialysis) 100/56 mmHg Concurrent Access: falseAV Fistula Upper Arm (Left) Arterial BP Standing (Pre-Dialysis) 111/64 mmHg BP Standing (P ost-Dialysis) 98/56 mmHg Sitting Heart Rate Pre-Dialysis 85 BPM Sitting Heart Rate Post-Dialysis 83 BPM Standing Heart Rate Pre-Dialysis 89 BPM Standing Heart Rate Post-Dialysis 86 BPM Temperature Pre-Dialysis 97.2 degF Temperature Post -Dialysis 97.1 degF August 18, 2023 In-Center Hemodialysis Treatment [id number]:11:06.000Z [id number]:45:06.000Z BP Sitting (Pre-Dialysis) 104/72 mmHg BP Sitting (Post-Dialysis) 102/51 mmHg Concurrent Access: falseAV Fistula Upper Arm (Left) Arterial BP Standing (Pre-Dialysis) 91/58 mmHg BP Standing (P ost-Dialysis) 125/55 mmHg Sitting Heart Rate Pre-Dialysis 76 BPM Sitting Heart Rate Post-Dialysis 75 BPM Standing Heart Rate Pre-Dialysis 93 BPM Standing Heart Rate Post-Dialysis 81 BPM Temperature Pre-Dialysis 98.1 degF Temperature Post -Dialysis 97.9 degF August 16, 2023 In-Center Hemodialysis Treatment [id number]:24:31.000Z [id number]:54:32.000Z BP Sitting (Pre-Dialysis) 141/75 mmHg BP Sitting (Post-Dialysis) 100/77 mmHg Concurrent Access: falseAV Fistula Upper Arm (Left) Arterial BP Standing (Pre-Dialysis) 111/60 mmHg BP Standing (P ost-Dialysis) 118/95 mmHg Sitting Heart Rate Pre-Dialysis 76 BPM Sitting Heart Rate Post-Dialysis 70 BPM Standing Heart Rate Pre-Dialysis 100 BPM Standing Heart Rate Post-Dialysis 74 BPM Temperature Pre-Dialysis 98.4 degF Temperature Post -Dialysis 98 degF August 14, 2023 In-Center Hemodialysis Treatment [id number]:02:00.000Z [id number]:33:32.000Z BP Sitting (Pre-Dialysis) 137/70 mmHg BP Sitting (Post-Dialysis) 103/48 mmHg Concurrent Access: falseAV Fistula Upper Arm (Left) Arterial BP Standing (Pre-Dialysis) 106/65 mmHg BP Standing (P ost-Dialysis) 106/44 mmHg Sitting Heart Rate Pre-Dialysis 79 BPM Sitting Heart Rate Post-Dialysis 78 BPM Standing Heart Rate Pre-Dialysis 82 BPM Standing Heart Rate Post-Dialysis 87 BPM Temperature Pre-Dialysis 97.3 degF Temperature Post -Dialysis 97.4 degF August 12, 2023 In-Center Hemodialysis Treatment [id number]:02:00.000Z 2825-09-65K19:30:32.000Z BP Sitting (Pre-Dialysis) 109/66 mmHg BP Sitting (Post-Dialysis) 114/59 mmHg Concurrent Access: falseAV Fistula Upper Arm (Left) Arterial BP Standing (Pre-Dialysis) 113/52 mmHg BP Standing (P ost-Dialysis) 103/41 mmHg Sitting Heart Rate Pre-Dialysis 79 BPM Sitting Heart Rate Post-Dialysis 90 BPM Standing Heart Rate Pre-Dialysis 78 BPM Standing Heart Rate Post-Dialysis 96 BPM Temperature Pre-Dialysis 97.2 degF Temperature Post -Dialysis 97.4 degF August 09, 2023 In-Center Hemodialysis Treatment [id number]:04:27.000Z 4715-35-23P21:37:28.000Z BP Sitting (Pre-Dialysis) 119/69 mmHg BP Sitting (Post-Dialysis) 104/48 mmHg Concurrent Access: falseAV Fistula Upper Arm (Left) Arterial BP Standing (Pre-Dialysis) 109/64 mmHg BP Standing (P ost-Dialysis) 104/41 mmHg Sitting Heart Rate Pre-Dialysis 81 BPM Sitting Heart Rate Post-Dialysis 79 BPM Standing Heart Rate Pre-Dialysis 80 BPM Standing Heart Rate Post-Dialysis 93 BPM Temperature Pre-Dialysis 97.2 degF Temperature Post -Dialysis 97.5 degF August 07, 2023 In-Center Hemodialysis Treatment [id number]:09:00.000Z 6938-81-10H39:40:28.000Z BP Sitting (Pre-Dialysis) 124/71 mmHg BP Sitting (Post-Dialysis) 107/59 mmHg Concurrent Access: falseAV Fistula Upper Arm (Left) Arterial BP Standing (Pre-Dialysis) 99/65 mmHg BP Standing (P ost-Dialysis) 111/62 mmHg Sitting Heart Rate Pre-Dialysis 73 BPM Sitting Heart Rate Post-Dialysis 73 BPM Standing Heart Rate Pre-Dialysis 105 BPM Standing Heart Rate Post-Dialysis 109 BPM Temperature Pre-Dialysis 98 degF Temperature Post -Dialysis 98 degF August 05, 2023 In-Center Hemodialysis Treatment [id number]:07:00.000Z 9075-50-20G85:38:28.000Z BP Sitting (Pre-Dialysis) 129/68 mmHg BP Sitting (Post-Dialysis) 100/58 mmHg Concurrent Access: falseAV Fistula Upper Arm (Left) Arterial BP Standing (Pre-Dialysis) 117/63 mmHg BP Standing (P ost-Dialysis) 125/58 mmHg Sitting Heart Rate Pre-Dialysis 74 BPM Sitting Heart Rate Post-Dialysis 83 BPM Standing Heart Rate Pre-Dialysis 77 BPM Standing Heart Rate Post-Dialysis 84 BPM Temperature Pre-Dialysis 97.4 degF Temperature Post -Dialysis 97.9 degF August 02, 2023 In-Center Hemodialysis Treatment 8050-36-12V68:05:10.000Z [id number]:36:10.000Z BP Sitting (Pre-Dialysis) 106/60 mmHg BP Sitting (Post-Dialysis) 102/61 mmHg Concurrent Access: falseAV Fistula Upper Arm (Left) Arterial BP Standing (Pre-Dialysis) 72/49 mmHg BP Standing (P ost-Dialysis) 109/50 mmHg Sitting Heart Rate Pre-Dialysis 76 BPM Sitting Heart Rate Post-Dialysis 78 BPM Standing Heart Rate Pre-Dialysis 79 BPM Standing Heart Rate Post-Dialysis 106 BPM Temperature Pre-Dialysis 98.2 degF Temperature Post -Dialysis 98.1 degF July 31, 2023 In-Center Hemodialysis Treatment [id number]:10:00.000Z 1091-29-26C05:43:10.000Z BP Sitting (Pre-Dialysis) 119/71 mmHg BP Sitting (Post-Dialysis) 109/62 mmHg Concurrent Access: falseAV Fistula Upper Arm (Left) Arterial BP Standing (Pre-Dialysis) 100/61 mmHg BP Standing (P ost-Dialysis) 100/58 mmHg Sitting Heart Rate Pre-Dialysis 75 BPM Sitting Heart Rate Post-Dialysis 74 BPM Standing Heart Rate Pre-Dialysis 75 BPM Standing Heart Rate Post-Dialysis 78 BPM Temperature Pre-Dialysis 98.6 degF Temperature Post -Dialysis 98.6 degF July 29, 2023 In-Center Hemodialysis Treatment [id number]:03:00.000Z 1915-33-45B83:34:10.000Z BP Sitting (Pre-Dialysis) 128/76 mmHg BP Sitting (Post-Dialysis) 113/84 mmHg Concurrent Access: falseAV Fistula Upper Arm (Left) Arterial BP Standing (Pre-Dialysis) 127/72 mmHg BP Standing (P ost-Dialysis) 115/91 mmHg Sitting Heart Rate Pre-Dialysis 77 BPM Sitting Heart Rate Post-Dialysis 79 BPM Standing Heart Rate Pre-Dialysis 75 BPM Standing Heart Rate Post-Dialysis 80 BPM Temperature Pre-Dialysis 97.4 degF Temperature Post -Dialysis 97.4 degF July 26, 2023 In-Center Hemodialysis Treatment [id number]:03:03.000Z 5848-79-26X95:33:03.000Z BP Sitting (Pre-Dialysis) 121/69 mmHg BP Sitting (Post-Dialysis) 100/57 mmHg Concurrent Access: falseAV Fistula Upper Arm (Left) Arterial BP Standing (Pre-Dialysis) 110/59 mmHg BP Standing (P ost-Dialysis) 114/50 mmHg Sitting Heart Rate Pre-Dialysis 73 BPM Sitting Heart Rate Post-Dialysis 79 BPM Standing Heart Rate Pre-Dialysis 75 BPM Standing Heart Rate Post-Dialysis 80 BPM Temperature Pre-Dialysis 97.3 degF Temperature Post -Dialysis 97.6 degF July 24, 2023 In-Center Hemodialysis Treatment 0490-29-27Y07:08:00.000Z 9722-52-99R90:42:03.000Z BP Sitting (Pre-Dialysis) 106/67 mmHg BP Sitting (Post-Dialysis) 95/57 mmHg Concurrent Access: falseAV Fistula Upper Arm (Left) Arterial BP Standing (Pre-Dialysis) 107/82 mmHg BP Standing (P ost-Dialysis) 104/55 mmHg Sitting Heart Rate Pre-Dialysis 82 BPM Sitting Heart Rate Post-Dialysis 83 BPM Standing Heart Rate Pre-Dialysis 82 BPM Standing Heart Rate Post-Dialysis 80 BPM Temperature Pre-Dialysis 97.7 degF Temperature Post -Dialysis 97.4 degF July 22, 2023 In-Center Hemodialysis Treatment [id number]:09:03.000Z 5387-04-94O51:48:03.000Z BP Sitting (Pre-Dialysis) 128/78 mmHg BP Sitting (Post-Dialysis) 96/53 mmHg Concurrent Access: falseAV Fistula Upper Arm (Left) Arterial BP Standing (Pre-Dialysis) 125/66 mmHg BP Standing (P ost-Dialysis) 112/52 mmHg Sitting Heart Rate Pre-Dialysis 71 BPM Sitting Heart Rate Post-Dialysis 80 BPM Standing Heart Rate Pre-Dialysis 75 BPM Standing Heart Rate Post-Dialysis 74 BPM Temperature Pre-Dialysis 98.1 degF Temperature Post -Dialysis 97.3 degF July 19, 2023 In-Center Hemodialysis Treatment [id number]:15:40.000Z [id number]:47:40.000Z BP Sitting (Pre-Dialysis) 136/80 mmHg BP Sitting (Post-Dialysis) 102/58 mmHg Concurrent Access: falseAV Fistula Upper Arm (Left) Arterial BP Standing (Pre-Dialysis) 125/76 mmHg Sitti ng Heart Rate Post-Dialysis 77 BPM Sitting Heart Rate Pre-Dialysis 75 BPM Temperatu re Post-Dialysis 97.3 degF Standing Heart Rate Pre-Dialysis 76 BPM Temperature Pre-Dialysis 97.7 degF July 17, 2023 In-Center Hemodialysis Treatment [id number]:08:40.000Z [id number]:50:40.000Z BP Sitting (Pre-Dialysis) 132/61 mmHg BP Sitting (Post-Dialysis) 106/56 mmHg Concurrent Access: falseAV Fistula Upper Arm (Left) Arterial BP Standing (Pre-Dialysis) 118/68 mmHg BP Standing (P ost-Dialysis) 111/53 mmHg Sitting Heart Rate Pre-Dialysis 78 BPM Sitting Heart Rate Post-Dialysis 84 BPM Standing Heart Rate Pre-Dialysis 79 BPM Standing Heart Rate Post-Dialysis 85 BPM Temperature Pre-Dialysis 97.2 degF Temperature Post -Dialysis 97.2 degF July 15, 2023 In-Center Hemodialysis Treatment 1350-01-50K40:06:00.000Z 0624-12-24C81:29:40.000Z BP Sitting (Pre-Dialysis) 134/74 mmHg BP Sitting (Post-Dialysis) 113/68 mmHg Concurrent Access: falseAV Fistula Upper Arm (Left) Arterial BP Standing (Pre-Dialysis) 149/90 mmHg BP Standing (P ost-Dialysis) 129/78 mmHg Sitting Heart Rate Pre-Dialysis 80 BPM Sitting Heart Rate Post-Dialysis 86 BPM Standing Heart Rate Pre-Dialysis 80 BPM Standing Heart Rate Post-Dialysis 82 BPM Temperature Pre-Dialysis 98 degF Temperature Post -Dialysis 97.6 degF July 12, 2023 In-Center Hemodialysis Treatment 2510-82-62H85:03:00.000Z 3648-96-50C90:32:05.000Z BP Sitting (Pre-Dialysis) 134/83 mmHg BP Sitting (Post-Dialysis) 105/51 mmHg Concurrent Access: falseAV Fistula Upper Arm (Left) Arterial BP Standing (Pre-Dialysis) 117/66 mmHg BP Standing (P ost-Dialysis) 106/47 mmHg Sitting Heart Rate Pre-Dialysis 73 BPM Sitting Heart Rate Post-Dialysis 79 BPM Standing Heart Rate Pre-Dialysis 75 BPM Standing Heart Rate Post-Dialysis 77 BPM Temperature Pre-Dialysis 97.5 degF Temperature Post -Dialysis 97 degF July 10, 2023 InCenter Hemodialysis Treatment [id number]:59:00.000Z 9085-89-60F70:29:05.000Z BP Sitting (Pre-Dialysis) 116/75 mmHg BP Sitting (Post-Dialysis) 108/66 mmHg Concurrent Access: falseAV Fistula Upper Arm (Left) Arterial BP Standing (Pre-Dialysis) 99/59 mmHg BP Standing (P ost-Dialysis) 102/47 mmHg Sitting Heart Rate Pre-Dialysis 73 BPM Sitting Heart Rate Post-Dialysis 79 BPM Standing Heart Rate Pre-Dialysis 75 BPM Standing Heart Rate Post-Dialysis 80 BPM Temperature Pre-Dialysis 97.4 degF Temperature Post -Dialysis 97.7 degF July 08, 2023 In-Center Hemodialysis Treatment [id number]:58:00.000Z 8248-85-99I54:29:05.000Z BP Sitting (Pre-Dialysis) 143/86 mmHg BP Sitting (Post-Dialysis) 117/53 mmHg Concurrent Access: falseAV Fistula Upper Arm (Left) Arterial BP Standing (Pre-Dialysis) 137/75 mmHg BP Standing (P ost-Dialysis) 117/49 mmHg Sitting Heart Rate Pre-Dialysis 76 BPM Sitting Heart Rate Post-Dialysis 80 BPM Standing Heart Rate Pre-Dialysis 77 BPM Standing Heart Rate Post-Dialysis 82 BPM Temperature Pre-Dialysis 97.4 degF Temperature Post -Dialysis 98 degF July 05, 2023 In-Center Hemodialysis Treatment [id number]:02:00.000Z 8883-14-18H15:41:19.000Z BP Sitting (Pre-Dialysis) 136/82 mmHg BP Sitting (Post-Dialysis) 106/61 mmHg Concurrent Access: falseAV Fistula Upper Arm (Left) Arterial BP Standing (Pre-Dialysis) 107/65 mmHg BP Standing (P ost-Dialysis) 101/47 mmHg Sitting Heart Rate Pre-Dialysis 73 BPM Sitting Heart Rate Post-Dialysis 74 BPM Standing Heart Rate Pre-Dialysis 74 BPM Standing Heart Rate Post-Dialysis 80 BPM Temperature Pre-Dialysis 98.1 degF Temperature Post -Dialysis 98.6 degF July 03, 2023 In-Center Hemodialysis Treatment [id number]:02:18.000Z 0732-67-01L58:38:19.000Z BP Sitting (Pre-Dialysis) 103/74 mmHg BP Sitting (Post-Dialysis) 109/61 mmHg Concurrent Access: falseAV Fistula Upper Arm (Left) Arterial BP Standing (Pre-Dialysis) 102/63 mmHg BP Standing (P ost-Dialysis) 112/58 mmHg Sitting Heart Rate Pre-Dialysis 64 BPM Sitting Heart Rate Post-Dialysis 75 BPM Standing Heart Rate Pre-Dialysis 72 BPM Standing Heart Rate Post-Dialysis 75 BPM Temperature Pre-Dialysis 97.3 degF Temperature Post -Dialysis 97.9 degF July 01, 2023 In-Center Hemodialysis Treatment 9069-59-01N31:06:00.000Z [id number]:39:19.000Z BP Sitting (Pre-Dialysis) 145/80 mmHg BP Sitting (Post-Dialysis) 129/74 mmHg Concurrent Access: falseAV Fistula Upper Arm (Left) Arterial BP Standing (Pre-Dialysis) 120/75 mmHg BP Standing (P ost-Dialysis) 113/59 mmHg Sitting Heart Rate Pre-Dialysis 73 BPM Sitting Heart Rate Post-Dialysis 72 BPM Standing Heart Rate Pre-Dialysis 72 BPM Standing Heart Rate Post-Dialysis 74 BPM Temperature Pre-Dialysis 97 degF Temperature Post -Dialysis 97.4 degF June 28, 2023 In-Center Hemodialysis Treatment [id number]:00:49.000Z 1786-74-18V23:28:48.000Z BP Sitting (Pre-Dialysis) 128/75 mmHg BP Sitting (Post-Dialysis) 100/58 mmHg Concurrent Access: falseAV Fistula Upper Arm (Left) Arterial BP Standing (Pre-Dialysis) 102/63 mmHg Sitti ng Heart Rate Post-Dialysis 73 BPM Sitting Heart Rate Pre-Dialysis 73 BPM Temperatu re Post-Dialysis 97.6 degF Standing Heart Rate Pre-Dialysis 74 BPM Temperature Pre-Dialysis 97.3 degF June 26, 2023 In-Center Hemodialysis Treatment [id number]:14:00.000Z 9568-04-78L93:44:48.000Z BP Sitting (Pre-Dialysis) 143/86 mmHg BP Sitting (Post-Dialysis) 101/62 mmHg Concurrent Access: falseAV Fistula Upper Arm (Left) Arterial BP Standing (Pre-Dialysis) 133/74 mmHg BP Standing (P ost-Dialysis) 109/58 mmHg Sitting Heart Rate Pre-Dialysis 76 BPM Sitting Heart Rate Post-Dialysis 75 BPM Standing Heart Rate Pre-Dialysis 75 BPM Standing Heart Rate Post-Dialysis 77 BPM Temperature Pre-Dialysis 97 degF Temperature Post -Dialysis 97.9 degF June 24, 2023 In-Center Hemodialysis Treatment [id number]:06:00.000Z 0488-39-95E33:42:48.000Z BP Sitting (Pre-Dialysis) 152/87 mmHg BP Sitting (Post-Dialysis) 107/59 mmHg Concurrent Access: falseAV Fistula Upper Arm (Left) Arterial BP Standing (Pre-Dialysis) 150/81 mmHg BP Standing (P ost-Dialysis) 104/59 mmHg Sitting Heart Rate Pre-Dialysis 71 BPM Sitting Heart Rate Post-Dialysis 73 BPM Standing Heart Rate Pre-Dialysis 72 BPM Standing Heart Rate Post-Dialysis 79 BPM Temperature Pre-Dialysis 97.1 degF Temperature Post -Dialysis 97.3 degF June 21, 2023 In-Center Hemodialysis Treatment 0106-98-17H48:23:00.000Z 2843-18-52L96:54:21.000Z BP Sitting (Pre-Dialysis) 156/88 mmHg BP Sitting (Post-Dialysis) 126/64 mmHg Concurrent Access: falseAV Fistula Upper Arm (Left) Arterial BP Standing (Pre-Dialysis) 105/64 mmHg BP Standing (P ost-Dialysis) 106/62 mmHg Sitting Heart Rate Pre-Dialysis 84 BPM Sitting Heart Rate Post-Dialysis 75 BPM Standing Heart Rate Pre-Dialysis 87 BPM Standing Heart Rate Post-Dialysis 78 BPM Temperature Pre-Dialysis 97.4 degF Temperature Post -Dialysis 98.2 degF June 19, 2023 In-Center Hemodialysis Treatment [id number]:08:20.000Z 9853-10-91Y16:39:21.000Z BP Sitting (Pre-Dialysis) 153/76 mmHg BP Sitting (Post-Dialysis) 122/49 mmHg Concurrent Access: falseAV Fistula Upper Arm (Left) Arterial BP Standing (Pre-Dialysis) 124/73 mmHg BP Standing (P ost-Dialysis) 121/85 mmHg Sitting Heart Rate Pre-Dialysis 73 BPM Sitting Heart Rate Post-Dialysis 64 BPM Standing Heart Rate Pre-Dialysis 76 BPM Standing Heart Rate Post-Dialysis 75 BPM Temperature Pre-Dialysis 97.9 degF Temperature Post -Dialysis 97.5 degF June 17, 2023 In-Center Hemodialysis Treatment [id number]:11:00.000Z [id number]:41:21.000Z BP Sitting (Pre-Dialysis) 148/64 mmHg BP Sitting (Post-Dialysis) 124/59 mmHg Concurrent Access: falseAV Fistula Upper Arm (Left) Arterial BP Standing (Pre-Dialysis) 150/86 mmHg BP Standing (P ost-Dialysis) 102/47 mmHg Sitting Heart Rate Pre-Dialysis 72 BPM Sitting Heart Rate Post-Dialysis 76 BPM Standing Heart Rate Pre-Dialysis 75 BPM Standing Heart Rate Post-Dialysis 74 BPM Temperature Pre-Dialysis 97.2 degF Temperature Post -Dialysis 97.8 degF June 14, 2023 In-Center Hemodialysis Treatment [id number]:04:43.000Z 2405-81-46N29:35:43.000Z BP Sitting (Pre-Dialysis) 160/89 mmHg BP Sitting (Post-Dialysis) 108/59 mmHg Concurrent Access: falseAV Fistula Upper Arm (Left) Arterial BP Standing (Pre-Dialysis) 127/74 mmHg BP Standing (P ost-Dialysis) 106/84 mmHg Sitting Heart Rate Pre-Dialysis 74 BPM Sitting Heart Rate Post-Dialysis 75 BPM Standing Heart Rate Pre-Dialysis 76 BPM Standing Heart Rate Post-Dialysis 77 BPM Temperature Pre-Dialysis 97.6 degF Temperature Post -Dialysis 98 degF June 12, 2023 In-Center Hemodialysis Treatment [id number]:07:00.000Z 4391-73-96H49:42:43.000Z BP Sitting (Pre-Dialysis) 158/90 mmHg BP Sitting (Post-Dialysis) 120/69 mmHg Concurrent Access: falseAV Fistula Upper Arm (Left) Arterial BP Standing (Pre-Dialysis) 142/80 mmHg BP Standing (P ost-Dialysis) 112/57 mmHg Sitting Heart Rate Pre-Dialysis 75 BPM Sitting Heart Rate Post-Dialysis 75 BPM Standing Heart Rate Pre-Dialysis 73 BPM Standing Heart Rate Post-Dialysis 78 BPM Temperature Pre-Dialysis 97.4 degF Temperature Post -Dialysis 97.3 degF June 10, 2023 In-Center Hemodialysis Treatment 2188-12-08W37:04:00.000Z 8528-33-45G69:32:43.000Z BP Sitting (Pre-Dialysis) 145/79 mmHg BP Sitting (Post-Dialysis) 102/56 mmHg Concurrent Access: falseAV Fistula Upper Arm (Left) Arterial BP Standing (Pre-Dialysis) 130/73 mmHg Sitti ng Heart Rate Post-Dialysis 75 BPM Sitting Heart Rate Pre-Dialysis 75 BPM Temperatu re Post-Dialysis 97.7 degF Standing Heart Rate Pre-Dialysis 75 BPM Temperature Pre-Dialysis 97.9 degF June 07, 2023 In-Center Hemodialysis Treatment [id number]:11:00.000Z 6428-63-90Z03:49:12.000Z BP Sitting (Pre-Dialysis) 132/77 mmHg BP Sitting (Post-Dialysis) 111/61 mmHg Concurrent Access: falseAV Fistula Upper Arm (Left) Arterial BP Standing (Pre-Dialysis) 114/67 mmHg BP Standing (P ost-Dialysis) 102/46 mmHg Sitting Heart Rate Pre-Dialysis 77 BPM Sitting Heart Rate Post-Dialysis 71 BPM Standing Heart Rate Pre-Dialysis 77 BPM Standing Heart Rate Post-Dialysis 79 BPM Temperature Pre-Dialysis 97.5 degF Temperature Post -Dialysis 97.9 degF June 05, 2023 In-Center Hemodialysis Treatment 9960-87-84W85:08:00.000Z 1287-78-49L94:40:13.000Z BP Sitting (Pre-Dialysis) 137/79 mmHg BP Sitting (Post-Dialysis) 100/56 mmHg Concurrent Access: falseAV Fistula Upper Arm (Left) Arterial BP Standing (Pre-Dialysis) 131/67 mmHg BP Standing (P ost-Dialysis) 139/42 mmHg Sitting Heart Rate Pre-Dialysis 72 BPM Sitting Heart Rate Post-Dialysis 76 BPM Standing Heart Rate Pre-Dialysis 73 BPM Standing Heart Rate Post-Dialysis 80 BPM Temperature Pre-Dialysis 98.2 degF Temperature Post -Dialysis 98.2 degF June 03, 2023 In-Center Hemodialysis Treatment [id number]:05:00.000Z 8950-94-39R49:38:13.000Z BP Sitting (Pre-Dialysis) 148/79 mmHg BP Sitting (Post-Dialysis) 105/53 mmHg Concurrent Access: falseAV Fistula Upper Arm (Left) Arterial BP Standing (Pre-Dialysis) 152/85 mmHg Sitti ng Heart Rate Post-Dialysis 75 BPM Sitting Heart Rate Pre-Dialysis 78 BPM Temperatu re Post-Dialysis 97.4 degF Standing Heart Rate Pre-Dialysis 76 BPM Temperature Pre-Dialysis 98.1 degF May 31, 2023 In-Center Hemodialysis Treatment [id number]:47:52.000Z 7381-53-98K68:18:52.000Z BP Sitting (Pre-Dialysis) 122/76 mmHg BP Sitting (Post-Dialysis) 119/60 mmHg Concurrent Access: falseAV Fistula Upper Arm (Left) Arterial BP Standing (Pre-Dialysis) 118/67 mmHg BP Standing (P ost-Dialysis) 101/55 mmHg Sitting Heart Rate Pre-Dialysis 69 BPM Sitting Heart Rate Post-Dialysis 71 BPM Standing Heart Rate Pre-Dialysis 73 BPM Standing Heart Rate Post-Dialysis 75 BPM Temperature Pre-Dialysis 98 degF Temperature Post -Dialysis 97.3 degF May 29, 2023 In-Center Hemodialysis Treatment 7920-15-47G71:09:00.000Z 4317-01-10X29:26:52.000Z BP Sitting (Pre-Dialysis) 170/97 mmHg BP Sitting (Post-Dialysis) 113/82 mmHg Concurrent Access: falseAV Fistula Upper Arm (Left) Arterial BP Standing (Pre-Dialysis) 158/85 mmHg Sitti ng Heart Rate Post-Dialysis 86 BPM Sitting Heart Rate Pre-Dialysis 75 BPM Temperatu re Post-Dialysis 97.7 degF Standing Heart Rate Pre-Dialysis 75 BPM Temperature Pre-Dialysis 97.8 degF May 27, 2023 In-Center Hemodialysis Treatment [id number]:01:00.000Z 7074-99-83V37:31:52.000Z BP Sitting (Pre-Dialysis) 147/84 mmHg BP Sitting (Post-Dialysis) 106/57 mmHg Concurrent Access: falseAV Fistula Upper Arm (Left) Arterial BP Standing (Pre-Dialysis) 122/72 mmHg BP Standing (P ost-Dialysis) 127/96 mmHg Sitting Heart Rate Pre-Dialysis 71 BPM Sitting Heart Rate Post-Dialysis 76 BPM Standing Heart Rate Pre-Dialysis 75 BPM Standing Heart Rate Post-Dialysis 75 BPM Temperature Pre-Dialysis 97.8 degF Temperature Post -Dialysis 98 degF May 24, 2023 In-Center Hemodialysis Treatment [id number]:04:00.000Z [id number]:35:26.000Z BP Sitting (Pre-Dialysis) 127/76 mmHg BP Sitting (Post-Dialysis) 119/65 mmHg Concurrent Access: falseAV Fistula Upper Arm (Left) Arterial BP Standing (Pre-Dialysis) 103/61 mmHg BP Standing (P ost-Dialysis) 108/82 mmHg Sitting Heart Rate Pre-Dialysis 72 BPM Sitting Heart Rate Post-Dialysis 76 BPM Standing Heart Rate Pre-Dialysis 73 BPM Standing Heart Rate Post-Dialysis 79 BPM Temperature Pre-Dialysis 97.4 degF Temperature Post -Dialysis 98 degF May 22, 2023 In-Center Hemodialysis Treatment 4033-07-03P45:07:00.000Z [id number]:43:26.000Z BP Sitting (Pre-Dialysis) 126/71 mmHg BP Sitting (Post-Dialysis) 110/50 mmHg Concurrent Access: falseAV Fistula Upper Arm (Left) Arterial BP Standing (Pre-Dialysis) 117/62 mmHg BP Standing (P ost-Dialysis) 103/62 mmHg Sitting Heart Rate Pre-Dialysis 71 BPM Sitting Heart Rate Post-Dialysis 77 BPM Standing Heart Rate Pre-Dialysis 73 BPM Standing Heart Rate Post-Dialysis 77 BPM Temperature Pre-Dialysis 98.4 degF Temperature Post -Dialysis 98.5 degF May 20, 2023 In-Center Hemodialysis Treatment [id number]:10:00.000Z [id number]:42:26.000Z BP Sitting (Pre-Dialysis) 139/80 mmHg BP Sitting (Post-Dialysis) 113/56 mmHg Concurrent Access: falseAV Fistula Upper Arm (Left) Arterial BP Standing (Pre-Dialysis) 118/67 mmHg BP Standing (P ost-Dialysis) 104/66 mmHg Sitting Heart Rate Pre-Dialysis 72 BPM Sitting Heart Rate Post-Dialysis 77 BPM Standing Heart Rate Pre-Dialysis 75 BPM Standing Heart Rate Post-Dialysis 72 BPM Temperature Pre-Dialysis 98.1 degF Temperature Post -Dialysis 98.7 degF May 17, 2023 In-Center Hemodialysis Treatment [id number]:01:00.000Z [id number]:31:10.000Z BP Sitting (Pre-Dialysis) 121/70 mmHg BP Sitting (Post-Dialysis) 107/68 mmHg Concurrent Access: falseAV Fistula Upper Arm (Left) Arterial BP Standing (Pre-Dialysis) 103/54 mmHg BP Standing (P ost-Dialysis) 103/68 mmHg Sitting Heart Rate Pre-Dialysis 76 BPM Sitting Heart Rate Post-Dialysis 72 BPM Standing Heart Rate Pre-Dialysis 77 BPM Standing Heart Rate Post-Dialysis 70 BPM Temperature Pre-Dialysis 97.4 degF Temperature Post -Dialysis 98.7 degF May 15, 2023 In-Center Hemodialysis Treatment [id number]:06:37.000Z [id number]:37:37.000Z BP Sitting (Pre-Dialysis) 140/82 mmHg BP Sitting (Post-Dialysis) 101/56 mmHg Concurrent Access: falseAV Fistula Upper Arm (Left) Arterial BP Standing (Pre-Dialysis) 122/74 mmHg BP Standing (P ost-Dialysis) 100/60 mmHg Sitting Heart Rate Pre-Dialysis 78 BPM Sitting Heart Rate Post-Dialysis 75 BPM Standing Heart Rate Pre-Dialysis 78 BPM Standing Heart Rate Post-Dialysis 72 BPM Temperature Pre-Dialysis 97.2 degF Temperature Post -Dialysis 98 degF May 13, 2023 In-Center Hemodialysis Treatment [id number]:00:00.000Z [id number]:31:37.000Z BP Sitting (Pre-Dialysis) 144/84 mmHg BP Sitting (Post-Dialysis) 106/56 mmHg Concurrent Access: falseAV Fistula Upper Arm (Left) Arterial BP Standing (Pre-Dialysis) 98/62 mmHg BP Standing (P ost-Dialysis) 102/40 mmHg Sitting Heart Rate Pre-Dialysis 70 BPM Sitting Heart Rate Post-Dialysis 80 BPM Standing Heart Rate Pre-Dialysis 76 BPM Standing Heart Rate Post-Dialysis 66 BPM Temperature Pre-Dialysis 98 degF Temperature Post -Dialysis 98.3 degF May 10, 2023 In-Center Hemodialysis Treatment [id number]:08:25.000Z [id number]:39:24.000Z BP Sitting (Pre-Dialysis) 144/78 mmHg BP Sitting (Post-Dialysis) 119/40 mmHg Concurrent Access: falseAV Fistula Upper Arm (Left) Arterial BP Standing (Pre-Dialysis) 110/63 mmHg BP Standing (P ost-Dialysis) 146/52 mmHg Sitting Heart Rate Pre-Dialysis 72 BPM Sitting Heart Rate Post-Dialysis 75 BPM Standing Heart Rate Pre-Dialysis 74 BPM Standing Heart Rate Post-Dialysis 75 BPM Temperature Pre-Dialysis 97.7 degF Temperature Post -Dialysis 97.6 degF May 08, 2023 In-Center Hemodialysis Treatment [id number]:00:25.000Z [id number]:35:25.000Z BP Sitting (Pre-Dialysis) 114/64 mmHg BP Sitting (Post-Dialysis) 100/58 mmHg Concurrent Access: falseAV Fistula Upper Arm (Left) Arterial BP Standing (Pre-Dialysis) 92/56 mmHg BP Standing (P ost-Dialysis) 102/48 mmHg Sitting Heart Rate Pre-Dialysis 77 BPM Sitting Heart Rate Post-Dialysis 75 BPM Standing Heart Rate Pre-Dialysis 76 BPM Standing Heart Rate Post-Dialysis 72 BPM Temperature Pre-Dialysis 97.2 degF Temperature Post -Dialysis 98 degF May 06, 2023 In-Center Hemodialysis Treatment [id number]:59:00.000Z [id number]:31:25.000Z BP Sitting (Pre-Dialysis) 142/77 mmHg BP Sitting (Post-Dialysis) 101/50 mmHg Concurrent Access: falseAV Fistula Upper Arm (Left) Arterial BP Standing (Pre-Dialysis) 116/61 mmHg BP Standing (P ost-Dialysis) 120/49 mmHg Sitting Heart Rate Pre-Dialysis 75 BPM Sitting Heart Rate Post-Dialysis 73 BPM Standing Heart Rate Pre-Dialysis 78 BPM Standing Heart Rate Post-Dialysis 83 BPM Temperature Pre-Dialysis 98 degF Temperature Post -Dialysis 98 degF May 03, 2023 In-Center Hemodialysis Treatment [id number]:59:00.000Z [id number]:31:21.000Z BP Sitting (Pre-Dialysis) 147/83 mmHg BP Sitting (Post-Dialysis) 109/63 mmHg Concurrent Access: falseAV Fistula Upper Arm (Left) Arterial BP Standing (Pre-Dialysis) 132/71 mmHg BP Standing (P ost-Dialysis) 100/80 mmHg Sitting Heart Rate Pre-Dialysis 76 BPM Sitting Heart Rate Post-Dialysis 86 BPM Standing Heart Rate Pre-Dialysis 77 BPM Standing Heart Rate Post-Dialysis 86 BPM Temperature Pre-Dialysis 97.7 degF Temperature Post -Dialysis 97.8 degF May 01, 2023 In-Center Hemodialysis Treatment [id number]:18:21.000Z 9832-04-35W18:49:21.000Z BP Sitting (Pre-Dialysis) 126/73 mmHg BP Sitting (Post-Dialysis) 110/57 mmHg Concurrent Access: falseAV Fistula Upper Arm (Left) Arterial BP Standing (Pre-Dialysis) 110/58 mmHg BP Standing (P ost-Dialysis) 107/45 mmHg Sitting Heart Rate Pre-Dialysis 68 BPM Sitting Heart Rate Post-Dialysis 75 BPM Standing Heart Rate Pre-Dialysis 70 BPM Standing Heart Rate Post-Dialysis 78 BPM Temperature Pre-Dialysis 97.3 degF Temperature Post -Dialysis 97.7 degF April 29, 2023 In-Center Hemodialysis Treatment [id number]:59:00.000Z [id number]:30:21.000Z BP Sitting (Pre-Dialysis) 150/81 mmHg BP Sitting (Post-Dialysis) 108/41 mmHg Concurrent Access: falseAV Fistula Upper Arm (Left) Arterial BP Standing (Pre-Dialysis) 127/69 mmHg BP Standing (P ost-Dialysis) 118/73 mmHg Sitting Heart Rate Pre-Dialysis 77 BPM Sitting Heart Rate Post-Dialysis 73 BPM Standing Heart Rate Pre-Dialysis 79 BPM Standing Heart Rate Post-Dialysis 77 BPM Temperature Pre-Dialysis 97.5 degF Temperature Post -Dialysis 97.5 degF April 26, 2023 In-Center Hemodialysis Treatment 4520-05-42W49:04:00.000Z [id number]:42:42.000Z BP Sitting (Pre-Dialysis) 121/69 mmHg BP Sitting (Post-Dialysis) 105/50 mmHg Concurrent Access: falseAV Fistula Upper Arm (Left) Arterial BP Standing (Pre-Dialysis) 103/56 mmHg BP Standing (P ost-Dialysis) 102/68 mmHg Sitting Heart Rate Pre-Dialysis 80 BPM Sitting Heart Rate Post-Dialysis 75 BPM Standing Heart Rate Pre-Dialysis 82 BPM Standing Heart Rate Post-Dialysis 72 BPM Temperature Pre-Dialysis 97.2 degF Temperature Post -Dialysis 97.2 degF April 24, 2023 In-Center Hemodialysis Treatment [id number]:03:42.000Z [id number]:33:42.000Z BP Sitting (Pre-Dialysis) 100/63 mmHg BP Sitting (Post-Dialysis) 100/48 mmHg Concurrent Access: falseAV Fistula Upper Arm (Left) Arterial BP Standing (Pre-Dialysis) 85/55 mmHg Sitti ng Heart Rate Post-Dialysis 78 BPM Sitting Heart Rate Pre-Dialysis 71 BPM Temperatu re Post-Dialysis 98.4 degF Standing Heart Rate Pre-Dialysis 78 BPM Temperature Pre-Dialysis 98.2 degF April 22, 2023 In-Center Hemodialysis Treatment 5097-15-26K97:09:00.000Z [id number]:41:42.000Z BP Sitting (Pre-Dialysis) 120/66 mmHg BP Sitting (Post-Dialysis) 100/54 mmHg Concurrent Access: falseAV Fistula Upper Arm (Left) Arterial BP Standing (Pre-Dialysis) 95/55 mmHg BP Standing (P ost-Dialysis) 107/51 mmHg Sitting Heart Rate Pre-Dialysis 74 BPM Sitting Heart Rate Post-Dialysis 75 BPM Standing Heart Rate Pre-Dialysis 76 BPM Standing Heart Rate Post-Dialysis 77 BPM Temperature Pre-Dialysis 97.8 degF Temperature Post -Dialysis 98 degF April 19, 2023 In-Center Hemodialysis Treatment [id number]:59:09.000Z [id number]:29:10.000Z BP Sitting (Pre-Dialysis) 108/62 mmHg BP Sitting (Post-Dialysis) 134/41 mmHg Concurrent Access: falseAV Fistula Upper Arm (Left) Arterial BP Standing (Pre-Dialysis) 103/61 mmHg BP Standing (P ost-Dialysis) 108/45 mmHg Sitting Heart Rate Pre-Dialysis 72 BPM Sitting Heart Rate Post-Dialysis 83 BPM Standing Heart Rate Pre-Dialysis 76 BPM Standing Heart Rate Post-Dialysis 86 BPM Temperature Pre-Dialysis 97.5 degF Temperature Post -Dialysis 97.5 degF April 17, 2023 In-Center Hemodialysis Treatment [id number]:13:09.000Z [id number]:42:10.000Z BP Sitting (Pre-Dialysis) 136/72 mmHg BP Sitting (Post-Dialysis) 121/55 mmHg Concurrent Access: falseAV Fistula Upper Arm (Left) Arterial BP Standing (Pre-Dialysis) 112/64 mmHg BP Standing (P ost-Dialysis) 115/70 mmHg Sitting Heart Rate Pre-Dialysis 73 BPM Sitting Heart Rate Post-Dialysis 75 BPM Standing Heart Rate Pre-Dialysis 73 BPM Standing Heart Rate Post-Dialysis 80 BPM Temperature Pre-Dialysis 98.1 degF Temperature Post -Dialysis 97.2 degF April 15, 2023 In-Center Hemodialysis Treatment [id number]:02:00.000Z 1278-75-72S53:32:10.000Z BP Sitting (Pre-Dialysis) 146/77 mmHg BP Sitting (Post-Dialysis) 106/55 mmHg Concurrent Access: falseAV Fistula Upper Arm (Left) Arterial BP Standing (Pre-Dialysis) 100/60 mmHg BP Standing (P ost-Dialysis) 122/66 mmHg Sitting Heart Rate Pre-Dialysis 69 BPM Sitting Heart Rate Post-Dialysis 72 BPM Standing Heart Rate Pre-Dialysis 73 BPM Standing Heart Rate Post-Dialysis 84 BPM Temperature Pre-Dialysis 97.3 degF Temperature Post -Dialysis 97.5 degF April 12, 2023 In-Center Hemodialysis Treatment [id number]:07:29.000Z [id number]:37:29.000Z BP Sitting (Pre-Dialysis) 133/77 mmHg BP Sitting (Post-Dialysis) 111/44 mmHg Concurrent Access: falseAV Fistula Upper Arm (Left) Arterial BP Standing (Pre-Dialysis) 104/62 mmHg BP Standing (P ost-Dialysis) 129/59 mmHg Sitting Heart Rate Pre-Dialysis 75 BPM Sitting Heart Rate Post-Dialysis 78 BPM Standing Heart Rate Pre-Dialysis 76 BPM Standing Heart Rate Post-Dialysis 80 BPM Temperature Pre-Dialysis 98 degF Temperature Post -Dialysis 97.9 degF April 10, 2023 In-Center Hemodialysis Treatment 7539-08-84Z28:01:00.000Z [id number]:31:40.000Z BP Sitting (Pre-Dialysis) 156/83 mmHg BP Sitting (Post-Dialysis) 139/61 mmHg Concurrent Access: falseAV Fistula Upper Arm (Left) Arterial BP Standing (Pre-Dialysis) 133/76 mmHg BP Standing (P ost-Dialysis) 119/47 mmHg Sitting Heart Rate Pre-Dialysis 78 BPM Sitting Heart Rate Post-Dialysis 79 BPM Standing Heart Rate Pre-Dialysis 77 BPM Standing Heart Rate Post-Dialysis 85 BPM Temperature Pre-Dialysis 97.6 degF Temperature Post -Dialysis 97.8 degF April 08, 2023 In-Center Hemodialysis Treatment [id number]:06:00.000Z [id number]:40:40.000Z BP Sitting (Pre-Dialysis) 164/87 mmHg BP Sitting (Post-Dialysis) 102/50 mmHg Concurrent Access: falseAV Fistula Upper Arm (Left) Arterial BP Standing (Pre-Dialysis) 116/67 mmHg BP Standing (P ost-Dialysis) 100/58 mmHg Sitting Heart Rate Pre-Dialysis 73 BPM Sitting Heart Rate Post-Dialysis 78 BPM Standing Heart Rate Pre-Dialysis 78 BPM Standing Heart Rate Post-Dialysis 72 BPM Temperature Pre-Dialysis 97.5 degF Temperature Post -Dialysis 97.3 degF April 05, 2023 In-Center Hemodialysis Treatment [id number]:11:00.000Z [id number]:41:25.000Z BP Sitting (Pre-Dialysis) 139/78 mmHg BP Sitting (Post-Dialysis) 133/60 mmHg Concurrent Access: falseAV Fistula Upper Arm (Left) Arterial BP Standing (Pre-Dialysis) 117/61 mmHg BP Standing (P ost-Dialysis) 126/63 mmHg Sitting Heart Rate Pre-Dialysis 79 BPM Sitting Heart Rate Post-Dialysis 74 BPM Standing Heart Rate Pre-Dialysis 81 BPM Standing Heart Rate Post-Dialysis 80 BPM Temperature Pre-Dialysis 97.7 degF Temperature Post -Dialysis 98 degF April 03, 2023 In-Center Hemodialysis Treatment 4779-60-15N84:10:00.000Z [id number]:42:25.000Z BP Sitting (Pre-Dialysis) 122/71 mmHg BP Sitting (Post-Dialysis) 120/58 mmHg Concurrent Access: falseAV Fistula Upper Arm (Left) Arterial BP Standing (Pre-Dialysis) 104/61 mmHg Sitti ng Heart Rate Post-Dialysis 76 BPM Sitting Heart Rate Pre-Dialysis 73 BPM Temperatu re Post-Dialysis 97.7 degF Standing Heart Rate Pre-Dialysis 74 BPM Temperature Pre-Dialysis 98.3 degF April 01, 2023 In-Center Hemodialysis Treatment 7925-11-12N76:56:00.000Z [id number]:28:24.000Z BP Sitting (Pre-Dialysis) 134/70 mmHg BP Sitting (Post-Dialysis) 101/49 mmHg Concurrent Access: falseAV Fistula Upper Arm (Left) Arterial BP Standing (Pre-Dialysis) 113/61 mmHg BP Standing (P ost-Dialysis) 101/51 mmHg Sitting Heart Rate Pre-Dialysis 75 BPM Sitting Heart Rate Post-Dialysis 75 BPM Standing Heart Rate Pre-Dialysis 77 BPM Standing Heart Rate Post-Dialysis 83 BPM Temperature Pre-Dialysis 97.7 degF Temperature Post -Dialysis 97.1 degF March 29, 2023 In-Center Hemodialysis Treatment 3217-29-24W24:04:19.000Z [id number]:37:20.000Z BP Sitting (Pre-Dialysis) 98/60 mmHg BP Sitting (Post-Dialysis) 105/49 mmHg Concurrent Access: falseAV Fistula Upper Arm (Left) Arterial BP Standing (Pre-Dialysis) 93/52 mmHg BP Standing (P ost-Dialysis) 102/62 mmHg Sitting Heart Rate Pre-Dialysis 70 BPM Sitting Heart Rate Post-Dialysis 73 BPM Standing Heart Rate Pre-Dialysis 73 BPM Standing Heart Rate Post-Dialysis 87 BPM Temperature Pre-Dialysis 97.5 degF Temperature Post -Dialysis 97.2 degF March 27, 2023 In-Center Hemodialysis Treatment 7940-73-31D40:04:00.000Z [id number]:37:20.000Z BP Sitting (Pre-Dialysis) 150/83 mmHg BP Sitting (Post-Dialysis) 100/48 mmHg Concurrent Access: falseAV Fistula Upper Arm (Left) Arterial BP Standing (Pre-Dialysis) 115/66 mmHg BP Standing (P ost-Dialysis) 119/48 mmHg Sitting Heart Rate Pre-Dialysis 70 BPM Sitting Heart Rate Post-Dialysis 76 BPM Standing Heart Rate Pre-Dialysis 72 BPM Standing Heart Rate Post-Dialysis 81 BPM Temperature Pre-Dialysis 97.7 degF Temperature Post -Dialysis 98.4 degF March 25, 2023 In-Center Hemodialysis Treatment [id number]:10:19.000Z [id number]:41:20.000Z BP Sitting (Pre-Dialysis) 156/79 mmHg BP Sitting (Post-Dialysis) 109/58 mmHg Concurrent Access: falseAV Fistula Upper Arm (Left) Arterial BP Standing (Pre-Dialysis) 116/64 mmHg BP Standing (P ost-Dialysis) 102/58 mmHg Sitting Heart Rate Pre-Dialysis 75 BPM Sitting Heart Rate Post-Dialysis 76 BPM Standing Heart Rate Pre-Dialysis 81 BPM Standing Heart Rate Post-Dialysis 73 BPM Temperature Pre-Dialysis 98.4 degF Temperature Post -Dialysis 97.2 degF March 22, 2023 In-Center Hemodialysis Treatment [id number]:56:00.000Z 9118-05-75F75:29:30.000Z BP Sitting (Pre-Dialysis) 158/84 mmHg BP Sitting (Post-Dialysis) 110/35 mmHg Concurrent Access: falseAV Fistula Upper Arm (Left) Arterial BP Standing (Pre-Dialysis) 119/70 mmHg BP Standing (P ost-Dialysis) 101/49 mmHg Sitting Heart Rate Pre-Dialysis 71 BPM Sitting Heart Rate Post-Dialysis 76 BPM Standing Heart Rate Pre-Dialysis 75 BPM Standing Heart Rate Post-Dialysis 73 BPM Temperature Pre-Dialysis 97.3 degF Temperature Post -Dialysis 98.4 degF March 20, 2023 In-Center Hemodialysis Treatment [id number]:04:00.000Z 3549-90-43V56:35:30.000Z BP Sitting (Pre-Dialysis) 164/91 mmHg BP Sitting (Post-Dialysis) 101/53 mmHg Concurrent Access: falseAV Fistula Upper Arm (Left) Arterial BP Standing (Pre-Dialysis) 151/80 mmHg BP Standing (P ost-Dialysis) 119/50 mmHg Sitting Heart Rate Pre-Dialysis 74 BPM Sitting Heart Rate Post-Dialysis 75 BPM Standing Heart Rate Pre-Dialysis 73 BPM Standing Heart Rate Post-Dialysis 78 BPM Temperature Pre-Dialysis 97.2 degF Temperature Post -Dialysis 98.1 degF March 18, 2023 In-Center Hemodialysis Treatment [id number]:00:00.000Z 2516-88-08Y91:32:30.000Z BP Sitting (Pre-Dialysis) 162/84 mmHg BP Sitting (Post-Dialysis) 104/59 mmHg Concurrent Access: falseAV Fistula Upper Arm (Left) Arterial BP Standing (Pre-Dialysis) 142/79 mmHg BP Standing (P ost-Dialysis) 137/83 mmHg Sitting Heart Rate Pre-Dialysis 77 BPM Sitting Heart Rate Post-Dialysis 71 BPM Standing Heart Rate Pre-Dialysis 79 BPM Standing Heart Rate Post-Dialysis 83 BPM Temperature Pre-Dialysis 97.3 degF Temperature Post -Dialysis 98.7 degF March 15, 2023 In-Center Hemodialysis Treatment [id number]:13:10.000Z [id number]:43:11.000Z BP Sitting (Pre-Dialysis) 171/93 mmHg BP Sitting (Post-Dialysis) 115/67 mmHg Concurrent Access: falseAV Fistula Upper Arm (Left) Arterial BP Standing (Pre-Dialysis) 121/67 mmHg BP Standing (P ost-Dialysis) 109/72 mmHg Sitting Heart Rate Pre-Dialysis 81 BPM Sitting Heart Rate Post-Dialysis 73 BPM Standing Heart Rate Pre-Dialysis 86 BPM Standing Heart Rate Post-Dialysis 84 BPM Temperature Pre-Dialysis 97.2 degF Temperature Post -Dialysis 97.7 degF March 13, 2023 In-Center Hemodialysis Treatment 4553-74-00V20:02:00.000Z [id number]:34:20.000Z BP Sitting (Pre-Dialysis) 171/90 mmHg BP Sitting (Post-Dialysis) 112/62 mmHg Concurrent Access: falseAV Fistula Upper Arm (Left) Arterial BP Standing (Pre-Dialysis) 152/85 mmHg BP Standing (P ost-Dialysis) 121/55 mmHg Sitting Heart Rate Pre-Dialysis 75 BPM Sitting Heart Rate Post-Dialysis 75 BPM Standing Heart Rate Pre-Dialysis 77 BPM Standing Heart Rate Post-Dialysis 78 BPM Temperature Pre-Dialysis 97.2 degF Temperature Post -Dialysis 98.1 degF March 11, 2023 In-Center Hemodialysis Treatment [id number]:16:10.000Z [id number]:45:11.000Z BP Sitting (Pre-Dialysis) 162/89 mmHg BP Sitting (Post-Dialysis) 101/53 mmHg Concurrent Access: falseAV Fistula Upper Arm (Left) Arterial BP Standing (Pre-Dialysis) 143/78 mmHg BP Standing (P ost-Dialysis) 110/50 mmHg Sitting Heart Rate Pre-Dialysis 72 BPM Sitting Heart Rate Post-Dialysis 72 BPM Standing Heart Rate Pre-Dialysis 75 BPM Standing Heart Rate Post-Dialysis 80 BPM Temperature Pre-Dialysis 97.4 degF Temperature Post -Dialysis 97.1 degF March 08, 2023 In-Center Hemodialysis Treatment [id number]:00:47.000Z [id number]:32:47.000Z BP Sitting (Pre-Dialysis) 158/85 mmHg BP Sitting (Post-Dialysis) 124/67 mmHg Concurrent Access: falseAV Fistula Upper Arm (Left) Arterial BP Standing (Pre-Dialysis) 136/75 mmHg BP Standing (P ost-Dialysis) 103/50 mmHg Sitting Heart Rate Pre-Dialysis 73 BPM Sitting Heart Rate Post-Dialysis 76 BPM Standing Heart Rate Pre-Dialysis 75 BPM Standing Heart Rate Post-Dialysis 81 BPM Temperature Pre-Dialysis 97.3 degF Temperature Post -Dialysis 97.3 degF March 06, 2023 In-Center Hemodialysis Treatment [id number]:10:47.000Z [id number]:38:47.000Z BP Sitting (Pre-Dialysis) 185/96 mmHg BP Sitting (Post-Dialysis) 104/57 mmHg Concurrent Access: falseAV Fistula Upper Arm (Left) Arterial BP Standing (Pre-Dialysis) 133/78 mmHg BP Standing (P ost-Dialysis) 105/50 mmHg Sitting Heart Rate Pre-Dialysis 72 BPM Sitting Heart Rate Post-Dialysis 75 BPM Standing Heart Rate Pre-Dialysis 77 BPM Standing Heart Rate Post-Dialysis 75 BPM Temperature Pre-Dialysis 97.2 degF Temperature Post -Dialysis 98 degF March 04, 2023 In-Center Hemodialysis Treatment [id number]:07:47.000Z [id number]:37:47.000Z BP Sitting (Pre-Dialysis) 182/91 mmHg BP Sitting (Post-Dialysis) 109/63 mmHg Concurrent Access: falseAV Fistula Upper Arm (Left) Arterial BP Standing (Pre-Dialysis) 128/71 mmHg Sitti ng Heart Rate Post-Dialysis 76 BPM Sitting Heart Rate Pre-Dialysis 68 BPM Temperatu re Post-Dialysis 97.2 degF Standing Heart Rate Pre-Dialysis 75 BPM Temperature Pre-Dialysis 97 degF March 01, 2023 In-Center Hemodialysis Treatment 6738-30-60O35:02:21.000Z 9324-03-31T13:32:22.000Z BP Sitting (Pre-Dialysis) 134/73 mmHg BP Sitting (Post-Dialysis) 110/66 mmHg Concurrent Access: falseAV Fistula Upper Arm (Left) Arterial BP Standing (Pre-Dialysis) 113/57 mmHg BP Standing (P ost-Dialysis) 121/59 mmHg Sitting Heart Rate Pre-Dialysis 75 BPM Sitting Heart Rate Post-Dialysis 76 BPM Standing Heart Rate Pre-Dialysis 79 BPM Standing Heart Rate Post-Dialysis 81 BPM Temperature Pre-Dialysis 97.3 degF Temperature Post -Dialysis 97.6 degF February 27, 2023 In-Center Hemodialysis Treatment [id number]:10:00.000Z 6433-84-43B08:42:10.000Z BP Sitting (Pre-Dialysis) 109/71 mmHg BP Sitting (Post-Dialysis) 109/67 mmHg Concurrent Access: falseAV Fistula Upper Arm (Left) Arterial BP Standing (Pre-Dialysis) 94/61 mmHg BP Standing (P ost-Dialysis) 144/77 mmHg Sitting Heart Rate Pre-Dialysis 61 BPM Sitting Heart Rate Post-Dialysis 78 BPM Standing Heart Rate Pre-Dialysis 90 BPM Standing Heart Rate Post-Dialysis 77 BPM Temperature Pre-Dialysis 97.4 degF Temperature Post -Dialysis 97.3 degF February 25, 2023 In-Center Hemodialysis Treatment [id number]:08:00.000Z 3940-87-36Q00:36:22.000Z BP Sitting (Pre-Dialysis) 134/80 mmHg BP Sitting (Post-Dialysis) 105/60 mmHg Concurrent Access: falseAV Fistula Upper Arm (Left) Arterial BP Standing (Pre-Dialysis) 109/61 mmHg BP Standing (P ost-Dialysis) 102/60 mmHg Sitting Heart Rate Pre-Dialysis 69 BPM Sitting Heart Rate Post-Dialysis 75 BPM Standing Heart Rate Pre-Dialysis 72 BPM Standing Heart Rate Post-Dialysis 78 BPM Temperature Pre-Dialysis 97.3 degF Temperature Post -Dialysis 97.6 degF February 22, 2023 In-Center Hemodialysis Treatment 9036-35-10B14:03:12.000Z 3985-89-57E17:33:12.000Z BP Sitting (Pre-Dialysis) 145/79 mmHg BP Sitting (Post-Dialysis) 102/49 mmHg Concurrent Access: falseAV Fistula Upper Arm (Left) Arterial BP Standing (Pre-Dialysis) 126/66 mmHg BP Standing (P ost-Dialysis) 114/47 mmHg Sitting Heart Rate Pre-Dialysis 71 BPM Sitting Heart Rate Post-Dialysis 74 BPM Standing Heart Rate Pre-Dialysis 74 BPM Standing Heart Rate Post-Dialysis 82 BPM Temperature Pre-Dialysis 97.3 degF Temperature Post -Dialysis 97.1 degF February 20, 2023 In-Center Hemodialysis Treatment [id number]:09:00.000Z [id number]:39:12.000Z BP Sitting (Pre-Dialysis) 136/80 mmHg BP Sitting (Post-Dialysis) 121/97 mmHg Concurrent Access: falseAV Fistula Upper Arm (Left) Arterial BP Standing (Pre-Dialysis) 100/59 mmHg BP Standing (P ost-Dialysis) 127/65 mmHg Sitting Heart Rate Pre-Dialysis 68 BPM Sitting Heart Rate Post-Dialysis 72 BPM Standing Heart Rate Pre-Dialysis 75 BPM Standing Heart Rate Post-Dialysis 74 BPM Temperature Pre-Dialysis 96.8 degF Temperature Post -Dialysis 98.3 degF February 18, 2023 In-Center Hemodialysis Treatment [id number]:01:00.000Z 1946-48-91P24:34:12.000Z BP Sitting (Pre-Dialysis) 145/81 mmHg BP Sitting (Post-Dialysis) 104/58 mmHg Concurrent Access: falseAV Fistula Upper Arm (Left) Arterial BP Standing (Pre-Dialysis) 111/65 mmHg BP Standing (P ost-Dialysis) 120/52 mmHg Sitting Heart Rate Pre-Dialysis 79 BPM Sitting Heart Rate Post-Dialysis 73 BPM Standing Heart Rate Pre-Dialysis 80 BPM Standing Heart Rate Post-Dialysis 76 BPM Temperature Pre-Dialysis 97.3 degF Temperature Post -Dialysis 97.7 degF February 15, 2023 In-Center Hemodialysis Treatment [id number]:12:00.000Z [id number]:43:31.000Z BP Sitting (Pre-Dialysis) 103/64 mmHg BP Sitting (Post-Dialysis) 124/98 mmHg Concurrent Access: falseAV Fistula Upper Arm (Left) Arterial BP Standing (Pre-Dialysis) 100/77 mmHg BP Standing (P ost-Dialysis) 101/56 mmHg Sitting Heart Rate Pre-Dialysis 76 BPM Sitting Heart Rate Post-Dialysis 58 BPM Standing Heart Rate Pre-Dialysis 75 BPM Standing Heart Rate Post-Dialysis 79 BPM Temperature Pre-Dialysis 97 degF Temperature Post -Dialysis 98.3 degF February 13, 2023 In-Center Hemodialysis Treatment 6588-56-29M10:00:00.000Z [id number]:32:31.000Z BP Sitting (Pre-Dialysis) 108/64 mmHg BP Sitting (Post-Dialysis) 101/69 mmHg Concurrent Access: falseAV Fistula Upper Arm (Left) Arterial BP Standing (Pre-Dialysis) 98/58 mmHg BP Standing (P ost-Dialysis) 100/58 mmHg Sitting Heart Rate Pre-Dialysis 74 BPM Sitting Heart Rate Post-Dialysis 73 BPM Standing Heart Rate Pre-Dialysis 81 BPM Standing Heart Rate Post-Dialysis 76 BPM Temperature Pre-Dialysis 97.7 degF Temperature Post -Dialysis 97.6 degF February 11, 2023 In-Center Hemodialysis Treatment 9747-70-12K17:58:00.000Z [id number]:29:31.000Z BP Sitting (Pre-Dialysis) 130/75 mmHg BP Sitting (Post-Dialysis) 109/62 mmHg Concurrent Access: falseAV Fistula Upper Arm (Left) Arterial BP Standing (Pre-Dialysis) 116/63 mmHg BP Standing (P ost-Dialysis) 129/52 mmHg Sitting Heart Rate Pre-Dialysis 69 BPM Sitting Heart Rate Post-Dialysis 76 BPM Standing Heart Rate Pre-Dialysis 71 BPM Standing Heart Rate Post-Dialysis 76 BPM Temperature Pre-Dialysis 97.6 degF Temperature Post -Dialysis 97.6 degF February 08, 2023 In-Center Hemodialysis Treatment [id number]:58:00.000Z [id number]:31:21.000Z BP Sitting (Pre-Dialysis) 112/60 mmHg BP Sitting (Post-Dialysis) 102/48 mmHg Concurrent Access: falseAV Fistula Upper Arm (Left) Arterial BP Standing (Pre-Dialysis) 93/54 mmHg BP Standing (P ost-Dialysis) 98/54 mmHg Sitting Heart Rate Pre-Dialysis 77 BPM Sitting H eart Rate Post-Dialysis 75 BPM Standing Heart Rate Pre-Dialysis 79 BPM Standing Heart Rate Post-Dialysis 75 BPM Temperature Pre-Dialysis 98.2 degF Temperature Post -Dialysis 97.8 degF February 06, 2023 In-Center Hemodialysis Treatment [id number]:05:00.000Z [id number]:35:21.000Z BP Sitting (Pre-Dialysis) 107/67 mmHg BP Sitting (Post-Dialysis) 100/58 mmHg Concurrent Access: falseAV Fistula Upper Arm (Left) Arterial BP Standing (Pre-Dialysis) 94/56 mmHg BP Standing (P ost-Dialysis) 101/60 mmHg Sitting Heart Rate Pre-Dialysis 72 BPM Sitting Heart Rate Post-Dialysis 74 BPM Standing Heart Rate Pre-Dialysis 74 BPM Standing Heart Rate Post-Dialysis 62 BPM Temperature Pre-Dialysis 97.8 degF Temperature Post -Dialysis 97.7 degF February 04, 2023 In-Center Hemodialysis Treatment [id number]:08:21.000Z [id number]:39:21.000Z BP Sitting (Pre-Dialysis) 108/62 mmHg BP Sitting (Post-Dialysis) 103/61 mmHg Concurrent Access: falseAV Fistula Upper Arm (Left) Arterial BP Standing (Pre-Dialysis) 92/57 mmHg Sitti ng Heart Rate Post-Dialysis 77 BPM Sitting Heart Rate Pre-Dialysis 71 BPM Temperatu re Post-Dialysis 98.3 degF Standing Heart Rate Pre-Dialysis 73 BPM Temperature Pre-Dialysis 97.4 degF February 01, 2023 In-Center Hemodialysis Treatment [id number]:07:00.000Z 9631-87-24N53:38:41.000Z BP Sitting (Pre-Dialysis) 107/73 mmHg BP Sitting (Post-Dialysis) 105/52 mmHg Concurrent Access: falseAV Fistula Upper Arm (Left) Arterial BP Standing (Pre-Dialysis) 92/45 mmHg BP Standing (P ost-Dialysis) 100/48 mmHg Sitting Heart Rate Pre-Dialysis 84 BPM Sitting Heart Rate Post-Dialysis 76 BPM Standing Heart Rate Pre-Dialysis 85 BPM Standing Heart Rate Post-Dialysis 98 BPM Temperature Pre-Dialysis 98.8 degF Temperature Post -Dialysis 98.4 degF January 30, 2023 In-Center Hemodialysis Treatment [id number]:10:00.000Z 1976-01-53P45:43:41.000Z BP Sitting (Pre-Dialysis) 127/72 mmHg BP Sitting (Post-Dialysis) 106/68 mmHg Concurrent Access: falseAV Fistula Upper Arm (Left) Arterial BP Standing (Pre-Dialysis) 106/64 mmHg BP Standing (P ost-Dialysis) 102/58 mmHg Sitting Heart Rate Pre-Dialysis 77 BPM Sitting Heart Rate Post-Dialysis 76 BPM Standing Heart Rate Pre-Dialysis 80 BPM Standing Heart Rate Post-Dialysis 74 BPM Temperature Pre-Dialysis 97 degF Temperature Post -Dialysis 97.3 degF January 28, 2023 In-Center Hemodialysis Treatment 2748-22-00M20:00:41.000Z 8639-97-59M97:40:41.000Z BP Sitting (Pre-Dialysis) 136/69 mmHg BP Sitting (Post-Dialysis) 103/64 mmHg Concurrent Access: falseAV Fistula Upper Arm (Left) Arterial BP Standing (Pre-Dialysis) 90/56 mmHg BP Standing (P ost-Dialysis) 107/71 mmHg Sitting Heart Rate Pre-Dialysis 74 BPM Sitting Heart Rate Post-Dialysis 75 BPM Standing Heart Rate Pre-Dialysis 85 BPM Standing Heart Rate Post-Dialysis 66 BPM Temperature Pre-Dialysis 98 degF Temperature Post -Dialysis 97.8 degF January 25, 2023 In-Center Hemodialysis Treatment [id number]:53:00.000Z [id number]:30:10.000Z BP Sitting (Pre-Dialysis) 101/58 mmHg BP Sitting (Post-Dialysis) 102/38 mmHg Concurrent Access: falseAV Fistula Upper Arm (Left) Arterial BP Standing (Pre-Dialysis) 93/52 mmHg BP Standing (P ost-Dialysis) 107/60 mmHg Sitting Heart Rate Pre-Dialysis 80 BPM Sitting Heart Rate Post-Dialysis 75 BPM Standing Heart Rate Pre-Dialysis 82 BPM Standing Heart Rate Post-Dialysis 75 BPM Temperature Pre-Dialysis 97 degF Temperature Post -Dialysis 97.9 degF January 23, 2023 In-Center Hemodialysis Treatment [id number]:01:10.000Z [id number]:35:10.000Z BP Sitting (Pre-Dialysis) 102/63 mmHg BP Sitting (Post-Dialysis) 106/52 mmHg Concurrent Access: falseAV Fistula Upper Arm (Left) Arterial BP Standing (Pre-Dialysis) 101/61 mmHg BP Standing (P ost-Dialysis) 132/40 mmHg Sitting Heart Rate Pre-Dialysis 76 BPM Sitting Heart Rate Post-Dialysis 78 BPM Standing Heart Rate Pre-Dialysis 77 BPM Standing Heart Rate Post-Dialysis 77 BPM Temperature Pre-Dialysis 98.1 degF Temperature Post -Dialysis 97.3 degF January 21, 2023 In-Center Hemodialysis Treatment [id number]:57:00.000Z 5978-68-82F26:31:10.000Z BP Sitting (Pre-Dialysis) 106/61 mmHg BP Sitting (Post-Dialysis) 108/53 mmHg Concurrent Access: falseAV Fistula Upper Arm (Left) Arterial BP Standing (Pre-Dialysis) 88/49 mmHg Sitti ng Heart Rate Post-Dialysis 77 BPM Sitting Heart Rate Pre-Dialysis 77 BPM Temperatu re Post-Dialysis 97.9 degF Standing Heart Rate Pre-Dialysis 78 BPM Temperature Pre-Dialysis 98.2 degF January 18, 2023 In-Center Hemodialysis Treatment [id number]:06:00.000Z 9916-53-28P94:35:34.000Z BP Sitting (Pre-Dialysis) 130/71 mmHg BP Sitting (Post-Dialysis) 104/74 mmHg Concurrent Access: falseAV Fistula Upper Arm (Left) Arterial BP Standing (Pre-Dialysis) 104/58 mmHg BP Standing (P ost-Dialysis) 115/51 mmHg Sitting Heart Rate Pre-Dialysis 80 BPM Sitting Heart Rate Post-Dialysis 72 BPM Standing Heart Rate Pre-Dialysis 81 BPM Standing Heart Rate Post-Dialysis 77 BPM Temperature Pre-Dialysis 97 degF Temperature Post -Dialysis 97.8 degF January 16, 2023 In-Center Hemodialysis Treatment [id number]:00:00.000Z 4092-66-28P64:33:34.000Z BP Sitting (Pre-Dialysis) 101/55 mmHg BP Sitting (Post-Dialysis) 100/56 mmHg Concurrent Access: falseAV Fistula Upper Arm (Left) Arterial BP Standing (Pre-Dialysis) 85/55 mmHg BP Standing (P ost-Dialysis) 108/90 mmHg Sitting Heart Rate Pre-Dialysis 72 BPM Sitting Heart Rate Post-Dialysis 74 BPM Standing Heart Rate Pre-Dialysis 74 BPM Standing Heart Rate Post-Dialysis 70 BPM Temperature Pre-Dialysis 97.4 degF Temperature Post -Dialysis 97.5 degF January 14, 2023 In-Center Hemodialysis Treatment [id number]:06:00.000Z [id number]:03:13.000Z BP Sitting (Pre-Dialysis) 120/67 mmHg BP Sitting (Post-Dialysis) 100/56 mmHg Concurrent Access: falseAV Fistula Upper Arm (Left) Arterial BP Standing (Pre-Dialysis) 97/58 mmHg BP Standing (P ost-Dialysis) 137/53 mmHg Sitting Heart Rate Pre-Dialysis 72 BPM Sitting Heart Rate Post-Dialysis 73 BPM Standing Heart Rate Pre-Dialysis 73 BPM Standing Heart Rate Post-Dialysis 80 BPM Temperature Pre-Dialysis 97.2 degF Temperature Post -Dialysis 97.7 degF January 11, 2023 In-Center Hemodialysis Treatment 5314-41-07W63:53:00.000Z 7464-82-29I52:33:40.000Z BP Sitting (Pre-Dialysis) 126/75 mmHg BP Sitting (Post-Dialysis) 90/53 mmHg Concurrent Access: falseAV Fistula Upper Arm (Left) Arterial BP Standing (Pre-Dialysis) 120/68 mmHg BP Standing (P ost-Dialysis) 101/48 mmHg Sitting Heart Rate Pre-Dialysis 77 BPM Sitting Heart Rate Post-Dialysis 70 BPM Standing Heart Rate Pre-Dialysis 78 BPM Standing Heart Rate Post-Dialysis 74 BPM Temperature Pre-Dialysis 97.1 degF Temperature Post -Dialysis 98 degF January 09, 2023 In-Center Hemodialysis Treatment [id number]:58:00.000Z [id number]:28:40.000Z BP Sitting (Pre-Dialysis) 106/60 mmHg BP Sitting (Post-Dialysis) 94/58 mmHg Concurrent Access: falseAV Fistula Upper Arm (Left) Arterial BP Standing (Pre-Dialysis) 91/49 mmHg BP Standing (P ost-Dialysis) 105/56 mmHg Sitting Heart Rate Pre-Dialysis 77 BPM Sitting Heart Rate Post-Dialysis 75 BPM Standing Heart Rate Pre-Dialysis 79 BPM Standing Heart Rate Post-Dialysis 75 BPM Temperature Pre-Dialysis 97.9 degF Temperature Post -Dialysis 98 degF January 07, 2023 In-Center Hemodialysis Treatment [id number]:03:00.000Z [id number]:33:40.000Z BP Sitting (Pre-Dialysis) 115/68 mmHg BP Sitting (Post-Dialysis) 104/61 mmHg Concurrent Access: falseAV Fistula Upper Arm (Left) Arterial BP Standing (Pre-Dialysis) 94/53 mmHg BP Standing (P ost-Dialysis) 101/48 mmHg Sitting Heart Rate Pre-Dialysis 73 BPM Sitting Heart Rate Post-Dialysis 77 BPM Standing Heart Rate Pre-Dialysis 75 BPM Standing Heart Rate Post-Dialysis 76 BPM Temperature Pre-Dialysis 98.2 degF Temperature Post -Dialysis 97.6 degF January 04, 2023 In-Center Hemodialysis Treatment 7469-80-07T70:02:00.000Z 2506-32-46U53:30:15.000Z BP Sitting (Pre-Dialysis) 113/73 mmHg BP Sitting (Post-Dialysis) 101/58 mmHg Concurrent Access: falseAV Fistula Upper Arm (Left) Arterial BP Standing (Pre-Dialysis) 104/57 mmHg BP Standing (P ost-Dialysis) 117/98 mmHg Sitting Heart Rate Pre-Dialysis 79 BPM Sitting Heart Rate Post-Dialysis 82 BPM Standing Heart Rate Pre-Dialysis 80 BPM Standing Heart Rate Post-Dialysis 80 BPM Temperature Pre-Dialysis 97.7 degF Temperature Post -Dialysis 97.7 degF January 02, 2023 In-Center Hemodialysis Treatment 4794-25-17Z26:02:00.000Z 1032-29-23A07:37:15.000Z BP Sitting (Pre-Dialysis) 126/71 mmHg BP Sitting (Post-Dialysis) 153/82 mmHg Concurrent Access: falseAV Fistula Upper Arm (Left) Arterial BP Standing (Pre-Dialysis) 121/67 mmHg BP Standing (P ost-Dialysis) 136/52 mmHg Sitting Heart Rate Pre-Dialysis 78 BPM Sitting Heart Rate Post-Dialysis 78 BPM Standing Heart Rate Pre-Dialysis 80 BPM Standing Heart Rate Post-Dialysis 87 BPM Temperature Pre-Dialysis 97.7 degF Temperature Post -Dialysis 98.5 degF December 31, 2022 In-Center Hemodialysis Treatment 5879-47-06J95:59:00.000Z 9922-54-76I79:29:15.000Z BP Sitting (Pre-Dialysis) 119/69 mmHg BP Sitting (Post-Dialysis) 94/62 mmHg Concurrent Access: falseAV Fistula Upper Arm (Left) Arterial BP Standing (Pre-Dialysis) 118/65 mmHg BP Standing (P ost-Dialysis) 118/61 mmHg Sitting Heart Rate Pre-Dialysis 81 BPM Sitting Heart Rate Post-Dialysis 80 BPM Standing Heart Rate Pre-Dialysis 82 BPM Standing Heart Rate Post-Dialysis 73 BPM Temperature Pre-Dialysis 97.3 degF Temperature Post -Dialysis 97.4 degF December 28, 2022 In-Center Hemodialysis Treatment [id number]:01:00.000Z 6516-99-84A78:32:08.000Z BP Sitting (Pre-Dialysis) 138/73 mmHg BP Sitting (Post-Dialysis) 98/60 mmHg Concurrent Access: falseAV Fistula Upper Arm (Left) Arterial BP Standing (Pre-Dialysis) 120/63 mmHg BP Standing (P ost-Dialysis) 12/62 mmHg Sitting Heart Rate Pre-Dialysis 78 BPM Sitting Heart Rate Post-Dialysis 79 BPM Standing Heart Rate Pre-Dialysis 81 BPM Standing Heart Rate Post-Dialysis 82 BPM Temperature Pre-Dialysis 97.4 degF Temperature Post -Dialysis 98 degF December 26, 2022 In-Center Hemodialysis Treatment 1945-09-42C14:08:00.000Z 2423-02-16L69:35:08.000Z BP Sitting (Pre-Dialysis) 119/65 mmHg BP Sitting (Post-Dialysis) 100/70 mmHg Concurrent Access: falseAV Fistula Upper Arm (Left) Arterial BP Standing (Pre-Dialysis) 98/62 mmHg BP Standing (P ost-Dialysis) 114/48 mmHg Sitting Heart Rate Pre-Dialysis 75 BPM Sitting Heart Rate Post-Dialysis 78 BPM Standing Heart Rate Pre-Dialysis 76 BPM Standing Heart Rate Post-Dialysis 78 BPM Temperature Pre-Dialysis 98.8 degF Temperature Post -Dialysis 98.1 degF December 24, 2022 In-Center Hemodialysis Treatment 3600-52-71R54:00:00.000Z [id number]:32:08.000Z BP Sitting (Pre-Dialysis) 117/64 mmHg BP Sitting (Post-Dialysis) 104/60 mmHg Concurrent Access: falseAV Fistula Upper Arm (Left) Arterial BP Standing (Pre-Dialysis) 95/57 mmHg BP Standing (P ost-Dialysis) 116/64 mmHg Sitting Heart Rate Pre-Dialysis 70 BPM Sitting Heart Rate Post-Dialysis 75 BPM Standing Heart Rate Pre-Dialysis 73 BPM Standing Heart Rate Post-Dialysis 83 BPM Temperature Pre-Dialysis 97 degF Temperature Post -Dialysis 98 degF December 21, 2022 In-Center Hemodialysis Treatment [id number]:05:00.000Z [id number]:32:09.000Z BP Sitting (Pre-Dialysis) 101/77 mmHg BP Sitting (Post-Dialysis) 105/57 mmHg Concurrent Access: falseAV Fistula Upper Arm (Left) Arterial BP Standing (Pre-Dialysis) 104/63 mmHg BP Standing (P ost-Dialysis) 126/75 mmHg Sitting Heart Rate Pre-Dialysis 75 BPM Sitting Heart Rate Post-Dialysis 74 BPM Standing Heart Rate Pre-Dialysis 81 BPM Standing Heart Rate Post-Dialysis 66 BPM Temperature Pre-Dialysis 97.9 degF Temperature Post -Dialysis 98 degF December 19, 2022 In-Center Hemodialysis Treatment [id number]:05:00.000Z 4553-51-89D33:37:27.000Z BP Sitting (Pre-Dialysis) 99/63 mmHg BP Sitting (Post-Dialysis) 98/57 mmHg Concurrent Access: falseAV Fistula Upper Arm (Left) Arterial BP Standing (Pre-Dialysis) 102/50 mmHg BP Standing (P ost-Dialysis) 105/88 mmHg Sitting Heart Rate Pre-Dialysis 72 BPM Sitting Heart Rate Post-Dialysis 76 BPM Standing Heart Rate Pre-Dialysis 76 BPM Standing Heart Rate Post-Dialysis 91 BPM Temperature Pre-Dialysis 98.1 degF Temperature Post -Dialysis 97.7 degF December 17, 2022 In-Center Hemodialysis Treatment [id number]:11:00.000Z [id number]:44:27.000Z BP Sitting (Pre-Dialysis) 143/91 mmHg BP Sitting (Post-Dialysis) 119/50 mmHg Concurrent Access: falseAV Fistula Upper Arm (Left) Arterial BP Standing (Pre-Dialysis) 113/65 mmHg BP Standing (P ost-Dialysis) 149/56 mmHg Sitting Heart Rate Pre-Dialysis 72 BPM Sitting Heart Rate Post-Dialysis 76 BPM Standing Heart Rate Pre-Dialysis 73 BPM Standing Heart Rate Post-Dialysis 78 BPM Temperature Pre-Dialysis 97.9 degF Temperature Post -Dialysis 97.5 degF December 14, 2022 In-Center Hemodialysis Treatment 4210-19-98M36:53:00.000Z [id number]:23:10.000Z BP Sitting (Pre-Dialysis) 133/77 mmHg BP Sitting (Post-Dialysis) 96/50 mmHg Concurrent Access: falseAV Fistula Upper Arm (Left) Arterial BP Standing (Pre-Dialysis) 104/60 mmHg Sitti ng Heart Rate Post-Dialysis 71 BPM Sitting Heart Rate Pre-Dialysis 76 BPM Temperatu re Post-Dialysis 98.1 degF Standing Heart Rate Pre-Dialysis 75 BPM Temperature Pre-Dialysis 97.2 degF December 12, 2022 In-Center Hemodialysis Treatment 4134-70-13Z73:13:00.000Z 8234-06-08H27:38:10.000Z BP Sitting (Pre-Dialysis) 151/78 mmHg BP Sitting (Post-Dialysis) 110/55 mmHg Concurrent Access: falseAV Fistula Upper Arm (Left) Arterial BP Standing (Pre-Dialysis) 127/66 mmHg BP Standing (P ost-Dialysis) 111/70 mmHg Sitting Heart Rate Pre-Dialysis 75 BPM Sitting Heart Rate Post-Dialysis 79 BPM Standing Heart Rate Pre-Dialysis 77 BPM Standing Heart Rate Post-Dialysis 86 BPM Temperature Pre-Dialysis 97.9 degF Temperature Post -Dialysis 98.2 degF December 10, 2022 In-Center Hemodialysis Treatment 9527-93-13L13:07:00.000Z 7609-65-43D59:34:10.000Z BP Sitting (Pre-Dialysis) 114/87 mmHg BP Sitting (Post-Dialysis) 103/49 mmHg Concurrent Access: falseAV Fistula Upper Arm (Left) Arterial BP Standing (Pre-Dialysis) 119/69 mmHg Sitti ng Heart Rate Post-Dialysis 71 BPM Sitting Heart Rate Pre-Dialysis 58 BPM Temperatu re Post-Dialysis 97.2 degF Standing Heart Rate Pre-Dialysis 77 BPM Temperature Pre-Dialysis 98 degF December 07, 2022 In-Center Hemodialysis Treatment 8197-75-85P25:05:00.000Z 4206-94-80J89:32:27.000Z BP Sitting (Pre-Dialysis) 121/73 mmHg BP Sitting (Post-Dialysis) 102/40 mmHg Concurrent Access: falseAV Fistula Upper Arm (Left) Arterial BP Standing (Pre-Dialysis) 102/63 mmHg Sitti ng Heart Rate Post-Dialysis 77 BPM Sitting Heart Rate Pre-Dialysis 80 BPM Temperatu re Post-Dialysis 97.4 degF Standing Heart Rate Pre-Dialysis 82 BPM Temperature Pre-Dialysis 97.3 degF December 05, 2022 In-Center Hemodialysis Treatment 0966-15-06S06:03:00.000Z 3377-62-48K79:35:26.000Z BP Sitting (Pre-Dialysis) 116/67 mmHg BP Sitting (Post-Dialysis) 110/41 mmHg Concurrent Access: falseAV Fistula Upper Arm (Left) Arterial BP Standing (Pre-Dialysis) 104/62 mmHg BP Standing (P ost-Dialysis) 110/79 mmHg Sitting Heart Rate Pre-Dialysis 76 BPM Sitting Heart Rate Post-Dialysis 79 BPM Standing Heart Rate Pre-Dialysis 76 BPM Standing Heart Rate Post-Dialysis 88 BPM Temperature Pre-Dialysis 98.4 degF Temperature Post -Dialysis 98 degF December 03, 2022 In-Center Hemodialysis Treatment 1223-79-30D48:05:00.000Z 0750-22-40K89:43:04.000Z BP Sitting (Pre-Dialysis) 106/61 mmHg BP Sitting (Post-Dialysis) 93/64 mmHg Concurrent Access: falseAV Fistula Upper Arm (Left) Arterial BP Standing (Pre-Dialysis) 91/47 mmHg BP Standing (P ost-Dialysis) 109/82 mmHg Sitting Heart Rate Pre-Dialysis 64 BPM Sitting Heart Rate Post-Dialysis 77 BPM Standing Heart Rate Pre-Dialysis 73 BPM Standing Heart Rate Post-Dialysis 69 BPM Temperature Pre-Dialysis 97.2 degF Temperature Post -Dialysis 98 degF November 30, 2022 In-Center Hemodialysis Treatment [id number]:58:00.000Z 5209-49-63G43:27:49.000Z BP Sitting (Pre-Dialysis) 131/72 mmHg BP Sitting (Post-Dialysis) 100/82 mmHg Concurrent Access: falseAV Fistula Upper Arm (Left) Arterial BP Standing (Pre-Dialysis) 86/57 mmHg BP Standing (P ost-Dialysis) 98/56 mmHg Sitting Heart Rate Pre-Dialysis 75 BPM Sitting H eart Rate Post-Dialysis 69 BPM Standing Heart Rate Pre-Dialysis 80 BPM Standing Heart Rate Post-Dialysis 76 BPM Temperature Pre-Dialysis 97.2 degF Temperature Post -Dialysis 98.1 degF November 28, 2022 In-Center Hemodialysis Treatment 6969-45-79H76:01:00.000Z 3175-01-18N50:33:33.000Z BP Sitting (Pre-Dialysis) 105/63 mmHg BP Sitting (Post-Dialysis) 106/53 mmHg Concurrent Access: falseAV Fistula Upper Arm (Left) Arterial BP Standing (Pre-Dialysis) 85/42 mmHg BP Standing (P ost-Dialysis) 100/62 mmHg Sitting Heart Rate Pre-Dialysis 76 BPM Sitting Heart Rate Post-Dialysis 81 BPM Standing Heart Rate Pre-Dialysis 79 BPM Standing Heart Rate Post-Dialysis 75 BPM Temperature Pre-Dialysis 97.3 degF Temperature Post -Dialysis 98.3 degF November 26, 2022 In-Center Hemodialysis Treatment 0725-43-23H44:08:00.000Z 7763-80-38Y21:39:33.000Z BP Sitting (Pre-Dialysis) 110/60 mmHg BP Sitting (Post-Dialysis) 103/47 mmHg Concurrent Access: falseAV Fistula Upper Arm (Left) Arterial BP Standing (Pre-Dialysis) 84/50 mmHg BP Standing (P ost-Dialysis) 118/69 mmHg Sitting Heart Rate Pre-Dialysis 73 BPM Sitting Heart Rate Post-Dialysis 73 BPM Standing Heart Rate Pre-Dialysis 74 BPM Standing Heart Rate Post-Dialysis 60 BPM Temperature Pre-Dialysis 97.4 degF Temperature Post -Dialysis 98.7 degF November 23, 2022 In-Center Hemodialysis Treatment 5092-03-06W92:13:00.000Z 9921-03-27G85:44:36.000Z BP Sitting (Pre-Dialysis) 115/73 mmHg BP Sitting (Post-Dialysis) 100/45 mmHg Concurrent Access: falseAV Fistula Upper Arm (Left) Arterial BP Standing (Pre-Dialysis) 95/54 mmHg BP Standing (P ost-Dialysis) 101/53 mmHg Sitting Heart Rate Pre-Dialysis 75 BPM Sitting Heart Rate Post-Dialysis 76 BPM Standing Heart Rate Pre-Dialysis 78 BPM Standing Heart Rate Post-Dialysis 61 BPM Temperature Pre-Dialysis 98.2 degF Temperature Post -Dialysis 97.8 degF November 21, 2022 In-Center Hemodialysis Treatment 1812-20-80W13:03:00.000Z 1968-97-47X79:32:36.000Z BP Sitting (Pre-Dialysis) 127/80 mmHg BP Sitting (Post-Dialysis) 138/51 mmHg Concurrent Access: falseAV Fistula Upper Arm (Left) Arterial BP Standing (Pre-Dialysis) 102/62 mmHg BP Standing (P ost-Dialysis) 109/55 mmHg Sitting Heart Rate Pre-Dialysis 78 BPM Sitting Heart Rate Post-Dialysis 79 BPM Standing Heart Rate Pre-Dialysis 82 BPM Standing Heart Rate Post-Dialysis 72 BPM Temperature Pre-Dialysis 97.7 degF Temperature Post -Dialysis 97.7 degF November 19, 2022 In-Center Hemodialysis Treatment 7475-08-22E03:09:00.000Z [id number]:39:36.000Z BP Sitting (Pre-Dialysis) 135/73 mmHg BP Sitting (Post-Dialysis) 109/92 mmHg Concurrent Access: falseAV Fistula Upper Arm (Left) Arterial BP Standing (Pre-Dialysis) 111/71 mmHg BP Standing (P ost-Dialysis) 100/64 mmHg Sitting Heart Rate Pre-Dialysis 71 BPM Sitting Heart Rate Post-Dialysis 44 BPM Standing Heart Rate Pre-Dialysis 74 BPM Standing Heart Rate Post-Dialysis 79 BPM Temperature Pre-Dialysis 97.3 degF Temperature Post -Dialysis 97.3 degF November 16, 2022 In-Center Hemodialysis Treatment 0604-33-08Z89:01:00.000Z 4528-19-53U26:31:50.000Z BP Sitting (Pre-Dialysis) 122/69 mmHg BP Sitting (Post-Dialysis) 100/44 mmHg Concurrent Access: falseAV Fistula Upper Arm (Left) Arterial BP Standing (Pre-Dialysis) 97/60 mmHg BP Standing (P ost-Dialysis) 102/49 mmHg Sitting Heart Rate Pre-Dialysis 74 BPM Sitting Heart Rate Post-Dialysis 74 BPM Standing Heart Rate Pre-Dialysis 76 BPM Standing Heart Rate Post-Dialysis 76 BPM Temperature Pre-Dialysis 97.3 degF Temperature Post -Dialysis 97.9 degF November 14, 2022 In-Center Hemodialysis Treatment 3510-12-23R71:13:00.000Z 3155-82-06U28:43:50.000Z BP Sitting (Pre-Dialysis) 114/46 mmHg BP Sitting (Post-Dialysis) 110/89 mmHg Concurrent Access: falseAV Fistula Upper Arm (Left) Arterial BP Standing (Pre-Dialysis) 96/54 mmHg BP Standing (P ost-Dialysis) 115/55 mmHg Sitting Heart Rate Pre-Dialysis 68 BPM Sitting Heart Rate Post-Dialysis 52 BPM Standing Heart Rate Pre-Dialysis 77 BPM Standing Heart Rate Post-Dialysis 90 BPM Temperature Pre-Dialysis 97.2 degF Temperature Post -Dialysis 97.9 degF November 12, 2022 In-Center Hemodialysis Treatment 2982-77-60X03:00:00.000Z [id number]:33:24.000Z BP Sitting (Pre-Dialysis) 110/58 mmHg BP Sitting (Post-Dialysis) 102/47 mmHg Concurrent Access: falseAV Fistula Upper Arm (Left) Arterial BP Standing (Pre-Dialysis) 99/61 mmHg BP Standing (P ost-Dialysis) 113/90 mmHg Sitting Heart Rate Pre-Dialysis 76 BPM Sitting Heart Rate Post-Dialysis 79 BPM Standing Heart Rate Pre-Dialysis 75 BPM Standing Heart Rate Post-Dialysis 97 BPM Temperature Pre-Dialysis 97.5 degF Temperature Post -Dialysis 97.2 degF November 09, 2022 In-Center Hemodialysis Treatment 0568-08-25G37:00:00.000Z 1137-43-92G26:30:30.000Z BP Sitting (Pre-Dialysis) 129/74 mmHg BP Sitting (Post-Dialysis) 110/63 mmHg Concurrent Access: falseAV Fistula Upper Arm (Left) Arterial BP Standing (Pre-Dialysis) 102/55 mmHg BP Standing (P ost-Dialysis) 101/71 mmHg Sitting Heart Rate Pre-Dialysis 77 BPM Sitting Heart Rate Post-Dialysis 79 BPM Standing Heart Rate Pre-Dialysis 79 BPM Standing Heart Rate Post-Dialysis 79 BPM Temperature Pre-Dialysis 98.2 degF Temperature Post -Dialysis 97.3 degF November 07, 2022 In-Center Hemodialysis Treatment 4895-67-42J62:00:00.000Z 9681-73-67R42:33:30.000Z BP Sitting (Pre-Dialysis) 95/59 mmHg BP Sitting (Post-Dialysis) 101/56 mmHg Concurrent Access: falseAV Fistula Upper Arm (Left) Arterial BP Standing (Pre-Dialysis) 91/49 mmHg BP Standing (P ost-Dialysis) 109/48 mmHg Sitting Heart Rate Pre-Dialysis 75 BPM Sitting Heart Rate Post-Dialysis 77 BPM Standing Heart Rate Pre-Dialysis 75 BPM Standing Heart Rate Post-Dialysis 83 BPM Temperature Pre-Dialysis 97.5 degF Temperature Post -Dialysis 97.7 degF November 05, 2022 In-Center Hemodialysis Treatment 4384-63-45E13:08:00.000Z [id number]:41:30.000Z BP Sitting (Pre-Dialysis) 92/47 mmHg BP Sitting (Post-Dialysis) 102/62 mmHg Concurrent Access: falseAV Fistula Upper Arm (Left) Arterial BP Standing (Pre-Dialysis) 106/59 mmHg BP Standing (P ost-Dialysis) 108/76 mmHg Sitting Heart Rate Pre-Dialysis 57 BPM Sitting Heart Rate Post-Dialysis 84 BPM Standing Heart Rate Pre-Dialysis 74 BPM Standing Heart Rate Post-Dialysis 88 BPM Temperature Pre-Dialysis 98.4 degF Temperature Post -Dialysis 97.3 degF November 02, 2022 In-Center Hemodialysis Treatment 1920-98-86L71:00:00.000Z 4180-77-35L64:35:19.000Z BP Sitting (Pre-Dialysis) 113/69 mmHg BP Sitting (Post-Dialysis) 105/60 mmHg Concurrent Access: falseAV Fistula Upper Arm (Left) Arterial BP Standing (Pre-Dialysis) 96/65 mmHg Sitti ng Heart Rate Post-Dialysis 78 BPM Sitting Heart Rate Pre-Dialysis 75 BPM Temperatu re Post-Dialysis 97.4 degF Standing Heart Rate Pre-Dialysis 77 BPM Temperature Pre-Dialysis 97.9 degF October 31, 2022 In-Center Hemodialysis Treatment [id number]:08:00.000Z [id number]:40:19.000Z BP Sitting (Pre-Dialysis) 128/82 mmHg BP Sitting (Post-Dialysis) 107/52 mmHg Concurrent Access: falseAV Fistula Upper Arm (Left) Arterial BP Standing (Pre-Dialysis) 119/67 mmHg BP Standing (P ost-Dialysis) 97/59 mmHg Sitting Heart Rate Pre-Dialysis 79 BPM Sitting Heart Rate Post-Dialysis 76 BPM Standing Heart Rate Pre-Dialysis 78 BPM Standing Heart Rate Post-Dialysis 87 BPM Temperature Pre-Dialysis 98.2 degF Temperature Post -Dialysis 98.1 degF October 29, 2022 In-Center Hemodialysis Treatment [id number]:06:00.000Z [id number]:35:19.000Z BP Sitting (Pre-Dialysis) 132/74 mmHg BP Sitting (Post-Dialysis) 110/78 mmHg Concurrent Access: falseAV Fistula Upper Arm (Left) Arterial BP Standing (Pre-Dialysis) 120/65 mmHg BP Standing (P ost-Dialysis) 102/68 mmHg Sitting Heart Rate Pre-Dialysis 78 BPM Sitting Heart Rate Post-Dialysis 77 BPM Standing Heart Rate Pre-Dialysis 79 BPM Standing Heart Rate Post-Dialysis 80 BPM Temperature Pre-Dialysis 98.2 degF Temperature Post -Dialysis 97.3 degF October 26, 2022 In-Center Hemodialysis Treatment [id number]:11:00.000Z [id number]:40:38.000Z BP Sitting (Pre-Dialysis) 105/63 mmHg BP Sitting (Post-Dialysis) 113/65 mmHg Concurrent Access: falseAV Fistula Upper Arm (Left) Arterial BP Standing (Pre-Dialysis) 93/51 mmHg BP Standing (P ost-Dialysis) 135/69 mmHg Sitting Heart Rate Pre-Dialysis 76 BPM Sitting Heart Rate Post-Dialysis 80 BPM Standing Heart Rate Pre-Dialysis 77 BPM Standing Heart Rate Post-Dialysis 84 BPM Temperature Pre-Dialysis 97.2 degF Temperature Post -Dialysis 97.5 degF October 24, 2022 In-Center Hemodialysis Treatment [id number]:02:00.000Z [id number]:34:38.000Z BP Sitting (Pre-Dialysis) 113/67 mmHg BP Sitting (Post-Dialysis) 100/58 mmHg Concurrent Access: falseAV Fistula Upper Arm (Left) Arterial BP Standing (Pre-Dialysis) 106/56 mmHg BP Standing (P ost-Dialysis) 108/80 mmHg Sitting Heart Rate Pre-Dialysis 75 BPM Sitting Heart Rate Post-Dialysis 76 BPM Standing Heart Rate Pre-Dialysis 77 BPM Standing Heart Rate Post-Dialysis 97 BPM Temperature Pre-Dialysis 97.3 degF Temperature Post -Dialysis 98.1 degF October 22, 2022 In-Center Hemodialysis Treatment [id number]:12:00.000Z [id number]:41:38.000Z BP Sitting (Pre-Dialysis) 148/78 mmHg BP Sitting (Post-Dialysis) 102/63 mmHg Concurrent Access: falseAV Fistula Upper Arm (Left) Arterial BP Standing (Pre-Dialysis) 136/72 mmHg BP Standing (P ost-Dialysis) 111/49 mmHg Sitting Heart Rate Pre-Dialysis 72 BPM Sitting Heart Rate Post-Dialysis 78 BPM Standing Heart Rate Pre-Dialysis 72 BPM Standing Heart Rate Post-Dialysis 79 BPM Temperature Pre-Dialysis 96.9 degF Temperature Post -Dialysis 97.9 degF October 19, 2022 In-Center Hemodialysis Treatment [id number]:04:00.000Z [id number]:38:16.000Z BP Sitting (Pre-Dialysis) 97/59 mmHg BP Sitting (Post-Dialysis) 112/57 mmHg Concurrent Access: falseAV Fistula Upper Arm (Left) Arterial BP Standing (Pre-Dialysis) 90/50 mmHg BP Standing (P ost-Dialysis) 98/57 mmHg Sitting Heart Rate Pre-Dialysis 76 BPM Sitting H eart Rate Post-Dialysis 81 BPM Standing Heart Rate Pre-Dialysis 78 BPM Standing Heart Rate Post-Dialysis 84 BPM Temperature Pre-Dialysis 98.4 degF Temperature Post -Dialysis 97.5 degF October 17, 2022 In-Center Hemodialysis Treatment [id number]:18:00.000Z [id number]:49:16.000Z BP Sitting (Pre-Dialysis) 102/67 mmHg BP Sitting (Post-Dialysis) 104/75 mmHg Concurrent Access: falseAV Fistula Upper Arm (Left) Arterial BP Standing (Pre-Dialysis) 93/55 mmHg BP Standing (P ost-Dialysis) 106/62 mmHg Sitting Heart Rate Pre-Dialysis 75 BPM Sitting Heart Rate Post-Dialysis 78 BPM Standing Heart Rate Pre-Dialysis 76 BPM Standing Heart Rate Post-Dialysis 82 BPM Temperature Pre-Dialysis 97.5 degF Temperature Post -Dialysis 98.2 degF October 15, 2022 In-Center Hemodialysis Treatment [id number]:59:00.000Z [id number]:36:16.000Z BP Sitting (Pre-Dialysis) 128/78 mmHg BP Sitting (Post-Dialysis) 102/57 mmHg Concurrent Access: falseAV Fistula Upper Arm (Left) Arterial BP Standing (Pre-Dialysis) 97/54 mmHg BP Standing (P ost-Dialysis) 100/66 mmHg Sitting Heart Rate Pre-Dialysis 78 BPM Sitting Heart Rate Post-Dialysis 80 BPM Standing Heart Rate Pre-Dialysis 73 BPM Standing Heart Rate Post-Dialysis 78 BPM Temperature Pre-Dialysis 98.1 degF Temperature Post -Dialysis 97.9 degF October 12, 2022 In-Center Hemodialysis Treatment [id number]:05:00.000Z [id number]:35:23.000Z BP Sitting (Pre-Dialysis) 143/79 mmHg BP Sitting (Post-Dialysis) 100/52 mmHg Concurrent Access: falseAV Fistula Upper Arm (Left) Arterial BP Standing (Pre-Dialysis) 117/68 mmHg BP Standing (P ost-Dialysis) 121/46 mmHg Sitting Heart Rate Pre-Dialysis 83 BPM Sitting Heart Rate Post-Dialysis 79 BPM Standing Heart Rate Pre-Dialysis 83 BPM Standing Heart Rate Post-Dialysis 83 BPM Temperature Pre-Dialysis 97.1 degF Temperature Post -Dialysis 97.2 degF October 10, 2022 In-Center Hemodialysis Treatment [id number]:56:00.000Z [id number]:28:23.000Z BP Sitting (Pre-Dialysis) 136/73 mmHg BP Sitting (Post-Dialysis) 108/48 mmHg Concurrent Access: falseAV Fistula Upper Arm (Left) Arterial BP Standing (Pre-Dialysis) 110/58 mmHg BP Standing (P ost-Dialysis) 102/68 mmHg Sitting Heart Rate Pre-Dialysis 78 BPM Sitting Heart Rate Post-Dialysis 78 BPM Standing Heart Rate Pre-Dialysis 78 BPM Standing Heart Rate Post-Dialysis 83 BPM Temperature Pre-Dialysis 97.5 degF Temperature Post -Dialysis 97.2 degF October 08, 2022 In-Center Hemodialysis Treatment [id number]:11:00.000Z [id number]:46:23.000Z BP Sitting (Pre-Dialysis) 127/68 mmHg BP Sitting (Post-Dialysis) 100/51 mmHg Concurrent Access: falseAV Fistula Upper Arm (Left) Arterial BP Standing (Pre-Dialysis) 111/73 mmHg BP Standing (P ost-Dialysis) 100/60 mmHg Sitting Heart Rate Pre-Dialysis 76 BPM Sitting Heart Rate Post-Dialysis 76 BPM Standing Heart Rate Pre-Dialysis 76 BPM Standing Heart Rate Post-Dialysis 78 BPM Temperature Pre-Dialysis 98.7 degF Temperature Post -Dialysis 97.7 degF October 05, 2022 In-Center Hemodialysis Treatment [id number]:00:00.000Z [id number]:31:38.000Z BP Sitting (Pre-Dialysis) 122/73 mmHg BP Sitting (Post-Dialysis) 102/55 mmHg Concurrent Access: falseAV Fistula Upper Arm (Left) Arterial BP Standing (Pre-Dialysis) 99/60 mmHg Sitti ng Heart Rate Post-Dialysis 76 BPM Sitting Heart Rate Pre-Dialysis 78 BPM Temperatu re Post-Dialysis 98.2 degF Standing Heart Rate Pre-Dialysis 79 BPM Temperature Pre-Dialysis 97.2 degF October 03, 2022 In-Center Hemodialysis Treatment [id number]:01:00.000Z [id number]:30:38.000Z BP Sitting (Pre-Dialysis) 149/78 mmHg BP Sitting (Post-Dialysis) 112/57 mmHg Concurrent Access: falseAV Fistula Upper Arm (Left) Arterial BP Standing (Pre-Dialysis) 128/71 mmHg BP Standing (P ost-Dialysis) 128/78 mmHg Sitting Heart Rate Pre-Dialysis 71 BPM Sitting Heart Rate Post-Dialysis 79 BPM Standing Heart Rate Pre-Dialysis 72 BPM Standing Heart Rate Post-Dialysis 80 BPM Temperature Pre-Dialysis 97.5 degF Temperature Post -Dialysis 97.2 degF October 01, 2022 In-Center Hemodialysis Treatment [id number]:03:00.000Z [id number]:38:38.000Z BP Sitting (Pre-Dialysis) 128/71 mmHg BP Sitting (Post-Dialysis) 106/61 mmHg Concurrent Access: falseAV Fistula Upper Arm (Left) Arterial BP Standing (Pre-Dialysis) 119/66 mmHg BP Standing (P ost-Dialysis) 102/52 mmHg Sitting Heart Rate Pre-Dialysis 78 BPM Sitting Heart Rate Post-Dialysis 77 BPM Standing Heart Rate Pre-Dialysis 77 BPM Standing Heart Rate Post-Dialysis 85 BPM Temperature Pre-Dialysis 98.3 degF Temperature Post -Dialysis 98.2 degF September 28, 2022 In-Center Hemodialysis Treatment [id number]:58:00.000Z [id number]:31:10.000Z BP Sitting (Pre-Dialysis) 137/79 mmHg BP Sitting (Post-Dialysis) 107/52 mmHg Concurrent Access: falseAV Fistula Upper Arm (Left) Arterial BP Standing (Pre-Dialysis) 111/64 mmHg BP Standing (P ost-Dialysis) 134/58 mmHg Sitting Heart Rate Pre-Dialysis 86 BPM Sitting Heart Rate Post-Dialysis 81 BPM Standing Heart Rate Pre-Dialysis 88 BPM Standing Heart Rate Post-Dialysis 85 BPM Temperature Pre-Dialysis 98.1 degF Temperature Post -Dialysis 97.2 degF September 26, 2022 In-Center Hemodialysis Treatment [id number]:01:00.000Z [id number]:32:09.000Z BP Sitting (Pre-Dialysis) 158/85 mmHg BP Sitting (Post-Dialysis) 120/64 mmHg Concurrent Access: falseAV Fistula Upper Arm (Left) Arterial BP Standing (Pre-Dialysis) 130/66 mmHg BP Standing (P ost-Dialysis) 102/48 mmHg Sitting Heart Rate Pre-Dialysis 73 BPM Sitting Heart Rate Post-Dialysis 78 BPM Standing Heart Rate Pre-Dialysis 78 BPM Standing Heart Rate Post-Dialysis 81 BPM Temperature Pre-Dialysis 98.4 degF Temperature Post -Dialysis 98.4 degF September 24, 2022 In-Center Hemodialysis Treatment [id number]:09:00.000Z [id number]:41:10.000Z BP Sitting (Pre-Dialysis) 124/69 mmHg BP Sitting (Post-Dialysis) 105/56 mmHg Concurrent Access: falseAV Fistula Upper Arm (Left) Arterial BP Standing (Pre-Dialysis) 117/65 mmHg BP Standing (P ost-Dialysis) 125/60 mmHg Sitting Heart Rate Pre-Dialysis 78 BPM Sitting Heart Rate Post-Dialysis 81 BPM Standing Heart Rate Pre-Dialysis 79 BPM Standing Heart Rate Post-Dialysis 80 BPM Temperature Pre-Dialysis 98.4 degF Temperature Post -Dialysis 98.1 degF September 21, 2022 In-Center Hemodialysis Treatment [id number]:07:00.000Z [id number]:49:35.000Z BP Sitting (Pre-Dialysis) 181/92 mmHg BP Sitting (Post-Dialysis) 109/60 mmHg Concurrent Access: falseAV Fistula Upper Arm (Left) Arterial BP Standing (Pre-Dialysis) 154/82 mmHg Sitting Heart Rate Post-Dialysis 78 BPM Sitting Heart Rate Pre-Dialysis 77 BPM Temperatu re Post-Dialysis 98 degF Standing Heart Rate Pre-Dialysis 83 BPM Temperature Pre-Dialysis 97.5 degF September 19, 2022 In-Center Hemodialysis Treatment [id number]:03:00.000Z [id number]:31:34.000Z BP Sitting (Pre-Dialysis) 134/74 mmHg BP Sitting (Post-Dialysis) 105/54 mmHg Concurrent Access: falseAV Fistula Upper Arm (Left) Arterial BP Standing (Pre-Dialysis) 135/65 mmHg BP Standing (P ost-Dialysis) 129/62 mmHg Sitting Heart Rate Pre-Dialysis 75 BPM Sitting Heart Rate Post-Dialysis 82 BPM Standing Heart Rate Pre-Dialysis 76 BPM Standing Heart Rate Post-Dialysis 87 BPM Temperature Pre-Dialysis 97.4 degF Temperature Post -Dialysis 97.7 degF September 17, 2022 In-Center Hemodialysis Treatment [id number]:59:00.000Z [id number]:33:35.000Z BP Sitting (Pre-Dialysis) 160/82 mmHg BP Sitting (Post-Dialysis) 101/49 mmHg Concurrent Access: falseAV Fistula Upper Arm (Left) Arterial BP Standing (Pre-Dialysis) 153/85 mmHg BP Standing (P ost-Dialysis) 115/38 mmHg Sitting Heart Rate Pre-Dialysis 76 BPM Sitting Heart Rate Post-Dialysis 81 BPM Standing Heart Rate Pre-Dialysis 76 BPM Standing Heart Rate Post-Dialysis 85 BPM Temperature Pre-Dialysis 97.2 degF Temperature Post -Dialysis 97.2 degF September 14, 2022 In-Center Hemodialysis Treatment [id number]:10:00.000Z [id number]:41:06.000Z BP Sitting (Pre-Dialysis) 46/71 mmHg BP Sitting (Post-Dialysis) 110/57 mmHg Concurrent Access: falseAV Fistula Upper Arm (Left) Arterial BP Standing (Pre-Dialysis) 117/65 mmHg BP Standing (P ost-Dialysis) 134/67 mmHg Sitting Heart Rate Pre-Dialysis 76 BPM Sitting Heart Rate Post-Dialysis 78 BPM Standing Heart Rate Pre-Dialysis 79 BPM Standing Heart Rate Post-Dialysis 86 BPM Temperature Pre-Dialysis 97.2 degF Temperature Post -Dialysis 98.4 degF September 12, 2022 In-Center Hemodialysis Treatment [id number]:58:00.000Z [id number]:33:06.000Z BP Sitting (Pre-Dialysis) 159/83 mmHg BP Sitting (Post-Dialysis) 100/57 mmHg Concurrent Access: falseAV Fistula Upper Arm (Left) Arterial BP Standing (Pre-Dialysis) 137/68 mmHg BP Standing (P ost-Dialysis) 114/45 mmHg Sitting Heart Rate Pre-Dialysis 78 BPM Sitting Heart Rate Post-Dialysis 78 BPM Standing Heart Rate Pre-Dialysis 83 BPM Standing Heart Rate Post-Dialysis 78 BPM Temperature Pre-Dialysis 97.6 degF Temperature Post -Dialysis 98.3 degF September 10, 2022 In-Center Hemodialysis Treatment [id number]:11:00.000Z [id number]:37:06.000Z BP Sitting (Pre-Dialysis) 163/84 mmHg BP Sitting (Post-Dialysis) 135/68 mmHg Concurrent Access: falseAV Fistula Upper Arm (Left) Arterial BP Standing (Pre-Dialysis) 125/68 mmHg BP Standing (P ost-Dialysis) 107/54 mmHg Sitting Heart Rate Pre-Dialysis 78 BPM Sitting Heart Rate Post-Dialysis 78 BPM Standing Heart Rate Pre-Dialysis 79 BPM Standing Heart Rate Post-Dialysis 81 BPM Temperature Pre-Dialysis 97.8 degF Temperature Post -Dialysis 98.1 degF September 07, 2022 In-Center Hemodialysis Treatment [id number]:07:15.000Z [id number]:38:15.000Z BP Sitting (Pre-Dialysis) 133/74 mmHg BP Sitting (Post-Dialysis) 102/55 mmHg Concurrent Access: falseAV Fistula Upper Arm (Left) Arterial BP Standing (Pre-Dialysis) 117/60 mmHg BP Standing (P ost-Dialysis) 101/27 mmHg Sitting Heart Rate Pre-Dialysis 78 BPM Sitting Heart Rate Post-Dialysis 73 BPM Standing Heart Rate Pre-Dialysis 78 BPM Standing Heart Rate Post-Dialysis 70 BPM Temperature Pre-Dialysis 97.1 degF Temperature Post -Dialysis 97.3 degF September 05, 2022 In-Center Hemodialysis Treatment [id number]:05:00.000Z [id number]:40:15.000Z BP Sitting (Pre-Dialysis) 135/72 mmHg BP Sitting (Post-Dialysis) 120/64 mmHg Concurrent Access: falseAV Fistula Upper Arm (Left) Arterial BP Standing (Pre-Dialysis) 135/69 mmHg BP Standing (P ost-Dialysis) 107/59 mmHg Sitting Heart Rate Pre-Dialysis 74 BPM Sitting Heart Rate Post-Dialysis 71 BPM Standing Heart Rate Pre-Dialysis 76 BPM Standing Heart Rate Post-Dialysis 76 BPM Temperature Pre-Dialysis 98 degF Temperature Post -Dialysis 98.3 degF September 03, 2022 In-Center Hemodialysis Treatment [id number]:12:00.000Z [id number]:43:15.000Z BP Sitting (Pre-Dialysis) 119/69 mmHg BP Sitting (Post-Dialysis) 107/62 mmHg Concurrent Access: falseAV Fistula Upper Arm (Left) Arterial BP Standing (Pre-Dialysis) 107/53 mmHg BP Standing (P ost-Dialysis) 107/51 mmHg Sitting Heart Rate Pre-Dialysis 76 BPM Sitting Heart Rate Post-Dialysis 75 BPM Standing Heart Rate Pre-Dialysis 78 BPM Standing Heart Rate Post-Dialysis 81 BPM Temperature Pre-Dialysis 97.3 degF Temperature Post -Dialysis 98.1 degF August 31, 2022 In-Center Hemodialysis Treatment [id number]:06:00.000Z [id number]:38:39.000Z BP Sitting (Pre-Dialysis) 128/66 mmHg BP Sitting (Post-Dialysis) 106/56 mmHg Concurrent Access: falseAV Fistula Upper Arm (Left) Arterial BP Standing (Pre-Dialysis) 110/54 mmHg BP Standing (P ost-Dialysis) 132/73 mmHg Sitting Heart Rate Pre-Dialysis 75 BPM Sitting Heart Rate Post-Dialysis 77 BPM Standing Heart Rate Pre-Dialysis 75 BPM Standing Heart Rate Post-Dialysis 80 BPM Temperature Pre-Dialysis 97.6 degF Temperature Post -Dialysis 98.8 degF August 29, 2022 In-Center Hemodialysis Treatment [id number]:48:00.000Z [id number]:19:39.000Z BP Sitting (Pre-Dialysis) 129/73 mmHg BP Sitting (Post-Dialysis) 113/54 mmHg Concurrent Access: falseAV Fistula Upper Arm (Left) Arterial BP Standing (Pre-Dialysis) 108/60 mmHg BP Standing (P ost-Dialysis) 102/52 mmHg Sitting Heart Rate Pre-Dialysis 73 BPM Sitting Heart Rate Post-Dialysis 75 BPM Standing Heart Rate Pre-Dialysis 76 BPM Standing Heart Rate Post-Dialysis 78 BPM Temperature Pre-Dialysis 98.4 degF Temperature Post -Dialysis 98.1 degF August 27, 2022 In-Center Hemodialysis Treatment [id number]:09:39.000Z [id number]:41:39.000Z BP Sitting (Pre-Dialysis) 131/71 mmHg BP Sitting (Post-Dialysis) 107/57 mmHg Concurrent Access: falseAV Fistula Upper Arm (Left) Arterial BP Standing (Pre-Dialysis) 119/61 mmHg BP Standing (P ost-Dialysis) 100/48 mmHg Sitting Heart Rate Pre-Dialysis 70 BPM Sitting Heart Rate Post-Dialysis 74 BPM Standing Heart Rate Pre-Dialysis 71 BPM Standing Heart Rate Post-Dialysis 78 BPM Temperature Pre-Dialysis 97.1 degF Temperature Post -Dialysis 97.7 degF August 24, 2022 InCenter Hemodialysis Treatment [id number]:00:00.000Z [id number]:28:35.000Z BP Sitting (Pre-Dialysis) 135/78 mmHg BP Sitting (Post-Dialysis) 104/54 mmHg Concurrent Access: falseAV Fistula Upper Arm (Left) Arterial BP Standing (Pre-Dialysis) 128/67 mmHg BP Standing (P ost-Dialysis) 128/49 mmHg Sitting Heart Rate Pre-Dialysis 72 BPM Sitting Heart Rate Post-Dialysis 75 BPM Standing Heart Rate Pre-Dialysis 73 BPM Standing Heart Rate Post-Dialysis 78 BPM Temperature Pre-Dialysis 97.9 degF Temperature Post -Dialysis 98.4 degF August 21, 2022 InCenter Hemodialysis Treatment [id number]:00:00.000Z [id number]:31:35.000Z BP Sitting (Pre-Dialysis) 134/73 mmHg BP Sitting (Post-Dialysis) 104/52 mmHg Concurrent Access: falseAV Fistula Upper Arm (Left) Arterial BP Standing (Pre-Dialysis) 114/59 mmHg BP Standing (P ost-Dialysis) 100/47 mmHg Sitting Heart Rate Pre-Dialysis 72 BPM Sitting Heart Rate Post-Dialysis 74 BPM Standing Heart Rate Pre-Dialysis 73 BPM Standing Heart Rate Post-Dialysis 79 BPM Temperature Pre-Dialysis 98 degF Temperature Post -Dialysis 97.9 degF August 19, 2022 InCenter Hemodialysis Treatment [id number]:09:00.000Z [id number]:41:06.000Z BP Sitting (Pre-Dialysis) 130/69 mmHg BP Sitting (Post-Dialysis) 117/60 mmHg Concurrent Access: falseAV Fistula Upper Arm (Left) Arterial BP Standing (Pre-Dialysis) 110/56 mmHg BP Standing (P ost-Dialysis) 103/51 mmHg Sitting Heart Rate Pre-Dialysis 76 BPM Sitting Heart Rate Post-Dialysis 73 BPM Standing Heart Rate Pre-Dialysis 78 BPM Standing Heart Rate Post-Dialysis 78 BPM Temperature Pre-Dialysis 98.1 degF Temperature Post -Dialysis 97.3 degF August 17, 2022 In-Center Hemodialysis Treatment [id number]:57:00.000Z [id number]:26:52.000Z BP Sitting (Pre-Dialysis) 138/72 mmHg BP Sitting (Post-Dialysis) 121/60 mmHg Concurrent Access: falseAV Fistula Upper Arm (Left) Arterial BP Standing (Pre-Dialysis) 117/65 mmHg BP Standing (P ost-Dialysis) 106/52 mmHg Sitting Heart Rate Pre-Dialysis 72 BPM Sitting Heart Rate Post-Dialysis 73 BPM Standing Heart Rate Pre-Dialysis 75 BPM Standing Heart Rate Post-Dialysis 76 BPM Temperature Pre-Dialysis 97.8 degF Temperature Post -Dialysis 97.5 degF August 15, 2022 In-Center Hemodialysis Treatment [id number]:57:00.000Z [id number]:30:09.000Z BP Sitting (Pre-Dialysis) 117/55 mmHg BP Sitting (Post-Dialysis) 100/52 mmHg Concurrent Access: falseAV Fistula Upper Arm (Left) Arterial BP Standing (Pre-Dialysis) 108/61 mmHg BP Standing (P ost-Dialysis) 114/24 mmHg Sitting Heart Rate Pre-Dialysis 72 BPM Sitting Heart Rate Post-Dialysis 72 BPM Standing Heart Rate Pre-Dialysis 74 BPM Standing Heart Rate Post-Dialysis 65 BPM Temperature Pre-Dialysis 97.3 degF Temperature Post -Dialysis 97.7 degF August 13, 2022 In-Center Hemodialysis Treatment [id number]:08:00.000Z [id number]:43:27.000Z BP Sitting (Pre-Dialysis) 129/68 mmHg BP Sitting (Post-Dialysis) 102/52 mmHg Concurrent Access: falseAV Fistula Upper Arm (Left) Arterial BP Standing (Pre-Dialysis) 113/59 mmHg BP Standing (P ost-Dialysis) 125/41 mmHg Sitting Heart Rate Pre-Dialysis 68 BPM Sitting Heart Rate Post-Dialysis 75 BPM Standing Heart Rate Pre-Dialysis 70 BPM Standing Heart Rate Post-Dialysis 92 BPM Temperature Pre-Dialysis 97.4 degF Temperature Post -Dialysis 98 degF August 10, 2022 In-Center Hemodialysis Treatment [id number]:00:00.000Z [id number]:31:22.000Z BP Sitting (Pre-Dialysis) 152/84 mmHg BP Sitting (Post-Dialysis) 114/55 mmHg Concurrent Access: falseAV Fistula Upper Arm (Left) Arterial BP Standing (Pre-Dialysis) 132/64 mmHg BP Standing (P ost-Dialysis) 124/49 mmHg Sitting Heart Rate Pre-Dialysis 70 BPM Sitting Heart Rate Post-Dialysis 72 BPM Standing Heart Rate Pre-Dialysis 72 BPM Standing Heart Rate Post-Dialysis 80 BPM Temperature Pre-Dialysis 97.9 degF Temperature Post -Dialysis 97.5 degF August 08, 2022 In-Center Hemodialysis Treatment [id number]:11:00.000Z [id number]:41:22.000Z BP Sitting (Pre-Dialysis) 149/81 mmHg BP Sitting (Post-Dialysis) 105/55 mmHg Concurrent Access: falseAV Fistula Upper Arm (Left) Arterial BP Standing (Pre-Dialysis) 136/69 mmHg Sitti ng Heart Rate Post-Dialysis 75 BPM Sitting Heart Rate Pre-Dialysis 68 BPM Temperatu re Post-Dialysis 98.1 degF Standing Heart Rate Pre-Dialysis 69 BPM Temperature Pre-Dialysis 98.2 degF August 06, 2022 In-Center Hemodialysis Treatment [id number]:00:00.000Z [id number]:40:45.000Z BP Sitting (Pre-Dialysis) 147/73 mmHg BP Sitting (Post-Dialysis) 126/64 mmHg Concurrent Access: falseAV Fistula Upper Arm (Left) Arterial BP Standing (Pre-Dialysis) 131/66 mmHg BP Standing (P ost-Dialysis) 126/51 mmHg Sitting Heart Rate Pre-Dialysis 74 BPM Sitting Heart Rate Post-Dialysis 72 BPM Standing Heart Rate Pre-Dialysis 75 BPM Standing Heart Rate Post-Dialysis 96 BPM Temperature Pre-Dialysis 97.3 degF Temperature Post -Dialysis 97.5 degF August 03, 2022 In-Center Hemodialysis Treatment 0753-03-01H44:10:00.000Z [id number]:41:15.000Z BP Sitting (Pre-Dialysis) 152/73 mmHg BP Sitting (Post-Dialysis) 109/69 mmHg Concurrent Access: falseAV Fistula Upper Arm (Left) Arterial BP Standing (Pre-Dialysis) 107/57 mmHg BP Standing (P ost-Dialysis) 104/48 mmHg Sitting Heart Rate Pre-Dialysis 73 BPM Sitting Heart Rate Post-Dialysis 74 BPM Standing Heart Rate Pre-Dialysis 73 BPM Standing Heart Rate Post-Dialysis 74 BPM Temperature Pre-Dialysis 98 degF Temperature Post -Dialysis 98.1 degF August 01, 2022 In-Center Hemodialysis Treatment [id number]:53:00.000Z [id number]:26:16.000Z BP Sitting (Pre-Dialysis) 162/86 mmHg BP Sitting (Post-Dialysis) 117/64 mmHg Concurrent Access: falseAV Fistula Upper Arm (Left) Arterial BP Standing (Pre-Dialysis) 140/77 mmHg BP Standing (P ost-Dialysis) 109/54 mmHg Sitting Heart Rate Pre-Dialysis 71 BPM Sitting Heart Rate Post-Dialysis 73 BPM Standing Heart Rate Pre-Dialysis 73 BPM Standing Heart Rate Post-Dialysis 74 BPM Temperature Pre-Dialysis 98.3 degF Temperature Post -Dialysis 98.1 degF July 30, 2022 In-Center Hemodialysis Treatment [id number]:11:00.000Z [id number]:46:16.000Z BP Sitting (Pre-Dialysis) 144/69 mmHg BP Sitting (Post-Dialysis) 101/53 mmHg Concurrent Access: falseAV Fistula Upper Arm (Left) Arterial BP Standing (Pre-Dialysis) 132/71 mmHg BP Standing (P ost-Dialysis) 97/53 mmHg Sitting Heart Rate Pre-Dialysis 71 BPM Sitting Heart Rate Post-Dialysis 76 BPM Standing Heart Rate Pre-Dialysis 71 BPM Standing Heart Rate Post-Dialysis 80 BPM Temperature Pre-Dialysis 97.1 degF Temperature Post -Dialysis 97.5 degF July 27, 2022 In-Center Hemodialysis Treatment [id number]:59:00.000Z [id number]:37:18.000Z BP Sitting (Pre-Dialysis) 147/76 mmHg BP Sitting (Post-Dialysis) 118/58 mmHg Concurrent Access: falseAV Fistula Upper Arm (Left) Arterial BP Standing (Pre-Dialysis) 133/69 mmHg BP Standing (P ost-Dialysis) 105/69 mmHg Sitting Heart Rate Pre-Dialysis 74 BPM Sitting Heart Rate Post-Dialysis 71 BPM Standing Heart Rate Pre-Dialysis 75 BPM Standing Heart Rate Post-Dialysis 70 BPM Temperature Pre-Dialysis 98.6 degF Temperature Post -Dialysis 98.3 degF July 25, 2022 In-Center Hemodialysis Treatment [id number]:55:00.000Z [id number]:26:18.000Z BP Sitting (Pre-Dialysis) 114/57 mmHg BP Sitting (Post-Dialysis) 101/62 mmHg Concurrent Access: falseAV Fistula Upper Arm (Left) Arterial BP Standing (Pre-Dialysis) 104/55 mmHg BP Standing (P ost-Dialysis) 109/94 mmHg Sitting Heart Rate Pre-Dialysis 70 BPM Sitting Heart Rate Post-Dialysis 81 BPM Standing Heart Rate Pre-Dialysis 71 BPM Standing Heart Rate Post-Dialysis 85 BPM Temperature Pre-Dialysis 98.5 degF Temperature Post -Dialysis 98.8 degF July 23, 2022 In-Center Hemodialysis Treatment [id number]:07:00.000Z [id number]:39:18.000Z BP Sitting (Pre-Dialysis) 136/70 mmHg BP Sitting (Post-Dialysis) 113/56 mmHg Concurrent Access: falseAV Fistula Upper Arm (Left) Arterial BP Standing (Pre-Dialysis) 126/65 mmHg BP Standing (P ost-Dialysis) 108/62 mmHg Sitting Heart Rate Pre-Dialysis 69 BPM Sitting Heart Rate Post-Dialysis 69 BPM Standing Heart Rate Pre-Dialysis 70 BPM Standing Heart Rate Post-Dialysis 71 BPM Temperature Pre-Dialysis 97.7 degF Temperature Post -Dialysis 97.7 degF July 20, 2022 In-Center Hemodialysis Treatment [id number]:09:00.000Z [id number]:39:36.000Z BP Sitting (Pre-Dialysis) 122/76 mmHg BP Sitting (Post-Dialysis) 123/56 mmHg Concurrent Access: falseAV Fistula Upper Arm (Left) Arterial BP Standing (Pre-Dialysis) 118/70 mmHg BP Standing (P ost-Dialysis) 112/57 mmHg Sitting Heart Rate Pre-Dialysis 67 BPM Sitting Heart Rate Post-Dialysis 70 BPM Standing Heart Rate Pre-Dialysis 68 BPM Standing Heart Rate Post-Dialysis 71 BPM Temperature Pre-Dialysis 97.9 degF Temperature Post -Dialysis 98.1 degF July 18, 2022 In-Center Hemodialysis Treatment [id number]:00:00.000Z [id number]:30:36.000Z BP Sitting (Pre-Dialysis) 120/67 mmHg BP Sitting (Post-Dialysis) 104/56 mmHg Concurrent Access: falseAV Fistula Upper Arm (Left) Arterial BP Standing (Pre-Dialysis) 116/63 mmHg BP Standing (P ost-Dialysis) 110/52 mmHg Sitting Heart Rate Pre-Dialysis 68 BPM Sitting Heart Rate Post-Dialysis 69 BPM Standing Heart Rate Pre-Dialysis 83 BPM Standing Heart Rate Post-Dialysis 72 BPM Temperature Pre-Dialysis 97.3 degF Temperature Post -Dialysis 98.1 degF July 16, 2022 In-Center Hemodialysis Treatment [id number]:08:00.000Z [id number]:38:36.000Z BP Sitting (Pre-Dialysis) 151/82 mmHg BP Sitting (Post-Dialysis) 124/71 mmHg Concurrent Access: falseAV Fistula Upper Arm (Left) Arterial BP Standing (Pre-Dialysis) 140/75 mmHg BP Standing (P ost-Dialysis) 103/63 mmHg Sitting Heart Rate Pre-Dialysis 71 BPM Sitting Heart Rate Post-Dialysis 69 BPM Standing Heart Rate Pre-Dialysis 71 BPM Standing Heart Rate Post-Dialysis 71 BPM Temperature Pre-Dialysis 98.1 degF Temperature Post -Dialysis 98.8 degF July 13, 2022 In-Center Hemodialysis Treatment [id number]:04:00.000Z [id number]:32:35.000Z BP Sitting (Pre-Dialysis) 157/83 mmHg BP Sitting (Post-Dialysis) 132/69 mmHg Concurrent Access: falseAV Fistula Upper Arm (Left) Arterial BP Standing (Pre-Dialysis) 135/69 mmHg BP Standing (P ost-Dialysis) 104/56 mmHg Sitting Heart Rate Pre-Dialysis 69 BPM Sitting Heart Rate Post-Dialysis 72 BPM Standing Heart Rate Pre-Dialysis 72 BPM Standing Heart Rate Post-Dialysis 73 BPM Temperature Pre-Dialysis 98.1 degF Temperature Post -Dialysis 98.1 degF July 11, 2022 In-Center Hemodialysis Treatment [id number]:03:35.000Z 7711-32-29U95:32:36.000Z BP Sitting (Pre-Dialysis) 138/70 mmHg BP Sitting (Post-Dialysis) 109/61 mmHg Concurrent Access: falseAV Fistula Upper Arm (Left) Arterial BP Standing (Pre-Dialysis) 128/67 mmHg BP Standing (P ost-Dialysis) 102/54 mmHg Sitting Heart Rate Pre-Dialysis 70 BPM Sitting Heart Rate Post-Dialysis 70 BPM Standing Heart Rate Pre-Dialysis 71 BPM Standing Heart Rate Post-Dialysis 71 BPM Temperature Pre-Dialysis 97.4 degF Temperature Post -Dialysis 97.7 degF July 09, 2022 In-Center Hemodialysis Treatment [id number]:10:00.000Z [id number]:40:51.000Z BP Sitting (Pre-Dialysis) 138/75 mmHg BP Sitting (Post-Dialysis) 127/65 mmHg Concurrent Access: falseAV Fistula Upper Arm (Left) Arterial BP Standing (Pre-Dialysis) 132/72 mmHg BP Standing (P ost-Dialysis) 105/59 mmHg Sitting Heart Rate Pre-Dialysis 70 BPM Sitting Heart Rate Post-Dialysis 70 BPM Standing Heart Rate Pre-Dialysis 70 BPM Standing Heart Rate Post-Dialysis 71 BPM Temperature Pre-Dialysis 97.7 degF Temperature Post -Dialysis 98.1 degF July 06, 2022 In-Center Hemodialysis Treatment 1052-04-96W72:06:00.000Z 6419-75-15F49:32:25.000Z BP Sitting (Pre-Dialysis) 147/76 mmHg BP Sitting (Post-Dialysis) 121/66 mmHg Concurrent Access: falseAV Fistula Upper Arm (Left) Arterial BP Standing (Pre-Dialysis) 134/74 mmHg BP Standing (P ost-Dialysis) 110/58 mmHg Sitting Heart Rate Pre-Dialysis 73 BPM Sitting Heart Rate Post-Dialysis 71 BPM Standing Heart Rate Pre-Dialysis 73 BPM Standing Heart Rate Post-Dialysis 72 BPM Temperature Pre-Dialysis 98.4 degF Temperature Post -Dialysis 98.1 degF July 04, 2022 In-Center Hemodialysis Treatment [id number]:00:00.000Z [id number]:33:05.000Z BP Sitting (Pre-Dialysis) 150/76 mmHg BP Sitting (Post-Dialysis) 142/72 mmHg Concurrent Access: falseAV Fistula Upper Arm (Left) Arterial BP Standing (Pre-Dialysis) 147/80 mmHg BP Standing (P ost-Dialysis) 115/66 mmHg Sitting Heart Rate Pre-Dialysis 67 BPM Sitting Heart Rate Post-Dialysis 68 BPM Standing Heart Rate Pre-Dialysis 69 BPM Standing Heart Rate Post-Dialysis 70 BPM Temperature Pre-Dialysis 98.9 degF Temperature Post -Dialysis 97.9 degF July 02, 2022 In-Center Hemodialysis Treatment [id number]:16:00.000Z 9974-91-25P91:49:06.000Z BP Sitting (Pre-Dialysis) 153/84 mmHg BP Sitting (Post-Dialysis) 147/77 mmHg Concurrent Access: falseAV Fistula Upper Arm (Left) Arterial BP Standing (Pre-Dialysis) 143/73 mmHg BP Standing (P ost-Dialysis) 134/70 mmHg Sitting Heart Rate Pre-Dialysis 66 BPM Sitting Heart Rate Post-Dialysis 71 BPM Standing Heart Rate Pre-Dialysis 67 BPM Standing Heart Rate Post-Dialysis 73 BPM Temperature Pre-Dialysis 98.6 degF Temperature Post -Dialysis 98.1 degF June 29, 2022 In-Center Hemodialysis Treatment [id number]:59:00.000Z [id number]:32:18.000Z BP Sitting (Pre-Dialysis) 186/97 mmHg BP Sitting (Post-Dialysis) 143/73 mmHg Concurrent Access: falseAV Fistula Upper Arm (Left) Arterial BP Standing (Pre-Dialysis) 159/81 mmHg BP Standing (P ost-Dialysis) 118/65 mmHg Sitting Heart Rate Pre-Dialysis 72 BPM Sitting Heart Rate Post-Dialysis 71 BPM Standing Heart Rate Pre-Dialysis 74 BPM Standing Heart Rate Post-Dialysis 72 BPM Temperature Pre-Dialysis 97.8 degF Temperature Post -Dialysis 98 degF 2022 In-Center Hemodialysis Treatment [id number]:56:00.000Z [id number]:29:18.000Z BP Sitting (Pre-Dialysis) 167/79 mmHg BP Sitting (Post-Dialysis) 147/74 mmHg Concurrent Access: falseAV Fistula Upper Arm (Left) Arterial BP Standing (Pre-Dialysis) 157/83 mmHg BP Standing (P ost-Dialysis) 133/71 mmHg Sitting Heart Rate Pre-Dialysis 74 BPM Sitting Heart Rate Post-Dialysis 74 BPM Standing Heart Rate Pre-Dialysis 74 BPM Standing Heart Rate Post-Dialysis 76 BPM Temperature Pre-Dialysis 97.4 degF Temperature Post -Dialysis 97.5 degF June 25, 2022 In-Center Hemodialysis Treatment [id number]:13:00.000Z 7887-93-35N14:44:18.000Z BP Sitting (Pre-Dialysis) 166/83 mmHg BP Sitting (Post-Dialysis) 140/74 mmHg Concurrent Access: falseAV Fistula Upper Arm (Left) Arterial BP Standing (Pre-Dialysis) 146/71 mmHg BP Standing (P ost-Dialysis) 119/61 mmHg Sitting Heart Rate Pre-Dialysis 73 BPM Sitting Heart Rate Post-Dialysis 77 BPM Standing Heart Rate Pre-Dialysis 75 BPM Standing Heart Rate Post-Dialysis 79 BPM Temperature Pre-Dialysis 98.4 degF Temperature Post -Dialysis 98 degF June 22, 2022 In-Center Hemodialysis Treatment [id number]:06:00.000Z 1203-92-74X48:33:18.000Z BP Sitting (Pre-Dialysis) 186/94 mmHg BP Sitting (Post-Dialysis) 168/80 mmHg Concurrent Access: falseAV Fistula Upper Arm (Left) Arterial BP Standing (Pre-Dialysis) 173/94 mmHg BP Standing (P ost-Dialysis) 152/79 mmHg Sitting Heart Rate Pre-Dialysis 67 BPM Sitting Heart Rate Post-Dialysis 74 BPM Standing Heart Rate Pre-Dialysis 70 BPM Standing Heart Rate Post-Dialysis 76 BPM Temperature Pre-Dialysis 97.3 degF Temperature Post -Dialysis 98.1 degF June 20, 2022 In-Center Hemodialysis Treatment [id number]:05:00.000Z [id number]:36:18.000Z BP Sitting (Pre-Dialysis) 171/90 mmHg BP Sitting (Post-Dialysis) 160/72 mmHg Concurrent Access: falseAV Fistula Upper Arm (Left) Arterial BP Standing (Pre-Dialysis) 156/89 mmHg BP Standing (P ost-Dialysis) 138/75 mmHg Sitting Heart Rate Pre-Dialysis 70 BPM Sitting Heart Rate Post-Dialysis 73 BPM Standing Heart Rate Pre-Dialysis 71 BPM Standing Heart Rate Post-Dialysis 74 BPM Temperature Pre-Dialysis 97.2 degF Temperature Post -Dialysis 97.9 degF June 18, 2022 In-Center Hemodialysis Treatment 7216-28-81S98:00:00.000Z 9920-26-47A86:32:18.000Z BP Sitting (Pre-Dialysis) 162/87 mmHg BP Sitting (Post-Dialysis) 156/76 mmHg Concurrent Access: falseAV Fistula Upper Arm (Left) Arterial BP Standing (Pre-Dialysis) 163/93 mmHg BP Standing (P ost-Dialysis) 139/79 mmHg Sitting Heart Rate Pre-Dialysis 75 BPM Sitting Heart Rate Post-Dialysis 72 BPM Standing Heart Rate Pre-Dialysis 74 BPM Standing Heart Rate Post-Dialysis 74 BPM Temperature Pre-Dialysis 98 degF Temperature Post -Dialysis 98.2 degF June 15, 2022 In-Center Hemodialysis Treatment [id number]:56:00.000Z 3079-85-64D30:28:33.000Z BP Sitting (Pre-Dialysis) 175/93 mmHg BP Sitting (Post-Dialysis) 170/88 mmHg Concurrent Access: falseAV Fistula Upper Arm (Left) Arterial BP Standing (Pre-Dialysis) 164/84 mmHg BP Standing (P ost-Dialysis) 160/80 mmHg Sitting Heart Rate Pre-Dialysis 74 BPM Sitting Heart Rate Post-Dialysis 74 BPM Standing Heart Rate Pre-Dialysis 74 BPM Standing Heart Rate Post-Dialysis 77 BPM Temperature Pre-Dialysis 97.7 degF Temperature Post -Dialysis 97.9 degF June 13, 2022 In-Center Hemodialysis Treatment 5922-23-74T71:07:00.000Z 8928-30-84M18:38:33.000Z BP Sitting (Pre-Dialysis) 183/96 mmHg BP Sitting (Post-Dialysis) 155/77 mmHg Concurrent Access: falseAV Fistula Upper Arm (Left) Arterial BP Standing (Pre-Dialysis) 169/82 mmHg BP Standing (P ost-Dialysis) 159/76 mmHg Sitting Heart Rate Pre-Dialysis 70 BPM Sitting Heart Rate Post-Dialysis 71 BPM Standing Heart Rate Pre-Dialysis 72 BPM Standing Heart Rate Post-Dialysis 71 BPM Temperature Pre-Dialysis 97.2 degF Temperature Post -Dialysis 98.4 degF June 11, 2022 In-Center Hemodialysis Treatment 8411-71-50R22:18:00.000Z 3034-15-89M91:49:32.000Z BP Sitting (Pre-Dialysis) 156/79 mmHg BP Sitting (Post-Dialysis) 158/76 mmHg Concurrent Access: falseAV Fistula Upper Arm (Left) Arterial BP Standing (Pre-Dialysis) 134/86 mmHg BP Standing (P ost-Dialysis) 139/73 mmHg Sitting Heart Rate Pre-Dialysis 76 BPM Sitting Heart Rate Post-Dialysis 73 BPM Standing Heart Rate Pre-Dialysis 78 BPM Standing Heart Rate Post-Dialysis 75 BPM Temperature Pre-Dialysis 98.2 degF Temperature Post -Dialysis 98.4 degF June 08, 2022 In-Center Hemodialysis Treatment 8961-09-73P77:07:00.000Z [id number]:38:31.000Z BP Sitting (Pre-Dialysis) 120/60 mmHg BP Sitting (Post-Dialysis) 153/71 mmHg Concurrent Access: falseAV Fistula Upper Arm (Left) Arterial BP Standing (Pre-Dialysis) 118/57 mmHg BP Standing (P ost-Dialysis) 129/64 mmHg Sitting Heart Rate Pre-Dialysis 70 BPM Sitting Heart Rate Post-Dialysis 74 BPM Standing Heart Rate Pre-Dialysis 70 BPM Standing Heart Rate Post-Dialysis 76 BPM Temperature Pre-Dialysis 98.2 degF Temperature Post -Dialysis 97 degF June 06, 2022 In-Center Hemodialysis Treatment 8960-96-36S24:00:00.000Z [id number]:35:36.000Z BP Sitting (Pre-Dialysis) 174/93 mmHg BP Sitting (Post-Dialysis) 150/80 mmHg Concurrent Access: falseAV Fistula Upper Arm (Left) Arterial BP Standing (Pre-Dialysis) 169/87 mmHg BP Standing (P ost-Dialysis) 147/74 mmHg Sitting Heart Rate Pre-Dialysis 68 BPM Sitting Heart Rate Post-Dialysis 67 BPM Standing Heart Rate Pre-Dialysis 68 BPM Standing Heart Rate Post-Dialysis 69 BPM Temperature Pre-Dialysis 97.5 degF Temperature Post -Dialysis 98.4 degF June 04, 2022 In-Center Hemodialysis Treatment [id number]:06:00.000Z [id number]:38:39.000Z BP Sitting (Pre-Dialysis) 181/86 mmHg BP Sitting (Post-Dialysis) 156/76 mmHg Concurrent Access: falseAV Fistula Upper Arm (Left) Arterial BP Standing (Pre-Dialysis) 181/92 mmHg BP Standing (P ost-Dialysis) 127/63 mmHg Sitting Heart Rate Pre-Dialysis 70 BPM Sitting Heart Rate Post-Dialysis 69 BPM Standing Heart Rate Pre-Dialysis 72 BPM Standing Heart Rate Post-Dialysis 70 BPM Temperature Pre-Dialysis 97.3 degF Temperature Post -Dialysis 98.1 degF June 01, 2022 In-Center Hemodialysis Treatment [id number]:05:00.000Z [id number]:37:35.000Z BP Sitting (Pre-Dialysis) 156/80 mmHg BP Sitting (Post-Dialysis) 149/73 mmHg Concurrent Access: falseAV Fistula Upper Arm (Left) Arterial BP Standing (Pre-Dialysis) 156/79 mmHg BP Standing (P ost-Dialysis) 152/81 mmHg Sitting Heart Rate Pre-Dialysis 66 BPM Sitting Heart Rate Post-Dialysis 70 BPM Standing Heart Rate Pre-Dialysis 67 BPM Standing Heart Rate Post-Dialysis 71 BPM Temperature Pre-Dialysis 98.1 degF Temperature Post -Dialysis 97.7 degF May 30, 2022 In-Center Hemodialysis Treatment [id number]:02:00.000Z 7951-85-00S55:34:20.000Z BP Sitting (Pre-Dialysis) 163/92 mmHg BP Sitting (Post-Dialysis) 154/78 mmHg Concurrent Access: falseAV Fistula Upper Arm (Left) Arterial BP Standing (Pre-Dialysis) 164/85 mmHg BP Standing (P ost-Dialysis) 133/73 mmHg Sitting Heart Rate Pre-Dialysis 71 BPM Sitting Heart Rate Post-Dialysis 68 BPM Standing Heart Rate Pre-Dialysis 71 BPM Standing Heart Rate Post-Dialysis 69 BPM Temperature Pre-Dialysis 97.3 degF Temperature Post -Dialysis 98.2 degF May 28, 2022 In-Center Hemodialysis Treatment 0670-90-50Z12:09:00.000Z 6662-87-88B46:42:20.000Z BP Sitting (Pre-Dialysis) 147/77 mmHg BP Sitting (Post-Dialysis) 148/70 mmHg Concurrent Access: falseAV Fistula Upper Arm (Left) Arterial BP Standing (Pre-Dialysis) 148/78 mmHg BP Standing (P ost-Dialysis) 136/71 mmHg Sitting Heart Rate Pre-Dialysis 68 BPM Sitting Heart Rate Post-Dialysis 68 BPM Standing Heart Rate Pre-Dialysis 69 BPM Standing Heart Rate Post-Dialysis 69 BPM Temperature Pre-Dialysis 97.3 degF Temperature Post -Dialysis 98.1 degF May 25, 2022 In-Center Hemodialysis Treatment 4611-35-04L67:06:00.000Z 7112-14-13Y23:38:17.000Z BP Sitting (Pre-Dialysis) 171/86 mmHg BP Sitting (Post-Dialysis) 158/84 mmHg Concurrent Access: falseAV Fistula Upper Arm (Left) Arterial BP Standing (Pre-Dialysis) 173/87 mmHg BP Standing (P ost-Dialysis) 152/79 mmHg Sitting Heart Rate Pre-Dialysis 68 BPM Sitting Heart Rate Post-Dialysis 71 BPM Standing Heart Rate Pre-Dialysis 69 BPM Standing Heart Rate Post-Dialysis 72 BPM Temperature Pre-Dialysis 97.7 degF Temperature Post -Dialysis 99 degF May 23, 2022 In-Center Hemodialysis Treatment [id number]:03:00.000Z 3030-64-21G83:35:08.000Z BP Sitting (Pre-Dialysis) 182/91 mmHg BP Sitting (Post-Dialysis) 163/77 mmHg Concurrent Access: falseAV Fistula Upper Arm (Left) Arterial BP Standing (Pre-Dialysis) 175/89 mmHg BP Standing (P ost-Dialysis) 141/74 mmHg Sitting Heart Rate Pre-Dialysis 68 BPM Sitting Heart Rate Post-Dialysis 69 BPM Standing Heart Rate Pre-Dialysis 71 BPM Standing Heart Rate Post-Dialysis 71 BPM Temperature Pre-Dialysis 97.2 degF Temperature Post -Dialysis 98.1 degF May 21, 2022 In-Center Hemodialysis Treatment [id number]:08:00.000Z [id number]:39:40.000Z BP Sitting (Pre-Dialysis) 178/91 mmHg BP Sitting (Post-Dialysis) 150/76 mmHg Concurrent Access: falseAV Fistula Upper Arm (Left) Arterial BP Standing (Pre-Dialysis) 174/94 mmHg BP Standing (P ost-Dialysis) 140/77 mmHg Sitting Heart Rate Pre-Dialysis 69 BPM Sitting Heart Rate Post-Dialysis 69 BPM Standing Heart Rate Pre-Dialysis 72 BPM Standing Heart Rate Post-Dialysis 71 BPM Temperature Pre-Dialysis 97.7 degF Temperature Post -Dialysis 98.4 degF May 18, 2022 In-Center Hemodialysis Treatment 7226-74-10K46:00:00.000Z [id number]:32:06.000Z BP Sitting (Pre-Dialysis) 183/87 mmHg BP Sitting (Post-Dialysis) 143/72 mmHg Concurrent Access: falseAV Fistula Upper Arm (Left) Arterial BP Standing (Pre-Dialysis) 162/85 mmHg BP Standing (P ost-Dialysis) 128/74 mmHg Sitting Heart Rate Pre-Dialysis 72 BPM Sitting Heart Rate Post-Dialysis 68 BPM Standing Heart Rate Pre-Dialysis 73 BPM Standing Heart Rate Post-Dialysis 68 BPM Temperature Pre-Dialysis 97.7 degF Temperature Post -Dialysis 97.9 degF May 16, 2022 In-Center Hemodialysis Treatment 8775-54-44B06:00:00.000Z 9066-76-93X75:29:06.000Z BP Sitting (Pre-Dialysis) 168/77 mmHg BP Sitting (Post-Dialysis) 148/74 mmHg Concurrent Access: falseAV Fistula Upper Arm (Left) Arterial BP Standing (Pre-Dialysis) 157/85 mmHg BP Standing (P ost-Dialysis) 148/74 mmHg Sitting Heart Rate Pre-Dialysis 70 BPM Sitting Heart Rate Post-Dialysis 69 BPM Standing Heart Rate Pre-Dialysis 71 BPM Standing Heart Rate Post-Dialysis 70 BPM Temperature Pre-Dialysis 98.2 degF Temperature Post -Dialysis 97.9 degF May 14, 2022 In-Center Hemodialysis Treatment [id number]:02:00.000Z [id number]:33:08.000Z BP Sitting (Pre-Dialysis) 195/104 mmHg BP Sitting (Post-Dialysis) 143/70 mmHg Concurrent Access: falseAV Fistula Upper Arm (Left) Arterial BP Standing (Pre-Dialysis) 177/95 mmHg BP Standing (P ost-Dialysis) 121/67 mmHg Sitting Heart Rate Pre-Dialysis 69 BPM Sitting Heart Rate Post-Dialysis 69 BPM Standing Heart Rate Pre-Dialysis 70 BPM Standing Heart Rate Post-Dialysis 71 BPM Temperature Pre-Dialysis 97.6 degF Temperature Post -Dialysis 97.3 degF May 11, 2022 In-Center Hemodialysis Treatment 3084-76-42R67:09:00.000Z 3267-42-96U07:40:58.000Z BP Sitting (Pre-Dialysis) 183/84 mmHg BP Sitting (Post-Dialysis) 170/82 mmHg Concurrent Access: falseAV Fistula Upper Arm (Left) Arterial BP Standing (Pre-Dialysis) 156/89 mmHg BP Standing (P ost-Dialysis) 140/73 mmHg Sitting Heart Rate Pre-Dialysis 71 BPM Sitting Heart Rate Post-Dialysis 72 BPM Standing Heart Rate Pre-Dialysis 72 BPM Standing Heart Rate Post-Dialysis 73 BPM Temperature Pre-Dialysis 98.2 degF Temperature Post -Dialysis 97.9 degF May 09, 2022 In-Center Hemodialysis Treatment 3057-26-34F17:58:00.000Z 3074-53-52H34:30:58.000Z BP Sitting (Pre-Dialysis) 165/90 mmHg BP Sitting (Post-Dialysis) 161/80 mmHg Concurrent Access: falseAV Fistula Upper Arm (Left) Arterial BP Standing (Pre-Dialysis) 157/82 mmHg BP Standing (P ost-Dialysis) 150/77 mmHg Sitting Heart Rate Pre-Dialysis 67 BPM Sitting Heart Rate Post-Dialysis 68 BPM Standing Heart Rate Pre-Dialysis 69 BPM Standing Heart Rate Post-Dialysis 69 BPM Temperature Pre-Dialysis 97.1 degF Temperature Post -Dialysis 98.1 degF May 07, 2022 In-Center Hemodialysis Treatment [id number]:03:00.000Z [id number]:35:55.000Z BP Sitting (Pre-Dialysis) 164/81 mmHg BP Sitting (Post-Dialysis) 159/76 mmHg Concurrent Access: falseAV Fistula Upper Arm (Left) Arterial BP Standing (Pre-Dialysis) 152/77 mmHg BP Standing (P ost-Dialysis) 164/82 mmHg Sitting Heart Rate Pre-Dialysis 68 BPM Sitting Heart Rate Post-Dialysis 71 BPM Standing Heart Rate Pre-Dialysis 69 BPM Standing Heart Rate Post-Dialysis 74 BPM Temperature Pre-Dialysis 98.1 degF Temperature Post -Dialysis 98.1 degF May 04, 2022 In-Center Hemodialysis Treatment 8665-55-35G61:03:00.000Z 9072-64-77T72:35:21.000Z BP Sitting (Pre-Dialysis) 164/86 mmHg BP Sitting (Post-Dialysis) 166/75 mmHg Concurrent Access: falseAV Fistula Upper Arm (Left) Arterial BP Standing (Pre-Dialysis) 162/83 mmHg BP Standing (P ost-Dialysis) 155/80 mmHg Sitting Heart Rate Pre-Dialysis 68 BPM Sitting Heart Rate Post-Dialysis 74 BPM Standing Heart Rate Pre-Dialysis 68 BPM Standing Heart Rate Post-Dialysis 75 BPM Temperature Pre-Dialysis 98.1 degF Temperature Post -Dialysis 98.5 degF May 02, 2022 In-Center Hemodialysis Treatment 6495-07-83D73:03:00.000Z 3567-75-00G70:35:29.000Z BP Sitting (Pre-Dialysis) 157/86 mmHg BP Sitting (Post-Dialysis) 178/87 mmHg Concurrent Access: falseAV Fistula Upper Arm (Left) Arterial BP Standing (Pre-Dialysis) 145/80 mmHg BP Standing (P ost-Dialysis) 146/76 mmHg Sitting Heart Rate Pre-Dialysis 69 BPM Sitting Heart Rate Post-Dialysis 73 BPM Standing Heart Rate Pre-Dialysis 68 BPM Standing Heart Rate Post-Dialysis 73 BPM Temperature Pre-Dialysis 98.4 degF Temperature Post -Dialysis 97.9 degF April 30, 2022 In-Center Hemodialysis Treatment 0303-04-31R45:03:00.000Z 0660-06-81D05:36:29.000Z BP Sitting (Pre-Dialysis) 170/88 mmHg BP Sitting (Post-Dialysis) 181/86 mmHg Concurrent Access: falseAV Fistula Upper Arm (Left) Arterial BP Standing (Pre-Dialysis) 152/82 mmHg BP Standing (P ost-Dialysis) 149/80 mmHg Sitting Heart Rate Pre-Dialysis 71 BPM Sitting Heart Rate Post-Dialysis 76 BPM Standing Heart Rate Pre-Dialysis 70 BPM Standing Heart Rate Post-Dialysis 77 BPM Temperature Pre-Dialysis 98.1 degF Temperature Post -Dialysis 97.9 degF April 27, 2022 In-Center Hemodialysis Treatment [id number]:01:00.000Z 9748-03-20G55:33:22.000Z BP Sitting (Pre-Dialysis) 153/78 mmHg BP Sitting (Post-Dialysis) 173/82 mmHg Concurrent Access: falseAV Fistula Upper Arm (Left) Arterial BP Standing (Pre-Dialysis) 145/75 mmHg BP Standing (P ost-Dialysis) 166/85 mmHg Sitting Heart Rate Pre-Dialysis 65 BPM Sitting Heart Rate Post-Dialysis 76 BPM Standing Heart Rate Pre-Dialysis 67 BPM Standing Heart Rate Post-Dialysis 77 BPM Temperature Pre-Dialysis 97.9 degF Temperature Post -Dialysis 97.9 degF April 25, 2022 In-Center Hemodialysis Treatment [id number]:10:00.000Z 0407-48-51B28:38:22.000Z BP Sitting (Pre-Dialysis) 169/88 mmHg BP Sitting (Post-Dialysis) 155/75 mmHg Concurrent Access: falseAV Fistula Upper Arm (Left) Arterial BP Standing (Pre-Dialysis) 160/83 mmHg BP Standing (P ost-Dialysis) 128/72 mmHg Sitting Heart Rate Pre-Dialysis 70 BPM Sitting Heart Rate Post-Dialysis 75 BPM Standing Heart Rate Pre-Dialysis 70 BPM Standing Heart Rate Post-Dialysis 76 BPM Temperature Pre-Dialysis 97.7 degF Temperature Post -Dialysis 97.9 degF April 23, 2022 In-Center Hemodialysis Treatment 5941-43-11C12:08:00.000Z 8696-01-38Q71:40:55.000Z BP Sitting (Pre-Dialysis) 153/52 mmHg BP Sitting (Post-Dialysis) 154/76 mmHg Concurrent Access: falseAV Fistula Upper Arm (Left) Arterial BP Standing (Pre-Dialysis) 142/71 mmHg BP Standing (P ost-Dialysis) 133/67 mmHg Sitting Heart Rate Pre-Dialysis 67 BPM Sitting Heart Rate Post-Dialysis 69 BPM Standing Heart Rate Pre-Dialysis 67 BPM Standing Heart Rate Post-Dialysis 72 BPM Temperature Pre-Dialysis 97.7 degF Temperature Post -Dialysis 97.7 degF April 20, 2022 In-Center Hemodialysis Treatment [id number]:04:00.000Z 0415-02-70F30:36:42.000Z BP Sitting (Pre-Dialysis) 165/91 mmHg BP Sitting (Post-Dialysis) 162/81 mmHg Concurrent Access: falseAV Fistula Upper Arm (Left) Arterial BP Standing (Pre-Dialysis) 157/84 mmHg BP Standing (P ost-Dialysis) 141/73 mmHg Sitting Heart Rate Pre-Dialysis 68 BPM Sitting Heart Rate Post-Dialysis 68 BPM Standing Heart Rate Pre-Dialysis 68 BPM Standing Heart Rate Post-Dialysis 71 BPM Temperature Pre-Dialysis 97.7 degF Temperature Post -Dialysis 98.5 degF April 18, 2022 In-Center Hemodialysis Treatment [id number]:00:00.000Z [id number]:32:42.000Z BP Sitting (Pre-Dialysis) 164/87 mmHg BP Sitting (Post-Dialysis) 155/73 mmHg Concurrent Access: falseAV Fistula Upper Arm (Left) Arterial BP Standing (Pre-Dialysis) 152/84 mmHg BP Standing (P ost-Dialysis) 140/71 mmHg Sitting Heart Rate Pre-Dialysis 66 BPM Sitting Heart Rate Post-Dialysis 66 BPM Standing Heart Rate Pre-Dialysis 66 BPM Standing Heart Rate Post-Dialysis 70 BPM Temperature Pre-Dialysis 98.1 degF Temperature Post -Dialysis 98.1 degF April 16, 2022 In-Center Hemodialysis Treatment [id number]:16:00.000Z [id number]:46:42.000Z BP Sitting (Pre-Dialysis) 156/80 mmHg BP Sitting (Post-Dialysis) 152/75 mmHg Concurrent Access: falseAV Fistula Upper Arm (Left) Arterial BP Standing (Pre-Dialysis) 155/81 mmHg BP Standing (P ost-Dialysis) 144/74 mmHg Sitting Heart Rate Pre-Dialysis 65 BPM Sitting Heart Rate Post-Dialysis 69 BPM Standing Heart Rate Pre-Dialysis 66 BPM Standing Heart Rate Post-Dialysis 71 BPM Temperature Pre-Dialysis 97.7 degF Temperature Post -Dialysis 98.1 degF DIALYSIS ORDER Dialysis Procedure Orders Type of Dialysis Procedure Order Order Date/Time Observations In-Center Hemodialysis Treatment May 07, 2025 Target Weight 69.5 kg Dialysate Flow Rate 600 mL/min Blood Flow Rate 400 mL/min Treatment Time 210 min(total) Max UF Rate 18 mL/kg/hr Base Sodium Dialysate Base Sodium 138 mE q/L dialysate_temp 37 C BiCarb Dialysate BiCarbonate 40 meq/L Access Concurrent No Arterial Access AV Graft (Upper Arm (Left)) Venous Access AV Graft (Upper Arm (Left)) Arterial Needle Display NIPRO, TULIP, 15 G x 1 , SHARP , TWIN Venous Needle NIPRO, [place], 15G x 1 , SHARP , TWIN Dialyzer [employer] Optiflux F [id number] [email or web address] Dialysate Bath Potassium Potassium 3 mEq /L Dialysate Bath Calcium Calcium 2.5 mEq/L In-Center Hemodialysis TreatmentJuly 2024 Observation Value Target Weight 70.5 kg Dialysate Flow Rate 600 mL/min Blood Flow Rate 400 mL/min Treatment Time 210 min(total) Max UF Rate 18 mL/kg/hr Base Sodium Dialysate Base Sodium 138 mE q/L dialysate_temp 37 C BiCarb Dialysate BiCarbonate 40 meq/L Access Concurrent No Arterial Access AV Graft (Upper Arm (Left)) Venous Access AV Graft (Upper Arm (Left)) Arterial Needle Display NIPRO, TULIP, 15 G x 1 , SHARP , TWIN Venous Needle NIPRO, TULIP, 15G x 1 , SHARP , TWIN Dialyzer [employer] Optiflux F [id number] [id number] [email or web address] Dialysate Bath Potassium Potassium 2 mEq /L Dialysate Bath Calcium Calcium 2.5 mEq/L In-Center Hemodialysis TreatmentJuly 2024 Observation Value Target Weight 73 kg Dialysate Flow Rate 600 mL/min Blood Flow Rate 400 mL/min Treatment Time 210 min(total) Max UF Rate 18 mL/kg/hr Base Sodium Dialysate Base Sodium 138 mE q/L dialysate_temp 37 C BiCarb Dialysate BiCarbonate 40 meq/L Access Concurrent No Arterial Access AV Graft (Upper Arm (Left)) Venous Access AV Graft (Upper Arm (Left)) Arterial Needle Display NIPRO, TULIP, 15 G x 1 , SHARP , TWIN Venous Needle NIPRO, TULIP, 15G x 1 , SHARP , TWIN Dialyzer Fres[employer]ius Optiflux F 180NR [id number] [email or web address] Dialysate Bath Potassium Potassium 2 mEq /L Dialysate Bath Calcium Calcium 2.5 mEq/L Results Adequacy Description Draw Date Result/Unit Status Ref Range Result Comments TBW ([place]) 2025-05-04 22:39:07 41.44 Liters F stdKt/V (DIAL) 2025-05-04 22:39:07 N/A F VM (KT/V MEAN VOL) 2025-05-04 22:39:07 37.9 F Residual kt/v 2025-05-04 22:39:07 F spKt/V 2025-05-04 22:39:07 1.38 F VT (KT/V TX VOL) 2025-05-04 22:39:07 42.2 L F stdKT/V Total 2025-05-04 22:39:07 N/A F Std Renal KT/V 2025-05-04 22:39:07 N/A F BSA ELVIS 2025-05-04 22:39:07 1.91 sq m F Total Kt/V 2025-05-04 22:39:07 1.38 F eKt/V 2025-05-04 22:39:07 1.17 F nPCR 2025-05-04 22:39:07 0.58 G/KG/D F KT/V PRESCRIBED 2025-05-04 22:39:07 1.72 F CURRENT KRU 2025-05-04 22:39:07 F LENGTH OF DIALYSIS 2025-05-04 22:39:07 213 min F DIALYZER FLOW-QD 2025-05-04 22:39:07 570 mL/min F BLOOD FLOW-QWB 2025-05-04 22:39:07 389 F WEIGHT (KG) 2025-05-04 22:39:07 70.5 kg F WEIGHT - POST DAY 1 2025-05-04 22:39:07 70.3 kg F PRESCRIBED DAYS/WEEK 2025-05-04 22:39:07 3 Day/Wk F Dialyzer ALEX 2025-05-04 22:39:07 1218 Calc F PATIENT AGE 2025-05-04 22:39:07 44 Years F TOTAL HOURS/WEEK DIALYSIS 2025-05-04 22:39:07 10 hrs F AMPUTATE FACTOR 2025-05-04 22:39:07 0 F HEIGHT IN INCHES 2025-05-04 22:39:07 72 Inches F WEIGHT - PRE DAY 1 2025-05-04 22:39:07 72.8 kg F URR% 2025-05-04 22:39:07 70 % F Creatinine [Mass/volume] in Serum or Plasma 2025-05-04 22:37:20 8.31 mg/dL F 0.7-1.3 Urea nitrogen [Mass/volume] in Serum or Plasma 2025-05-04 22:37:20 33 mg/dL F 9.0-23.0 Urea nitrogen [Mass/volume] in Serum or Plasma --post dialysis 2025-05-04 19:34:25 10 mg/dL F 9.0-23.0 BSA ELVIS 2025-04-06 16:23:19 1.96 sq m F KT/V PRESCRIBED 2025-04-06 16:23:19 1.65 F WEIGHT (KG) 2025-04-06 16:23:19 74.5 kg F Total Kt/V 2025-04-06 16:23:19 1.57 F WEIGHT - PRE DAY 1 2025-04-06 16:23:19 74.8 kg F LENGTH OF DIALYSIS 2025-04-06 16:23:19 211 min F PATIENT AGE 2025-04-06 16:23:19 44 Years F TBW ([place]) 2025-04-06 16:23:19 42.65 Liters F Dialyzer ALEX 2025-04-06 16:23:19 1218 Calc F TOTAL HOURS/WEEK DIALYSIS 2025-04-06 16:23:19 10 hrs F WEIGHT - POST DAY 1 2025-04-06 16:23:19 73.9 kg F CURRENT KRU 2025-04-06 16:23:19 F BSA ELVIS 2025-04-06 16:23:19 1.96 sq m F AMPUTATE FACTOR 2025-04-06 16:23:19 0 F HEIGHT IN INCHES 2025-04-06 16:23:19 72 Inches F stdKt/V (DIAL) 2025-04-06 16:23:19 N/A F WEIGHT (KG) 2025-04-06 16:23:19 74.5 kg F Std Renal KT/V 2025-04-06 16:23:19 N/A F spKt/V 2025-04-06 16:23:19 1.57 F KT/V PRESCRIBED 2025-04-06 16:23:19 1.65 F Residual kt/v 2025-04-06 16:23:19 F VT (KT/V TX VOL) 2025-04-06 16:23:19 37.2 L F TBW ([place]) 2025-04-06 16:23:19 42.65 Liters F eKt/V 2025-04-06 16:23:19 1.33 F WEIGHT - PRE DAY 1 2025-04-06 16:23:19 74.8 kg F DIALYZER FLOW-QD 2025-04-06 16:23:19 600 mL/min F Total Kt/V 2025-04-06 16:23:19 1.57 F WEIGHT - POST DAY 1 2025-04-06 16:23:19 73.9 kg F URR% 2025-04-06 16:23:19 76 % F Dialyzer ALEX 2025-04-06 16:23:19 1218 Calc F nPCR 2025-04-06 16:23:19 0.54 G/KG/D F PRESCRIBED DAYS/WEEK 2025-04-06 16:23:19 3 Day/Wk F CURRENT KRU 2025-04-06 16:23:19 F BLOOD FLOW-QWB 2025-04-06 16:23:19 392 F TOTAL HOURS/WEEK DIALYSIS 2025-04-06 16:23:19 10 hrs F PATIENT AGE 2025-04-06 16:23:19 44 Years F LENGTH OF DIALYSIS 2025-04-06 16:23:19 211 min F VM (KT/V MEAN VOL) 2025-04-06 16:23:19 36.4 F stdKT/V Total 2025-04-06 16:23:19 N/A F URR% 2025-04-06 16:23:19 76 % F DIALYZER FLOW-QD 2025-04-06 16:23:19 600 mL/min F Dialyzer ALEX 2025-04-06 16:23:19 1218 Calc F LENGTH OF DIALYSIS 2025-04-06 16:23:19 211 min F PATIENT AGE 2025-04-06 16:23:19 44 Years F BSA ELVIS 2025-04-06 16:23:19 1.96 sq m F WEIGHT - POST DAY 1 2025-04-06 16:23:19 73.9 kg F WEIGHT - PRE DAY 1 2025-04-06 16:23:19 74.8 kg F HEIGHT IN INCHES 2025-04-06 16:23:19 72 Inches F PRESCRIBED DAYS/WEEK 2025-04-06 16:23:19 3 Day/Wk F VM (KT/V MEAN VOL) 2025-04-06 16:23:19 36.4 F WEIGHT (KG) 2025-04-06 16:23:19 74.5 kg F Residual kt/v 2025-04-06 16:23:19 F VT (KT/V TX VOL) 2025-04-06 16:23:19 37.2 L F KT/V PRESCRIBED 2025-04-06 16:23:19 1.65 F Total Kt/V 2025-04-06 16:23:19 1.57 F nPCR 2025-04-06 16:23:19 0.54 G/KG/D F AMPUTATE FACTOR 2025-04-06 16:23:19 0 F TBW ([place]) 2025-04-06 16:23:19 42.65 Liters F spKt/V 2025-04-06 16:23:19 1.57 F stdKt/V (DIAL) 2025-04-06 16:23:19 N/A F eKt/V 2025-04-06 16:23:19 1.33 F Std Renal KT/V 2025-04-06 16:23:19 N/A F stdKT/V Total 2025-04-06 16:23:19 N/A F BLOOD FLOW-QWB 2025-04-06 16:23:19 392 F TOTAL HOURS/WEEK DIALYSIS 2025-04-06 16:23:19 10 hrs F CURRENT KRU 2025-04-06 16:23:19 F VT (KT/V TX VOL) 2025-04-06 16:23:19 37.2 L F TOTAL HOURS/WEEK DIALYSIS 2025-04-06 16:23:19 10 hrs F PATIENT AGE 2025-04-06 16:23:19 44 Years F VM (KT/V MEAN VOL) 2025-04-06 16:23:19 36.4 F HEIGHT IN INCHES 2025-04-06 16:23:19 72 Inches F WEIGHT (KG) 2025-04-06 16:23:19 74.5 kg F DIALYZER FLOW-QD 2025-04-06 16:23:19 600 mL/min F KT/V PRESCRIBED 2025-04-06 16:23:19 1.65 F TBW ([place]) 2025-04-06 16:23:19 42.65 Liters F Total Kt/V 2025-04-06 16:23:19 1.57 F BLOOD FLOW-QWB 2025-04-06 16:23:19 392 F Dialyzer ALEX 2025-04-06 16:23:19 1218 Calc F PRESCRIBED DAYS/WEEK 2025-04-06 16:23:19 3 Day/Wk F nPCR 2025-04-06 16:23:19 0.54 G/KG/D F Std Renal KT/V 2025-04-06 16:23:19 N/A F URR% 2025-04-06 16:23:19 76 % F WEIGHT - POST DAY 1 2025-04-06 16:23:19 73.9 kg F WEIGHT - PRE DAY 1 2025-04-06 16:23:19 74.8 kg F CURRENT KRU 2025-04-06 16:23:19 F eKt/V 2025-04-06 16:23:19 1.33 F spKt/V 2025-04-06 16:23:19 1.57 F AMPUTATE FACTOR 2025-04-06 16:23:19 0 F BSA ELVIS 2025-04-06 16:23:19 1.96 sq m F stdKT/V Total 2025-04-06 16:23:19 N/A F LENGTH OF DIALYSIS 2025-04-06 16:23:19 211 min F stdKt/V (DIAL) 2025-04-06 16:23:19 N/A F Residual kt/v 2025-04-06 16:23:19 F DIALYZER FLOW-QD 2025-04-06 16:23:19 600 mL/min F URR% 2025-04-06 16:23:19 76 % F PRESCRIBED DAYS/WEEK 2025-04-06 16:23:19 3 Day/Wk F HEIGHT IN INCHES 2025-04-06 16:23:19 72 Inches F VT (KT/V TX VOL) 2025-04-06 16:23:19 37.2 L F VM (KT/V MEAN VOL) 2025-04-06 16:23:19 36.4 F Residual kt/v 2025-04-06 16:23:19 F nPCR 2025-04-06 16:23:19 0.54 G/KG/D F spKt/V 2025-04-06 16:23:19 1.57 F eKt/V 2025-04-06 16:23:19 1.33 F AMPUTATE FACTOR 2025-04-06 16:23:19 0 F stdKt/V (DIAL) 2025-04-06 16:23:19 N/A F Std Renal KT/V 2025-04-06 16:23:19 N/A F stdKT/V Total 2025-04-06 16:23:19 N/A F BLOOD FLOW-QWB 2025-04-06 16:23:19 392 F Dialyzer ALEX 2025-04-06 16:23:19 1218 Calc F LENGTH OF DIALYSIS 2025-04-06 16:23:19 211 min F PATIENT AGE 2025-04-06 16:23:19 44 Years F BSA ELVIS 2025-04-06 16:23:19 1.96 sq m F WEIGHT - POST DAY 1 2025-04-06 16:23:19 73.9 kg F WEIGHT (KG) 2025-04-06 16:23:19 74.5 kg F KT/V PRESCRIBED 2025-04-06 16:23:19 1.65 F WEIGHT - PRE DAY 1 2025-04-06 16:23:19 74.8 kg F Total Kt/V 2025-04-06 16:23:19 1.57 F TBW ([place]) 2025-04-06 16:23:19 42.65 Liters F TOTAL HOURS/WEEK DIALYSIS 2025-04-06 16:23:19 10 hrs F CURRENT KRU 2025-04-06 16:23:19 F stdKt/V (DIAL) 2025-04-06 16:23:19 N/A F Std Renal KT/V 2025-04-06 16:23:19 N/A F Residual kt/v 2025-04-06 16:23:19 F AMPUTATE FACTOR 2025-04-06 16:23:19 0 F HEIGHT IN INCHES 2025-04-06 16:23:19 72 Inches F VM (KT/V MEAN VOL) 2025-04-06 16:23:19 36.4 F VT (KT/V TX VOL) 2025-04-06 16:23:19 37.2 L F spKt/V 2025-04-06 16:23:19 1.57 F nPCR 2025-04-06 16:23:19 0.54 G/KG/D F URR% 2025-04-06 16:23:19 76 % F BLOOD FLOW-QWB 2025-04-06 16:23:19 392 F DIALYZER FLOW-QD 2025-04-06 16:23:19 600 mL/min F PRESCRIBED DAYS/WEEK 2025-04-06 16:23:19 3 Day/Wk F stdKT/V Total 2025-04-06 16:23:19 N/A F eKt/V 2025-04-06 16:23:19 1.33 F Creatinine [Mass/volume] in Serum or Plasma 2025-04-06 16:21:18 10.15 mg/dL F 0.7-1.3 Creatinine [Mass/volume] in Serum or Plasma 2025-04-06 16:21:18 10.15 mg/dL F 0.7-1.3 Urea nitrogen [Mass/volume] in Serum or Plasma 2025-04-06 16:21:18 29 mg/dL F 9.0-23.0 Urea nitrogen [Mass/volume] in Serum or Plasma 2025-04-06 16:21:18 29 mg/dL F 9.0-23.0 Creatinine [Mass/volume] in Serum or Plasma 2025-04-06 16:21:18 10.15 mg/dL F 0.7-1.3 Urea nitrogen [Mass/volume] in Serum or Plasma 2025-04-06 16:21:18 29 mg/dL F 9.0-23.0 Creatinine [Mass/volume] in Serum or Plasma 2025-04-06 16:21:18 10.15 mg/dL F 0.7-1.3 Urea nitrogen [Mass/volume] in Serum or Plasma 2025-04-06 16:21:18 29 mg/dL F 9.0-23.0 Creatinine [Mass/volume] in Serum or Plasma 2025-04-06 16:21:18 10.15 mg/dL F 0.7-1.3 Urea nitrogen [Mass/volume] in Serum or Plasma 2025-04-06 16:21:18 29 mg/dL F 9.0-23.0 Urea nitrogen [Mass/volume] in Serum or Plasma --post dialysis 2025-04-06 14:23:21 7 mg/dL F 9.0-23.0 Urea nitrogen [Mass/volume] in Serum or Plasma --post dialysis 2025-04-06 14:23:21 7 mg/dL F 9.0-23.0 Urea nitrogen [Mass/volume] in Serum or Plasma --post dialysis 2025-04-06 14:23:21 7 mg/dL F 9.0-23.0 Urea nitrogen [Mass/volume] in Serum or Plasma --post dialysis 2025-04-06 14:23:21 7 mg/dL F 9.0-23.0 Urea nitrogen [Mass/volume] in Serum or Plasma --post dialysis 2025-04-06 14:23:21 7 mg/dL F 9.0-23.0 URR% 2025-03-03 04:28:33 70 % F DIALYZER FLOW-QD 2025-03-03 04:28:33 583 mL/min F Dialyzer ALEX 2025-03-03 04:28:33 1218 Calc F PATIENT AGE 2025-03-03 04:28:33 44 Years F LENGTH OF DIALYSIS 2025-03-03 04:28:33 215 min F WEIGHT - POST DAY 1 2025-03-03 04:28:33 75.3 kg F BSA ELVIS 2025-03-03 04:28:33 1.96 sq m F HEIGHT IN INCHES 2025-03-03 04:28:33 72 Inches F WEIGHT - PRE DAY 1 2025-03-03 04:28:33 78.2 kg F WEIGHT (KG) 2025-03-03 04:28:33 75 kg F PRESCRIBED DAYS/WEEK 2025-03-03 04:28:33 3 Day/Wk F VT (KT/V TX VOL) 2025-03-03 04:28:33 33.9 L F VM (KT/V MEAN VOL) 2025-03-03 04:28:33 36.2 F KT/V PRESCRIBED 2025-03-03 04:28:33 1.67 F Total Kt/V 2025-03-03 04:28:33 1.43 F Residual kt/v 2025-03-03 04:28:33 F Unable to calculate: Post BUN lab result is unknown nPCR 2025-03-03 04:28:33 0.69 G/KG/D F AMPUTATE FACTOR 2025-03-03 04:28:33 0 F TBW ([place]) 2025-03-03 04:28:33 43.12 Liters F eKt/V 2025-03-03 04:28:33 1.22 F spKt/V 2025-03-03 04:28:33 1.43 F Std Renal KT/V 2025-03-03 04:28:33 N/A F stdKt/V (DIAL) 2025-03-03 04:28:33 N/A F stdKT/V Total 2025-03-03 04:28:33 N/A F TOTAL HOURS/WEEK DIALYSIS 2025-03-03 04:28:33 10 hrs F BLOOD FLOW-QWB 2025-03-03 04:28:33 279 F CURRENT KRU 2025-03-03 04:28:33 F Unable to calculate: Post BUN lab result is unknown URR% 2025-03-03 04:28:33 70 % F TBW ([place]) 2025-03-03 04:28:33 43.12 Liters F VT (KT/V TX VOL) 2025-03-03 04:28:33 33.9 L F WEIGHT (KG) 2025-03-03 04:28:33 75 kg F WEIGHT - PRE DAY 1 2025-03-03 04:28:33 78.2 kg F BSA ELVIS 2025-03-03 04:28:33 1.96 sq m F LENGTH OF DIALYSIS 2025-03-03 04:28:33 215 min F PRESCRIBED DAYS/WEEK 2025-03-03 04:28:33 3 Day/Wk F AMPUTATE FACTOR 2025-03-03 04:28:33 0 F DIALYZER FLOW-QD 2025-03-03 04:28:33 583 mL/min F WEIGHT - POST DAY 1 2025-03-03 04:28:33 75.3 kg F BLOOD FLOW-QWB 2025-03-03 04:28:33 279 F nPCR 2025-03-03 04:28:33 0.69 G/KG/D F VM (KT/V MEAN VOL) 2025-03-03 04:28:33 36.2 F Dialyzer ALEX 2025-03-03 04:28:33 1218 Calc F stdKT/V Total 2025-03-03 04:28:33 N/A F Residual kt/v 2025-03-03 04:28:33 F Unable to calculate: Post BUN lab result is unknown spKt/V 2025-03-03 04:28:33 1.43 F Total Kt/V 2025-03-03 04:28:33 1.43 F HEIGHT IN INCHES 2025-03-03 04:28:33 72 Inches F PATIENT AGE 2025-03-03 04:28:33 44 Years F TOTAL HOURS/WEEK DIALYSIS 2025-03-03 04:28:33 10 hrs F KT/V PRESCRIBED 2025-03-03 04:28:33 1.67 F Std Renal KT/V 2025-03-03 04:28:33 N/A F eKt/V 2025-03-03 04:28:33 1.22 F CURRENT KRU 2025-03-03 04:28:33 F Unable to calculate: Post BUN lab result is unknown stdKt/V (DIAL) 2025-03-03 04:28:33 N/A F URR% 2025-03-03 04:28:33 70 % F VT (KT/V TX VOL) 2025-03-03 04:28:33 33.9 L F BSA ELVIS 2025-03-03 04:28:33 1.96 sq m F VM (KT/V MEAN VOL) 2025-03-03 04:28:33 36.2 F PRESCRIBED DAYS/WEEK 2025-03-03 04:28:33 3 Day/Wk F KT/V PRESCRIBED 2025-03-03 04:28:33 1.67 F nPCR 2025-03-03 04:28:33 0.69 G/KG/D F Total Kt/V 2025-03-03 04:28:33 1.43 F TBW ([place]) 2025-03-03 04:28:33 43.12 Liters F Std Renal KT/V 2025-03-03 04:28:33 N/A F DIALYZER FLOW-QD 2025-03-03 04:28:33 583 mL/min F Dialyzer ALEX 2025-03-03 04:28:33 1218 Calc F LENGTH OF DIALYSIS 2025-03-03 04:28:33 215 min F PATIENT AGE 2025-03-03 04:28:33 44 Years F WEIGHT - POST DAY 1 2025-03-03 04:28:33 75.3 kg F HEIGHT IN INCHES 2025-03-03 04:28:33 72 Inches F WEIGHT - PRE DAY 1 2025-03-03 04:28:33 78.2 kg F WEIGHT (KG) 2025-03-03 04:28:33 75 kg F AMPUTATE FACTOR 2025-03-03 04:28:33 0 F eKt/V 2025-03-03 04:28:33 1.22 F Residual kt/v 2025-03-03 04:28:33 F Unable to calculate: Post BUN lab result is unknown spKt/V 2025-03-03 04:28:33 1.43 F stdKt/V (DIAL) 2025-03-03 04:28:33 N/A F stdKT/V Total 2025-03-03 04:28:33 N/A F TOTAL HOURS/WEEK DIALYSIS 2025-03-03 04:28:33 10 hrs F BLOOD FLOW-QWB 2025-03-03 04:28:33 279 F CURRENT KRU 2025-03-03 04:28:33 F Unable to calculate: Post BUN lab result is unknown Urea nitrogen [Mass/volume] in Serum or Plasma --post dialysis 2025-03-03 04:24:22 12 mg/dL F 9.0-23.0 Urea nitrogen [Mass/volume] in Serum or Plasma --post dialysis 2025-03-03 04:24:22 12 mg/dL F 9.0-23.0 Urea nitrogen [Mass/volume] in Serum or Plasma --post dialysis 2025-03-03 04:24:22 12 mg/dL F 9.0-23.0 Urea nitrogen [Mass/volume] in Serum or Plasma 2025-03-03 03:40:00 40 mg/dL F 9.0-23.0 Creatinine [Mass/volume] in Serum or Plasma 2025-03-03 03:40:00 10.92 mg/dL F 0.7-1.3 Creatinine [Mass/volume] in Serum or Plasma 2025-03-03 03:40:00 10.92 mg/dL F 0.7-1.3 Urea nitrogen [Mass/volume] in Serum or Plasma 2025-03-03 03:40:00 40 mg/dL F 9.0-23.0 Urea nitrogen [Mass/volume] in Serum or Plasma 2025-03-03 03:40:00 40 mg/dL F 9.0-23.0 Creatinine [Mass/volume] in Serum or Plasma 2025-03-03 03:40:00 10.92 mg/dL F 0.7-1.3 DIALYZER FLOW-QD 2025-02-09 14:10:50 570 mL/min F Dialyzer ALEX 2025-02-09 14:10:50 1218 Calc F URR% 2025-02-09 14:10:50 72 % F PATIENT AGE 2025-02-09 14:10:50 44 Years F LENGTH OF DIALYSIS 2025-02-09 14:10:50 212 min F BSA ELVIS 2025-02-09 14:10:50 1.96 sq m F WEIGHT - POST DAY 1 2025-02-09 14:10:50 75.3 kg F HEIGHT IN INCHES 2025-02-09 14:10:50 72 Inches F WEIGHT (KG) 2025-02-09 14:10:50 75 kg F WEIGHT - PRE DAY 1 2025-02-09 14:10:50 79.2 kg F VT (KT/V TX VOL) 2025-02-09 14:10:50 38.6 L F PRESCRIBED DAYS/WEEK 2025-02-09 14:10:50 3 Day/Wk F VM (KT/V MEAN VOL) 2025-02-09 14:10:50 36.9 F Residual kt/v 2025-02-09 14:10:50 F Unable to calculate: Pre BUN lab result is unknown Total Kt/V 2025-02-09 14:10:50 1.52 F AMPUTATE FACTOR 2025-02-09 14:10:50 0 F KT/V PRESCRIBED 2025-02-09 14:10:50 1.65 F nPCR 2025-02-09 14:10:50 0.88 G/KG/D F TBW ([place]) 2025-02-09 14:10:50 43.12 Liters F spKt/V 2025-02-09 14:10:50 1.52 F stdKt/V (DIAL) 2025-02-09 14:10:50 N/A F eKt/V 2025-02-09 14:10:50 1.29 F Std Renal KT/V 2025-02-09 14:10:50 N/A F stdKT/V Total 2025-02-09 14:10:50 N/A F TOTAL HOURS/WEEK DIALYSIS 2025-02-09 14:10:50 10 hrs F BLOOD FLOW-QWB 2025-02-09 14:10:50 400 F CURRENT KRU 2025-02-09 14:10:50 F Unable to calculate: Pre BUN lab result is unknown WEIGHT - POST DAY 1 2025-02-09 14:10:50 75.3 kg F eKt/V 2025-02-09 14:10:50 1.29 F PATIENT AGE 2025-02-09 14:10:50 44 Years F WEIGHT (KG) 2025-02-09 14:10:50 75 kg F nPCR 2025-02-09 14:10:50 0.88 G/KG/D F stdKt/V (DIAL) 2025-02-09 14:10:50 N/A F DIALYZER FLOW-QD 2025-02-09 14:10:50 570 mL/min F spKt/V 2025-02-09 14:10:50 1.52 F Dialyzer ALEX 2025-02-09 14:10:50 1218 Calc F BLOOD FLOW-QWB 2025-02-09 14:10:50 400 F Total Kt/V 2025-02-09 14:10:50 1.52 F BSA ELVIS 2025-02-09 14:10:50 1.96 sq m F KT/V PRESCRIBED 2025-02-09 14:10:50 1.65 F URR% 2025-02-09 14:10:50 72 % F AMPUTATE FACTOR 2025-02-09 14:10:50 0 F PRESCRIBED DAYS/WEEK 2025-02-09 14:10:50 3 Day/Wk F Std Renal KT/V 2025-02-09 14:10:50 N/A F WEIGHT - PRE DAY 1 2025-02-09 14:10:50 79.2 kg F VM (KT/V MEAN VOL) 2025-02-09 14:10:50 36.9 F LENGTH OF DIALYSIS 2025-02-09 14:10:50 212 min F TOTAL HOURS/WEEK DIALYSIS 2025-02-09 14:10:50 10 hrs F HEIGHT IN INCHES 2025-02-09 14:10:50 72 Inches F TBW ([place]) 2025-02-09 14:10:50 43.12 Liters F stdKT/V Total 2025-02-09 14:10:50 N/A F Residual kt/v 2025-02-09 14:10:50 F Unable to calculate: Pre BUN lab result is unknown CURRENT KRU 2025-02-09 14:10:50 F Unable to calculate: Pre BUN lab result is unknown VT (KT/V TX VOL) 2025-02-09 14:10:50 38.6 L F PRESCRIBED DAYS/WEEK 2025-02-09 14:10:50 3 Day/Wk F Dialyzer ALEX 2025-02-09 14:10:50 1218 Calc F WEIGHT - POST DAY 1 2025-02-09 14:10:50 75.3 kg F BLOOD FLOW-QWB 2025-02-09 14:10:50 400 F Residual kt/v 2025-02-09 14:10:50 F Unable to calculate: Pre BUN lab result is unknown TBW ([place]) 2025-02-09 14:10:50 43.12 Liters F TOTAL HOURS/WEEK DIALYSIS 2025-02-09 14:10:50 10 hrs F AMPUTATE FACTOR 2025-02-09 14:10:50 0 F stdKT/V Total 2025-02-09 14:10:50 N/A F BSA ELVIS 2025-02-09 14:10:50 1.96 sq m F DIALYZER FLOW-QD 2025-02-09 14:10:50 570 mL/min F KT/V PRESCRIBED 2025-02-09 14:10:50 1.65 F eKt/V 2025-02-09 14:10:50 1.29 F LENGTH OF DIALYSIS 2025-02-09 14:10:50 212 min F VM (KT/V MEAN VOL) 2025-02-09 14:10:50 36.9 F spKt/V 2025-02-09 14:10:50 1.52 F URR% 2025-02-09 14:10:50 72 % F HEIGHT IN INCHES 2025-02-09 14:10:50 72 Inches F nPCR 2025-02-09 14:10:50 0.88 G/KG/D F stdKt/V (DIAL) 2025-02-09 14:10:50 N/A F WEIGHT (KG) 2025-02-09 14:10:50 75 kg F WEIGHT - PRE DAY 1 2025-02-09 14:10:50 79.2 kg F CURRENT KRU 2025-02-09 14:10:50 F Unable to calculate: Pre BUN lab result is unknown VT (KT/V TX VOL) 2025-02-09 14:10:50 38.6 L F Std Renal KT/V 2025-02-09 14:10:50 N/A F PATIENT AGE 2025-02-09 14:10:50 44 Years F Total Kt/V 2025-02-09 14:10:50 1.52 F Urea nitrogen [Mass/volume] in Serum or Plasma 2025-02-09 14:09:10 53 mg/dL F 9.0-23.0 Creatinine [Mass/volume] in Serum or Plasma 2025-02-09 14:09:10 11.34 mg/dL F 0.7-1.3 Creatinine [Mass/volume] in Serum or Plasma 2025-02-09 14:09:10 11.34 mg/dL F 0.7-1.3 Urea nitrogen [Mass/volume] in Serum or Plasma 2025-02-09 14:09:10 53 mg/dL F 9.0-23.0 Creatinine [Mass/volume] in Serum or Plasma 2025-02-09 14:09:10 11.34 mg/dL F 0.7-1.3 Urea nitrogen [Mass/volume] in Serum or Plasma 2025-02-09 14:09:10 53 mg/dL F 9.0-23.0 Urea nitrogen [Mass/volume] in Serum or Plasma --post dialysis 2025-02-09 13:41:17 15 mg/dL F 9.0-23.0 Urea nitrogen [Mass/volume] in Serum or Plasma --post dialysis 2025-02-09 13:41:17 15 mg/dL F 9.0-23.0 Urea nitrogen [Mass/volume] in Serum or Plasma --post dialysis 2025-02-09 13:41:17 15 mg/dL F 9.0-23.0 Anemia Description Draw Date Result/Unit Status Ref Range Result Comments HCT CALC HGBX3 2025-05-19 00:59:01 34.5 % F 42.0-52.0 Hemoglobin [Mass/volume] in Blood 2025-05-19 00:58:16 11.5 g/dL F 14.0-18.0 HCT CALC HGBX3 2025-05-04 17:12:01 34.2 % F 42.0-52.0 Erythrocyte distribution width [Ratio] by Automated count 2025-05-04 17:11:11 13.6 % F 11.0-15.0 Hemoglobin [Mass/volume] in Blood 2025-05-04 17:11:11 11.4 g/dL F 14.0-18.0 Platelets [#/volume] in Blood by Automated count 2025-05-04 17:11:11 103 x 10^3 cells/uL F 140.0-450.0 MCH [Entitic mass] by Automated count 2025-05-04 17:11:11 32.9 pg F 25.9-34.2 MCHC [Mass/volume] by Automated count 2025-05-04 17:11:11 32 g/dL F 29.6-35.3 Erythrocytes [#/volume] in Blood by Automated count 2025-05-04 17:11:11 3.48 x 10^6 cells/uL F 4.6-6.2 Hematocrit [Volume Fraction] of Blood by Automated count 2025-05-04 17:11:11 35.8 % F 41.0-53.0 MCV [Entitic volume] by Automated count 2025-05-04 17:11:11 102.8 fL F 80.0-100.0 HCT CALC HGBX3 2025-04-21 00:23:23 34.2 % F 42.0-52.0 Hemoglobin [Mass/volume] in Blood 2025-04-21 00:22:09 11.4 g/dL F 14.0-18.0 HCT CALC HGBX3 2025-04-13 23:10:06 34.2 % F 42.0-52.0 HCT CALC HGBX3 2025-04-13 23:10:06 34.2 % F 42.0-52.0 Hemoglobin [Mass/volume] in Blood 2025-04-13 23:09:20 11.4 g/dL F 14.0-18.0 Hemoglobin [Mass/volume] in Blood 2025-04-13 23:09:20 11.4 g/dL F 14.0-18.0 IRON SATURATION 2025-04-07 02:29:59 22 % F 21.0-49.0 IRON SATURATION 2025-04-07 02:29:59 22 % F 21.0-49.0 TIBC 2025-04-07 02:29:59 179 ug/dL F 250.0-425.0 IRON SATURATION 2025-04-07 02:29:59 22 % F 21.0-49.0 TIBC 2025-04-07 02:29:59 179 ug/dL F 250.0-425.0 IRON SATURATION 2025-04-07 02:29:59 22 % F 21.0-49.0 TIBC 2025-04-07 02:29:59 179 ug/dL F 250.0-425.0 TIBC 2025-04-07 02:29:59 179 ug/dL F 250.0-425.0 IRON SATURATION 2025-04-07 02:29:59 22 % F 21.0-49.0 TIBC 2025-04-07 02:29:59 179 ug/dL F 250.0-425.0 Iron binding capacity.unsaturated [Mass/volume] in Serum or Plasma 2025-04-07 02:26:32 139 ug/dL F 75.0-360.0 Iron binding capacity.unsaturated [Mass/volume] in Serum or Plasma 2025-04-07 02:26:32 139 ug/dL F 75.0-360.0 Iron binding capacity.unsaturated [Mass/volume] in Serum or Plasma 2025-04-07 02:26:32 139 ug/dL F 75.0-360.0 Iron binding capacity.unsaturated [Mass/volume] in Serum or Plasma 2025-04-07 02:26:32 139 ug/dL F 75.0-360.0 Iron binding capacity.unsaturated [Mass/volume] in Serum or Plasma 2025-04-07 02:26:32 139 ug/dL F 75.0-360.0 Iron [Mass/volume] in Serum or Plasma 2025-04-07 02:26:25 40 ug/dL F 65.0-175.0 Iron [Mass/volume] in Serum or Plasma 2025-04-07 02:26:25 40 ug/dL F 65.0-175.0 Iron [Mass/volume] in Serum or Plasma 2025-04-07 02:26:25 40 ug/dL F 65.0-175.0 Iron [Mass/volume] in Serum or Plasma 2025-04-07 02:26:25 40 ug/dL F 65.0-175.0 Iron [Mass/volume] in Serum or Plasma 2025-04-07 02:26:25 40 ug/dL F 65.0-175.0 HCT CALC HGBX3 2025-04-06 21:51:09 36.6 % F 42.0-52.0 HCT CALC HGBX3 2025-04-06 21:51:09 36.6 % F 42.0-52.0 HCT CALC HGBX3 2025-04-06 21:51:09 36.6 % F 42.0-52.0 HCT CALC HGBX3 2025-04-06 21:51:09 36.6 % F 42.0-52.0 HCT CALC HGBX3 2025-04-06 21:51:09 36.6 % F 42.0-52.0 Hemoglobin [Mass/volume] in Blood 2025-04-06 21:50:13 12.2 g/dL F 14.0-18.0 Platelets [#/volume] in Blood by Automated count 2025-04-06 21:50:13 109 x 10^3 cells/uL F 140.0-450.0 MCH [Entitic mass] by Automated count 2025-04-06 21:50:13 34.7 pg F 25.9-34.2 MCHC [Mass/volume] by Automated count 2025-04-06 21:50:13 33.3 g/dL F 29.6-35.3 Erythrocyte distribution width [Ratio] by Automated count 2025-04-06 21:50:13 13.3 % F 11.0-15.0 Hemoglobin [Mass/volume] in Blood 2025-04-06 21:50:13 12.2 g/dL F 14.0-18.0 Platelets [#/volume] in Blood by Automated count 2025-04-06 21:50:13 109 x 10^3 cells/uL F 140.0-450.0 MCH [Entitic mass] by Automated count 2025-04-06 21:50:13 34.7 pg F 25.9-34.2 MCHC [Mass/volume] by Automated count 2025-04-06 21:50:13 33.3 g/dL F 29.6-35.3 Erythrocytes [#/volume] in Blood by Automated count 2025-04-06 21:50:13 3.51 x 10^6 cells/uL F 4.6-6.2 Hematocrit [Volume Fraction] of Blood by Automated count 2025-04-06 21:50:13 36.6 % F 41.0-53.0 MCV [Entitic volume] by Automated count 2025-04-06 21:50:13 104.4 fL F 80.0-100.0 Erythrocyte distribution width [Ratio] by Automated count 2025-04-06 21:50:13 13.3 % F 11.0-15.0 Hematocrit [Volume Fraction] of Blood by Automated count 2025-04-06 21:50:13 36.6 % F 41.0-53.0 Hemoglobin [Mass/volume] in Blood 2025-04-06 21:50:13 12.2 g/dL F 14.0-18.0 Erythrocytes [#/volume] in Blood by Automated count 2025-04-06 21:50:13 3.51 x 10^6 cells/uL F 4.6-6.2 MCV [Entitic volume] by Automated count 2025-04-06 21:50:13 104.4 fL F 80.0-100.0 MCHC [Mass/volume] by Automated count 2025-04-06 21:50:13 33.3 g/dL F 29.6-35.3 MCH [Entitic mass] by Automated count 2025-04-06 21:50:13 34.7 pg F 25.9-34.2 Platelets [#/volume] in Blood by Automated count 2025-04-06 21:50:13 109 x 10^3 cells/uL F 140.0-450.0 Hematocrit [Volume Fraction] of Blood by Automated count 2025-04-06 21:50:13 36.6 % F 41.0-53.0 Platelets [#/volume] in Blood by Automated count 2025-04-06 21:50:13 109 x 10^3 cells/uL F 140.0-450.0 Hemoglobin [Mass/volume] in Blood 2025-04-06 21:50:13 12.2 g/dL F 14.0-18.0 MCHC [Mass/volume] by Automated count 2025-04-06 21:50:13 33.3 g/dL F 29.6-35.3 Erythrocyte distribution width [Ratio] by Automated count 2025-04-06 21:50:13 13.3 % F 11.0-15.0 MCH [Entitic mass] by Automated count 2025-04-06 21:50:13 34.7 pg F 25.9-34.2 Erythrocytes [#/volume] in Blood by Automated count 2025-04-06 21:50:13 3.51 x 10^6 cells/uL F 4.6-6.2 MCV [Entitic volume] by Automated count 2025-04-06 21:50:13 104.4 fL F 80.0-100.0 Erythrocyte distribution width [Ratio] by Automated count 2025-04-06 21:50:13 13.3 % F 11.0-15.0 Erythrocytes [#/volume] in Blood by Automated count 2025-04-06 21:50:13 3.51 x 10^6 cells/uL F 4.6-6.2 Hematocrit [Volume Fraction] of Blood by Automated count 2025-04-06 21:50:13 36.6 % F 41.0-53.0 MCV [Entitic volume] by Automated count 2025-04-06 21:50:13 104.4 fL F 80.0-100.0 Hemoglobin [Mass/volume] in Blood 2025-04-06 21:50:13 12.2 g/dL F 14.0-18.0 MCH [Entitic mass] by Automated count 2025-04-06 21:50:13 34.7 pg F 25.9-34.2 MCHC [Mass/volume] by Automated count 2025-04-06 21:50:13 33.3 g/dL F 29.6-35.3 Platelets [#/volume] in Blood by Automated count 2025-04-06 21:50:13 109 x 10^3 cells/uL F 140.0-450.0 Erythrocyte distribution width [Ratio] by Automated count 2025-04-06 21:50:13 13.3 % F 11.0-15.0 Erythrocytes [#/volume] in Blood by Automated count 2025-04-06 21:50:13 3.51 x 10^6 cells/uL F 4.6-6.2 Hematocrit [Volume Fraction] of Blood by Automated count 2025-04-06 21:50:13 36.6 % F 41.0-53.0 MCV [Entitic volume] by Automated count 2025-04-06 21:50:13 104.4 fL F 80.0-100.0 Ferritin [Mass/volume] in Serum or Plasma 2025-04-06 17:39:11 1099 ng/mL F 22.0-322.0 Ferritin [Mass/volume] in Serum or Plasma 2025-04-06 17:39:11 1099 ng/mL F 22.0-322.0 Ferritin [Mass/volume] in Serum or Plasma 2025-04-06 17:39:11 1099 ng/mL F 22.0-322.0 Ferritin [Mass/volume] in Serum or Plasma 2025-04-06 17:39:11 1099 ng/mL F 22.0-322.0 Ferritin [Mass/volume] in Serum or Plasma 2025-04-06 17:39:11 1099 ng/mL F 22.0-322.0 IRON SATURATION 2025-03-18 17:11:50 44 % F 21.0-49.0 TIBC 2025-03-18 17:11:50 212 ug/dL F 250.0-425.0 IRON SATURATION 2025-03-18 17:11:50 44 % F 21.0-49.0 TIBC 2025-03-18 17:11:50 212 ug/dL F 250.0-425.0 IRON SATURATION 2025-03-18 17:11:50 44 % F 21.0-49.0 TIBC 2025-03-18 17:11:50 212 ug/dL F 250.0-425.0 Iron [Mass/volume] in Serum or Plasma 2025-03-18 17:08:41 93 ug/dL F 65.0-175.0 Iron binding capacity.unsaturated [Mass/volume] in Serum or Plasma 2025-03-18 17:08:41 119 ug/dL F 75.0-360.0 Iron binding capacity.unsaturated [Mass/volume] in Serum or Plasma 2025-03-18 17:08:41 119 ug/dL F 75.0-360.0 Iron [Mass/volume] in Serum or Plasma 2025-03-18 17:08:41 93 ug/dL F 65.0-175.0 Iron [Mass/volume] in Serum or Plasma 2025-03-18 17:08:41 93 ug/dL F 65.0-175.0 Iron binding capacity.unsaturated [Mass/volume] in Serum or Plasma 2025-03-18 17:08:41 119 ug/dL F 75.0-360.0 Ferritin [Mass/volume] in Serum or Plasma 2025-03-18 14:22:18 700 ng/mL F 22.0-322.0 Ferritin [Mass/volume] in Serum or Plasma 2025-03-18 14:22:18 700 ng/mL F 22.0-322.0 Ferritin [Mass/volume] in Serum or Plasma 2025-03-18 14:22:18 700 ng/mL F 22.0-322.0 HCT CALC HGBX3 2025-03-16 23:23:08 35.4 % F 42.0-52.0 HCT CALC HGBX3 2025-03-16 23:23:08 35.4 % F 42.0-52.0 Hemoglobin [Mass/volume] in Blood 2025-03-16 23:22:18 11.8 g/dL F 14.0-18.0 Hemoglobin [Mass/volume] in Blood 2025-03-16 23:22:18 11.8 g/dL F 14.0-18.0 HCT CALC HGBX3 2025-03-10 12:13:45 41.4 % F 42.0-52.0 HCT CALC HGBX3 2025-03-10 12:13:45 41.4 % F 42.0-52.0 HCT CALC HGBX3 2025-03-10 12:13:45 41.4 % F 42.0-52.0 Hemoglobin [Mass/volume] in Blood 2025-03-10 12:13:09 13.8 g/dL F 14.0-18.0 Hemoglobin [Mass/volume] in Blood 2025-03-10 12:13:09 13.8 g/dL F 14.0-18.0 Hemoglobin [Mass/volume] in Blood 2025-03-10 12:13:09 13.8 g/dL F 14.0-18.0 HCT CALC HGBX3 2025-03-03 04:14:21 38.4 % F 42.0-52.0 HCT CALC HGBX3 2025-03-03 04:14:21 38.4 % F 42.0-52.0 HCT CALC HGBX3 2025-03-03 04:14:21 38.4 % F 42.0-52.0 Erythrocyte distribution width [Ratio] by Automated count 2025-03-03 04:13:14 13.6 % F 11.0-15.0 Erythrocytes [#/volume] in Blood by Automated count 2025-03-03 04:13:14 3.81 x 10^6 cells/uL F 4.6-6.2 Hematocrit [Volume Fraction] of Blood by Automated count 2025-03-03 04:13:14 40.9 % F 41.0-53.0 Hemoglobin [Mass/volume] in Blood 2025-03-03 04:13:14 12.8 g/dL F 14.0-18.0 MCH [Entitic mass] by Automated count 2025-03-03 04:13:14 33.5 pg F 25.9-34.2 MCV [Entitic volume] by Automated count 2025-03-03 04:13:14 107.3 fL F 80.0-100.0 MCHC [Mass/volume] by Automated count 2025-03-03 04:13:14 31.2 g/dL F 29.6-35.3 Platelets [#/volume] in Blood by Automated count 2025-03-03 04:13:14 119 x 10^3 cells/uL F 140.0-450.0 MCH [Entitic mass] by Automated count 2025-03-03 04:13:14 33.5 pg F 25.9-34.2 Platelets [#/volume] in Blood by Automated count 2025-03-03 04:13:14 119 x 10^3 cells/uL F 140.0-450.0 Erythrocytes [#/volume] in Blood by Automated count 2025-03-03 04:13:14 3.81 x 10^6 cells/uL F 4.6-6.2 Hemoglobin [Mass/volume] in Blood 2025-03-03 04:13:14 12.8 g/dL F 14.0-18.0 MCV [Entitic volume] by Automated count 2025-03-03 04:13:14 107.3 fL F 80.0-100.0 Hematocrit [Volume Fraction] of Blood by Automated count 2025-03-03 04:13:14 40.9 % F 41.0-53.0 Erythrocyte distribution width [Ratio] by Automated count 2025-03-03 04:13:14 13.6 % F 11.0-15.0 MCHC [Mass/volume] by Automated count 2025-03-03 04:13:14 31.2 g/dL F 29.6-35.3 Hematocrit [Volume Fraction] of Blood by Automated count 2025-03-03 04:13:14 40.9 % F 41.0-53.0 Erythrocyte distribution width [Ratio] by Automated count 2025-03-03 04:13:14 13.6 % F 11.0-15.0 MCHC [Mass/volume] by Automated count 2025-03-03 04:13:14 31.2 g/dL F 29.6-35.3 Hemoglobin [Mass/volume] in Blood 2025-03-03 04:13:14 12.8 g/dL F 14.0-18.0 MCV [Entitic volume] by Automated count 2025-03-03 04:13:14 107.3 fL F 80.0-100.0 Platelets [#/volume] in Blood by Automated count 2025-03-03 04:13:14 119 x 10^3 cells/uL F 140.0-450.0 Erythrocytes [#/volume] in Blood by Automated count 2025-03-03 04:13:14 3.81 x 10^6 cells/uL F 4.6-6.2 MCH [Entitic mass] by Automated count 2025-03-03 04:13:14 33.5 pg F 25.9-34.2 HCT CALC HGBX3 2025-02-23 20:40:42 36.6 % F 42.0-52.0 HCT CALC HGBX3 2025-02-23 20:40:42 36.6 % F 42.0-52.0 Hemoglobin [Mass/volume] in Blood 2025-02-23 20:40:12 12.2 g/dL F 14.0-18.0 Hemoglobin [Mass/volume] in Blood 2025-02-23 20:40:12 12.2 g/dL F 14.0-18.0 HCT CALC HGBX3 2025-02-17 15:00:09 36.9 % F 42.0-52.0 HCT CALC HGBX3 2025-02-17 15:00:09 36.9 % F 42.0-52.0 HCT CALC HGBX3 2025-02-17 15:00:09 36.9 % F 42.0-52.0 Hemoglobin [Mass/volume] in Blood 2025-02-17 14:59:11 12.3 g/dL F 14.0-18.0 Hemoglobin [Mass/volume] in Blood 2025-02-17 14:59:11 12.3 g/dL F 14.0-18.0 Hemoglobin [Mass/volume] in Blood 2025-02-17 14:59:11 12.3 g/dL F 14.0-18.0 HCT CALC HGBX3 2025-02-09 14:23:04 37.8 % F 42.0-52.0 HCT CALC HGBX3 2025-02-09 14:23:04 37.8 % F 42.0-52.0 HCT CALC HGBX3 2025-02-09 14:23:04 37.8 % F 42.0-52.0 Erythrocyte distribution width [Ratio] by Automated count 2025-02-09 14:22:10 14.2 % F 11.0-15.0 Hemoglobin [Mass/volume] in Blood 2025-02-09 14:22:10 12.6 g/dL F 14.0-18.0 MCH [Entitic mass] by Automated count 2025-02-09 14:22:10 33.2 pg F 25.9-34.2 MCV [Entitic volume] by Automated count 2025-02-09 14:22:10 105.4 fL F 80.0-100.0 Hematocrit [Volume Fraction] of Blood by Automated count 2025-02-09 14:22:10 39.9 % F 41.0-53.0 MCHC [Mass/volume] by Automated count 2025-02-09 14:22:10 31.5 g/dL F 29.6-35.3 Platelets [#/volume] in Blood by Automated count 2025-02-09 14:22:10 119 x 10^3 cells/uL F 140.0-450.0 Hematocrit [Volume Fraction] of Blood by Automated count 2025-02-09 14:22:10 39.9 % F 41.0-53.0 MCHC [Mass/volume] by Automated count 2025-02-09 14:22:10 31.5 g/dL F 29.6-35.3 MCH [Entitic mass] by Automated count 2025-02-09 14:22:10 33.2 pg F 25.9-34.2 Platelets [#/volume] in Blood by Automated count 2025-02-09 14:22:10 119 x 10^3 cells/uL F 140.0-450.0 Erythrocyte distribution width [Ratio] by Automated count 2025-02-09 14:22:10 14.2 % F 11.0-15.0 Hemoglobin [Mass/volume] in Blood 2025-02-09 14:22:10 12.6 g/dL F 14.0-18.0 MCV [Entitic volume] by Automated count 2025-02-09 14:22:10 105.4 fL F 80.0-100.0 Hemoglobin [Mass/volume] in Blood 2025-02-09 14:22:10 12.6 g/dL F 14.0-18.0 MCH [Entitic mass] by Automated count 2025-02-09 14:22:10 33.2 pg F 25.9-34.2 MCHC [Mass/volume] by Automated count 2025-02-09 14:22:10 31.5 g/dL F 29.6-35.3 Hematocrit [Volume Fraction] of Blood by Automated count 2025-02-09 14:22:10 39.9 % F 41.0-53.0 Erythrocyte distribution width [Ratio] by Automated count 2025-02-09 14:22:10 14.2 % F 11.0-15.0 Platelets [#/volume] in Blood by Automated count 2025-02-09 14:22:10 119 x 10^3 cells/uL F 140.0-450.0 MCV [Entitic volume] by Automated count 2025-02-09 14:22:10 105.4 fL F 80.0-100.0 Erythrocytes [#/volume] in Blood by Automated count 2025-02-09 14:22:09 3.79 x 10^6 cells/uL F 4.6-6.2 Erythrocytes [#/volume] in Blood by Automated count 2025-02-09 14:22:09 3.79 x 10^6 cells/uL F 4.6-6.2 Erythrocytes [#/volume] in Blood by Automated count 2025-02-09 14:22:09 3.79 x 10^6 cells/uL F 4.6-6.2 FluidBP Description Draw Date Result/Unit Status Ref Range Result Comments Sodium [Moles/volume] in Serum or Plasma 2025-05-05 05:57:20 143 mEq/L F 132.0-146.0 Sodium [Moles/volume] in Serum or Plasma 2025-04-07 02:26:28 145 mEq/L F 132.0-146.0 Sodium [Moles/volume] in Serum or Plasma 2025-04-07 02:26:28 145 mEq/L F 132.0-146.0 Sodium [Moles/volume] in Serum or Plasma 2025-04-07 02:26:28 145 mEq/L F 132.0-146.0 Sodium [Moles/volume] in Serum or Plasma 2025-04-07 02:26:28 145 mEq/L F 132.0-146.0 Sodium [Moles/volume] in Serum or Plasma 2025-04-07 02:26:28 145 mEq/L F 132.0-146.0 Sodium [Moles/volume] in Serum or Plasma 2025-03-03 06:39:23 140 mEq/L F 132.0-146.0 Sodium [Moles/volume] in Serum or Plasma 2025-03-03 06:39:23 140 mEq/L F 132.0-146.0 Sodium [Moles/volume] in Serum or Plasma 2025-03-03 06:39:23 140 mEq/L F 132.0-146.0 Sodium [Moles/volume] in Serum or Plasma 2025-02-09 16:26:06 143 mEq/L F 132.0-146.0 Sodium [Moles/volume] in Serum or Plasma 2025-02-09 16:26:06 143 mEq/L F 132.0-146.0 Sodium [Moles/volume] in Serum or Plasma 2025-02-09 16:26:06 143 mEq/L F 132.0-146.0 General Description Draw Date Result/Unit Status Ref Range Result Comments Chloride [Moles/volume] in Serum or Plasma 2025-05-05 05:57:20 102 mEq/L F 99.0-109.0 Aspartate aminotransferase [Enzymatic activity/volume] in Serum or Plasma 2025-05-04 22:37:20 16 U/L F 0.0-33.0 Alanine aminotransferase [Enzymatic activity/volume] in Serum or Plasma 2025-05-04 22:37:20 27 U/L F 10.0-49.0 Chloride [Moles/volume] in Serum or Plasma 2025-04-07 02:26:28 102 mEq/L F 99.0-109.0 Chloride [Moles/volume] in Serum or Plasma 2025-04-07 02:26:28 102 mEq/L F 99.0-109.0 Chloride [Moles/volume] in Serum or Plasma 2025-04-07 02:26:28 102 mEq/L F 99.0-109.0 Chloride [Moles/volume] in Serum or Plasma 2025-04-07 02:26:28 102 mEq/L F 99.0-109.0 Chloride [Moles/volume] in Serum or Plasma 2025-04-07 02:26:28 102 mEq/L F 99.0-109.0 Aluminum [Mass/volume] in Serum or Plasma 2025-04-06 16:23:06 10 ug/L F 0.0-9.0 Aluminum [Mass/volume] in Serum or Plasma 2025-04-06 16:23:06 10 ug/L F 0.0-9.0 Aluminum [Mass/volume] in Serum or Plasma 2025-04-06 16:23:06 10 ug/L F 0.0-9.0 Aluminum [Mass/volume] in Serum or Plasma 2025-04-06 16:23:06 10 ug/L F 0.0-9.0 Aluminum [Mass/volume] in Serum or Plasma 2025-04-06 16:23:06 10 ug/L F 0.0-9.0 Aspartate aminotransferase [Enzymatic activity/volume] in Serum or Plasma 2025-04-06 16:21:18 42 U/L F 0.0-33.0 Aspartate aminotransferase [Enzymatic activity/volume] in Serum or Plasma 2025-04-06 16:21:18 42 U/L F 0.0-33.0 Alanine aminotransferase [Enzymatic activity/volume] in Serum or Plasma 2025-04-06 16:21:18 70 U/L F 10.0-49.0 Alanine aminotransferase [Enzymatic activity/volume] in Serum or Plasma 2025-04-06 16:21:18 70 U/L F 10.0-49.0 Aspartate aminotransferase [Enzymatic activity/volume] in Serum or Plasma 2025-04-06 16:21:18 42 U/L F 0.0-33.0 Alanine aminotransferase [Enzymatic activity/volume] in Serum or Plasma 2025-04-06 16:21:18 70 U/L F 10.0-49.0 Aspartate aminotransferase [Enzymatic activity/volume] in Serum or Plasma 2025-04-06 16:21:18 42 U/L F 0.0-33.0 Alanine aminotransferase [Enzymatic activity/volume] in Serum or Plasma 2025-04-06 16:21:18 70 U/L F 10.0-49.0 Aspartate aminotransferase [Enzymatic activity/volume] in Serum or Plasma 2025-04-06 16:21:18 42 U/L F 0.0-33.0 Alanine aminotransferase [Enzymatic activity/volume] in Serum or Plasma 2025-04-06 16:21:18 70 U/L F 10.0-49.0 Chloride [Moles/volume] in Serum or Plasma 2025-03-03 06:39:23 100 mEq/L F 99.0-109.0 Chloride [Moles/volume] in Serum or Plasma 2025-03-03 06:39:23 100 mEq/L F 99.0-109.0 Chloride [Moles/volume] in Serum or Plasma 2025-03-03 06:39:23 100 mEq/L F 99.0-109.0 Alanine aminotransferase [Enzymatic activity/volume] in Serum or Plasma 2025-03-03 03:40:00 25 U/L F 10.0-49.0 Aspartate aminotransferase [Enzymatic activity/volume] in Serum or Plasma 2025-03-03 03:40:00 17 U/L F 0.0-33.0 Alanine aminotransferase [Enzymatic activity/volume] in Serum or Plasma 2025-03-03 03:40:00 25 U/L F 10.0-49.0 Aspartate aminotransferase [Enzymatic activity/volume] in Serum or Plasma 2025-03-03 03:40:00 17 U/L F 0.0-33.0 Aspartate aminotransferase [Enzymatic activity/volume] in Serum or Plasma 2025-03-03 03:40:00 17 U/L F 0.0-33.0 Alanine aminotransferase [Enzymatic activity/volume] in Serum or Plasma 2025-03-03 03:40:00 25 U/L F 10.0-49.0 Chloride [Moles/volume] in Serum or Plasma 2025-02-09 16:26:06 100 mEq/L F 99.0-109.0 Chloride [Moles/volume] in Serum or Plasma 2025-02-09 16:26:06 100 mEq/L F 99.0-109.0 Chloride [Moles/volume] in Serum or Plasma 2025-02-09 16:26:06 100 mEq/L F 99.0-109.0 Alanine aminotransferase [Enzymatic activity/volume] in Serum or Plasma 2025-02-09 14:09:10 21 U/L F 10.0-49.0 Aspartate aminotransferase [Enzymatic activity/volume] in Serum or Plasma 2025-02-09 14:09:10 18 U/L F 0.0-33.0 Alanine aminotransferase [Enzymatic activity/volume] in Serum or Plasma 2025-02-09 14:09:10 21 U/L F 10.0-49.0 Aspartate aminotransferase [Enzymatic activity/volume] in Serum or Plasma 2025-02-09 14:09:10 18 U/L F 0.0-33.0 Aspartate aminotransferase [Enzymatic activity/volume] in Serum or Plasma 2025-02-09 14:09:10 18 U/L F 0.0-33.0 Alanine aminotransferase [Enzymatic activity/volume] in Serum or Plasma 2025-02-09 14:09:10 21 U/L F 10.0-49.0 InfectionVaccination Description Draw Date Result/Unit Status Ref Range Result Comments Neutrophils/100 leukocytes in Blood by Automated count 2025-05-04 17:11:13 76.7 % F Monocytes/100 leukocytes in Blood by Automated count 2025-05-04 17:11:13 5.3 % F Lymphocytes/100 leukocytes in Blood by Automated count 2025-05-04 17:11:13 12.4 % F Lymphocytes [#/volume] in Blood by Automated count 2025-05-04 17:11:13 1225 Cells/uL F 620.0-3660.0 Eosinophils/100 leukocytes in Blood by Automated count 2025-05-04 17:11:11 5.3 % F Basophils/100 leukocytes in Blood by Automated count 2025-05-04 17:11:11 0.3 % F Monocytes [#/volume] in Blood by Automated count 2025-05-04 17:11:11 524 Cells/uL F 0.0-1100.0 Basophils [#/volume] in Blood by Automated count 2025-05-04 17:11:11 30 Cells/uL F 0.0-400.0 Eosinophils [#/volume] in Blood by Automated count 2025-05-04 17:11:11 524 Cells/uL F 0.0-700.0 Neutrophils [#/volume] in Blood by Automated count 2025-05-04 17:11:11 7578 Cells/uL F 2000.0-8800.0 Leukocytes [#/volume] in Blood by Automated count 2025-05-04 17:11:11 9.9 x 10^3 cells/uL F 4.0-11.0 Neutrophils/100 leukocytes in Blood by Automated count 2025-04-06 21:50:13 58.1 % F Eosinophils/100 leukocytes in Blood by Automated count 2025-04-06 21:50:13 6.5 % F Basophils/100 leukocytes in Blood by Automated count 2025-04-06 21:50:13 0.6 % F Lymphocytes/100 leukocytes in Blood by Automated count 2025-04-06 21:50:13 26.7 % F Monocytes [#/volume] in Blood by Automated count 2025-04-06 21:50:13 461 Cells/uL F 0.0-1100.0 Eosinophils [#/volume] in Blood by Automated count 2025-04-06 21:50:13 374 Cells/uL F 0.0-700.0 Monocytes/100 leukocytes in Blood by Automated count 2025-04-06 21:50:13 8 % F Basophils/100 leukocytes in Blood by Automated count 2025-04-06 21:50:13 0.6 % F Eosinophils/100 leukocytes in Blood by Automated count 2025-04-06 21:50:13 6.5 % F Neutrophils/100 leukocytes in Blood by Automated count 2025-04-06 21:50:13 58.1 % F Lymphocytes/100 leukocytes in Blood by Automated count 2025-04-06 21:50:13 26.7 % F Monocytes [#/volume] in Blood by Automated count 2025-04-06 21:50:13 461 Cells/uL F 0.0-1100.0 Basophils [#/volume] in Blood by Automated count 2025-04-06 21:50:13 35 Cells/uL F 0.0-400.0 Eosinophils [#/volume] in Blood by Automated count 2025-04-06 21:50:13 374 Cells/uL F 0.0-700.0 Neutrophils [#/volume] in Blood by Automated count 2025-04-06 21:50:13 3347 Cells/uL F 2000.0-8800.0 Leukocytes [#/volume] in Blood by Automated count 2025-04-06 21:50:13 5.8 x 10^3 cells/uL F 4.0-11.0 Lymphocytes [#/volume] in Blood by Automated count 2025-04-06 21:50:13 1538 Cells/uL F 620.0-3660.0 Basophils/100 leukocytes in Blood by Automated count 2025-04-06 21:50:13 0.6 % F Neutrophils/100 leukocytes in Blood by Automated count 2025-04-06 21:50:13 58.1 % F Lymphocytes/100 leukocytes in Blood by Automated count 2025-04-06 21:50:13 26.7 % F Monocytes/100 leukocytes in Blood by Automated count 2025-04-06 21:50:13 8 % F Eosinophils/100 leukocytes in Blood by Automated count 2025-04-06 21:50:13 6.5 % F Leukocytes [#/volume] in Blood by Automated count 2025-04-06 21:50:13 5.8 x 10^3 cells/uL F 4.0-11.0 Neutrophils [#/volume] in Blood by Automated count 2025-04-06 21:50:13 3347 Cells/uL F 2000.0-8800.0 Lymphocytes [#/volume] in Blood by Automated count 2025-04-06 21:50:13 1538 Cells/uL F 620.0-3660.0 Monocytes [#/volume] in Blood by Automated count 2025-04-06 21:50:13 461 Cells/uL F 0.0-1100.0 Basophils [#/volume] in Blood by Automated count 2025-04-06 21:50:13 35 Cells/uL F 0.0-400.0 Eosinophils [#/volume] in Blood by Automated count 2025-04-06 21:50:13 374 Cells/uL F 0.0-700.0 Leukocytes [#/volume] in Blood by Automated count 2025-04-06 21:50:13 5.8 x 10^3 cells/uL F 4.0-11.0 Eosinophils [#/volume] in Blood by Automated count 2025-04-06 21:50:13 374 Cells/uL F 0.0-700.0 Neutrophils/100 leukocytes in Blood by Automated count 2025-04-06 21:50:13 58.1 % F Monocytes/100 leukocytes in Blood by Automated count 2025-04-06 21:50:13 8 % F Eosinophils/100 leukocytes in Blood by Automated count 2025-04-06 21:50:13 6.5 % F Basophils/100 leukocytes in Blood by Automated count 2025-04-06 21:50:13 0.6 % F Lymphocytes [#/volume] in Blood by Automated count 2025-04-06 21:50:13 1538 Cells/uL F 620.0-3660.0 Monocytes [#/volume] in Blood by Automated count 2025-04-06 21:50:13 461 Cells/uL F 0.0-1100.0 Basophils [#/volume] in Blood by Automated count 2025-04-06 21:50:13 35 Cells/uL F 0.0-400.0 Neutrophils [#/volume] in Blood by Automated count 2025-04-06 21:50:13 3347 Cells/uL F 2000.0-8800.0 Lymphocytes/100 leukocytes in Blood by Automated count 2025-04-06 21:50:13 26.7 % F Monocytes/100 leukocytes in Blood by Automated count 2025-04-06 21:50:13 8 % F Leukocytes [#/volume] in Blood by Automated count 2025-04-06 21:50:13 5.8 x 10^3 cells/uL F 4.0-11.0 Neutrophils [#/volume] in Blood by Automated count 2025-04-06 21:50:13 3347 Cells/uL F 2000.0-8800.0 Lymphocytes [#/volume] in Blood by Automated count 2025-04-06 21:50:13 1538 Cells/uL F 620.0-3660.0 Basophils [#/volume] in Blood by Automated count 2025-04-06 21:50:13 35 Cells/uL F 0.0-400.0 Basophils/100 leukocytes in Blood by Automated count 2025-04-06 21:50:13 0.6 % F Neutrophils/100 leukocytes in Blood by Automated count 2025-04-06 21:50:13 58.1 % F Lymphocytes/100 leukocytes in Blood by Automated count 2025-04-06 21:50:13 26.7 % F Eosinophils/100 leukocytes in Blood by Automated count 2025-04-06 21:50:13 6.5 % F Monocytes [#/volume] in Blood by Automated count 2025-04-06 21:50:13 461 Cells/uL F 0.0-1100.0 Eosinophils [#/volume] in Blood by Automated count 2025-04-06 21:50:13 374 Cells/uL F 0.0-700.0 Monocytes/100 leukocytes in Blood by Automated count 2025-04-06 21:50:13 8 % F Basophils [#/volume] in Blood by Automated count 2025-04-06 21:50:13 35 Cells/uL F 0.0-400.0 Neutrophils [#/volume] in Blood by Automated count 2025-04-06 21:50:13 3347 Cells/uL F 2000.0-8800.0 Leukocytes [#/volume] in Blood by Automated count 2025-04-06 21:50:13 5.8 x 10^3 cells/uL F 4.0-11.0 Lymphocytes [#/volume] in Blood by Automated count 2025-04-06 21:50:13 1538 Cells/uL F 620.0-3660.0 Basophils/100 leukocytes in Blood by Automated count 2025-03-03 04:13:14 0.8 % F Neutrophils/100 leukocytes in Blood by Automated count 2025-03-03 04:13:14 66.8 % F Lymphocytes/100 leukocytes in Blood by Automated count 2025-03-03 04:13:14 20.7 % F Monocytes/100 leukocytes in Blood by Automated count 2025-03-03 04:13:14 5.1 % F Eosinophils/100 leukocytes in Blood by Automated count 2025-03-03 04:13:14 6.6 % F Leukocytes [#/volume] in Blood by Automated count 2025-03-03 04:13:14 7.6 x 10^3 cells/uL F 4.0-11.0 Neutrophils [#/volume] in Blood by Automated count 2025-03-03 04:13:14 5110 Cells/uL F 2000.0-8800.0 Lymphocytes [#/volume] in Blood by Automated count 2025-03-03 04:13:14 1584 Cells/uL F 620.0-3660.0 Monocytes [#/volume] in Blood by Automated count 2025-03-03 04:13:14 390 Cells/uL F 0.0-1100.0 Basophils [#/volume] in Blood by Automated count 2025-03-03 04:13:14 61 Cells/uL F 0.0-400.0 Eosinophils [#/volume] in Blood by Automated count 2025-03-03 04:13:14 505 Cells/uL F 0.0-700.0 Basophils/100 leukocytes in Blood by Automated count 2025-03-03 04:13:14 0.8 % F Eosinophils/100 leukocytes in Blood by Automated count 2025-03-03 04:13:14 6.6 % F Eosinophils [#/volume] in Blood by Automated count 2025-03-03 04:13:14 505 Cells/uL F 0.0-700.0 Neutrophils [#/volume] in Blood by Automated count 2025-03-03 04:13:14 5110 Cells/uL F 2000.0-8800.0 Monocytes/100 leukocytes in Blood by Automated count 2025-03-03 04:13:14 5.1 % F Lymphocytes/100 leukocytes in Blood by Automated count 2025-03-03 04:13:14 20.7 % F Monocytes [#/volume] in Blood by Automated count 2025-03-03 04:13:14 390 Cells/uL F 0.0-1100.0 Lymphocytes [#/volume] in Blood by Automated count 2025-03-03 04:13:14 1584 Cells/uL F 620.0-3660.0 Basophils [#/volume] in Blood by Automated count 2025-03-03 04:13:14 61 Cells/uL F 0.0-400.0 Neutrophils/100 leukocytes in Blood by Automated count 2025-03-03 04:13:14 66.8 % F Leukocytes [#/volume] in Blood by Automated count 2025-03-03 04:13:14 7.6 x 10^3 cells/uL F 4.0-11.0 Basophils/100 leukocytes in Blood by Automated count 2025-03-03 04:13:14 0.8 % F Lymphocytes/100 leukocytes in Blood by Automated count 2025-03-03 04:13:14 20.7 % F Neutrophils [#/volume] in Blood by Automated count 2025-03-03 04:13:14 5110 Cells/uL F 2000.0-8800.0 Lymphocytes [#/volume] in Blood by Automated count 2025-03-03 04:13:14 1584 Cells/uL F 620.0-3660.0 Monocytes/100 leukocytes in Blood by Automated count 2025-03-03 04:13:14 5.1 % F Neutrophils/100 leukocytes in Blood by Automated count 2025-03-03 04:13:14 66.8 % F Leukocytes [#/volume] in Blood by Automated count 2025-03-03 04:13:14 7.6 x 10^3 cells/uL F 4.0-11.0 Eosinophils/100 leukocytes in Blood by Automated count 2025-03-03 04:13:14 6.6 % F Monocytes [#/volume] in Blood by Automated count 2025-03-03 04:13:14 390 Cells/uL F 0.0-1100.0 Basophils [#/volume] in Blood by Automated count 2025-03-03 04:13:14 61 Cells/uL F 0.0-400.0 Eosinophils [#/volume] in Blood by Automated count 2025-03-03 04:13:14 505 Cells/uL F 0.0-700.0 Neutrophils [#/volume] in Blood by Automated count 2025-02-09 14:22:10 4534 Cells/uL F 2000.0-8800.0 Eosinophils [#/volume] in Blood by Automated count 2025-02-09 14:22:10 893 Cells/uL F 0.0-700.0 Monocytes [#/volume] in Blood by Automated count 2025-02-09 14:22:10 477 Cells/uL F 0.0-1100.0 Basophils [#/volume] in Blood by Automated count 2025-02-09 14:22:10 30 Cells/uL F 0.0-400.0 Monocytes [#/volume] in Blood by Automated count 2025-02-09 14:22:10 477 Cells/uL F 0.0-1100.0 Eosinophils [#/volume] in Blood by Automated count 2025-02-09 14:22:10 893 Cells/uL F 0.0-700.0 Basophils [#/volume] in Blood by Automated count 2025-02-09 14:22:10 30 Cells/uL F 0.0-400.0 Neutrophils [#/volume] in Blood by Automated count 2025-02-09 14:22:10 4534 Cells/uL F 2000.0-8800.0 Eosinophils [#/volume] in Blood by Automated count 2025-02-09 14:22:10 893 Cells/uL F 0.0-700.0 Monocytes [#/volume] in Blood by Automated count 2025-02-09 14:22:10 477 Cells/uL F 0.0-1100.0 Basophils [#/volume] in Blood by Automated count 2025-02-09 14:22:10 30 Cells/uL F 0.0-400.0 Neutrophils [#/volume] in Blood by Automated count 2025-02-09 14:22:10 4534 Cells/uL F 2000.0-8800.0 Lymphocytes/100 leukocytes in Blood by Automated count 2025-02-09 14:22:09 21.7 % F Basophils/100 leukocytes in Blood by Automated count 2025-02-09 14:22:09 0.4 % F Monocytes/100 leukocytes in Blood by Automated count 2025-02-09 14:22:09 6.3 % F Neutrophils/100 leukocytes in Blood by Automated count 2025-02-09 14:22:09 59.9 % F Eosinophils/100 leukocytes in Blood by Automated count 2025-02-09 14:22:09 11.8 % F Leukocytes [#/volume] in Blood by Automated count 2025-02-09 14:22:09 7.6 x 10^3 cells/uL F 4.0-11.0 Lymphocytes [#/volume] in Blood by Automated count 2025-02-09 14:22:09 1643 Cells/uL F 620.0-3660.0 Neutrophils/100 leukocytes in Blood by Automated count 2025-02-09 14:22:09 59.9 % F Lymphocytes [#/volume] in Blood by Automated count 2025-02-09 14:22:09 1643 Cells/uL F 620.0-3660.0 Basophils/100 leukocytes in Blood by Automated count 2025-02-09 14:22:09 0.4 % F Monocytes/100 leukocytes in Blood by Automated count 2025-02-09 14:22:09 6.3 % F Lymphocytes/100 leukocytes in Blood by Automated count 2025-02-09 14:22:09 21.7 % F Leukocytes [#/volume] in Blood by Automated count 2025-02-09 14:22:09 7.6 x 10^3 cells/uL F 4.0-11.0 Eosinophils/100 leukocytes in Blood by Automated count 2025-02-09 14:22:09 11.8 % F Monocytes/100 leukocytes in Blood by Automated count 2025-02-09 14:22:09 6.3 % F Lymphocytes/100 leukocytes in Blood by Automated count 2025-02-09 14:22:09 21.7 % F Eosinophils/100 leukocytes in Blood by Automated count 2025-02-09 14:22:09 11.8 % F Neutrophils/100 leukocytes in Blood by Automated count 2025-02-09 14:22:09 59.9 % F Basophils/100 leukocytes in Blood by Automated count 2025-02-09 14:22:09 0.4 % F Lymphocytes [#/volume] in Blood by Automated count 2025-02-09 14:22:09 1643 Cells/uL F 620.0-3660.0 Leukocytes [#/volume] in Blood by Automated count 2025-02-09 14:22:09 7.6 x 10^3 cells/uL F 4.0-11.0 MineralBone Disorder Description Draw Date Result/Unit Status Ref Range Result Comments CA CORRECTED 2025-05-18 17:17:53 10.8 mg/dL F Calcium [Mass/volume] in Serum or Plasma 2025-05-18 17:14:25 10.5 mg/dL F 8.7-10.4 CA CORRECTED 2025-05-05 06:22:02 10.1 mg/dL F CA*PO4 CORRCTD 2025-05-05 06:19:34 55.7 Calc F 21.0-53.0 CA/PHOS PRODUCT 2025-05-05 06:19:34 53.9 Calc F 21.0-53.0 Calcium [Mass/volume] in Serum or Plasma 2025-05-05 05:57:20 9.8 mg/dL F 8.7-10.4 25-Hydroxyvitamin D3+25-Hydroxyvitamin D2 [Mass/volume] in Serum or Plasma 2025-05-05 01:33:37 104.5 ng/mL F Phosphate [Mass/volume] in Serum or Plasma 2025-05-04 22:37:20 5.5 mg/dL F 2.4-5.1 Alkaline phosphatase [Enzymatic activity/volume] in Serum or Plasma 2025-05-04 22:37:20 96 U/L F 46.0-116.0 Parathyrin.intact [Mass/volume] in Serum or Plasma 2025-05-04 16:52:19 186 pg/mL F 18.0-80.0 CA CORRECTED 2025-04-07 02:33:05 9.4 mg/dL F CA CORRECTED 2025-04-07 02:33:05 9.4 mg/dL F CA CORRECTED 2025-04-07 02:33:05 9.4 mg/dL F CA CORRECTED 2025-04-07 02:33:05 9.4 mg/dL F CA CORRECTED 2025-04-07 02:33:05 9.4 mg/dL F CA*PO4 CORRCTD 2025-04-07 02:29:59 66.1 Calc F 21.0-53.0 CA/PHOS PRODUCT 2025-04-07 02:29:59 64.4 Calc F 21.0-53.0 CA/PHOS PRODUCT 2025-04-07 02:29:59 64.4 Calc F 21.0-53.0 CA*PO4 CORRCTD 2025-04-07 02:29:59 66.1 Calc F 21.0-53.0 CA/PHOS PRODUCT 2025-04-07 02:29:59 64.4 Calc F 21.0-53.0 CA*PO4 CORRCTD 2025-04-07 02:29:59 66.1 Calc F 21.0-53.0 CA/PHOS PRODUCT 2025-04-07 02:29:59 64.4 Calc F 21.0-53.0 CA*PO4 CORRCTD 2025-04-07 02:29:59 66.1 Calc F 21.0-53.0 CA/PHOS PRODUCT 2025-04-07 02:29:59 64.4 Calc F 21.0-53.0 CA*PO4 CORRCTD 2025-04-07 02:29:59 66.1 Calc F 21.0-53.0 Calcium [Mass/volume] in Serum or Plasma 2025-04-07 02:26:28 9.2 mg/dL F 8.7-10.4 Calcium [Mass/volume] in Serum or Plasma 2025-04-07 02:26:28 9.2 mg/dL F 8.7-10.4 Calcium [Mass/volume] in Serum or Plasma 2025-04-07 02:26:28 9.2 mg/dL F 8.7-10.4 Calcium [Mass/volume] in Serum or Plasma 2025-04-07 02:26:28 9.2 mg/dL F 8.7-10.4 Calcium [Mass/volume] in Serum or Plasma 2025-04-07 02:26:28 9.2 mg/dL F 8.7-10.4 Parathyrin.intact [Mass/volume] in Serum or Plasma 2025-04-06 17:39:11 607 pg/mL F 18.0-80.0 Parathyrin.intact [Mass/volume] in Serum or Plasma 2025-04-06 17:39:11 607 pg/mL F 18.0-80.0 Parathyrin.intact [Mass/volume] in Serum or Plasma 2025-04-06 17:39:11 607 pg/mL F 18.0-80.0 Parathyrin.intact [Mass/volume] in Serum or Plasma 2025-04-06 17:39:11 607 pg/mL F 18.0-80.0 Parathyrin.intact [Mass/volume] in Serum or Plasma 2025-04-06 17:39:11 607 pg/mL F 18.0-80.0 Phosphate [Mass/volume] in Serum or Plasma 2025-04-06 16:21:18 7 mg/dL F 2.4-5.1 Alkaline phosphatase [Enzymatic activity/volume] in Serum or Plasma 2025-04-06 16:21:18 101 U/L F 46.0-116.0 Alkaline phosphatase [Enzymatic activity/volume] in Serum or Plasma 2025-04-06 16:21:18 101 U/L F 46.0-116.0 Phosphate [Mass/volume] in Serum or Plasma 2025-04-06 16:21:18 7 mg/dL F 2.4-5.1 Alkaline phosphatase [Enzymatic activity/volume] in Serum or Plasma 2025-04-06 16:21:18 101 U/L F 46.0-116.0 Phosphate [Mass/volume] in Serum or Plasma 2025-04-06 16:21:18 7 mg/dL F 2.4-5.1 Alkaline phosphatase [Enzymatic activity/volume] in Serum or Plasma 2025-04-06 16:21:18 101 U/L F 46.0-116.0 Phosphate [Mass/volume] in Serum or Plasma 2025-04-06 16:21:18 7 mg/dL F 2.4-5.1 Phosphate [Mass/volume] in Serum or Plasma 2025-04-06 16:21:18 7 mg/dL F 2.4-5.1 Alkaline phosphatase [Enzymatic activity/volume] in Serum or Plasma 2025-04-06 16:21:18 101 U/L F 46.0-116.0 CA CORRECTED 2025-03-03 07:10:24 9.1 mg/dL F CA CORRECTED 2025-03-03 07:10:24 9.1 mg/dL F CA CORRECTED 2025-03-03 07:10:24 9.1 mg/dL F CA/PHOS PRODUCT 2025-03-03 07:08:12 57.6 Calc F 21.0-53.0 CA*PO4 CORRCTD 2025-03-03 07:08:12 58.1 Calc F 21.0-53.0 CA*PO4 CORRCTD 2025-03-03 07:08:12 58.1 Calc F 21.0-53.0 CA/PHOS PRODUCT 2025-03-03 07:08:12 57.6 Calc F 21.0-53.0 CA*PO4 CORRCTD 2025-03-03 07:08:12 58.1 Calc F 21.0-53.0 CA/PHOS PRODUCT 2025-03-03 07:08:12 57.6 Calc F 21.0-53.0 Calcium [Mass/volume] in Serum or Plasma 2025-03-03 06:39:23 9 mg/dL F 8.7-10.4 Calcium [Mass/volume] in Serum or Plasma 2025-03-03 06:39:23 9 mg/dL F 8.7-10.4 Calcium [Mass/volume] in Serum or Plasma 2025-03-03 06:39:23 9 mg/dL F 8.7-10.4 Alkaline phosphatase [Enzymatic activity/volume] in Serum or Plasma 2025-03-03 03:40:00 79 U/L F 46.0-116.0 Phosphate [Mass/volume] in Serum or Plasma 2025-03-03 03:40:00 6.4 mg/dL F 2.4-5.1 Alkaline phosphatase [Enzymatic activity/volume] in Serum or Plasma 2025-03-03 03:40:00 79 U/L F 46.0-116.0 Phosphate [Mass/volume] in Serum or Plasma 2025-03-03 03:40:00 6.4 mg/dL F 2.4-5.1 Alkaline phosphatase [Enzymatic activity/volume] in Serum or Plasma 2025-03-03 03:40:00 79 U/L F 46.0-116.0 Phosphate [Mass/volume] in Serum or Plasma 2025-03-03 03:40:00 6.4 mg/dL F 2.4-5.1 Parathyrin.intact [Mass/volume] in Serum or Plasma 2025-03-03 00:58:28 512 pg/mL F 18.0-80.0 Parathyrin.intact [Mass/volume] in Serum or Plasma 2025-03-03 00:58:28 512 pg/mL F 18.0-80.0 Parathyrin.intact [Mass/volume] in Serum or Plasma 2025-03-03 00:58:28 512 pg/mL F 18.0-80.0 Parathyrin.intact [Mass/volume] in Serum or Plasma 2025-02-17 15:24:13 508 pg/mL F 18.0-80.0 Parathyrin.intact [Mass/volume] in Serum or Plasma 2025-02-17 15:24:13 508 pg/mL F 18.0-80.0 Parathyrin.intact [Mass/volume] in Serum or Plasma 2025-02-17 15:24:13 508 pg/mL F 18.0-80.0 CA CORRECTED 2025-02-09 16:31:19 9.8 mg/dL F CA CORRECTED 2025-02-09 16:31:19 9.8 mg/dL F CA CORRECTED 2025-02-09 16:31:19 9.8 mg/dL F CA/PHOS PRODUCT 2025-02-09 16:28:31 65.7 Calc F 21.0-53.0 CA*PO4 CORRCTD 2025-02-09 16:28:31 65.7 Calc F 21.0-53.0 CA*PO4 CORRCTD 2025-02-09 16:28:31 65.7 Calc F 21.0-53.0 CA/PHOS PRODUCT 2025-02-09 16:28:31 65.7 Calc F 21.0-53.0 CA*PO4 CORRCTD 2025-02-09 16:28:31 65.7 Calc F 21.0-53.0 CA/PHOS PRODUCT 2025-02-09 16:28:31 65.7 Calc F 21.0-53.0 Calcium [Mass/volume] in Serum or Plasma 2025-02-09 16:26:49 9.8 mg/dL F 8.7-10.4 Calcium [Mass/volume] in Serum or Plasma 2025-02-09 16:26:49 9.8 mg/dL F 8.7-10.4 Calcium [Mass/volume] in Serum or Plasma 2025-02-09 16:26:49 9.8 mg/dL F 8.7-10.4 Phosphate [Mass/volume] in Serum or Plasma 2025-02-09 16:26:06 6.7 mg/dL F 2.4-5.1 Phosphate [Mass/volume] in Serum or Plasma 2025-02-09 16:26:06 6.7 mg/dL F 2.4-5.1 Phosphate [Mass/volume] in Serum or Plasma 2025-02-09 16:26:06 6.7 mg/dL F 2.4-5.1 Alkaline phosphatase [Enzymatic activity/volume] in Serum or Plasma 2025-02-09 14:09:10 82 U/L F 46.0-116.0 Alkaline phosphatase [Enzymatic activity/volume] in Serum or Plasma 2025-02-09 14:09:10 82 U/L F 46.0-116.0 Alkaline phosphatase [Enzymatic activity/volume] in Serum or Plasma 2025-02-09 14:09:10 82 U/L F 46.0-116.0 Nutrition Description Draw Date Result/Unit Status Ref Range Result Comments Potassium [Moles/volume] in Serum or Plasma 2025-05-05 05:57:20 3.8 mEq/L F 3.5-5.5 GLOBULIN 2025-05-04 22:38:12 2.2 g/dL F 0.9-5.0 A/G RATIO 2025-05-04 22:38:12 1.6 Calc F 1.0-2.5 Lactate dehydrogenase [Enzymatic activity/volume] in Serum or Plasma 2025-05-04 22:37:20 211 U/L F 120.0-246.0 Bicarbonate [Moles/volume] in Serum or Plasma 2025-05-04 22:37:20 27 mEq/L F 20.0-31.0 Albumin [Mass/volume] in Serum or Plasma by Bromocresol green (BCG) dye binding method 2025-05-04 22:37:20 3.6 g/dL F 3.4-4.8 Protein [Mass/volume] in Serum or Plasma 2025-05-04 22:37:20 5.8 g/dL F 5.7-8.2 Glucose [Mass/volume] in Serum or Plasma 2025-05-04 22:37:20 120 mg/dL F 70.0-99.0 Potassium [Moles/volume] in Serum or Plasma 2025-04-07 02:26:28 3.9 mEq/L F 3.5-5.5 Potassium [Moles/volume] in Serum or Plasma 2025-04-07 02:26:28 3.9 mEq/L F 3.5-5.5 Potassium [Moles/volume] in Serum or Plasma 2025-04-07 02:26:28 3.9 mEq/L F 3.5-5.5 Potassium [Moles/volume] in Serum or Plasma 2025-04-07 02:26:28 3.9 mEq/L F 3.5-5.5 Potassium [Moles/volume] in Serum or Plasma 2025-04-07 02:26:28 3.9 mEq/L F 3.5-5.5 GLOBULIN 2025-04-06 16:22:20 2.1 g/dL F 0.9-5.0 A/G RATIO 2025-04-06 16:22:20 1.8 Calc F 1.0-2.5 GLOBULIN 2025-04-06 16:22:20 2.1 g/dL F 0.9-5.0 A/G RATIO 2025-04-06 16:22:20 1.8 Calc F 1.0-2.5 GLOBULIN 2025-04-06 16:22:20 2.1 g/dL F 0.9-5.0 A/G RATIO 2025-04-06 16:22:20 1.8 Calc F 1.0-2.5 A/G RATIO 2025-04-06 16:22:20 1.8 Calc F 1.0-2.5 GLOBULIN 2025-04-06 16:22:20 2.1 g/dL F 0.9-5.0 A/G RATIO 2025-04-06 16:22:20 1.8 Calc F 1.0-2.5 GLOBULIN 2025-04-06 16:22:20 2.1 g/dL F 0.9-5.0 Glucose [Mass/volume] in Serum or Plasma 2025-04-06 16:21:18 129 mg/dL F 70.0-99.0 Lactate dehydrogenase [Enzymatic activity/volume] in Serum or Plasma 2025-04-06 16:21:18 198 U/L F 120.0-246.0 Bicarbonate [Moles/volume] in Serum or Plasma 2025-04-06 16:21:18 28 mEq/L F 20.0-31.0 Albumin [Mass/volume] in Serum or Plasma by Bromocresol green (BCG) dye binding method 2025-04-06 16:21:18 3.7 g/dL F 3.4-4.8 Protein [Mass/volume] in Serum or Plasma 2025-04-06 16:21:18 5.8 g/dL F 5.7-8.2 Glucose [Mass/volume] in Serum or Plasma 2025-04-06 16:21:18 129 mg/dL F 70.0-99.0 Albumin [Mass/volume] in Serum or Plasma by Bromocresol green (BCG) dye binding method 2025-04-06 16:21:18 3.7 g/dL F 3.4-4.8 Bicarbonate [Moles/volume] in Serum or Plasma 2025-04-06 16:21:18 28 mEq/L F 20.0-31.0 Glucose [Mass/volume] in Serum or Plasma 2025-04-06 16:21:18 129 mg/dL F 70.0-99.0 Lactate dehydrogenase [Enzymatic activity/volume] in Serum or Plasma 2025-04-06 16:21:18 198 U/L F 120.0-246.0 Protein [Mass/volume] in Serum or Plasma 2025-04-06 16:21:18 5.8 g/dL F 5.7-8.2 Protein [Mass/volume] in Serum or Plasma 2025-04-06 16:21:18 5.8 g/dL F 5.7-8.2 Albumin [Mass/volume] in Serum or Plasma by Bromocresol green (BCG) dye binding method 2025-04-06 16:21:18 3.7 g/dL F 3.4-4.8 Glucose [Mass/volume] in Serum or Plasma 2025-04-06 16:21:18 129 mg/dL F 70.0-99.0 Lactate dehydrogenase [Enzymatic activity/volume] in Serum or Plasma 2025-04-06 16:21:18 198 U/L F 120.0-246.0 Bicarbonate [Moles/volume] in Serum or Plasma 2025-04-06 16:21:18 28 mEq/L F 20.0-31.0 Albumin [Mass/volume] in Serum or Plasma by Bromocresol green (BCG) dye binding method 2025-04-06 16:21:18 3.7 g/dL F 3.4-4.8 Bicarbonate [Moles/volume] in Serum or Plasma 2025-04-06 16:21:18 28 mEq/L F 20.0-31.0 Lactate dehydrogenase [Enzymatic activity/volume] in Serum or Plasma 2025-04-06 16:21:18 198 U/L F 120.0-246.0 Protein [Mass/volume] in Serum or Plasma 2025-04-06 16:21:18 5.8 g/dL F 5.7-8.2 Glucose [Mass/volume] in Serum or Plasma 2025-04-06 16:21:18 129 mg/dL F 70.0-99.0 Lactate dehydrogenase [Enzymatic activity/volume] in Serum or Plasma 2025-04-06 16:21:18 198 U/L F 120.0-246.0 Bicarbonate [Moles/volume] in Serum or Plasma 2025-04-06 16:21:18 28 mEq/L F 20.0-31.0 Albumin [Mass/volume] in Serum or Plasma by Bromocresol green (BCG) dye binding method 2025-04-06 16:21:18 3.7 g/dL F 3.4-4.8 Protein [Mass/volume] in Serum or Plasma 2025-04-06 16:21:18 5.8 g/dL F 5.7-8.2 Potassium [Moles/volume] in Serum or Plasma 2025-03-03 06:39:23 4.6 mEq/L F 3.5-5.5 Potassium [Moles/volume] in Serum or Plasma 2025-03-03 06:39:23 4.6 mEq/L F 3.5-5.5 Potassium [Moles/volume] in Serum or Plasma 2025-03-03 06:39:23 4.6 mEq/L F 3.5-5.5 GLOBULIN 2025-03-03 03:41:10 2.3 g/dL F 0.9-5.0 A/G RATIO 2025-03-03 03:41:10 1.7 Calc F 1.0-2.5 A/G RATIO 2025-03-03 03:41:10 1.7 Calc F 1.0-2.5 GLOBULIN 2025-03-03 03:41:10 2.3 g/dL F 0.9-5.0 A/G RATIO 2025-03-03 03:41:10 1.7 Calc F 1.0-2.5 GLOBULIN 2025-03-03 03:41:10 2.3 g/dL F 0.9-5.0 Albumin [Mass/volume] in Serum or Plasma by Bromocresol green (BCG) dye binding method 2025-03-03 03:40:00 3.9 g/dL F 3.4-4.8 Bicarbonate [Moles/volume] in Serum or Plasma 2025-03-03 03:40:00 25 mEq/L F 20.0-31.0 Glucose [Mass/volume] in Serum or Plasma 2025-03-03 03:40:00 178 mg/dL F 70.0-99.0 Lactate dehydrogenase [Enzymatic activity/volume] in Serum or Plasma 2025-03-03 03:40:00 185 U/L F 120.0-246.0 Protein [Mass/volume] in Serum or Plasma 2025-03-03 03:40:00 6.2 g/dL F 5.7-8.2 Bicarbonate [Moles/volume] in Serum or Plasma 2025-03-03 03:40:00 25 mEq/L F 20.0-31.0 Albumin [Mass/volume] in Serum or Plasma by Bromocresol green (BCG) dye binding method 2025-03-03 03:40:00 3.9 g/dL F 3.4-4.8 Protein [Mass/volume] in Serum or Plasma 2025-03-03 03:40:00 6.2 g/dL F 5.7-8.2 Glucose [Mass/volume] in Serum or Plasma 2025-03-03 03:40:00 178 mg/dL F 70.0-99.0 Lactate dehydrogenase [Enzymatic activity/volume] in Serum or Plasma 2025-03-03 03:40:00 185 U/L F 120.0-246.0 Albumin [Mass/volume] in Serum or Plasma by Bromocresol green (BCG) dye binding method 2025-03-03 03:40:00 3.9 g/dL F 3.4-4.8 Bicarbonate [Moles/volume] in Serum or Plasma 2025-03-03 03:40:00 25 mEq/L F 20.0-31.0 Glucose [Mass/volume] in Serum or Plasma 2025-03-03 03:40:00 178 mg/dL F 70.0-99.0 Lactate dehydrogenase [Enzymatic activity/volume] in Serum or Plasma 2025-03-03 03:40:00 185 U/L F 120.0-246.0 Protein [Mass/volume] in Serum or Plasma 2025-03-03 03:40:00 6.2 g/dL F 5.7-8.2 Potassium [Moles/volume] in Serum or Plasma 2025-02-09 16:26:06 5.1 mEq/L F 3.5-5.5 Potassium [Moles/volume] in Serum or Plasma 2025-02-09 16:26:06 5.1 mEq/L F 3.5-5.5 Potassium [Moles/volume] in Serum or Plasma 2025-02-09 16:26:06 5.1 mEq/L F 3.5-5.5 A/G RATIO 2025-02-09 14:09:54 1.7 Calc F 1.0-2.5 GLOBULIN 2025-02-09 14:09:54 2.3 g/dL F 0.9-5.0 GLOBULIN 2025-02-09 14:09:54 2.3 g/dL F 0.9-5.0 A/G RATIO 2025-02-09 14:09:54 1.7 Calc F 1.0-2.5 A/G RATIO 2025-02-09 14:09:54 1.7 Calc F 1.0-2.5 GLOBULIN 2025-02-09 14:09:54 2.3 g/dL F 0.9-5.0 Albumin [Mass/volume] in Serum or Plasma by Bromocresol green (BCG) dye binding method 2025-02-09 14:09:10 4 g/dL F 3.4-4.8 Bicarbonate [Moles/volume] in Serum or Plasma 2025-02-09 14:09:10 26 mEq/L F 20.0-31.0 Glucose [Mass/volume] in Serum or Plasma 2025-02-09 14:09:10 224 mg/dL F 70.0-99.0 Lactate dehydrogenase [Enzymatic activity/volume] in Serum or Plasma 2025-02-09 14:09:10 190 U/L F 120.0-246.0 Protein [Mass/volume] in Serum or Plasma 2025-02-09 14:09:10 6.3 g/dL F 5.7-8.2 Albumin [Mass/volume] in Serum or Plasma by Bromocresol green (BCG) dye binding method 2025-02-09 14:09:10 4 g/dL F 3.4-4.8 Lactate dehydrogenase [Enzymatic activity/volume] in Serum or Plasma 2025-02-09 14:09:10 190 U/L F 120.0-246.0 Bicarbonate [Moles/volume] in Serum or Plasma 2025-02-09 14:09:10 26 mEq/L F 20.0-31.0 Protein [Mass/volume] in Serum or Plasma 2025-02-09 14:09:10 6.3 g/dL F 5.7-8.2 Glucose [Mass/volume] in Serum or Plasma 2025-02-09 14:09:10 224 mg/dL F 70.0-99.0 Albumin [Mass/volume] in Serum or Plasma by Bromocresol green (BCG) dye binding method 2025-02-09 14:09:10 4 g/dL F 3.4-4.8 Protein [Mass/volume] in Serum or Plasma 2025-02-09 14:09:10 6.3 g/dL F 5.7-8.2 Lactate dehydrogenase [Enzymatic activity/volume] in Serum or Plasma 2025-02-09 14:09:10 190 U/L F 120.0-246.0 Bicarbonate [Moles/volume] in Serum or Plasma 2025-02-09 14:09:10 26 mEq/L F 20.0-31.0 Glucose [Mass/volume] in Serum or Plasma 2025-02-09 14:09:10 224 mg/dL F 70.0-99.0 Potassium [Moles/volume] in Serum or Plasma 2025-01-19 03:59:59 5.8 mEq/L F 3.5-5.5 Encounters No encounter information to report Immunizations Ordered Immunization Name Filled Immunization Name Date Status Comments Refusal Reason TST-PPD intradermal 2024-07-06 14:00:00 Influenza, MDCK, trivalent, preservative 2024-07-03 13:32:39 Covid-19 Vaccination 2024-06-25 04:00:00 pneumococcal polysaccharide PPV23 2024-06-25 04:00:00 TST-PPD intradermal 2023-07-17 19:23:29 TB RAQ 2023-07-17 04:00:00 TST-PPD intradermal 2022-07-30 12:10:58 Influenza Vaccination 2022-07-12 04:00:00 TB Skin Test 2021-08-07 05:00:00 Influenza Vaccination 2021-07-13 04:00:00 Covid-19 Vaccination 2020-12-07 05:00:00 Pneumococcal Vaccination 2019-07-02 04:00:00 Hepatitis B Vaccination 2017-04-15 04:00:00 Pneumococcal Vaccination 2014-09-12 05:00:00 Hepatitis B Vaccination 2014-07-20 04:00:00 Plan of Treatment Planned Activity Provider Planned Date Details Commen ts Diagnostic Test Pending Campbell Shipman 2025-05-16 04:00:00 Calcium [Mass/volume] in Serum or Plasma [code = 25483-3] Diagnostic Test Pending Campbell Serna Shipman 2025-03-29 04:00:00 Ferritin [Mass/volume] in Serum or Plasma [code = 2276-4] Diagnostic Test Pending Campbell Serna Shipman 2022-09-29 05:00:00 Folate [Mass/volume] in Serum or Plasma [code = 2284-8] Diagnostic Test Pending Campbell Shipman 2025-05-02 04:00:00 25-Hydroxyvitamin D3+25-Hydroxyvitamin D2 [Mass/volume] in Serum or Plasma [code = 39133-9] Diagnostic Test Pending Campbell Shipman 2025-04-08 05:43:55 Hemoglobin [Mass/volume] in Blood [code = 718-7] Diagnostic Test Pending Campbell Shipman 2022-06-29 04:00:00 Aluminum [Mass/volume] in Serum or Plasma [code = 5574-9] Diagnostic Test Pending Campbell Shipman 2022-04-29 04:00:00 Glucose [Mass/volume] in Serum or Plasma [code = 2345-7] Diagnostic Test Pending Campbell Shpiman 2022-04-29 04:00:00 Sodium [Moles/volume] in Serum or Plasma [code = 2951-2] Diagnostic Test Pending Campbell Serna Shipman 2022-09-29 05:00:00 Cobalamin (Vitamin B12) [Mass/volume] in Serum or Plasma [code = 2132-9] Diagnostic Test Pending Campbell Serna Shipman 2022-04-29 04:00:00 Alanine aminotransferase [Enzymatic activity/volume] in Serum or Plasma [code = 1742-6] Diagnostic Test Pending Campbell Serna Shipman 2022-04-14 04:00:00 25-Hydroxyvitamin D3+25-Hydroxyvitamin D2 [Mass/volume] in Serum or Plasma [code = 53694-0] Diagnostic Test Pending Campbell Daphne Shipman 2022-04-29 04:00:00 Creatinine [Mass/volume] in Serum or Plasma [code = 2160-0] Diagnostic Test Pending Campbell Serna Shipman 2022-04-29 04:00:00 Parathyrin.intact [Mass/volume] in Serum or Plasma [code = 2731-8] Diagnostic Test Pending Campbell Shipman 2025-04-19 18:37:32 Hemoglobin [Mass/volume] in Blood [code = 718-7] Diagnostic Test Pending Campbell Shipman 2025-04-19 05:36:11 Hemoglobin [Mass/volume] in Blood [code = 718-7] Diagnostic Test Pending Campbell Serna [facility] 2025-05-07 17:01:39 In-Center Hemodialysis Treatment [code = LPS275] Diagnostic Test Pending Campbell Serna [facility] 2025-04-28 10:18:14 In-Center Hemodialysis Treatment [code = [id number]] Diagnostic Test Pending Campbell Serna [facility] 2025-04-14 15:22:10 In-Center Hemodialysis Treatment [code = WUX087] Diet Order Campbell Serna Ship[facility] January 27, 2025 Diet Calorie 35 kcal/kg Fluid Value 1000 mL/d Phosphorus Value 1000 mg/d Potassium Value 3000 mg/d Protein Value 1.5 gm/kg Sodium Value 2000 mg/d Calculated Weight 84 kg dietary_diet_modification Carb Controlle d; MedicationWisarah Shipman 2025-07-05 04:00:00Tubersol [code = 138967]
--- OUTSIDE RECORDS SUMMARY | 2025-05-20 13:50 | XMS_ITS | Clinical Summary ---
Author Organization Healthcare Address [address] [place] [address] Care Team Providers Care Dump Grounds Checker Name Role Phone Burke Bonilla MD Primary Care Provider [phone] Latricia Rome MD Unavailable Allergies Active Allergy [...] 20 Active cholecalciferol (Vitamin D3) 1.25 MG (45440 UT) capsule Vitamin D3 Active Vitamin E [...] Type Department Care Team Description 03/02/2025 Telephone [facility] [address] [place] [address] Stu Rosales MD Med Refill [...] Visit [place] [facility] [address] [place] [address] Stu Rosales MD [address] [place], [place] [id number] Health Maintenance Due Date Last Done Comments [...] Completed 06/02/2024 [facility]-Hepatitis C Screening Completed 06/02/2024, [id number] Vaccine Completed 06/25/2024, 09/12/2023, 12/07/2020 [facility]-HIB Vaccines [...] Final Re sult [facility] [address] [place] [address] * Hepatitis C Antibody - ED (06/02/2024 11:39 PM EDT) Hepatitis C Antibody Negative Negative 06/03/2024 1:08 AM EDT HEALTHCARE [facility] Blood Venous blood specimen / Unknown Venipuncture / Unknown 06/02/2024 11:39 PM EDT 06/03/2024 12:17 AM EDT Yovani Belle MD LAB BLOOD ORDERABLES Final Re sult Performing Organization Address City/[facility] Co de Phone Number [facility] [address] [place] [address] from Last 3 Months or Most Recently Relevant to [place] [address] [facility] MEDICARE Care Teams Dump Grounds Checker Relationship Specialty Start Date End Date Burke Bonilla MD [address] [place] [id number] PCP - General 02/09/21 Latricia Rome MD [address] [place] [id number] Resident Neurology 07/23/21
[2025-05-23 16:01] LABS: Clostridium Difficile A/B, PCR Detected (NotDetected)
== END 2025-05-20 23:59 | disposition home or self-care (01) ==
LOC: LAB 13:38
PROVIDERS: PCP Internal Medicine Adolescent Medicine; Visit Provider Nurse Practitioner Family
DX: R19.7 Diarrhea, unspecified (principal)
CPT/HCPCS: 36415; 82705; 83993; 87045; 87177; 87205; 87493; 87507